=== PATIENT | male | born 1970 | race Caucasian/White ===

== ENCOUNTER → 2017-06-28 | Outpatient (CLI) | payer OTHER ==
--- NOTE | 2017-06-28 13:14 | US ---
EXAMINATION TYPE: US scrotum with doppler. Grayscale and color Doppler Duplex imaging performed of t he scrotum. DATE OF EXAM: 06/28/2017 COMPARISON: NONE CLINICAL HISTORY: N50.819 Testicular Pain; left scrotal pain x 6 months; hematuria EXAM MEASUREMENTS: TESTICLES: Right Testicle: 4.7 x 2.3 x 3.3 cm Left Testicle: 4.8 x 3.2 x 2.4 cm EPIDIDYMIS HEAD: Right Epididymis: 1.2 x 1.0 x 1.0 cm Left Epididymis: 1.0 x 2.6 x 0.9 cm Doppler performed to assess for testicular vascularity; good bilateral color flow and waveforms are s een. Presence of hydroceles: small amount of fluid noted in superior right scrotal sac with low level int ernal echoes noted = 2.0 x 1.5 x 0.6cm; larger fluid area noted inferior left scrotal sac = 2.9 x 2.2 x 1.1cm Presence of varicoceles: no There is small right scrotal fluid collection or hydrocele which is not completely anechoic. There ar e small to moderate-sized left scrotal fluid collection. Towards end of study color comparison view s hows symmetric blood flow to both testicles. IMPRESSION: No suspicious increased or decreased blood flow to left testicle identified.
== END | disposition home or self-care (01) ==
LOC: RADUSWWP 11:12
PROVIDERS: ATTEND Internal Medicine
DX: N50.819 Testicular pain, unspecified (principal)
CPT/HCPCS: 76870; 93975

== ENCOUNTER → 2017-10-12 | Outpatient (CLI) | payer OTHER ==
--- NOTE | 2017-10-14 14:48 | MR ---
EXAMINATION TYPE: MR brain wo/w con DATE OF EXAM: 10/12/2017 COMPARISON: Brain MRI for mastoiditis effusion 08/20/2017 HISTORY: Acute disseminated encephalomyelitis TECHNIQUE: Multiplanar, multisequence images of the brain and brainstem is performed without and with IV contras t, utilizing 11 mL intravenous Gadavist . FINDINGS: There has been progression in the size, distribution of T2 hyperintensities within the whit e matter, the hyperintensities seen in the centrum semiovale on previous exam has become more conflue nt and extensive on the right as well as some progression in the left parietal and right frontal whit e matter. Postcontrast images show some interval increase in enhancement in the right parietal white matter whi ch is somewhat more focal than on prior exam, some small scattered areas of enhancement persist bilat erally, thought to be improved. No significant mass effect, ventricles appear stable. No evident recent infarction or acute hemorrhag e. IMPRESSION: There has been some progression in the extent of involvement of the white matter as vinod red to prior exam. Some more confluence enhancement is noted in the right parietal lobe deep white ma tter as compared to prior.
== END | disposition home or self-care (01) ==
LOC: RADMRIMAIN 12:47
PROVIDERS: ATTEND Student in an Organized Health Care Education/Training Program
DX: R90.82 White matter disease, unspecified (principal); G04.00 Acute disseminated encephalitis and encephalomyelitis, unspecified
CPT/HCPCS: 70553; A9581

== ENCOUNTER → 2018-11-16 | Outpatient (CLI) | payer OTHER ==
--- NOTE | 2018-11-16 11:55 | US ---
EXAMINATION TYPE: US venous doppler duplex LE LT DATE OF EXAM: 11/16/2018 11:43 AM COMPARISON: NONE CLINICAL HISTORY: M79.662,R22.42 PAIN AND SWELLING LT LOWER LIMB. SIDE PERFORMED: LEFT TECHNIQUE: The lower extremity deep venous system is examined utilizing real time linear array sonog noam with graded compression, doppler sonography and color-flow sonography. VESSELS IMAGED: External Iliac Vein (EIV) Common Femoral Vein Deep Femoral Vein Greater Saphenous Vein * Femoral Vein Popliteal Vein Small Saphenous Vein * Proximal Calf Veins (* superficial vessels) Grayscale, color doppler, spectral doppler imaging performed of the deep veins of the left lower extr emity. There is normal flow, compressibility, vascular waveforms. Left Leg: wnl, upper post calf area appears to be superficial venous thrombosis, incompletely occlud ed. IMPRESSION: 1. Superficial venous thrombosis/femoral phlebitis at the area of concern within the left lower extre mity. 2. No sonographic evidence of deep venous thrombosis within the left lower extremity.
== END | disposition home or self-care (01) ==
LOC: RADUSWWP 10:55
PROVIDERS: ATTEND Internal Medicine
DX: M79.662 Pain in left lower leg (principal); R22.42 Localized swelling, mass and lump, left lower limb

== ENCOUNTER → 2019-10-09 | Outpatient (CLI) | payer OTHER ==
[2019-10-09 17:34] LABS: African American GFR (CKD) 90.9 (60.0-200.0); Albumin 4.5 g/dL (3.80-4.90); Albumin/Globulin Ratio 1.88 (1.60-3.17); Anion Gap 11.8 mmol/L (4.00-12.00); BUN/Creat Ratio 22.73 Ratio (12.00-20.00); Calcium 10.1 mg/dL (8.7-10.3); Carbon Dioxide 24.2 mmol/L (21.6-31.8); Chol/HDL Ratio 5.5; Globulin 2.4 g/dL (1.6-3.3); Non-African American GFR(CKD) 78.4 (60.0-200.0); Potassium 4.4 mmol/L (3.5-5.5); Total Bilirubin 0.4 mg/dL (0.2-1.2); Total Protein 6.9 g/dL (6.2-8.2)
== END | disposition home or self-care (01) ==
LOC: LABWHC1 10:16
PROVIDERS: ATTEND Physician Assistant
DX: I10 Essential (primary) hypertension (principal); N40.1 Benign prostatic hyperplasia with lower urinary tract symptoms; E78.5 Hyperlipidemia, unspecified; R22.43 Localized swelling, mass and lump, lower limb, bilateral
CPT/HCPCS: 36415; 80053; 80061; 83721; 83880; 84153

== ENCOUNTER 2020-10-04 17:39 | Inpatient (IN) | payer MEDICARE, OTHER ==
[2020-10-04] MEDS ORDERED: SODIUM CHLORIDE 0.9% 1,000 ML IV STA ×2 (18:12→19:59)
[2020-10-04] MEDS ORDERED: ONDANSETRON 4 MG/2 ML VIAL IVP STA (18:12)
[2020-10-04] MEDS ORDERED: HYDROmorphone 1 MG/ML 1 ML SYRINGE IVP STA (18:13)
[2020-10-04] MEDS ORDERED: FAMOTIDINE 20 MG/2 ML VIAL IV STA (18:13)
--- NOTE | 2020-10-04 18:16 | ED ---
General Adult HPI - General Chief complaint: Abdominal Pain Stated complaint: ab pain Time Seen by Provider: 10/04/20 18:00 Source: patient, RN notes reviewed Mode of arrival: ambulatory Limitations: no limitations - History of Present Illness Initial comments: Patient is a pleasant 49-year-old male presenting to the emergency Department with complaints of abdominal discomfort. Symptoms have progressed over the past couple of days. Patient has had nausea with several episodes of vomiting and dry heaves. No fever however patient is felt sweaty. No constipation or diarrhea. No history of similar symptoms previously. - Related Data Home Medications Medication Instructions Recorded Confirmed Aspirin EC [Ecotrin Low Dose] 81 mg PO DAILY 10/04/20 10/04/20 Atorvastatin Calcium [Lipitor] 10 mg PO HS 10/04/20 10/04/20 Fenofibrate Nanocrystallized 145 mg PO DAILY 10/04/20 10/04/20 [Fenofibrate] Losartan Potassium [Cozaar] 100 mg PO DAILY 10/04/20 10/04/20 amLODIPine [Norvasc] 5 mg PO DAILY 10/04/20 10/04/20 busPIRone HCl [Buspar] 10 mg PO TID 10/04/20 10/04/20 valACYclovir HCL [Valtrex] 500 mg PO DAILY 10/04/20 10/04/20 Allergies Allergy/AdvReac Type Severity Reaction Status Date / Time No Known Allergies Allergy Verified 10/04/20 19:58 Review of Systems ROS Statement: Those systems with pertinent positive or pertinent negative responses have been documented in the HPI. ROS Other: All systems not noted in ROS Statement are negative. Constitutional: Denies: fever Eyes: Denies: eye pain ENT: Denies: ear pain Respiratory: Denies: cough Cardiovascular: Denies: chest pain Endocrine: Denies: fatigue Gastrointestinal: Reports: as per HPI, abdominal pain, nausea, vomiting Genitourinary: Denies: dysuria Musculoskeletal: Denies: back pain Skin: Denies: rash Neurological: Denies: weakness Past Medical History Past Medical History: Hyperlipidemia, Hypertension Additional Past Medical History / Comment(s): encephomylitis, cognitive impairment History of Any Multi-Drug Resistant Organisms: None Reported Additional Past Surgical History / Comment(s): knn Past Psychological History: Anxiety, Depression Smoking Status: Never smoker Past Alcohol Use History: None Reported Past Drug Use History: None Reported General Exam Limitations: no limitations General appearance: alert Head exam: Present: normocephalic Eye exam: Present: normal appearance, PERRL ENT exam: Present: mucous membranes dry Neck exam: Present: normal inspection Respiratory exam: Present: normal lung sounds bilaterally Cardiovascular Exam: Present: tachycardia Expanded Peripheral pulses: 2+: Radial (R), Radial (L), Dorsalis Pedis (R), Dorsalis Pedis (L) GI/Abdominal exam: Present: distended, tenderness (Moderate diffuse tenderness), hypoactive bowel sounds. Absent: rigid, pulsatile mass Extremities exam: Present: normal inspection Neurological exam: Present: alert Psychiatric exam: Present: normal affect, normal mood Skin exam: Present: normal color Course Vital Signs 10/04/20 10/04/20 10/04/20 17:51 19:06 20:09 Temperature 98.1 F Pulse Rate 106 H 105 H 102 H Respiratory 18 16 20 Rate Blood Pressure 79/68 107/69 101/71 O2 Sat by Pulse 99 98 95 Oximetry - Reevaluation(s) Reevaluation #1: 10/04/20 20:02 Calculated serum osmolarity 296 10/04/20 20:31 Case was discussed with Dr. Fitzgerald who will consult and agrees with ICU. Case also discussed with Dr. Pearce who will consult for critical care. He does request adding ABG. Patient reevaluated. Patient and family updated. 10/04/20 20:35 Case also discussed with Dr. Cantrell, who will admit covering for Dr. Schrader. He does request high-dose heparin. Also insulin drip. EKG Findings - EKG Comments: EKG Findings:: Sinus tachycardia with a rate of 111. WV 170. QRS 100. QT 344. QTC 467. After axis. Septal Q waves. Inferior Q waves. No acute ST change. Medical Decision Making - Lab Data Result diagrams: 10/04/20 18:14 10/04/20 18:14 Lab Results 10/04/20 10/04/20 10/04/20 Range/Units 18:14 18:14 18:14 WBC 23.6 H (3.8-10.6) k/uL RBC 4.59 (4.30-5.90) m/uL Hgb 14.5 (13.0-17.5) gm/dL Hct 45.9 (39.0-53.0) % MCV 99.8 (80.0-100.0) fL MCH 31.5 (25.0-35.0) pg MCHC 31.6 (31.0-37.0) g/dL RDW 13.0 (11.5-15.5) % Plt Count 502 H (150-450) k/uL MPV 8.7 Neutrophils % 90 % Lymphocytes % 5 % Monocytes % 3 % Eosinophils % 0 % Basophils % 0 % Neutrophils # 21.3 H (1.3-7.7) k/uL Lymphocytes # 1.3 (1.0-4.8) k/uL Monocytes # 0.8 (0-1.0) k/uL Eosinophils # 0.1 (0-0.7) k/uL Basophils # 0.1 (0-0.2) k/uL Hypochromasia Moderate PT 11.0 (9.0-12.0) sec INR 1.0 (<1.2) APTT 22.6 (22.0-30.0) sec Sodium 116 L* (137-145) mmol/L Potassium 6.0 H (3.5-5.1) mmol/L Chloride 80 L (98-107) mmol/L Carbon Dioxide 8 L* (22-30) mmol/L Anion Gap 28 mmol/L BUN 28 H (9-20) mg/dL Creatinine 2.41 H (0.66-1.25) mg/dL Est GFR (CKD-EPI)AfAm 35 (>60 ml/min/1.73 sqM) Est GFR (CKD-EPI)NonAf 30 (>60 ml/min/1.73 sqM) Glucose 969 H* (74-99) mg/dL Calcium 7.4 L (8.4-10.2) mg/dL Total Bilirubin 1.7 H (0.2-1.3) mg/dL AST 52 (17-59) U/L ALT 25 (4-49) U/L Alkaline Phosphatase 113 (38-126) U/L Troponin I (0.000-0.034) ng/mL Total Protein 6.4 (6.3-8.2) g/dL Albumin 3.8 (3.5-5.0) g/dL Amylase 1399 H* (30-110) U/L Lipase >05329 H (23-300) U/L Coronavirus (PCR) (Not Detectd) 10/04/20 10/04/20 Range/Units 18:14 18:49 WBC (3.8-10.6) k/uL RBC (4.30-5.90) m/uL Hgb (13.0-17.5) gm/dL Hct (39.0-53.0) % MCV (80.0-100.0) fL MCH (25.0-35.0) pg MCHC (31.0-37.0) g/dL RDW (11.5-15.5) % Plt Count (150-450) k/uL MPV Neutrophils % % Lymphocytes % % Monocytes % % Eosinophils % % Basophils % % Neutrophils # (1.3-7.7) k/uL Lymphocytes # (1.0-4.8) k/uL Monocytes # (0-1.0) k/uL Eosinophils # (0-0.7) k/uL Basophils # (0-0.2) k/uL Hypochromasia PT (9.0-12.0) sec INR (<1.2) APTT (22.0-30.0) sec Sodium (137-145) mmol/L Potassium (3.5-5.1) mmol/L Chloride (98-107) mmol/L Carbon Dioxide (22-30) mmol/L Anion Gap mmol/L BUN (9-20) mg/dL Creatinine (0.66-1.25) mg/dL Est GFR (CKD-EPI)AfAm (>60 ml/min/1.73 sqM) Est GFR (CKD-EPI)NonAf (>60 ml/min/1.73 sqM) Glucose (74-99) mg/dL Calcium (8.4-10.2) mg/dL Total Bilirubin (0.2-1.3) mg/dL AST (17-59) U/L ALT (4-49) U/L Alkaline Phosphatase (38-126) U/L Troponin I <0.012 (0.000-0.034) ng/mL Total Protein (6.3-8.2) g/dL Albumin (3.5-5.0) g/dL Amylase (30-110) U/L Lipase (23-300) U/L Coronavirus (PCR) Not Detected (Not Detectd) - Radiology Data Radiology results: report reviewed (Computed tomography scan shows moderate to severe interstitial pancreatitis with edema and stranding. Secondary complication nonocclusive splenic vein thrombosis. Metallic density second portion of duodenum. Duodenitis and proximal jejunitis adjacent to pancreatic inflammation. Moderate ascites.) Critical Care Time Critical Care Time: Yes Total Critical Care Time: 44 Disposition Clinical Impression: Pancreatitis, Hyperglycemia, Acute kidney injury, Hyponatremia, Splenic vein thrombosis Disposition: ADMITTED IP TO THIS HOSP Condition: Critical Is patient prescribed a controlled substance at d/c from ED?: No Referrals: Gonzales Thompson MD [Primary Care Provider] - 1-2 days Decision Time: 20:26
[2020-10-04 18:41] LABS: Basophils # (A) 0.1 k/uL (0-0.2); Basophils % (A) 0 %; Eosinophils # (A) 0.1 k/uL (0-0.7); Eosinophils % (A) 0 %; HCT 45.9 % (39.0-53.0); HGB 14.5 gm/dL (13.0-17.5); Hypochromasia Moderate; Lymphocytes # (A) 1.3 k/uL (1.0-4.8); Lymphocytes % (A) 5 %; MCH 31.5 pg (25.0-35.0); MCHC 31.6 g/dL (31.0-37.0); MCV 99.8 fL (80.0-100.0); Mean Platelet Volume 8.7; Monocytes # (A) 0.8 k/uL (0-1.0); Monocytes % (A) 3 %; Neutrophils # (A) 21.3 k/uL (1.3-7.7); Neutrophils % (A) 90 %; Platelet Count 502 k/uL (150-450); RBC 4.59 m/uL (4.30-5.90); WBC 23.6 k/uL (3.8-10.6)
[2020-10-04 18:55] LABS: Partial Thromboplastin Time 22.6 sec (22.0-30.0)
[2020-10-04 19:02] LABS: ALT 25 U/L (4-49); AST 52 U/L (17-59); African American GFR (CKD) 35 (>60 ml/min/1.73 sqM); Albumin 3.8 g/dL (3.5-5.0); Alkaline Phosphatase 113 U/L (38-126); Anion Gap 28 mmol/L; Blood Urea Nitrogen 28 mg/dL (9-20); Calcium 7.4 mg/dL (8.4-10.2); Chloride 80 mmol/L (98-107); Non-African American GFR(CKD) 30 (>60 ml/min/1.73 sqM); Total Bilirubin 1.7 mg/dL (0.2-1.3); Total Protein 6.4 g/dL (6.3-8.2)
[2020-10-04 19:45] LABS: Lipase >20000 U/L (23-300)
[2020-10-04 19:48] LABS: Carbon Dioxide 8 mmol/L (22-30); Glucose 969 mg/dL (74-99); Sodium 116 mmol/L (137-145)
[2020-10-04 19:49] LABS: Amylase 1399 U/L (30-110)
[2020-10-04] MEDS ORDERED: INSULIN REGULAR 100 UNIT/ML VIAL (IV) IV ONE (20:11)
--- NOTE | 2020-10-04 20:19 | CT ---
EXAMINATION TYPE: CT abdomen pelvis w con DATE OF EXAM: 10/04/2020 COMPARISON: NONE HISTORY: 49-year-old male abdominal pain, RLQ pain, vomiting TECHNIQUE: Contiguous axial scanning of the abdomen and pelvis following administration of 100 ml Iso ayaan 300 IV contrast. Delayed images through the kidneys and coronal/sagittal reconstructions perform ed. CT DLP: 1973.9 mGycm Automated exposure control for dose reduction was used. FINDINGS: Heart normal size without pericardial effusion. Prominent dependent atelectasis. No pleural effusion. Liver enlarged at 22.5 cm with low attenuation. There is trace perihepatic ascites. Some type of 1.6 cm metallic density, possible crown in the second portion of the duodenum, unclear i f this is an incidental finding. There is prominent fluid distention of the stomach. Diffuse thickening and extensive surrounding inflammatory fat stranding along the entirety of the barrow creas. There is moderate circumferential wall thickening of the duodenum and first portion of the jej unum and corresponding dilatation of the 3.6 cm. There is long segment internal filling defect along the length of the spine clinic vein, refer to axi al image 34 and coronal image 63. No intrapancreatic or peripancreatic well-defined fluid collection is identified. Adrenal glands and spleen within normal limits. Tiny 5 mm cortical hypodensity mid left kidney too small for accurate CT characterization, likely tin y cysts. 2 mm nonobstructive left lower pole renal calculus. A couple cysts are present in the right kidney measuring 1.1 and 2.3 cm. There is delayed excretion of contrast from both kidneys on the delayed kidney images. Correlation ma de for GIANCARLO. Inflammatory fat stranding and edema tracks down the retroperitoneum and mesentery down to the umbili amish level. No other dilated small bowel. No free air. Normal appendix. No significant stool burden. Sigmoid diverticulosis. Bladder partially distended. Pelvic phleboliths. Mild to moderate cul-de-sac free fluid. Bones: Mild degenerative change of the hips. Bilateral L5 pars defects with nearly grade 2 anterolist hesis at L5-S1 and grade 1 retrolisthesis at L4-L5. [facility] within the lower thoracic spine. IMPRESSION: 1. MODERATE TO SEVERE ACUTE INTERSTITIAL PANCREATITIS. INFLAMMATORY EDEMA AND FAT STRANDING TRACKS DO WN THE MESENTERY AND RETROPERITONEUM TO THE UMBILICAL LEVEL. NO FOCAL FLUID COLLECTION AT THIS TIME. 2. SECONDARY COMPLICATION WITH A LONG SEGMENT NONOCCLUSIVE SPLENIC VEIN THROMBOSIS. 3. A 1.6 CM METAL DENSITY WITHIN THE SECOND PORTION OF THE DUODENUM. CORRELATE TO ETIOLOGY, QUESTI ON A DENTAL CROWN OR OTHER INGESTED FOREIGN BODY. THE CLINICAL SIGNIFICANCE OF THIS IS UNCLEAR. WE DO NOTE PROMINENT FLUID DISTENTION OF THE STOMACH. UNSURE IF THIS IS CONTRIBUTING TO SOME TYPE OF GASTR IC OUTLET OBSTRUCTION. 4. A CONTIGUOUS DUODENITIS AND PROXIMAL JEJUNITIS ADJACENT TO THE PANCREATIC INFLAMMATION. 5. TRACE PERIHEPATIC ASCITES AND MILD TO MODERATE PELVIC ASCITES, SECONDARY TO THE PANCREATIC INFLAMM ATION. 6. NO EXCRETION OF CONTRAST FROM THE KIDNEYS ON THE DELAYED KIDNEY IMAGES. CORRELATE WITH BUN/CREATIN INE FOR GIANCARLO. 7. HEPATOMEGALY WITH SEVERE HEPATIC STEATOSIS. SIGMOID DIVERTICULOSIS. PUNCTATE 2 MM NONOBSTRUCTIVE L EFT RENAL CALCULUS. BILATERAL L5 PARS DEFECTS WITH NEARLY GRADE 2 ANTEROLISTHESIS AT L5-S1.
[2020-10-04] MEDS ORDERED: NALOXONE 0.4 MG/ML 1 ML VIAL IV PRN (20:26)
[2020-10-04] MEDS ORDERED: HEPARIN SODIUM 1,000 UN/ML (10ML VL) IV ONE (20:36)
[2020-10-04 20:48] LABS: LDH 1155 U/L (313-618); Magnesium 1.6 mg/dL (1.6-2.3); Phosphorus 5.2 mg/dL (2.5-4.5)
[2020-10-04 20:51] LABS: Appearance,Urine Clear (Clear); Bilirubin,Urine Negative (Negative); Blood,Urine Negative (Negative); Color,Urine Light Yellow; Glucose,Urine (UA) 4+ (Negative); Ketones,Urine 1+ (Negative); Leukocyte Esterase,Urine Negative (Negative); Nitrite,Urine Negative (Negative); Protein,Urine Trace (Negative); Urobilinogen,Urine <2.0 mg/dL (<2.0)
[2020-10-04] MEDS: SODIUM CHLORIDE 0.9% 1,000 ML IV SCH ×2 (20:52→20:54)
[2020-10-04] MEDS: HEPARIN SOD,PORK IN 0.45% NACL 25,000 UNIT in 0.45% NACL 1 250ML.BAG IV SCH (20:54)
[2020-10-04] MEDS: INSULIN REGULAR 100 UNIT in SODIUM CHLORIDE 0.9% 100 ML IV SCH (21:05)
[2020-10-04 21:09] LABS: Glucose,Whole Blood >600 mg/dL (75-99)
[2020-10-04 21:57] LABS: Glucose,Whole Blood >600 mg/dL (75-99)
[2020-10-04 22:17] LABS: Glucose,Whole Blood >600 mg/dL (75-99)
[2020-10-04 23:29] LABS: Glucose,Whole Blood >600 mg/dL (75-99)
[2020-10-05 00:51] LABS: Glucose,Whole Blood 592 mg/dL (75-99)
[2020-10-05 00:54] LABS: Potassium 4.4 mmol/L (3.5-5.1)
[2020-10-05] MEDS ORDERED: ONDANSETRON 4 MG/2 ML VIAL IM STA (01:16)
[2020-10-05] MEDS ORDERED: ONDANSETRON 4 MG/2 ML VIAL IVP STA (01:58)
[2020-10-05] MEDS: HYDROmorphone 0.5 MG/0.5 ML SYRINGE IVP PRN (01:59)
[2020-10-05] MEDS: SODIUM CHLORIDE 0.9% 1,000 ML IV SCH ×2 (02:05→08:12)
[2020-10-05 02:11] LABS: Glucose,Whole Blood 507 mg/dL (75-99)
[2020-10-05 03:14] LABS: Glucose,Whole Blood 491 mg/dL (75-99)
[2020-10-05] MEDS: INSULIN REGULAR 100 UNIT in SODIUM CHLORIDE 0.9% 100 ML IV SCH ×2 (03:28→14:37)
[2020-10-05] MEDS: HYDROmorphone 1 MG/ML 1 ML SYRINGE IVP PRN ×4 (03:37→20:08)
[2020-10-05 03:50] LABS: Basophils # (A) 0.1 k/uL (0-0.2); Basophils % (A) 0 %; Eosinophils % (A) 0 %; HCT 42.7 % (39.0-53.0); Lymphocytes # (A) 1.5 k/uL (1.0-4.8); Lymphocytes % (A) 7 %; MCH 30.7 pg (25.0-35.0); MCHC 32.9 g/dL (31.0-37.0); MCV 93.4 fL (80.0-100.0); Mean Platelet Volume 8.3; Monocytes # (A) 0.4 k/uL (0-1.0); Monocytes % (A) 2 %; Neutrophils % (A) 91 %; Platelet Count 451 k/uL (150-450); RBC 4.57 m/uL (4.30-5.90); RDW 13.6 % (11.5-15.5)
[2020-10-05 04:27] LABS: Glucose,Whole Blood 398 mg/dL (75-99)
[2020-10-05] MEDS: SODIUM CHLORIDE 0.9% 1,000 ML IV ONE ×2 (04:30→05:30)
[2020-10-05 05:12] LABS: INR 1.1 (<1.2); Prothrombin Time 11.8 sec (9.0-12.0)
[2020-10-05 05:19] LABS: Albumin 3.1 g/dL (3.5-5.0); Magnesium 1.7 mg/dL (1.6-2.3); Potassium 4.1 mmol/L (3.5-5.1); Total Bilirubin 0.9 mg/dL (0.2-1.3); Total Protein 5.7 g/dL (6.3-8.2)
[2020-10-05 05:48] LABS: Glucose,Whole Blood 354 mg/dL (75-99)
[2020-10-05] MEDS ORDERED: SODIUM CHLORIDE 0.9% 1,000 ML IV ONE (05:49)
[2020-10-05 05:53] LABS: Calcium 6.4 mg/dL (8.4-10.2)
[2020-10-05 06:40] LABS: Glucose,Whole Blood 247 mg/dL (75-99)
[2020-10-05] MEDS ORDERED: SODIUM CHLORIDE 0.9% 500 ML 500 ML IV ONE (06:59)
[2020-10-05 07:39] LABS: Glucose,Whole Blood 215 mg/dL (75-99)
[2020-10-05] MEDS: PANTOPRAZOLE 40 MG/10 ML VIAL IV SCH (08:15)
[2020-10-05] MEDS: D5-0.45% NACL WITH KCL 20MEQ/L 1,000 ML IV SCH ×3 (08:16→22:31)
[2020-10-05 09:01] LABS: Glucose,Whole Blood 179 mg/dL (75-99)
--- NOTE | 2020-10-05 09:52 | P.CNPUL ---
History of Present Illness Consult date: 10/05/20 Requesting physician: Lizzy Cantrell Reason for consult: other (Critical care management) Chief complaint: Abdominal pain History of present illness: This is a pleasant 49-year-old gentleman who follows with Dr. Thompson as his primary care provider. He has a history of hyperlipidemia, hypertension, shingles with encephalomyelitis and cognitive impairment, anxiety/depression. Lifelong nonsmoker. He presented to the emergency room yesterday with a 2 day history of increasing abdominal discomfort, nausea vomiting dry heaves. Diaphoretic. Computed tomography scan of the abdomen revealed moderate to severe acute interstitial pancreatitis. Inflammatory edema and fat stranding tracks on the mesentery and retroperitoneum to the umbilical level. No focal fluid collection noted. There is secondary complication with a long segment nonocclusive splenic vein thrombosis. There is a 1.6 cm metal density within the second portion of the duodenum. Questionable etiology possible dental crown or other ingested foreign body. Unsure if this is contributing to some type of gastric outlet obstruction. There is contiguous duodenitis and proximal jejunitis adjacent to the pancreatic inflammation. Trace perihepatic ascites and mild to moderate pelvic ascites secondary to pancreatic inflammation. No excretion of contrast and the kidneys on the delayed kidney images. Possible acute kidney injury. Hepatomegaly with severe hepatic steatosis. Sigmoid diverticulosis. 2 mm nonobstructive left renal calculus. White count 22.0. Hemoglobin 14.0. Platelet count 451. Sodium initially 116 currently 125. Potassium initially 6.0 currently 4.1. I carb initially 8, currently 15. Anion gap initially 28, currently 17. Creatinine 2.70. Initial blood glucose 969. Currently 179. Calcium 6.4. LDH 1570. AST 54. ALT 29. Amylase 901. Lipase 10,000 385. Acetone positive. Hurtado virus not detected. He is currently awake and alert. Maintaining O2 saturations in the 90s on 5 L/m per nasal cannula. He is on a heparin drip per weight-based protocol. Insulin drip at 12 units per hour. 0.9 normal saline at 10 mL per hour. He's had an extreme total of 4.5 L of fluid resuscitation. IV is to be changed to D5.45 with 20 KCl at 150 MLS per hour per DKA protocol. Review of Systems REVIEW OF SYSTEMS: CONSTITUTIONAL: Denies any recent significant weight loss or weight gain. EYES: Denies change in vision. EARS, NOSE, MOUTH, THROAT: Denies headaches, denies sore throat. CARDIOVASCULAR: Denies chest pain, palpitations or syncopal episodes. RESPIRATORY: Denies shortness of breath, cough, congestion or hemoptysis. GASTROINTESTINAL: Positive for abdominal pain, nausea, vomiting GENITOURINARY: Denies hematuria, denies infections. MUSKULOSKELETAL: Denies pain, denies swelling. INTEGUMENTARY: Denies rash, denies eczema. NEUROLOGICAL: Denies recent memory loss, no recent seizure activity. PSYCHIATRIC: Denies anxiety, denies depression. HEMATOLOGIC/LYMPHATIC: Denies anemia, denies enlarged lymph nodes. Past Medical History Past Medical History: Hyperlipidemia, Hypertension Additional Past Medical History / Comment(s): encephomylitis, cognitive impairment History of Any Multi-Drug Resistant Organisms: None Reported Additional Past Surgical History / Comment(s): knn Past Anesthesia/Blood Transfusion Reactions: No Reported Reaction Past Psychological History: Anxiety, Depression Smoking Status: Former smoker Past Alcohol Use History: None Reported Past Drug Use History: None Reported Medications and Allergies Home Medications Medication Instructions Recorded Confirmed Type Aspirin EC [Ecotrin Low Dose] 81 mg PO DAILY 10/04/20 10/04/20 History Atorvastatin Calcium [Lipitor] 10 mg PO HS 10/04/20 10/04/20 History Fenofibrate Nanocrystallized 145 mg PO DAILY 10/04/20 10/04/20 History [Fenofibrate] Losartan Potassium [Cozaar] 100 mg PO DAILY 10/04/20 10/04/20 History amLODIPine [Norvasc] 5 mg PO DAILY 10/04/20 10/04/20 History busPIRone HCl [Buspar] 10 mg PO TID 10/04/20 10/04/20 History valACYclovir HCL [Valtrex] 500 mg PO DAILY 10/04/20 10/04/20 History Allergies Allergy/AdvReac Type Severity Reaction Status Date / Time No Known Allergies Allergy Verified 10/04/20 19:58 Physical Exam Vitals: Vital Signs Temp Pulse Pulse Resp BP BP Pulse Ox 10/05/20 08:30 98 13 89/58 91 L 10/05/20 06:00 100 15 78/56 96 10/05/20 05:00 104 H 16 76/57 95 10/05/20 04:00 98.8 F 114 H 15 80/45 90 L 10/05/20 03:00 107 H 18 97/58 95 10/05/20 02:00 113 H 16 99/74 92 L 10/05/20 01:00 101 H 17 110/71 93 L 10/05/20 00:00 103 H 18 99/74 93 L 10/04/20 23:16 103 H 17 98/73 94 L 10/04/20 23:02 102 H 20 98/73 92 L 10/04/20 22:30 102 H 15 102/69 93 L 10/04/20 22:20 98.6 F 103 H 16 109/72 94 L 10/04/20 21:42 102 H 96/66 95 10/04/20 21:20 93/77 99 10/04/20 21:10 99/70 95 10/04/20 21:00 105/69 97 10/04/20 20:50 105/69 96 10/04/20 20:40 89/61 100 10/04/20 20:30 102 H 104/72 96 10/04/20 20:20 107 H 104/72 10/04/20 20:10 102 H 101/71 95 10/04/20 20:09 102 H 20 101/71 95 10/04/20 20:00 101/51 95 10/04/20 19:50 102 H 101/51 94 L 10/04/20 19:40 94 L 10/04/20 19:30 127/91 10/04/20 19:20 127/91 10/04/20 19:10 104 H 107/69 95 10/04/20 19:06 105 H 16 107/69 98 10/04/20 19:00 104 H 104/74 95 10/04/20 18:50 105 H 104/74 95 10/04/20 18:40 108 H 120/81 95 10/04/20 18:30 110 H 109/79 96 10/04/20 18:20 111 H 97 10/04/20 18:11 112 H 10/04/20 17:51 98.1 F 106 H 18 79/68 99 Intake and Output 10/04/20 10/05/20 10/05/20 22:59 06:59 14:59 Intake Total 10.519 1075.505 500 Output Total 1100 Balance 10.519 -24.495 500 Intake: Intake, IV Titration 10. 1075.505 500 Amount Insulin Regular 100 unit 10. 70.505 In Sodium Chloride 0.9% 100 ml @ 0.1 UNITS/KG/HR 11.27 mls/hr IV .Q8H58M [facility] Rx#:[id number] Sodium Chloride 0.9% 1, 405 000 ml @ 135 mls/hr IV . Q7H25M [facility] Rx#:[id number] Sodium Chloride 0.9% 1, 600 000 ml @ 200 mls/hr IV . Q5H [facility] Rx#:[id number] Sodium Chloride 0.9% 500 500 ml 500 ml @ 999 mls/hr IV .Q31M [facility] Rx#:[id number] Output: Urine 1100 Other: Voiding Method Urinal # Voids 2 Weight 116 kg 116 kg GENERAL EXAM: Alert, pleasant 49-year-old, on 5 L nasal cannula, fairly comfortable in no apparent distress. HEAD: Normocephalic. EYES: Normal reaction of pupils, equal size. NOSE: Clear with pink turbinates. THROAT: No erythema or exudates. NECK: No masses, no JVD. CHEST: No chest wall deformity. LUNGS: Equal air entry with no crackles, wheeze, rhonchi or dullness. CVS: S1 and S2 normal with no audible murmur, regular rhythm. ABDOMEN: Tender to palpation, normal bowel sounds, no guarding or rigidity. SPINE: No scoliosis or deformity SKIN: No rashes CENTRAL NERVOUS SYSTEM: No focal deficits, tone is normal in all 4 extremities. EXTREMITIES: There is no peripheral edema. No clubbing, no cyanosis. Peripheral pulses are intact. Results - Laboratory Findings CBC and BMP: 10/05/20 02:45 10/05/20 04:22 PT/INR, D-dimer PT 11.8 sec (9.0-12.0) 10/05/20 04:22 INR 1.1 (<1.2) 10/05/20 04:22 Abnormal lab findings: Abnormal Labs 10/04/20 10/04/20 10/04/20 18:14 18:14 20:21 WBC 23.6 H Plt Count 502 H Neutrophils # 21.3 H APTT Sodium 116 L* Potassium 6.0 H Chloride 80 L Carbon Dioxide 8 L* BUN 28 H Creatinine 2.41 H Glucose 969 H* POC Glucose (mg/dL) Osmolality 315 H Calcium 7.4 L Phosphorus 5.2 H Total Bilirubin 1.7 H Lactate Dehydrogenase 1155 H Total Protein Albumin Amylase 1399 H* Lipase >30931 H Urine Protein Urine Glucose (UA) Urine Ketones 10/04/20 10/04/20 10/04/20 20:40 21:06 21:56 WBC Plt Count Neutrophils # APTT Sodium Potassium Chloride Carbon Dioxide BUN Creatinine Glucose POC Glucose (mg/dL) >600 H >600 H Osmolality Calcium Phosphorus Total Bilirubin Lactate Dehydrogenase Total Protein Albumin Amylase Lipase Urine Protein Trace H Urine Glucose (UA) 4+ H Urine Ketones 1+ H 10/04/20 10/04/20 10/05/20 22:16 23:27 00:32 WBC Plt Count Neutrophils # APTT Sodium 121 L Potassium Chloride 89 L Carbon Dioxide 18 L BUN 32 H Creatinine 2.11 H Glucose 641 H* POC Glucose (mg/dL) >600 H >600 H Osmolality Calcium Phosphorus Total Bilirubin Lactate Dehydrogenase Total Protein Albumin Amylase Lipase Urine Protein Urine Glucose (UA) Urine Ketones 10/05/20 10/05/20 10/05/20 00:50 02:10 02:45 WBC Plt Count Neutrophils # APTT 58.6 H Sodium Potassium Chloride Carbon Dioxide BUN Creatinine Glucose POC Glucose (mg/dL) 592 H 507 H Osmolality Calcium Phosphorus Total Bilirubin Lactate Dehydrogenase Total Protein Albumin Amylase Lipase Urine Protein Urine Glucose (UA) Urine Ketones 10/05/20 10/05/20 10/05/20 02:45 03:12 04:22 WBC 22.0 H Plt Count 451 H Neutrophils # 20.0 H APTT Sodium 125 L Potassium Chloride 93 L Carbon Dioxide 15 L BUN 34 H Creatinine 2.70 H Glucose 399 H POC Glucose (mg/dL) 491 H Osmolality Calcium 6.4 L* Phosphorus Total Bilirubin Lactate Dehydrogenase 1570 H Total Protein 5.7 L Albumin 3.1 L Amylase 901 H* Lipase 43932 H Urine Protein Urine Glucose (UA) Urine Ketones 10/05/20 10/05/20 10/05/20 04:25 05:46 06:38 WBC Plt Count Neutrophils # APTT Sodium Potassium Chloride Carbon Dioxide BUN Creatinine Glucose POC Glucose (mg/dL) 398 H 354 H 247 H Osmolality Calcium Phosphorus Total Bilirubin Lactate Dehydrogenase Total Protein Albumin Amylase Lipase Urine Protein Urine Glucose (UA) Urine Ketones 10/05/20 10/05/20 07:37 08:59 WBC Plt Count Neutrophils # APTT Sodium Potassium Chloride Carbon Dioxide BUN Creatinine Glucose POC Glucose (mg/dL) 215 H 179 H Osmolality Calcium Phosphorus Total Bilirubin Lactate Dehydrogenase Total Protein Albumin Amylase Lipase Urine Protein Urine Glucose (UA) Urine Ketones - Diagnostic Findings Chest x-ray: image reviewed Assessment and Plan Assessment: 1 Acute abdominal pain secondary to moderate to severe acute pancreatitis. 2 Secondary complication with a long segment of nonocclusive splenic vein thrombosis. Currently on a heparin drip. 3 1.6 cm metal density within the second portion of the duodenum. Correlate to etiology, question dental crown or other ingested foreign body. Unclear if this is contributing to some type of gastric outlet obstruction. 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 Wu Give additional 1.5 L of fluid resuscitation May require norepinephrine Random serum cortisol level and a TSH Check ionized calcium Obtain a chest x-ray Continue DKA protocol Keep nothing by mouth We'll give empiric Unasyn We will continue to follow and make further recommendations based on his clinical status I, the cosigning physician, performed a history & physical examination of the patient. Lungs sounds are clear. Maintaining good O2 saturations in the 90s on 5 L/m per nasal cannula. I discussed the assessment and plan of care with my nurse practitioner, Dolly Augustine. I attest to the above consultation as dictated by her. Time with Patient: Greater than 30
[2020-10-05 10:14] LABS: Glucose,Whole Blood 183 mg/dL (75-99)
[2020-10-05 10:42] LABS: ABG Base Excess -13.1 mmol/L; ABG HCO3 13 mmol/L (21-25); ABG Oxygen Saturation 93.5 % (94-97); ABG PCO2 28 mmHg (35-45); ABG PH 7.29 (7.35-7.45); ABG PO2 68 mmHg (83-108); ABG TCO2 14 mmol/L (19-24); Allen Test Performed? Yes
[2020-10-05] MEDS ORDERED: SODIUM BICARB 8.4% 50 ML SYR (1 MEQ/ML) IV STA (10:48)
--- NOTE | 2020-10-05 10:55 | XR ---
EXAMINATION TYPE: XR chest 1V portable DATE OF EXAM: 10/05/2020 COMPARISON: NONE HISTORY: Shortness of breath TECHNIQUE: Single frontal view of the chest is obtained. FINDINGS: Lung volumes and bibasilar atelectasis. No pneumothorax or pleural effusion. No cardiomediastinal silhouette enlargement. No acute osseous abnormality. IMPRESSION: Low lung volumes, bibasilar atelectasis no evidence of pneumonia or CHF.
[2020-10-05] MEDS: HEPARIN SOD,PORK IN 0.45% NACL 25,000 UNIT in 0.45% NACL 1 250ML.BAG IV SCH (11:24)
[2020-10-05 11:35] LABS: Glucose,Whole Blood 214 mg/dL (75-99)
[2020-10-05] MEDS: AMPICILLIN-SULBACTAM 1.5 GM in SODIUM CHLORIDE 0.9% 50 ML IVPB SCH ×2 (11:48→20:20)
[2020-10-05] MEDS ORDERED: CALCIUM GLUCONATE 2 GM in SODIUM CHLORIDE 0.9% 100 ML IVPB ONE (12:00)
--- NOTE | 2020-10-05 12:42 | P.GSCN ---
History of Present Illness Consult date: 10/05/20 Reason for Consult: Abdominal pain History of present illness: This a 49-year-old male who presents through the emergency room with complaints of abdominal pain. Patient's workup and found to have severe pancreatitis. He has multiple comorbidities. He is currently complaining of pain in epigastric area was raised to his back. Past Medical History Past Medical History: Hyperlipidemia, Hypertension Additional Past Medical History / Comment(s): encephomylitis, cognitive imp airment History of Any Multi-Drug Resistant Organisms: None Reported Additional Past Surgical History / Comment(s): knn Past Anesthesia/Blood Transfusion Reactions: No Reported Reaction Past Psychological History: Anxiety, Depression Smoking Status: Former smoker Past Alcohol Use History: None Reported Past Drug Use History: None Reported Medications and Allergies Home Medications Medication Instructions Recorded Confirmed Type Aspirin EC [Ecotrin Low Dose] 81 mg PO DAILY 10/04/20 10/04/20 History Atorvastatin Calcium [Lipitor] 10 mg PO HS 10/04/20 10/04/20 History Fenofibrate Nanocrystallized 145 mg PO DAILY 10/04/20 10/04/20 History [Fenofibrate] Losartan Potassium [Cozaar] 100 mg PO DAILY 10/04/20 10/04/20 History amLODIPine [Norvasc] 5 mg PO DAILY 10/04/20 10/04/20 History busPIRone HCl [Buspar] 10 mg PO TID 10/04/20 10/04/20 History valACYclovir HCL [Valtrex] 500 mg PO DAILY 10/04/20 10/04/20 History Allergies Allergy/AdvReac Type Severity Reaction Status Date / Time No Known Allergies Allergy Verified 10/04/20 19:58 Surgical - Exam Vital Signs Temp Pulse Resp BP Pulse Ox 98.1 F 106 H 18 79/68 99 10/04/20 17:51 10/04/20 17:51 10/04/20 17:51 10/04/20 17:51 10/04/20 17:51 - General well developed, moderate distress - Eyes PERRL - ENT normal pinna, normal nares - Neck no masses - Respiratory normal expansion - Cardiovascular Rhythm: regular - Abdomen Epigastric tenderness Abdomen: soft Results - Labs 10/05/20 02:45 10/05/20 04:22 Abnormal Lab Results - Last 24 Hours (Table) 10/04/20 10/04/2010/04/21 Range/Units 18:14 18:14 20:21 WBC 23.6 H (3.8-10.6) k/uL Plt Count 502 H (150-450) k/uL Neutrophils # 21.3 H (1.3-7.7) k/uL APTT (22.0-30.0) sec ABG pH (7.35-7.45) ABG pCO2 (35-45) mmHg ABG pO2 (83-108) mmHg ABG HCO3 (21-25) mmol/L ABG Total CO2 (19-24) mmol/L ABG O2 Saturation (94-97) % Sodium 116 L* (137-145) mmol/L Potassium 6.0 H (3.5-5.1) mmol/L Chloride 80 L (98-107) mmol/L Carbon Dioxide 8 L* (22-30) mmol/L BUN 28 H (9-20) mg/dL Creatinine 2.41 H (0.66-1.25) mg/dL Glucose 969 H* (74-99) mg/dL POC Glucose (mg/dL) (75-99) mg/dL Osmolality 315 H (280-301) mosm/kg Calcium 7.4 L (8.4-10.2) mg/dL Ionized Calcium Nicole (4.5-5.3) mg/dL Phosphorus 5.2 H (2.5-4.5) mg/dL Total Bilirubin 1.7 H (0.2-1.3) mg/dL Lactate Dehydrogenase 1155 H (313-618) U/L Total Protein (6.3-8.2) g/dL Albumin (3.5-5.0) g/dL Amylase 1399 H* (30-110) U/L Lipase >82822 H (23-300) U/L Urine Protein (Negative) Urine Glucose (UA) (Negative) Urine Ketones (Negative) 10/04/20 10/04/20 10/04/20 Range/Units 20:40 21:06 21:56 WBC (3.8-10.6) k/uL Plt Count (150-450) k/uL Neutrophils # (1.3-7.7) k/uL APTT (22.0-30.0) sec ABG pH (7.35-7.45) ABG pCO2 (35-45) mmHg ABG pO2 (83-108) mmHg ABG HCO3 (21-25) mmol/L ABG Total CO2 (19-24) mmol/L ABG O2 Saturation (94-97) % Sodium (137-145) mmol/L Potassium (3.5-5.1) mmol/L Chloride (98-107) mmol/L Carbon Dioxide (22-30) mmol/L BUN (9-20) mg/dL Creatinine (0.66-1.25) mg/dL Glucose (74-99) mg/dL POC Glucose (mg/dL) >600 H >600 H (75-99) mg/dL Osmolality (280-301) mosm/kg Calcium (8.4-10.2) mg/dL Ionized Calcium Nicole (4.5-5.3) mg/dL Phosphorus (2.5-4.5) mg/dL Total Bilirubin (0.2-1.3) mg/dL Lactate Dehydrogenase (313-618) U/L Total Protein (6.3-8.2) g/dL Albumin (3.5-5.0) g/dL Amylase (30-110) U/L Lipase (23-300) U/L Urine Protein Trace H (Negative) Urine Glucose (UA) 4+ H (Negative) Urine Ketones 1+ H (Negative) 10/04/20 10/04/20 10/05/20 Range/Units 22:16 23:27 00:32 WBC (3.8-10.6) k/uL Plt Count (150-450) k/uL Neutrophils # (1.3-7.7) k/uL APTT (22.0-30.0) sec ABG pH (7.35-7.45) ABG pCO2 (35-45) mmHg ABG pO2 (83-108) mmHg ABG HCO3 (21-25) mmol/L ABG Total CO2 (19-24) mmol/L ABG O2 Saturation (94-97) % Sodium 121 L (137-145) mmol/L Potassium (3.5-5.1) mmol/L Chloride 89 L (98-107) mmol/L Carbon Dioxide 18 L (22-30) mmol/L BUN 32 H (9-20) mg/dL Creatinine 2.11 H (0.66-1.25) mg/dL Glucose 641 H* (74-99) mg/dL POC Glucose (mg/dL) >600 H >600 H (75-99) mg/dL Osmolality (280-301) mosm/kg Calcium (8.4-10.2) mg/dL Ionized Calcium Nicole (4.5-5.3) mg/dL Phosphorus (2.5-4.5) mg/dL Total Bilirubin (0.2-1.3) mg/dL Lactate Dehydrogenase (313-618) U/L Total Protein (6.3-8.2) g/dL Albumin (3.5-5.0) g/dL Amylase (30-110) U/L Lipase (23-300) U/L Urine Protein (Negative) Urine Glucose (UA) (Negative) Urine Ketones (Negative) 10/05/20 10/05/20 10/05/20 Range/Units 00:50 02:10 02:45 WBC (3.8-10.6) k/uL Plt Count (150-450) k/uL Neutrophils # (1.3-7.7) k/uL APTT 58.6 H (22.0-30.0) sec ABG pH (7.35-7.45) ABG pCO2 (35-45) mmHg ABG pO2 (83-108) mmHg ABG HCO3 (21-25) mmol/L ABG Total CO2 (19-24) mmol/L ABG O2 Saturation (94-97) % Sodium (137-145) mmol/L Potassium (3.5-5.1) mmol/L Chloride (98-107) mmol/L Carbon Dioxide (22-30) mmol/L BUN (9-20) mg/dL Creatinine (0.66-1.25) mg/dL Glucose (74-99) mg/dL POC Glucose (mg/dL) 592 H 507 H (75-99) mg/dL Osmolality (280-301) mosm/kg Calcium (8.4-10.2) mg/dL Ionized Calcium Nicole (4.5-5.3) mg/dL Phosphorus (2.5-4.5) mg/dL Total Bilirubin (0.2-1.3) mg/dL Lactate Dehydrogenase (313-618) U/L Total Protein (6.3-8.2) g/dL Albumin (3.5-5.0) g/dL Amylase (30-110) U/L Lipase (23-300) U/L Urine Protein (Negative) Urine Glucose (UA) (Negative) Urine Ketones (Negative) 10/05/20 10/05/20 10/05/20 Range/Units 02:45 03:12 04:22 WBC 22.0 H (3.8-10.6) k/uL Plt Count 451 H (150-450) k/uL Neutrophils # 20.0 H (1.3-7.7) k/uL APTT (22.0-30.0) sec ABG pH (7.35-7.45) ABG pCO2 (35-45) mmHg ABG pO2 (83-108) mmHg ABG HCO3 (21-25) mmol/L ABG Total CO2 (19-24) mmol/L ABG O2 Saturation (94-97) % Sodium 125 L (137-145) mmol/L Potassium (3.5-5.1) mmol/L Chloride 93 L (98-107) mmol/L Carbon Dioxide 15 L (22-30) mmol/L BUN 34 H (9-20) mg/dL Creatinine 2.70 H (0.66-1.25) mg/dL Glucose 399 H (74-99) mg/dL POC Glucose (mg/dL) 491 H (75-99) mg/dL Osmolality (280-301) mosm/kg Calcium 6.4 L* (8.4-10.2) mg/dL Ionized Calcium Nicole (4.5-5.3) mg/dL Phosphorus (2.5-4.5) mg/dL Total Bilirubin (0.2-1.3) mg/dL Lactate Dehydrogenase 1570 H (313-618) U/L Total Protein 5.7 L (6.3-8.2) g/dL Albumin 3.1 L (3.5-5.0) g/dL Amylase 901 H* (30-110) U/L Lipase 22720 H (23-300) U/L Urine Protein (Negative) Urine Glucose (UA) (Negative) Urine Ketones (Negative) 10/05/20 10/05/20 10/05/20 Range/Units 04:25 05:46 06:38 WBC (3.8-10.6) k/uL Plt Count (150-450) k/uL Neutrophils # (1.3-7.7) k/uL APTT (22.0-30.0) sec ABG pH (7.35-7.45) ABG pCO2 (35-45) mmHg ABG pO2 (83-108) mmHg ABG HCO3 (21-25) mmol/L ABG Total CO2 (19-24) mmol/L ABG O2 Saturation (94-97) % Sodium (137-145) mmol/L Potassium (3.5-5.1) mmol/L Chloride (98-107) mmol/L Carbon Dioxide (22-30) mmol/L BUN (9-20) mg/dL Creatinine (0.66-1.25) mg/dL Glucose (74-99) mg/dL POC Glucose (mg/dL) 398 H 354 H 247 H (75-99) mg/dL Osmolality (280-301) mosm/kg Calcium (8.4-10.2) mg/dL Ionized Calcium Nicole (4.5-5.3) mg/dL Phosphorus (2.5-4.5) mg/dL Total Bilirubin (0.2-1.3) mg/dL Lactate Dehydrogenase (313-618) U/L Total Protein (6.3-8.2) g/dL Albumin (3.5-5.0) g/dL Amylase (30-110) U/L Lipase (23-300) U/L Urine Protein (Negative) Urine Glucose (UA) (Negative) Urine Ketones (Negative) 10/05/20 10/05/20 10/05/20 Range/Units 07:37 08:21 08:59 WBC (3.8-10.6) k/uL Plt Count (150-450) k/uL Neutrophils # (1.3-7.7) k/uL APTT (22.0-30.0) sec ABG pH (7.35-7.45) ABG pCO2 (35-45) mmHg ABG pO2 (83-108) mmHg ABG HCO3 (21-25) mmol/L ABG Total CO2 (19-24) mmol/L ABG O2 Saturation (94-97) % Sodium (137-145) mmol/L Potassium (3.5-5.1) mmol/L Chloride (98-107) mmol/L Carbon Dioxide (22-30) mmol/L BUN (9-20) mg/dL Creatinine (0.66-1.25) mg/dL Glucose (74-99) mg/dL POC Glucose (mg/dL) 215 H 179 H (75-99) mg/dL Osmolality (280-301) mosm/kg Calcium (8.4-10.2) mg/dL Ionized Calcium Nicole 3.5 L* (4.5-5.3) mg/dL Phosphorus (2.5-4.5) mg/dL Total Bilirubin (0.2-1.3) mg/dL Lactate Dehydrogenase (313-618) U/L Total Protein (6.3-8.2) g/dL Albumin (3.5-5.0) g/dL Amylase (30-110) U/L Lipase (23-300) U/L Urine Protein (Negative) Urine Glucose (UA) (Negative) Urine Ketones (Negative) 10/05/20 10/05/20 10/05/20 Range/Units 10:03 10:40 11:34 WBC (3.8-10.6) k/uL Plt Count (150-450) k/uL Neutrophils # (1.3-7.7) k/uL APTT (22.0-30.0) sec ABG pH 7.29 L (7.35-7.45) ABG pCO2 28 L (35-45) mmHg ABG pO2 68 L (83-108) mmHg ABG HCO3 13 L (21-25) mmol/L ABG Total CO2 14 L (19-24) mmol/L ABG O2 Saturation 93.5 L (94-97) % Sodium (137-145) mmol/L Potassium (3.5-5.1) mmol/L Chloride (98-107) mmol/L Carbon Dioxide (22-30) mmol/L BUN (9-20) mg/dL Creatinine (0.66-1.25) mg/dL Glucose (74-99) mg/dL POC Glucose (mg/dL) 183 H 214 H (75-99) mg/dL Osmolality (280-301) mosm/kg Calcium (8.4-10.2) mg/dL Ionized Calcium Nicole (4.5-5.3) mg/dL Phosphorus (2.5-4.5) mg/dL Total Bilirubin (0.2-1.3) mg/dL Lactate Dehydrogenase (313-618) U/L Total Protein (6.3-8.2) g/dL Albumin (3.5-5.0) g/dL Amylase (30-110) U/L Lipase (23-300) U/L Urine Protein (Negative) Urine Glucose (UA) (Negative) Urine Ketones (Negative) Diabetes panel 10/04/20 10/05/20 10/05/20 Range/Units 18:14 00:32 04:22 Sodium 116 L* 121 L 125 L (137-145) mmol/L Potassium 6.0 H 4.4 4.1 (3.5-5.1) mmol/L Chloride 80 L 89 L 93 L (98-107) mmol/L Carbon Dioxide 8 L* 18 L 15 L (22-30) mmol/L BUN 28 H 32 H 34 H (9-20) mg/dL Creatinine 2.41 H 2.11 H 2.70 H (0.66-1.25) mg/dL Glucose 969 H* 641 H* 399 H (74-99) mg/dL Calcium 7.4 L 6.4 L* (8.4-10.2) mg/dL AST 52 54 (17-59) U/L ALT 25 29 (4-49) U/L Alkaline Phosphatase 113 92 (38-126) U/L Total Protein 6.4 5.7 L (6.3-8.2) g/dL Albumin 3.8 3.1 L (3.5-5.0) g/dL Thyroid panel 10/05/20 Range/Units 08:21 TSH 1.710 (0.465-4.680) mIU/L Calcium panel 10/04/20 10/04/20 10/05/20 Range/Units 18:14 20:21 04:22 Calcium 7.4 L 6.4 L* (8.4-10.2) mg/dL Ionized Calcium Nicole (4.5-5.3) mg/dL Phosphorus 5.2 H 3.0 (2.5-4.5) mg/dL Albumin 3.8 3.1 L (3.5-5.0) g/dL 10/05/20 Range/Units 08:21 Calcium (8.4-10.2) mg/dL Ionized Calcium Nicole 3.5 L* (4.5-5.3) mg/dL Phosphorus (2.5-4.5) mg/dL Albumin (3.5-5.0) g/dL Pituitary panel 10/04/20 10/05/20 10/05/20 Range/Units 18:14 00:32 04:22 Sodium 116 L* 121 L 125 L (137-145) mmol/L Potassium 6.0 H 4.4 4.1 (3.5-5.1) mmol/L Chloride 80 L 89 L 93 L (98-107) mmol/L Carbon Dioxide 8 L* 18 L 15 L (22-30) mmol/L BUN 28 H 32 H 34 H (9-20) mg/dL Creatinine 2.41 H 2.11 H 2.70 H (0.66-1.25) mg/dL Glucose 969 H* 641 H* 399 H (74-99) mg/dL Calcium 7.4 L 6.4 L* (8.4-10.2) mg/dL TSH (0.465-4.680) mIU/L 10/05/20 Range/Units 08:21 Sodium (137-145) mmol/L Potassium (3.5-5.1) mmol/L Chloride (98-107) mmol/L Carbon Dioxide (22-30) mmol/L BUN (9-20) mg/dL Creatinine (0.66-1.25) mg/dL Glucose (74-99) mg/dL Calcium (8.4-10.2) mg/dL TSH 1.710 (0.465-4.680) mIU/L Adrenal panel 10/04/20 10/05/20 10/05/20 Range/Units 18:14 00:32 04:22 Sodium 116 L* 121 L 125 L (137-145) mmol/L Potassium 6.0 H 4.4 4.1 (3.5-5.1) mmol/L Chloride 80 L 89 L 93 L (98-107) mmol/L Carbon Dioxide 8 L* 18 L 15 L (22-30) mmol/L BUN 28 H 32 H 34 H (9-20) mg/dL Creatinine 2.41 H 2.11 H 2.70 H (0.66-1.25) mg/dL Glucose 969 H* 641 H* 399 H (74-99) mg/dL Calcium 7.4 L 6.4 L* (8.4-10.2) mg/dL Total Bilirubin 1.7 H 0.9 (0.2-1.3) mg/dL AST 52 54 (17-59) U/L ALT 25 29 (4-49) U/L Alkaline Phosphatase 113 92 (38-126) U/L Total Protein 6.4 5.7 L (6.3-8.2) g/dL Albumin 3.8 3.1 L (3.5-5.0) g/dL - Imaging CT scan - abdomen: report reviewed (Severe pancreatitis, thrombosis of splenic vein., Duodenitis) Assessment and Plan Assessment: Severe peritonitis. The patient will be medically managed at this point. We will follow with you.
[2020-10-05 13:04] LABS: Chol/HDL Ratio 14.76; Cholesterol 251 mg/dL (0-200); Triglycerides >1100.0 mg/dL (0.0-149.0)
--- NOTE | 2020-10-05 13:15 | P.HPIM ---
History of Present Illness 49-year-old male came in with comments of nausea vomiting for couple days in the significant polyuria and polydipsia that has been going on for about a week. Patient was coming of severe abdominal pain sharp in nature nonradiating d iffuse. Patient is found to be in DKA and patient is also found to have severe pancreatitis. Patient had a CT of the abdomen which showed edematous pancreatic that is without any necrosis. There was a secondary combination of splint vein thrombosis as well and patient abdomen is quite a bit distended with distention of the stomach there is significant duodenitis jejunitis along with a foreign b jillian in the second part of the duodenum probably contributing or causing gastric outlet obstruction. General surgery was consulted. Patient was admitted to ICU patient has severe acidosis patient is a has a highly elevated blood sugars of 4000 bicarbonate of 10 and multiple other electrolyte abnormalities. Patient the ionized calcium is low as well and calcium was replaced. Patient is found to be in acute renal failure with creatinine of around 2.4 patient was hypotensive presently not on any pressors patient is presently receiving IV fluids. Triglyceride levels are pending. Patient is not an alcoholic. There is no evidence of gallstones and the CT of the abdomen. Patient the had a hemoglobin A1c tested recently about couple months ago at that time his hemoglobin A1c was within normal limits as per the . Patient baseline creatinine is around 0.9, patient denied any fever chills dysuria. Patient doesn't have any fever does have significant leukocytosis. White blood cell count of around 25,000. Serum sodium was extremely low and serum potassium is very high is all because of the acidosis and hyperglycemia. Patient was pretty status has progressively worsened since last night and patient is present and BiPAP. Patient has significant abdominal distention with significant air-fluid level in the abdomen and stomach patient does have some ascites on the CT and this is secondary to severe peritonitis. Patient is presently on empiric Zosyn although there is no clear evidence of infection at this time. REVIEW OF SYSTEMS: CONSTITUTIONAL: No fever,HEENT: No recent visual problems or hearing problems. Denied any sore throat. CARDIOVASCULAR: No chest pain, orthopnea, PND, no palpitations, no syncope. PULMONARY: No shortness of breath, no cough, no hemoptysis. GASTROINTESTINAL: As mentioned in HPI NEUROLOGICAL: No headaches, no weakness, no numbness. HEMATOLOGICAL: Denies any bleeding or petechiae. GENITOURINARY: Denies any burning micturition, frequency, or urgency. MUSCULOSKELETAL/RHEUMATOLOGICAL: Denies any joint pain, swelling, or any muscle pain. ENDOCRINE: Denies any polyuria or polydipsia. The rest of the 14-point review of systems is negative. PHYSICAL EXAMINATION: GENERAL: The patient is alert and oriented x3, not in any acute distress and BiPAP. Obese HEENT: Pupils are round and equally reacting to light. EOMI. No scleral icterus. No conjunctival pallor. Normocephalic, atraumatic. No pharyngeal erythema. No thyromegaly. CARDIOVASCULAR: S1 and S2 present. No murmurs, rubs, or gallops. PULMONARY: Chest is clear to auscultation, no wheezing or crackles. ABDOMEN: Distended and tympanic mostly severe diffuse abdominal tenderness with rebound. MUSCULOSKELETAL: No joint swelling or deformity. EXTREMITIES: No cyanosis, clubbing, or pedal edema. NEUROLOGICAL: Gross neurological examination did not reveal any focal deficits. SKIN: No rashes. Assessment and plan -Acute pancreatitis severe edematous pancreatitis, etiology is not clear at this time triglyceride level is still pending. Patient will remain nothing by mouth patient is receiving IV fluids at this time. Patient is also on empiric Zosyn may not be needed once patient is more stabilized antibiotics will be discontinued at the time. -Severe abdominal distention with possibility of gastric outlet obstruction significant fluid in the stomach may be contributing to some of the hypoxemia NG tube will be ordered. -Acute hypoxic respiratory failure: Secondary to severe systemic inflammatory response from pancreatitis and probably from abdominal distention. No primary lung pathology at this time. -Severe anion gap metabolic acidosis secondary to diabetic into acidosis and lactic acidosis -Hyponatremia: Combination of hypovolemic hyponatremia and pseudohyponatremia from hyperglycemia -Diabetic ketoacidosis and severe hyperglycemia secondary to acute pancreatic insufficiency patient probably will need insulin and will be insulin deficient from now on. 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 -Obesity -Hypocalcemia secondary to metabolic acidosis will replace the calcium -Tachycardia secondary to shock DVT prophylaxis: She is on IV heparin presently. Past Medical History Past Medical History: Hyperlipidemia, Hypertension Additional Past Medical History / Comment(s): encephomylitis, cognitive impairment History of Any Multi-Drug Resistant Organisms: None Reported Additional Past Surgical History / Comment(s): knn Past Anesthesia/Blood Transfusion Reactions: No Reported Reaction Past Psychological History: Anxiety, Depression Smoking Status: Former smoker Past Alcohol Use History: None Reported Past Drug Use History: None Reported Medications and Allergies Home Medications Medication Instructions Recorded Confirmed Type Aspirin EC [Ecotrin Low Dose] 81 mg PO DAILY 10/04/20 10/04/20 History Atorvastatin Calcium [Lipitor] 10 mg PO HS 10/04/20 10/04/20 History Fenofibrate Nanocrystallized 145 mg PO DAILY 10/04/20 10/04/20 History [Fenofibrate] Losartan Potassium [Cozaar] 100 mg PO DAILY 10/04/20 10/04/20 History amLODIPine [Norvasc] 5 mg PO DAILY 10/04/20 10/04/20 History busPIRone HCl [Buspar] 10 mg PO TID 10/04/20 10/04/20 History valACYclovir HCL [Valtrex] 500 mg PO DAILY 10/04/20 10/04/20 History Allergies Allergy/AdvReac Type Severity Reaction Status Date / Time No Known Allergies Allergy Verified 10/04/20 19:58 Physical Exam Vitals: Vital Signs Temp Pulse Pulse Resp BP BP Pulse Ox 10/05/20 10:47 100 10/05/20 09:30 102 H 23 88/53 87 L 10/05/20 09:00 107 H 28 H 89/58 84 L 10/05/20 08:30 98 13 89/58 91 L 10/05/20 06:00 100 15 78/56 96 10/05/20 05:00 104 H 16 76/57 95 10/05/20 04:00 98.8 F 114 H 15 80/45 90 L 10/05/20 03:00 107 H 18 97/58 95 10/05/20 02:00 113 H 16 99/74 92 L 10/05/20 01:00 101 H 17 110/71 93 L 10/05/20 00:00 103 H 18 99/74 93 L 10/04/20 23:16 103 H 17 98/73 94 L 10/04/20 23:02 102 H 20 98/73 92 L 10/04/20 22:30 102 H 15 102/69 93 L 10/04/20 22:20 98.6 F 103 H 16 109/72 94 L 10/04/20 21:42 102 H 96/66 95 10/04/20 21:20 93/77 99 10/04/20 21:10 99/70 95 10/04/20 21:00 105/69 97 10/04/20 20:50 105/69 96 10/04/20 20:40 89/61 100 10/04/20 20:30 102 H 104/72 96 10/04/20 20:20 107 H 104/72 10/04/20 20:10 102 H 101/71 95 10/04/20 20:09 102 H 20 101/71 95 10/04/20 20:00 101/51 95 10/04/20 19:50 102 H 101/51 94 L 10/04/20 19:40 94 L 10/04/20 19:30 127/91 10/04/20 19:20 127/91 10/04/20 19:10 104 H 107/69 95 10/04/20 19:06 105 H 16 107/69 98 10/04/20 19:00 104 H 104/74 95 10/04/20 18:50 105 H 104/74 95 10/04/20 18:40 108 H 120/81 95 10/04/20 18:30 110 H 109/79 96 10/04/20 18:20 111 H 97 10/04/20 18:11 112 H 10/04/20 17:51 98.1 F 106 H 18 79/68 99 Intake and Output 10/04/20 10/05/20 10/05/20 22:59 06:59 14:59 Intake Total 10.519 9825.101 7102 Output Total 1100 95 Balance 10.519 -24.495 1105 Intake: IV 450 D5-0.45% NaCl with KCl 450 20Meq/l 1,000 ml @ 150 mls/hr IV .Q6H40M [facility] Rx# :[id number] Intake, IV Titration 10.519 1075.505 750 Amount Heparin Sod,Pork in 0.45% 250 NaCl 25,000 unit In 0.45 % NaCl 1 250ml.bag @ 18 UNITS/KG/HR 20.085 mls/hr IV .Q33Y20G [facility] Rx#: [id number] Insulin Regular 100 unit 10.519 70.505 In Sodium Chloride 0.9% 100 ml @ 0.1 UNITS/KG/HR 11.27 mls/hr IV .Q8H58M [facility] Rx#:[id number] Sodium Chloride 0.9% 1, 405 000 ml @ 135 mls/hr IV . Q7H25M [facility] Rx#:[id number] Sodium Chloride 0.9% 1, 600 000 ml @ 200 mls/hr IV . Q5H [facility] Rx#:[id number] Sodium Chloride 0.9% 500 500 ml 500 ml @ 999 mls/hr IV .Q31M [facility] Rx#:[id number] Output: Urine 1100 95 Other: Voiding Method Urinal # Voids 2 Weight 116 kg 116 kg 116 kg Results CBC & Chem 7: 10/05/20 02:45 10/05/20 04:22 Labs: Abnormal Lab Results - Last 24 Hours (Table) 10/04/20 10/04/20 10/04/20 Range/Units 18:14 18:14 20:21 WBC 23.6 H (3.8-10.6) k/uL Plt Count 502 H (150-450) k/uL Neutrophils # 21.3 H (1.3-7.7) k/uL APTT (22.0-30.0) sec ABG pH (7.35-7.45) ABG pCO2 (35-45) mmHg ABG pO2 (83-108) mmHg ABG HCO3 (21-25) mmol/L ABG Total CO2 (19-24) mmol/L ABG O2 Saturation (94-97) % Sodium 116 L* (137-145) mmol/L Potassium 6.0 H (3.5-5.1) mmol/L Chloride 80 L (98-107) mmol/L Carbon Dioxide 8 L* (22-30) mmol/L BUN 28 H (9-20) mg/dL Creatinine 2.41 H (0.66-1.25) mg/dL Glucose 969 H* (74-99) mg/dL POC Glucose (mg/dL) (75-99) mg/dL Osmolality 315 H (280-301) mosm/kg Calcium 7.4 L (8.4-10.2) mg/dL Ionized Calcium Nicole (4.5-5.3) mg/dL Phosphorus 5.2 H (2.5-4.5) mg/dL Total Bilirubin 1.7 H (0.2-1.3) mg/dL Lactate Dehydrogenase 1155 H (313-618) U/L Total Protein (6.3-8.2) g/dL Albumin (3.5-5.0) g/dL Amylase 1399 H* (30-110) U/L Lipase >84108 H (23-300) U/L Urine Protein (Negative) Urine Glucose (UA) (Negative) Urine Ketones (Negative) 10/04/20 10/04/20 10/04/20 Range/Units 20:40 21:06 21:56 WBC (3.8-10.6) k/uL Plt Count (150-450) k/uL Neutrophils # (1.3-7.7) k/uL APTT (22.0-30.0) sec ABG pH (7.35-7.45) ABG pCO2 (35-45) mmHg ABG pO2 (83-108) mmHg ABG HCO3 (21-25) mmol/L ABG Total CO2 (19-24) mmol/L ABG O2 Saturation (94-97) % Sodium (137-145) mmol/L Potassium (3.5-5.1) mmol/L Chloride (98-107) mmol/L Carbon Dioxide (22-30) mmol/L BUN (9-20) mg/dL Creatinine (0.66-1.25) mg/dL Glucose (74-99) mg/dL POC Glucose (mg/dL) >600 H >600 H (75-99) mg/dL Osmolality (280-301) mosm/kg Calcium (8.4-10.2) mg/dL Ionized Calcium Nicole (4.5-5.3) mg/dL Phosphorus (2.5-4.5) mg/dL Total Bilirubin (0.2-1.3) mg/dL Lactate Dehydrogenase (313-618) U/L Total Protein (6.3-8.2) g/dL Albumin (3.5-5.0) g/dL Amylase (30-110) U/L Lipase (23-300) U/L Urine Protein Trace H (Negative) Urine Glucose (UA) 4+ H (Negative) Urine Ketones 1+ H (Negative) 10/04/20 10/04/20 10/05/20 Range/Units 22:16 23:27 00:32 WBC (3.8-10.6) k/uL Plt Count (150-450) k/uL Neutrophils # (1.3-7.7) k/uL APTT (22.0-30.0) sec ABG pH (7.35-7.45) ABG pCO2 (35-45) mmHg ABG pO2 (83-108) mmHg ABG HCO3 (21-25) mmol/L ABG Total CO2 (19-24) mmol/L ABG O2 Saturation (94-97) % Sodium 121 L (137-145) mmol/L Potassium (3.5-5.1) mmol/L Chloride 89 L (98-107) mmol/L Carbon Dioxide 18 L (22-30) mmol/L BUN 32 H (9-20) mg/dL Creatinine 2.11 H (0.66-1.25) mg/dL Glucose 641 H* (74-99) mg/dL POC Glucose (mg/dL) >600 H >600 H (75-99) mg/dL Osmolality (280-301) mosm/kg Calcium (8.4-10.2) mg/dL Ionized Calcium Nicole (4.5-5.3) mg/dL Phosphorus (2.5-4.5) mg/dL Total Bilirubin (0.2-1.3) mg/dL Lactate Dehydrogenase (313-618) U/L Total Protein (6.3-8.2) g/dL Albumin (3.5-5.0) g/dL Amylase (30-110) U/L Lipase (23-300) U/L Urine Protein (Negative) Urine Glucose (UA) (Negative) Urine Ketones (Negative) 10/05/20 10/05/20 10/05/20 Range/Units 00:50 02:10 02:45 WBC (3.8-10.6) k/uL Plt Count (150-450) k/uL Neutrophils # (1.3-7.7) k/uL APTT 58.6 H (22.0-30.0) sec ABG pH (7.35-7.45) ABG pCO2 (35-45) mmHg ABG pO2 (83-108) mmHg ABG HCO3 (21-25) mmol/L ABG Total CO2 (19-24) mmol/L ABG O2 Saturation (94-97) % Sodium (137-145) mmol/L Potassium (3.5-5.1) mmol/L Chloride (98-107) mmol/L Carbon Dioxide (22-30) mmol/L BUN (9-20) mg/dL Creatinine (0.66-1.25) mg/dL Glucose (74-99) mg/dL POC Glucose (mg/dL) 592 H 507 H (75-99) mg/dL Osmolality (280-301) mosm/kg Calcium (8.4-10.2) mg/dL Ionized Calcium Nicole (4.5-5.3) mg/dL Phosphorus (2.5-4.5) mg/dL Total Bilirubin (0.2-1.3) mg/dL Lactate Dehydrogenase (313-618) U/L Total Protein (6.3-8.2) g/dL Albumin (3.5-5.0) g/dL Amylase (30-110) U/L Lipase (23-300) U/L Urine Protein (Negative) Urine Glucose (UA) (Negative) Urine Ketones (Negative) 10/05/20 10/05/20 10/05/20 Range/Units 02:45 03:12 04:22 WBC 22.0 H (3.8-10.6) k/uL Plt Count 451 H (150-450) k/uL Neutrophils # 20.0 H (1.3-7.7) k/uL APTT (22.0-30.0) sec ABG pH (7.35-7.45) ABG pCO2 (35-45) mmHg ABG pO2 (83-108) mmHg ABG HCO3 (21-25) mmol/L ABG Total CO2 (19-24) mmol/L ABG O2 Saturation (94-97) % Sodium 125 L (137-145) mmol/L Potassium (3.5-5.1) mmol/L Chloride 93 L (98-107) mmol/L Carbon Dioxide 15 L (22-30) mmol/L BUN 34 H (9-20) mg/dL Creatinine 2.70 H (0.66-1.25) mg/dL Glucose 399 H (74-99) mg/dL POC Glucose (mg/dL) 491 H (75-99) mg/dL Osmolality (280-301) mosm/kg Calcium 6.4 L* (8.4-10.2) mg/dL Ionized Calcium Nicole (4.5-5.3) mg/dL Phosphorus (2.5-4.5) mg/dL Total Bilirubin (0.2-1.3) mg/dL Lactate Dehydrogenase 1570 H (313-618) U/L Total Protein 5.7 L (6.3-8.2) g/dL Albumin 3.1 L (3.5-5.0) g/dL Amylase 901 H* (30-110) U/L Lipase 76866 H (23-300) U/L Urine Protein (Negative) Urine Glucose (UA) (Negative) Urine Ketones (Negative) 10/05/20 10/05/20 10/05/20 Range/Units 04:25 05:46 06:38 WBC (3.8-10.6) k/uL Plt Count (150-450) k/uL Neutrophils # (1.3-7.7) k/uL APTT (22.0-30.0) sec ABG pH (7.35-7.45) ABG pCO2 (35-45) mmHg ABG pO2 (83-108) mmHg ABG HCO3 (21-25) mmol/L ABG Total CO2 (19-24) mmol/L ABG O2 Saturation (94-97) % Sodium (137-145) mmol/L Potassium (3.5-5.1) mmol/L Chloride (98-107) mmol/L Carbon Dioxide (22-30) mmol/L BUN (9-20) mg/dL Creatinine (0.66-1.25) mg/dL Glucose (74-99) mg/dL POC Glucose (mg/dL) 398 H 354 H 247 H (75-99) mg/dL Osmolality (280-301) mosm/kg Calcium (8.4-10.2) mg/dL Ionized Calcium Nicole (4.5-5.3) mg/dL Phosphorus (2.5-4.5) mg/dL Total Bilirubin (0.2-1.3) mg/dL Lactate Dehydrogenase (313-618) U/L Total Protein (6.3-8.2) g/dL Albumin (3.5-5.0) g/dL Amylase (30-110) U/L Lipase (23-300) U/L Urine Protein (Negative) Urine Glucose (UA) (Negative) Urine Ketones (Negative) 10/05/20 10/05/20 10/05/20 Range/Units 07:37 08:21 08:59 WBC (3.8-10.6) k/uL Plt Count (150-450) k/uL Neutrophils # (1.3-7.7) k/uL APTT (22.0-30.0) sec ABG pH (7.35-7.45) ABG pCO2 (35-45) mmHg ABG pO2 (83-108) mmHg ABG HCO3 (21-25) mmol/L ABG Total CO2 (19-24) mmol/L ABG O2 Saturation (94-97) % Sodium (137-145) mmol/L Potassium (3.5-5.1) mmol/L Chloride (98-107) mmol/L Carbon Dioxide (22-30) mmol/L BUN (9-20) mg/dL Creatinine (0.66-1.25) mg/dL Glucose (74-99) mg/dL POC Glucose (mg/dL) 215 H 179 H (75-99) mg/dL Osmolality (280-301) mosm/kg Calcium (8.4-10.2) mg/dL Ionized Calcium Nicole 3.5 L* (4.5-5.3) mg/dL Phosphorus (2.5-4.5) mg/dL Total Bilirubin (0.2-1.3) mg/dL Lactate Dehydrogenase (313-618) U/L Total Protein (6.3-8.2) g/dL Albumin (3.5-5.0) g/dL Amylase (30-110) U/L Lipase (23-300) U/L Urine Protein (Negative) Urine Glucose (UA) (Negative) Urine Ketones (Negative) 10/05/20 10/05/20 10/05/20 Range/Units 10:03 10:40 11:34 WBC (3.8-10.6) k/uL Plt Count (150-450) k/uL Neutrophils # (1.3-7.7) k/uL APTT (22.0-30.0) sec ABG pH 7.29 L (7.35-7.45) ABG pCO2 28 L (35-45) mmHg ABG pO2 68 L (83-108) mmHg ABG HCO3 13 L (21-25) mmol/L ABG Total CO2 14 L (19-24) mmol/L ABG O2 Saturation 93.5 L (94-97) % Sodium (137-145) mmol/L Potassium (3.5-5.1) mmol/L Chloride (98-107) mmol/L Carbon Dioxide (22-30) mmol/L BUN (9-20) mg/dL Creatinine (0.66-1.25) mg/dL Glucose (74-99) mg/dL POC Glucose (mg/dL) 183 H 214 H (75-99) mg/dL Osmolality (280-301) mosm/kg Calcium (8.4-10.2) mg/dL Ionized Calcium Nicole (4.5-5.3) mg/dL Phosphorus (2.5-4.5) mg/dL Total Bilirubin (0.2-1.3) mg/dL Lactate Dehydrogenase (313-618) U/L Total Protein (6.3-8.2) g/dL Albumin (3.5-5.0) g/dL Amylase (30-110) U/L Lipase (23-300) U/L Urine Protein (Negative) Urine Glucose (UA) (Negative) Urine Ketones (Negative) Thrombosis Risk Factor Assmnt - Choose All That Apply Any of the Below Risk Factors Present?: Yes Each Factor Represents 1 point: Age 41-60 years, Obesity (BMI >25) Other Risk Factors: No Other congenital or acquired thrombophilia - If yes, enter type in comment: No Thrombosis Risk Factor Assessment Total Risk Factor Score: 2 Thrombosis Risk Factor Assessment Level: Low Risk
[2020-10-05 13:16] LABS: Glucose,Whole Blood 167 mg/dL (75-99)
[2020-10-05] MEDS: NOREPINEPHRINE 4 MG in SODIUM CHLORIDE 0.9% 250 ML IV SCH ×2 (13:53→20:41)
--- NOTE | 2020-10-05 14:26 | XR ---
EXAMINATION TYPE: XR chest 1V DATE OF EXAM: 10/05/2020 COMPARISON: Today HISTORY: Check tube placement There is nasogastric tube that is looped in the stomach. The lungs are clear of consolidation. There is minimal subsegmental atelectasis left lower lobe. There are no hilar masses. Heart size is normal . IMPRESSION: Nasogastric tube is in the stomach. Heart and lungs not significantly different than exam 6 hours ago.
[2020-10-05 15:10] LABS: Glucose,Whole Blood 239 mg/dL (75-99)
--- NOTE | 2020-10-05 15:28 | US ---
EXAMINATION TYPE: US gallbladder DATE OF EXAM: 10/05/2020 COMPARISON: CT 10/04/2020 CLINICAL HISTORY: 49-year-old male Pancreatitis. TECHNIQUE: Multiple sonographic images of the right upper quadrant are obtained. FINDINGS: EXAM MEASUREMENTS: Liver Length: 20.7 cm Gallbladder Wall: 0.2 cm CBD: 5.5 mm Right Kidney: 12.8 x 5.5 x 6.5 cm without hydronephrosis Informatics Nurse Specialist notes: Exam limited by extensive midline bowel gas and patient's intolerance of probe pre ssure. Pancreas: Obscured by bowel gas Liver: Very echogenic and attenuating. Gallbladder: No stones seen Evidence for sonographic Salcedo's sign: No CBD: wnl Right Kidney: No hydronephrosis or masses seen Mild perihepatic ascites. IMPRESSION: Severe hepatic steatosis. Mild perihepatic ascites. No gallstones or biliary ductal dilatation seen. Exam limitations due to prominent bowel gas.
[2020-10-05 15:45] LABS: HCT 33.9 % (39.0-53.0); HGB 11.6 gm/dL (13.0-17.5); MCH 31.4 pg (25.0-35.0); MCHC 34.2 g/dL (31.0-37.0); MCV 91.8 fL (80.0-100.0); Platelet Count 337 k/uL (150-450); RDW 13.4 % (11.5-15.5); WBC 25.5 k/uL (3.8-10.6)
[2020-10-05 16:08] LABS: Band Neutrophils % 35 %; Lymphocytes # (M) 1.53 k/uL (1.0-4.8); Metamyelocytes # (M) 1.02 k/uL (0); Metamyelocytes % 4 %; Monocytes # (M) 1.53 k/uL (0-1.0); Neutrophils % (M) 50 %; Nucleated Red Blood Cells 0 /100 WBC (0-0); Total Cells Counted 200
[2020-10-05 16:14] LABS: Albumin 2.5 g/dL (3.5-5.0); Potassium 4.2 mmol/L (3.5-5.1); Total Bilirubin 0.5 mg/dL (0.2-1.3); Total Protein 4.9 g/dL (6.3-8.2)
[2020-10-05 16:44] LABS: Calcium 6.1 mg/dL (8.4-10.2)
[2020-10-05 16:46] LABS: Glucose,Whole Blood 117 mg/dL (75-99)
[2020-10-05 18:00] LABS: Glucose,Whole Blood 190 mg/dL (75-99)
[2020-10-05 21:40] LABS: Glucose,Whole Blood 201 mg/dL (75-99)
[2020-10-05 23:30] LABS: Glucose,Whole Blood 225 mg/dL (75-99)
[2020-10-06 00:03] LABS: Glucose,Whole Blood 203 mg/dL (75-99)
[2020-10-06] MEDS: HYDROmorphone 0.5 MG/0.5 ML SYRINGE IVP PRN ×6 (01:55→22:20)
[2020-10-06 02:00] LABS: Glucose,Whole Blood 229 mg/dL (75-99)
[2020-10-06] MEDS: HEPARIN SOD,PORK IN 0.45% NACL 25,000 UNIT in 0.45% NACL 1 250ML.BAG IV SCH ×3 (02:02→20:56)
[2020-10-06] MEDS: INSULIN REGULAR 100 UNIT in SODIUM CHLORIDE 0.9% 100 ML IV SCH ×2 (02:10→12:38)
[2020-10-06] MEDS: NOREPINEPHRINE 4 MG in SODIUM CHLORIDE 0.9% 250 ML IV SCH ×2 (03:36→22:17)
[2020-10-06] MEDS: D5-0.45% NACL WITH KCL 20MEQ/L 1,000 ML IV SCH (04:34)
[2020-10-06] MEDS: AMPICILLIN-SULBACTAM 1.5 GM in SODIUM CHLORIDE 0.9% 50 ML IVPB SCH ×3 (04:34→20:34)
[2020-10-06 04:48] LABS: Glucose,Whole Blood 231 mg/dL (75-99)
[2020-10-06 05:20] LABS: Basophils % (A) 0 %; Eosinophils % (A) 0 %; HCT 32.5 % (39.0-53.0); HGB 10.6 gm/dL (13.0-17.5); Lymphocytes # (A) 0.9 k/uL (1.0-4.8); Lymphocytes % (A) 6 %; MCH 30.8 pg (25.0-35.0); MCHC 32.7 g/dL (31.0-37.0); MCV 94.4 fL (80.0-100.0); Mean Platelet Volume 8.6; Monocytes # (A) 0.5 k/uL (0-1.0); Monocytes % (A) 3 %; Neutrophils # (A) 12.9 k/uL (1.3-7.7); Neutrophils % (A) 90 %; Platelet Count 303 k/uL (150-450); RBC 3.45 m/uL (4.30-5.90); RDW 13.7 % (11.5-15.5); WBC 14.3 k/uL (3.8-10.6)
[2020-10-06 05:26] LABS: Albumin 2.5 g/dL (3.5-5.0); Potassium 3.9 mmol/L (3.5-5.1); Total Protein 4.9 g/dL (6.3-8.2)
[2020-10-06 05:27] LABS: Total Bilirubin 0.4 mg/dL (0.2-1.3)
[2020-10-06 05:34] LABS: Calcium 5.5 mg/dL (8.4-10.2)
[2020-10-06 06:19] LABS: Glucose,Whole Blood 214 mg/dL (75-99)
[2020-10-06] MEDS: PANTOPRAZOLE 40 MG/10 ML VIAL IV SCH (07:48)
[2020-10-06 07:53] LABS: Glucose,Whole Blood 233 mg/dL (75-99)
[2020-10-06] MEDS ORDERED: CALCIUM GLUCONATE 2 GM in SODIUM CHLORIDE 0.9% 100 ML IVPB ONE (09:00)
[2020-10-06 10:13] LABS: Glucose,Whole Blood 239 mg/dL (75-99)
--- NOTE | 2020-10-06 10:42 | P.PN ---
Subjective Progress Note Date: 10/06/20 Principal diagnosis: Acute pancreatitis, DKA This is a pleasant 49-year-old gentleman who follows with Dr. Thompson as his primary care provider. He has a history of hyperlipidemia, hypertension, shingles with encephalomyelitis and cognitive impairment, anxiety/depression. Lifelong nonsmoker. He presented to the emergency room yesterday with a 2 day history of increasing abdominal discomfort, nausea vomiting dry heaves. Diaphoretic. Computed tomography scan of the abdomen revealed moderate to severe acute interstitial pancreatitis. Inflammatory edema and fat stranding tr acks on the mesentery and retroperitoneum to the umbilical level. No focal fluid collection noted. There is secondary complication with a long segment nonocclusive splenic vein thrombosis. There is a 1.6 cm metal density within the second portion of the duodenum. Questionable etiology possible dental crown or other ingested foreign body. Unsure if this is contributing to some type of gastric outlet obstruction. There is contiguous duodenitis and proximal jejunitis adjacent to the pancreatic inflammation. Trace perihepatic ascites and mild to moderate pelvic ascites secondary to pancreatic inflammation. No excretion of contrast and the kidneys on the delayed kidney images. Possible a cute kidney injury. Hepatomegaly with severe hepatic steatosis. Sigmoid diverticulosis. 2 mm nonobstructive left renal calculus. White count 22.0. Hemoglobin 14.0. Platelet count 451. Sodium initially 116 currently 125. Potassium initially 6.0 currently 4.1. I carb initially 8, currently 15. Anion gap initially 28, currently 17. Creatinine 2.70. Initial blood glucose 969. Currently 179. Calcium 6.4. LDH 1570. AST 54. ALT 29. Amylase 901. Lipase 10,000 385. Acetone positive. Hurtado virus not detected. He is currently awake and alert. Maintaining O2 saturations in the 90s on 5 L/m per nasal cannula. He is on a heparin drip per weight-based protocol. Insulin drip at 12 units per hour. 0.9 normal saline at 10 mL per hour. He's had an extreme total of 4.5 L of fluid resuscitation. IV is to be changed to D5.45 with 20 KCl at 150 MLS per hour per DKA protocol. The patient is seen today 10/06/2020 in follow-up in the intensive care unit. He is currently laying flat in bed. Awake and alert in no acute distress. He is maintaining O2 saturations in the 90s on 5 L/m per nasal cannula. He is still having issues with ongoing abdominal discomfort. He's been hypotensive. He remains on norepinephrine at 0.03 mcg/kg/m. He is on a insulin drip at 6 units per hour. He remains on a heparin drip weight-based protocol. He remains on D5 0.45 with 20 KCl at 150 ML's per hour. Ultrasound of the Bladder revealed severe hepatic steatosis. Mild perihepatic ascites. No gallstones or biliary duct dilatation seen. White count 4.3. Hemoglobin 10.6. Sodium 131. P otassium 3.9. Creatinine 2.43. Calcium 5.5. AST 106. ALT 29. He remains on Unasyn. Objective - Vital Signs Vital signs: Vital Signs Temp 98 F 10/06/20 08:00 Pulse 98 10/06/20 08:15 Resp 10 L 10/06/20 08:15 BP 105/90 10/06/20 08:15 Pulse Ox 95 10/06/20 08:15 Intake & Output 10/05/20 10/06/20 10/06/20 18:59 06:59 18:59 Intake Total 2667.575 2549.359 300 Output Total 180 1120 220 Balance 2487.575 1429.359 80 Weight 116 kg 118 kg Intake: IV 1650 1800 300 D5-0.45% NaCl with KCl 1650 1800 300 20Meq/l 1,000 ml @ 150 mls/hr IV .Q6H40M [facility] Rx# :[id number] Intake, IV Titration 1017.575 749.359 Amount Ampicillin-Sulbactam 1.5 50 gm In Sodium Chloride 0.9 % 50 ml @ 100 mls/hr IVPB Q8H [facility] Rx#:[id number] Heparin Sod,Pork in 0.45% 356.116 192.682 NaCl 25,000 unit In 0.45 % NaCl 1 250ml.bag @ 18 UNITS/KG/HR 20.085 mls/hr IV .[id number] [facility] Rx#: [id number] Insulin Regular 100 unit 139.656 43.5 In Sodium Chloride 0.9% 100 ml @ 0.1 UNITS/KG/HR 11.27 mls/hr IV .Q8H58M [facility] Rx#:[id number] Norepinephrine 4 mg In 21.803 463.177 Sodium Chloride 0.9% 250 ml @ 0.05 MCG/KG/MIN 22. 098 mls/hr IV .[id number] [facility] Rx#:[id number] Sodium Chloride 0.9% 500 500 ml 500 ml @ 999 mls/hr IV .Q31M [facility] Rx#:[id number] Output: Urine 180 1120 220 Other: Voiding Method Indwelling Catheter Indwelling Catheter Indwelling Catheter - Exam GENERAL EXAM: Alert, pleasant 49-year-old, on 5 L nasal cannula, fairly comfortable in no apparent distress. HEAD: Normocephalic. EYES: Normal reaction of pupils, equal size. NOSE: Clear with pink turbinates. THROAT: No erythema or exudates. NECK: No masses, no JVD. CHEST: No chest wall deformity. LUNGS: Equal air entry with no crackles, wheeze, rhonchi or dullness. CVS: S1 and S2 normal with no audible murmur, regular rhythm. ABDOMEN: Tender to palpation, normal bowel sounds, no guarding or rigidity. SPINE: No scoliosis or deformity SKIN: No rashes CENTRAL NERVOUS SYSTEM: No focal deficits, tone is normal in all 4 extremities. EXTREMITIES: There is no peripheral edema. No clubbing, no cyanosis. Peripheral pulses are intact. - Labs CBC & Chem 7: 10/06/20 04:22 10/06/20 04:22 Labs: Abnormal Lab Results - Last 24 Hours (Table) 10/04/20 10/05/20 10/05/20 Range/Units 20:21 10:40 11:34 WBC (3.8-10.6) k/uL RBC (4.30-5.90) m/uL Hgb (13.0-17.5) gm/dL Hct (39.0-53.0) % Neutrophils # (1.3-7.7) k/uL Neutrophils # (Manual) (1.3-7.7) k/uL Lymphocytes # (1.0-4.8) k/uL Monocytes # (Manual) (0-1.0) k/uL Metamyelocytes # (Man) (0) k/uL APTT (22.0-30.0) sec ABG pH 7.29 L (7.35-7.45) ABG pCO2 28 L (35-45) mmHg ABG pO2 68 L (83-108) mmHg ABG HCO3 13 L (21-25) mmol/L ABG Total CO2 14 L (19-24) mmol/L ABG O2 Saturation 93.5 L (94-97) % Sodium (137-145) mmol/L Carbon Dioxide (22-30) mmol/L BUN (9-20) mg/dL Creatinine (0.66-1.25) mg/dL Glucose (74-99) mg/dL POC Glucose (mg/dL) 214 H (75-99) mg/dL Calcium (8.4-10.2) mg/dL AST (17-59) U/L Total Protein (6.3-8.2) g/dL Albumin (3.5-5.0) g/dL Triglycerides >1100.0 H (0.0-149.0) mg/dL Cholesterol 251 H (0-200) mg/dL HDL Cholesterol 17.0 L (40.0-60.0) mg/dL 10/05/20 10/05/20 10/05/20 Range/Units 13:14 15:08 15:13 WBC 25.5 H (3.8-10.6) k/uL RBC 3.70 L (4.30-5.90) m/uL Hgb 11.6 L (13.0-17.5) gm/dL Hct 33.9 L (39.0-53.0) % Neutrophils # (1.3-7.7) k/uL Neutrophils # (Manual) 21.60 H (1.3-7.7) k/uL Lymphocytes # (1.0-4.8) k/uL Monocytes # (Manual) 1.53 H (0-1.0) k/uL Metamyelocytes # (Man) 1.02 H (0) k/uL APTT (22.0-30.0) sec ABG pH (7.35-7.45) ABG pCO2 (35-45) mmHg ABG pO2 (83-108) mmHg ABG HCO3 (21-25) mmol/L ABG Total CO2 (19-24) mmol/L ABG O2 Saturation (94-97) % Sodium (137-145) mmol/L Carbon Dioxide (22-30) mmol/L BUN (9-20) mg/dL Creatinine (0.66-1.25) mg/dL Glucose (74-99) mg/dL POC Glucose (mg/dL) 167 H 239 H (75-99) mg/dL Calcium (8.4-10.2) mg/dL AST (17-59) U/L Total Protein (6.3-8.2) g/dL Albumin (3.5-5.0) g/dL Triglycerides (0.0-149.0) mg/dL Cholesterol (0-200) mg/dL HDL Cholesterol (40.0-60.0) mg/dL 10/05/20 10/05/20 10/05/20 Range/Units 15:13 15:13 16:45 WBC (3.8-10.6) k/uL RBC (4.30-5.90) m/uL Hgb (13.0-17.5) gm/dL Hct (39.0-53.0) % Neutrophils # (1.3-7.7) k/uL Neutrophils # (Manual) (1.3-7.7) k/uL Lymphocytes # (1.0-4.8) k/uL Monocytes # (Manual) (0-1.0) k/uL Metamyelocytes # (Man) (0) k/uL APTT 68.3 H (22.0-30.0) sec ABG pH (7.35-7.45) ABG pCO2 (35-45) mmHg ABG pO2 (83-108) mmHg ABG HCO3 (21-25) mmol/L ABG Total CO2 (19-24) mmol/L ABG O2 Saturation (94-97) % Sodium 130 L (137-145) mmol/L Carbon Dioxide 20 L (22-30) mmol/L BUN 39 H (9-20) mg/dL Creatinine 3.64 H (0.66-1.25) mg/dL Glucose 107 H (74-99) mg/dL POC Glucose (mg/dL) 117 H (75-99) mg/dL Calcium 6.1 L* (8.4-10.2) mg/dL AST 88 H (17-59) U/L Total Protein 4.9 L (6.3-8.2) g/dL Albumin 2.5 L (3.5-5.0) g/dL Triglycerides (0.0-149.0) mg/dL Cholesterol (0-200) mg/dL HDL Cholesterol (40.0-60.0) mg/dL 10/05/20 10/05/20 10/05/20 Range/Units 18:00 21:39 23:28 WBC (3.8-10.6) k/uL RBC (4.30-5.90) m/uL Hgb (13.0-17.5) gm/dL Hct (39.0-53.0) % Neutrophils # (1.3-7.7) k/uL Neutrophils # (Manual) (1.3-7.7) k/uL Lymphocytes # (1.0-4.8) k/uL Monocytes # (Manual) (0-1.0) k/uL Metamyelocytes # (Man) (0) k/uL APTT (22.0-30.0) sec ABG pH (7.35-7.45) ABG pCO2 (35-45) mmHg ABG pO2 (83-108) mmHg ABG HCO3 (21-25) mmol/L ABG Total CO2 (19-24) mmol/L ABG O2 Saturation (94-97) % Sodium (137-145) mmol/L Carbon Dioxide (22-30) mmol/L BUN (9-20) mg/dL Creatinine (0.66-1.25) mg/dL Glucose (74-99) mg/dL POC Glucose (mg/dL) 190 H 201 H 225 H (75-99) mg/dL Calcium (8.4-10.2) mg/dL AST (17-59) U/L Total Protein (6.3-8.2) g/dL Albumin (3.5-5.0) g/dL Triglycerides (0.0-149.0) mg/dL Cholesterol (0-200) mg/dL HDL Cholesterol (40.0-60.0) mg/dL 10/06/20 10/06/20 10/06/20 Range/Units 00:01 01:59 04:22 WBC 14.3 H (3.8-10.6) k/uL RBC 3.45 L (4.30-5.90) m/uL Hgb 10.6 L (13.0-17.5) gm/dL Hct 32.5 L (39.0-53.0) % Neutrophils # 12.9 H (1.3-7.7) k/uL Neutrophils # (Manual) (1.3-7.7) k/uL Lymphocytes # 0.9 L (1.0-4.8) k/uL Monocytes # (Manual) (0-1.0) k/uL Metamyelocytes # (Man) (0) k/uL APTT (22.0-30.0) sec ABG pH (7.35-7.45) ABG pCO2 (35-45) mmHg ABG pO2 (83-108) mmHg ABG HCO3 (21-25) mmol/L ABG Total CO2 (19-24) mmol/L ABG O2 Saturation (94-97) % Sodium (137-145) mmol/L Carbon Dioxide (22-30) mmol/L BUN (9-20) mg/dL Creatinine (0.66-1.25) mg/dL Glucose (74-99) mg/dL POC Glucose (mg/dL) 203 H 229 H (75-99) mg/dL Calcium (8.4-10.2) mg/dL AST (17-59) U/L Total Protein (6.3-8.2) g/dL Albumin (3.5-5.0) g/dL Triglycerides (0.0-149.0) mg/dL Cholesterol (0-200) mg/dL HDL Cholesterol (40.0-60.0) mg/dL 10/06/20 10/06/20 10/06/20 Range/Units 04:22 04:46 06:18 WBC (3.8-10.6) k/uL RBC (4.30-5.90) m/uL Hgb (13.0-17.5) gm/dL Hct (39.0-53.0) % Neutrophils # (1.3-7.7) k/uL Neutrophils # (Manual) (1.3-7.7) k/uL Lymphocytes # (1.0-4.8) k/uL Monocytes # (Manual) (0-1.0) k/uL Metamyelocytes # (Man) (0) k/uL APTT (22.0-30.0) sec ABG pH (7.35-7.45) ABG pCO2 (35-45) mmHg ABG pO2 (83-108) mmHg ABG HCO3 (21-25) mmol/L ABG Total CO2 (19-24) mmol/L ABG O2 Saturation (94-97) % Sodium 131 L (137-145) mmol/L Carbon Dioxide (22-30) mmol/L BUN 37 H (9-20) mg/dL Creatinine 2.43 H (0.66-1.25) mg/dL Glucose 211 H (74-99) mg/dL POC Glucose (mg/dL) 231 H 214 H (75-99) mg/dL Calcium 5.5 L* (8.4-10.2) mg/dL AST 106 H (17-59) U/L Total Protein 4.9 L (6.3-8.2) g/dL Albumin 2.5 L (3.5-5.0) g/dL Triglycerides (0.0-149.0) mg/dL Cholesterol (0-200) mg/dL HDL Cholesterol (40.0-60.0) mg/dL 10/06/20 10/06/20 Range/Units 07:51 10:12 WBC (3.8-10.6) k/uL RBC (4.30-5.90) m/uL Hgb (13.0-17.5) gm/dL Hct (39.0-53.0) % Neutrophils # (1.3-7.7) k/uL Neutrophils # (Manual) (1.3-7.7) k/uL Lymphocytes # (1.0-4.8) k/uL Monocytes # (Manual) (0-1.0) k/uL Metamyelocytes # (Man) (0) k/uL APTT (22.0-30.0) sec ABG pH (7.35-7.45) ABG pCO2 (35-45) mmHg ABG pO2 (83-108) mmHg ABG HCO3 (21-25) mmol/L ABG Total CO2 (19-24) mmol/L ABG O2 Saturation (94-97) % Sodium (137-145) mmol/L Carbon Dioxide (22-30) mmol/L BUN (9-20) mg/dL Creatinine (0.66-1.25) mg/dL Glucose (74-99) mg/dL POC Glucose (mg/dL) 233 H 239 H (75-99) mg/dL Calcium (8.4-10.2) mg/dL AST (17-59) U/L Total Protein (6.3-8.2) g/dL Albumin (3.5-5.0) g/dL Triglycerides (0.0-149.0) mg/dL Cholesterol (0-200) mg/dL HDL Cholesterol (40.0-60.0) mg/dL Assessment and Plan Assessment: 1 Acute abdominal pain secondary to moderate to severe acute pancreatitis. 2 Secondary complication with a long segment of nonocclusive splenic vein thrombosis. Currently on a heparin drip. 3 1.6 cm metal density within the second portion of the duodenum. Correlate to etiology, question dental crown or other ingested foreign body. Unclear if this is contributing to some type of gastric outlet obstruction. 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 Wu Give 2 A of calcium gluconate Titrate norepinephrine as needed Remains on a heparin drip Continue DKA protocol Keep nothing by mouth, NG tube in place Continue Unasyn We will continue to follow and make further recommendations based on his clinical status Critical care time 36 minutes I, the cosigning physician, performed a history & physical examination of the patient. Lungs sounds are clear. Maintaining good O2 saturations in the 90s on 5 L/m per nasal cannula. I discussed the assessment and plan of care with my nurse practitioner, Dolly Augustine. I attest to the above note as dictated by her.
[2020-10-06 10:58] LABS: Glucose,Whole Blood 247 mg/dL (75-99)
[2020-10-06] MEDS ORDERED: INSULIN ASPART (NovoLOG) 100 UNIT/ML VIAL SQ SCH (11:00)
[2020-10-06] MEDS ORDERED: INSULIN DETEMIR (LEVEMIR) 100 UNIT/ML SYR SQ ONE (12:00)
[2020-10-06] MEDS: SODIUM CHLORIDE 0.9% 1,000 ML IV SCH ×2 (12:05→20:35)
[2020-10-06] MEDS ORDERED: ONDANSETRON 4 MG/2 ML VIAL ONE (12:34)
[2020-10-06] MEDS: ONDANSETRON 4 MG/2 ML VIAL IVP PRN (12:39)
[2020-10-06 12:43] LABS: Glucose,Whole Blood 244 mg/dL (75-99)
[2020-10-06] MEDS: INSULIN ASPART (NovoLOG) 100 UNIT/ML VIAL SQ SCH ×3 (12:45→21:22)
--- NOTE | 2020-10-06 13:15 | P.PN ---
Subjective 49-year-old male came in with comments of nausea vomiting for couple days in the significant polyuria and polydipsia that has been going on for about a week. Patient was coming of severe abdominal pain sharp in nature nonradiating diffuse. Patient is found to be in DKA and patient is also found to have severe pancreatitis. Patient had a CT of the abdomen which showed edematous pancreatic that is without any necrosis. There was a secondary combination of splint vein thrombosis as well and patient abdomen is quite a bit distended with distention of the stomach there is significant duodenitis jejunitis along with a foreign body in the second part of the duodenum probably contributing or causing gastric outlet obstruction. General surgery was consulted. Patient was admitted to ICU patient has severe acidosis patient is a has a highly elevated blood sugars of 4000 bicarbonate of 10 and multiple other electrolyte abnormalities. Patient the ionized calcium is low as well and calcium was replaced. Patient is found to be in acute renal failure with creatinine of around 2.4 patient was hypotensive presently not on any pressors patient is presently receiving IV fluids. Triglyceride levels are pending. Patient is not an alcoholic. There is no evidence of gallstones and the CT of the abdomen. Patient the had a hemoglobin A1c tested recently about couple months ago at that time his hemoglobin A1c was within normal limits as per the . Patient baseline creatinine is around 0.9, patient denied any fever chills dysuria. Tomas blackman doesn't have any fever does have significant leukocytosis. White blood cell count of around 25,000. Serum sodium was extremely low and serum potassium is very high is all because of the acidosis and hyperglycemia. Patient was pretty status has progressively worsened since last night and pat ient is present and BiPAP. Patient has significant abdominal distention with significant air-fluid level in the abdomen and stomach patient does have some ascites on the CT and this is secondary to severe peritonitis. Patient is presently on empiric Zosyn although there is no clear evidence of infection at this time. 10/06/2020 Patient's anion gap resolved. Patient's insulin will be discontinued and patient was started on 20 units of long-acting insulin along with pre-meal insulin. Patient the nausea improved patient still has some abdominal pain which also significantly improved. Patient will be started on clear liquid diet. We'll also obtain a hemoglobin A1c. Patient will be changed to normal saline at 100 mL per hour. Patient hyponatremia is improving. Patient's anion gap resolved. Patient remains on norepinephrine which is being tapered. Patient is presently on 8 L of oxygen as a postal BiPAP yesterday lung clear to auscultation with good air entry into bilateral lung bernal patient's abdomen is still distended nothing much from the NG tube NG tube will be removed. Patient's lipase has come down to 2000. 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 Patient does have elevated triglyceride levels will repeat triglyceride levels again tomorrow. Triglycerides around 1100. PHYSICAL EXAMINATION: GENERAL: The patient is alert and oriented x3, not in any acute distress and BiPAP. Obese HEENT: Pupils are round and equally reacting to light. EOMI. No scleral icterus. No conjunctival pallor. Normocephalic, atraumatic. No pharyngeal erythema. No thyromegaly. CARDIOVASCULAR: S1 and S2 present. No murmurs, rubs, or gallops. PULMONARY: Chest is clear to auscultation, no wheezing or crackles. ABDOMEN: Distended and tympanic mostly mild diffuse abdominal tenderness, no rebound or rigidity MUSCULOSKELETAL: No joint swelling or deformity. EXTREMITIES: No cyanosis, clubbing, or pedal edema. NEUROLOGICAL: Gross neurological examination did not reveal any focal deficits. SKIN: No rashes. Assessment and plan -Acute pancreatitis severe edematous pancreatitis, etiology is not clear , can be secondary to hypertriglyceridemia although triglycerides are only 1100 lipid triglycerides again tomorrow patient will be started on clear liquid diet Patient is also on empiric Zosyn may not be needed once patient is more stabilized antibiotics will be discontinued at the time. -Severe abdominal distention with possibility of gastric outlet obstruction as per the radiologist's reading although no much output from the NG tube -Acute hypoxic respiratory failure: Secondary to severe systemic inflammatory response from pancreatitis and probably from abdominal distention. No primary lung pathology at this time. -Severe anion gap metabolic acidosis secondary to diabetic into acidosis and lactic acidosis, improving and resolving -Hyponatremia: Combination of hypovolemic hyponatremia and pseudohyponatremia from hyperglycemia, improving present sodium is 131 -Diabetic ketoacidosis and severe hyperglycemia secondary to acute pancreatic insufficiency patient probably will need insulin and will be insulin deficient from now on. Patient was transitioned to subcutaneous insulin along with pre- meal insulin, titration of these insulin as per the blood sugars -Hyperkalemia secondary to metabolic acidosis, improved now -acute renal failure, most probably secondary to acute tubular necrosis from hypotension patient has fairly good urine output at this time continue with IV fluids and aggressive fluid resuscitation. 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 Objective - Vital Signs Vital signs: Vital Signs Temp 98 F 10/06/20 08:00 Pulse 100 10/06/20 11:59 Resp 14 10/06/20 11:45 BP 142/93 10/06/20 11:45 Pulse Ox 97 10/06/20 11:45 Intake & Output 10/05/20 10/06/20 10/06/20 18:59 06:59 18:59 Intake Total 2667.575 2549.359 900 Output Total 180 1120 570 Balance 2487.575 1429.359 330 Weight 116 kg 118 kg Intake: IV 1650 1800 800 D5-0.45% NaCl with KCl 1650 1800 600 20Meq/l 1,000 ml @ 150 mls/hr IV .Q6H40M [facility] Rx# :[id number] Sodium Chloride 0.9% 1, 200 000 ml @ 100 mls/hr IV . Q10H [facility] Rx#:[id number] Intake, IV Titration 1017.575 749.359 Amount Ampicillin-Sulbactam 1.5 50 gm In Sodium Chloride 0.9 % 50 ml @ 100 mls/hr IVPB Q8H [facility] Rx#:[id number] Heparin Sod,Pork in 0.45% 356.116 192.682 NaCl 25,000 unit In 0.45 % NaCl 1 250ml.bag @ 18 UNITS/KG/HR 20.085 mls/hr IV .[id number] [facility] Rx#: [id number] Insulin Regular 100 unit 139.656 43.5 In Sodium Chloride 0.9% 100 ml @ 0.1 UNITS/KG/HR 11.27 mls/hr IV .Q8H58M [facility] Rx#:[id number] Norepinephrine 4 mg In 21.803 463.177 Sodium Chloride 0.9% 250 ml @ 0.05 MCG/KG/MIN 22. 098 mls/hr IV .[id number] [facility] Rx#:[id number] Sodium Chloride 0.9% 500 500 ml 500 ml @ 999 mls/hr IV .Q31M [facility] Rx#:[id number] Oral 100 Output: Urine 180 1120 570 Other: Voiding Method Indwelling Catheter Indwelling Catheter Indwelling Catheter - Labs CBC & Chem 7: 10/06/20 04:22 10/06/20 04:22 Labs: Abnormal Lab Results - Last 24 Hours (Table) 10/04/20 10/05/20 10/05/20 Range/Units 20:21 13:14 15:08 WBC (3.8-10.6) k/uL RBC (4.30-5.90) m/uL Hgb (13.0-17.5) gm/dL Hct (39.0-53.0) % Neutrophils # (1.3-7.7) k/uL Neutrophils # (Manual) (1.3-7.7) k/uL Lymphocytes # (1.0-4.8) k/uL Monocytes # (Manual) (0-1.0) k/uL Metamyelocytes # (Man) (0) k/uL APTT (22.0-30.0) sec Sodium (137-145) mmol/L Carbon Dioxide (22-30) mmol/L BUN (9-20) mg/dL Creatinine (0.66-1.25) mg/dL Glucose (74-99) mg/dL POC Glucose (mg/dL) 167 H 239 H (75-99) mg/dL Calcium (8.4-10.2) mg/dL AST (17-59) U/L Total Protein (6.3-8.2) g/dL Albumin (3.5-5.0) g/dL Triglycerides >1100.0 H (0.0-149.0) mg/dL Cholesterol 251 H (0-200) mg/dL HDL Cholesterol 17.0 L (40.0-60.0) mg/dL Lipase (23-300) U/L 10/05/20 10/05/20 10/05/20 Range/Units 15:13 15:13 15:13 WBC 25.5 H (3.8-10.6) k/uL RBC 3.70 L (4.30-5.90) m/uL Hgb 11.6 L (13.0-17.5) gm/dL Hct 33.9 L (39.0-53.0) % Neutrophils # (1.3-7.7) k/uL Neutrophils # (Manual) 21.60 H (1.3-7.7) k/uL Lymphocytes # (1.0-4.8) k/uL Monocytes # (Manual) 1.53 H (0-1.0) k/uL Metamyelocytes # (Man) 1.02 H (0) k/uL APTT 68.3 H (22.0-30.0) sec Sodium 130 L (137-145) mmol/L Carbon Dioxide 20 L (22-30) mmol/L BUN 39 H (9-20) mg/dL Creatinine 3.64 H (0.66-1.25) mg/dL Glucose 107 H (74-99) mg/dL POC Glucose (mg/dL) (75-99) mg/dL Calcium 6.1 L* (8.4-10.2) mg/dL AST 88 H (17-59) U/L Total Protein 4.9 L (6.3-8.2) g/dL Albumin 2.5 L (3.5-5.0) g/dL Triglycerides (0.0-149.0) mg/dL Cholesterol (0-200) mg/dL HDL Cholesterol (40.0-60.0) mg/dL Lipase (23-300) U/L 10/05/20 10/05/20 10/05/20 Range/Units 16:45 18:00 21:39 WBC (3.8-10.6) k/uL RBC (4.30-5.90) m/uL Hgb (13.0-17.5) gm/dL Hct (39.0-53.0) % Neutrophils # (1.3-7.7) k/uL Neutrophils # (Manual) (1.3-7.7) k/uL Lymphocytes # (1.0-4.8) k/uL Monocytes # (Manual) (0-1.0) k/uL Metamyelocytes # (Man) (0) k/uL APTT (22.0-30.0) sec Sodium (137-145) mmol/L Carbon Dioxide (22-30) mmol/L BUN (9-20) mg/dL Creatinine (0.66-1.25) mg/dL Glucose (74-99) mg/dL POC Glucose (mg/dL) 117 H 190 H 201 H (75-99) mg/dL Calcium (8.4-10.2) mg/dL AST (17-59) U/L Total Protein (6.3-8.2) g/dL Albumin (3.5-5.0) g/dL Triglycerides (0.0-149.0) mg/dL Cholesterol (0-200) mg/dL HDL Cholesterol (40.0-60.0) mg/dL Lipase (23-300) U/L 10/05/20 10/06/20 10/06/20 Range/Units 23:28 00:01 01:59 WBC (3.8-10.6) k/uL RBC (4.30-5.90) m/uL Hgb (13.0-17.5) gm/dL Hct (39.0-53.0) % Neutrophils # (1.3-7.7) k/uL Neutrophils # (Manual) (1.3-7.7) k/uL Lymphocytes # (1.0-4.8) k/uL Monocytes # (Manual) (0-1.0) k/uL Metamyelocytes # (Man) (0) k/uL APTT (22.0-30.0) sec Sodium (137-145) mmol/L Carbon Dioxide (22-30) mmol/L BUN (9-20) mg/dL Creatinine (0.66-1.25) mg/dL Glucose (74-99) mg/dL POC Glucose (mg/dL) 225 H 203 H 229 H (75-99) mg/dL Calcium (8.4-10.2) mg/dL AST (17-59) U/L Total Protein (6.3-8.2) g/dL Albumin (3.5-5.0) g/dL Triglycerides (0.0-149.0) mg/dL Cholesterol (0-200) mg/dL HDL Cholesterol (40.0-60.0) mg/dL Lipase (23-300) U/L 10/06/20 10/06/2021 Range/Units 04:22 04:22 04:46 WBC 14.3 H (3.8-10.6) k/uL RBC 3.45 L (4.30-5.90) m/uL Hgb 10.6 L (13.0-17.5) gm/dL Hct 32.5 L (39.0-53.0) % Neutrophils # 12.9 H (1.3-7.7) k/uL Neutrophils # (Manual) (1.3-7.7) k/uL Lymphocytes # 0.9 L (1.0-4.8) k/uL Monocytes # (Manual) (0-1.0) k/uL Metamyelocytes # (Man) (0) k/uL APTT (22.0-30.0) sec Sodium 131 L (137-145) mmol/L Carbon Dioxide (22-30) mmol/L BUN 37 H (9-20) mg/dL Creatinine 2.43 H (0.66-1.25) mg/dL Glucose 211 H (74-99) mg/dL POC Glucose (mg/dL) 231 H (75-99) mg/dL Calcium 5.5 L* (8.4-10.2) mg/dL AST 106 H (17-59) U/L Total Protein 4.9 L (6.3-8.2) g/dL Albumin 2.5 L (3.5-5.0) g/dL Triglycerides (0.0-149.0) mg/dL Cholesterol (0-200) mg/dL HDL Cholesterol (40.0-60.0) mg/dL Lipase (23-300) U/L 10/06/20 10/06/20 10/06/20 Range/Units 06:18 07:51 10:12 WBC (3.8-10.6) k/uL RBC (4.30-5.90) m/uL Hgb (13.0-17.5) gm/dL Hct (39.0-53.0) % Neutrophils # (1.3-7.7) k/uL Neutrophils # (Manual) (1.3-7.7) k/uL Lymphocytes # (1.0-4.8) k/uL Monocytes # (Manual) (0-1.0) k/uL Metamyelocytes # (Man) (0) k/uL APTT (22.0-30.0) sec Sodium (137-145) mmol/L Carbon Dioxide (22-30) mmol/L BUN (9-20) mg/dL Creatinine (0.66-1.25) mg/dL Glucose (74-99) mg/dL POC Glucose (mg/dL) 214 H 233 H 239 H (75-99) mg/dL Calcium (8.4-10.2) mg/dL AST (17-59) U/L Total Protein (6.3-8.2) g/dL Albumin (3.5-5.0) g/dL Triglycerides (0.0-149.0) mg/dL Cholesterol (0-200) mg/dL HDL Cholesterol (40.0-60.0) mg/dL Lipase (23-300) U/L 10/06/20 10/06/20 10/06/20 Range/Units 10:36 10:36 10:57 WBC (3.8-10.6) k/uL RBC (4.30-5.90) m/uL Hgb (13.0-17.5) gm/dL Hct (39.0-53.0) % Neutrophils # (1.3-7.7) k/uL Neutrophils # (Manual) (1.3-7.7) k/uL Lymphocytes # (1.0-4.8) k/uL Monocytes # (Manual) (0-1.0) k/uL Metamyelocytes # (Man) (0) k/uL APTT 42.5 H (22.0-30.0) sec Sodium (137-145) mmol/L Carbon Dioxide (22-30) mmol/L BUN (9-20) mg/dL Creatinine (0.66-1.25) mg/dL Glucose (74-99) mg/dL POC Glucose (mg/dL) 247 H (75-99) mg/dL Calcium (8.4-10.2) mg/dL AST (17-59) U/L Total Protein (6.3-8.2) g/dL Albumin (3.5-5.0) g/dL Triglycerides (0.0-149.0) mg/dL Cholesterol (0-200) mg/dL HDL Cholesterol (40.0-60.0) mg/dL Lipase 2335 H (23-300) U/L 10/06/20 Range/Units 12:41 WBC (3.8-10.6) k/uL RBC (4.30-5.90) m/uL Hgb (13.0-17.5) gm/dL Hct (39.0-53.0) % Neutrophils # (1.3-7.7) k/uL Neutrophils # (Manual) (1.3-7.7) k/uL Lymphocytes # (1.0-4.8) k/uL Monocytes # (Manual) (0-1.0) k/uL Metamyelocytes # (Man) (0) k/uL APTT (22.0-30.0) sec Sodium (137-145) mmol/L Carbon Dioxide (22-30) mmol/L BUN (9-20) mg/dL Creatinine (0.66-1.25) mg/dL Glucose (74-99) mg/dL POC Glucose (mg/dL) 244 H (75-99) mg/dL Calcium (8.4-10.2) mg/dL AST (17-59) U/L Total Protein (6.3-8.2) g/dL Albumin (3.5-5.0) g/dL Triglycerides (0.0-149.0) mg/dL Cholesterol (0-200) mg/dL HDL Cholesterol (40.0-60.0) mg/dL Lipase (23-300) U/L
--- NOTE | 2020-10-06 13:37 | P.PN ---
Progress Note - Text Progress Note Date: 10/06/20 The patient states he feels better. His vital signs of improvement. He has less pain. On exam vessels are still. Abdomen soft there is distention. There is tenderness in epigastric area. Resolving pancreatic Esvin. Patient will continue receive supportive care.
[2020-10-06 18:42] LABS: Glucose,Whole Blood 187 mg/dL (75-99)
[2020-10-06] MEDS ORDERED: HEPARIN SODIUM 1,000 UN/ML (10ML VL) IV ONE (19:23)
[2020-10-06] MEDS ORDERED: HEPARIN SODIUM 1,000 UN/ML (10ML VL) IVP ONE (20:46)
[2020-10-06 21:15] LABS: Glucose,Whole Blood 154 mg/dL (75-99)
[2020-10-06 23:17] LABS: Hemoglobin A1C 12.6 % (4.0-6.0)
[2020-10-07] MEDS: HYDROmorphone 1 MG/ML 1 ML SYRINGE IVP PRN ×6 (00:42→23:46)
[2020-10-07 03:16] LABS: Basophils % (A) 0 %; Eosinophils # (A) 0.1 k/uL (0-0.7); Eosinophils % (A) 1 %; HCT 29.1 % (39.0-53.0); HGB 9.9 gm/dL (13.0-17.5); Lymphocytes # (A) 0.7 k/uL (1.0-4.8); Lymphocytes % (A) 6 %; MCV 94.2 fL (80.0-100.0); Mean Platelet Volume 8.4; Monocytes # (A) 0.5 k/uL (0-1.0); Monocytes % (A) 4 %; Neutrophils % (A) 87 %; Platelet Count 188 k/uL (150-450); RBC 3.08 m/uL (4.30-5.90); RDW 13.3 % (11.5-15.5); WBC 11.5 k/uL (3.8-10.6)
[2020-10-07 03:38] LABS: Albumin 2.7 g/dL (3.5-5.0); Potassium 3.6 mmol/L (3.5-5.1); Total Bilirubin 0.4 mg/dL (0.2-1.3); Total Protein 5.2 g/dL (6.3-8.2)
[2020-10-07 03:43] LABS: Calcium 5.8 mg/dL (8.4-10.2)
[2020-10-07] MEDS ORDERED: CALCIUM GLUCONATE 2 GM in SODIUM CHLORIDE 0.9% 100 ML IVPB ONE (04:09)
[2020-10-07] MEDS: AMPICILLIN-SULBACTAM 1.5 GM in SODIUM CHLORIDE 0.9% 50 ML IVPB SCH ×3 (04:54→19:49)
[2020-10-07] MEDS: HEPARIN SODIUM 1,000 UN/ML (10ML VL) IV PRN (05:04)
[2020-10-07] MEDS ORDERED: Potassium Replacement Protocol 1 EACH MISC MISCELLANE PRN (06:43)
[2020-10-07 06:50] LABS: Glucose,Whole Blood 254 mg/dL (75-99)
[2020-10-07] MEDS: INSULIN ASPART (NovoLOG) 100 UNIT/ML VIAL SQ SCH ×4 (07:08→19:49)
[2020-10-07] MEDS: INSULIN DETEMIR (LEVEMIR) 100 UNIT/ML SYR SQ SCH (07:08)
[2020-10-07] MEDS ORDERED: FUROSEMIDE 10 MG/ML 4 ML VIAL IV STA (08:25)
--- NOTE | 2020-10-07 08:45 | XR ---
EXAMINATION TYPE: XR chest 1V portable DATE OF EXAM: 10/07/2020 Comparison: 10/05/2020 Clinical History: 50 year-old male Hypoxemia Findings: Heart upper limits of normal in size. NG tube courses below the diaphragm. Mild interstitial prominen ce. Patchy retrocardiac opacity. No pleural effusion. Impression: Mild interstitial prominence. Correlate to exclude mild pulmonary vascular congestion. Patchy retroca rdiac atelectasis versus developing pneumonia.
[2020-10-07] MEDS: PANTOPRAZOLE 40 MG/10 ML VIAL IV SCH (08:52)
[2020-10-07] MEDS: POTASSIUM CHLORIDE 10 MEQ in WATER FOR INJECTION 1 100ML.BAG IVPB SCH ×2 (08:52→10:14)
[2020-10-07] MEDS: HEPARIN SOD,PORK IN 0.45% NACL 25,000 UNIT in 0.45% NACL 1 250ML.BAG IV SCH ×2 (08:53→18:30)
[2020-10-07] MEDS: SODIUM CHLORIDE 0.9% 1,000 ML IV SCH ×2 (09:09→10:15)
[2020-10-07] MEDS: NOREPINEPHRINE 4 MG in SODIUM CHLORIDE 0.9% 250 ML IV SCH ×2 (10:18→21:32)
--- NOTE | 2020-10-07 10:51 | P.PN ---
Subjective Progress Note Date: 10/07/20 Principal diagnosis: Acute pancreatitis, DKA This is a pleasant 49-year-old gentleman who follows with Dr. Thompson as his primary care provider. He has a history of hyperlipidemia, hypertension, shingles with encephalomyelitis and cognitive impairment, anxiety/depression. Lifelong nonsmoker. He presented to the emergency room yesterday with a 2 day history of increasing abdominal discomfort, nausea vomiting dry heaves. Diaphoretic. Computed tomography scan of the abdomen revealed moderate to severe acute interstitial pancreatitis. Inflammatory edema and fat stranding tr acks on the mesentery and retroperitoneum to the umbilical level. No focal fluid collection noted. There is secondary complication with a long segment nonocclusive splenic vein thrombosis. There is a 1.6 cm metal density within the second portion of the duodenum. Questionable etiology possible dental crown or other ingested foreign body. Unsure if this is contributing to some type of gastric outlet obstruction. There is contiguous duodenitis and proximal jejunitis adjacent to the pancreatic inflammation. Trace perihepatic ascites and mild to moderate pelvic ascites secondary to pancreatic inflammation. No excretion of contrast and the kidneys on the delayed kidney images. Possible a cute kidney injury. Hepatomegaly with severe hepatic steatosis. Sigmoid diverticulosis. 2 mm nonobstructive left renal calculus. White count 22.0. Hemoglobin 14.0. Platelet count 451. Sodium initially 116 currently 125. Potassium initially 6.0 currently 4.1. I carb initially 8, currently 15. Anion gap initially 28, currently 17. Creatinine 2.70. Initial blood glucose 969. Currently 179. Calcium 6.4. LDH 1570. AST 54. ALT 29. Amylase 901. Lipase 10,000 385. Acetone positive. Hurtado virus not detected. He is currently awake and alert. Maintaining O2 saturations in the 90s on 5 L/m per nasal cannula. He is on a heparin drip per weight-based protocol. Insulin drip at 12 units per hour. 0.9 normal saline at 10 mL per hour. He's had an extreme total of 4.5 L of fluid resuscitation. IV is to be changed to D5.45 with 20 KCl at 150 MLS per hour per DKA protocol. The patient is seen today 10/06/2020 in follow-up in the intensive care unit. He is currently laying flat in bed. Awake and alert in no acute distress. He is maintaining O2 saturations in the 90s on 5 L/m per nasal cannula. He is still having issues with ongoing abdominal discomfort. He's been hypotensive. He remains on norepinephrine at 0.03 mcg/kg/m. He is on a insulin drip at 6 units per hour. He remains on a heparin drip weight-based protocol. He remains on D5 0.45 with 20 KCl at 150 ML's per hour. Ultrasound of the Bladder revealed severe hepatic steatosis. Mild perihepatic ascites. No gallstones or biliary duct dilatation seen. White count 4.3. Hemoglobin 10.6. Sodium 131. P otassium 3.9. Creatinine 2.43. Calcium 5.5. AST 106. ALT 29. He remains on Unasyn. The patient is seen today 10/07/2020 in follow-up in the intensive care unit. Awake and alert in no acute distress. He is still confused at times. He is breathing quite flat in bed. He denies any worsening shortness of breath. He is maintaining O2 saturations in the 90s on 5 L high flow nasal cannula. Af ebrile. Heparin drip per weight-based protocol. 0.9 normal saline at 100 mL per hour. Norepinephrine remains off. Chest x-ray shows some evidence of fluid volume overload. Some patchy retrocardiac atelectasis versus developing pneumonia. White count 11.5. Hemoglobin 9.9. Sodium 134. Potassium 3.6. Creatinine 1.49. Lipase 1004. Triglycerides 341. Glucose 152. Objective - Vital Signs Vital signs: Vital Signs Temp 98.1 F 10/07/20 08:00 Pulse 89 10/07/20 10:00 Resp 20 10/07/20 10:00 BP 122/82 10/07/20 10:00 Pulse Ox 95 10/07/20 10:00 Intake & Output 10/06/20 10/07/20 10/07/20 18:59 06:59 18:59 Intake Total 1600 1919.92 520.08 Output Total 1390 1240 950 Balance 210 679.92 -429.92 Weight 118.3 kg Intake: IV 1500 1200 200 Calcium Gluconate 2 gm In 100 Sodium Chloride 0.9% 100 ml @ 100 mls/hr IVPB ONCE [facility] Rx#:[id number] D5-0.45% NaCl with KCl 600 20Meq/l 1,000 ml @ 150 mls/hr IV .Q6H40M [facility] Rx# :[id number] Sodium Chloride 0.9% 1, 900 1100 200 000 ml @ 100 mls/hr IV . Q10H [facility] Rx#:[id number] Intake, IV Titration 169.92 320.08 Amount Heparin Sod,Pork in 0.45% 169.92 80.08 NaCl 25,000 unit In 0.45 % NaCl 1 250ml.bag @ 18 UNITS/KG/HR 21.24 mls/hr IV .[id number] [facility] Rx#: [id number] Potassium Chloride 10 meq 200 In Water For Injection 1 100ml.bag @ 100 mls/hr IVPB Q1H [facility] Rx#: [id number] Sodium Chloride 0.9% 1, 40 000 ml @ 20 mls/hr IV . Q24H [facility] Rx#:[id number] Oral 100 550 Output: Gastric Drainage 400 Urine 990 1240 950 Other: Voiding Method Indwelling Catheter Indwelling Catheter Indwelling Catheter - Exam GENERAL EXAM: Alert, pleasant 49-year-old, on 5 L nasal cannula, fairly comfortable in no apparent distress. HEAD: Normocephalic. EYES: Normal reaction of pupils, equal size. NOSE: Clear with pink turbinates. THROAT: No erythema or exudates. NECK: No masses, no JVD. CHEST: No chest wall deformity. LUNGS: Equal air entry with faint crackles in posterior bases. CVS: S1 and S2 normal with no audible murmur, regular rhythm. ABDOMEN: Tender to palpation, normal bowel sounds, no guarding or rigidity. SPINE: No scoliosis or deformity SKIN: No rashes CENTRAL NERVOUS SYSTEM: No focal deficits, tone is normal in all 4 extremities. EXTREMITIES: There is no peripheral edema. No clubbing, no cyanosis. Peripheral pulses are intact. - Labs CBC & Chem 7: 10/07/20 03:04 10/07/20 03:04 Labs: Abnormal Lab Results - Last 24 Hours (Table) 10/06/20 10/06/20 10/06/20 Range/Units 04:22 10:36 10:36 WBC (3.8-10.6) k/uL RBC (4.30-5.90) m/uL Hgb (13.0-17.5) gm/dL Hct (39.0-53.0) % Neutrophils # (1.3-7.7) k/uL Lymphocytes # (1.0-4.8) k/uL APTT 42.5 H (22.0-30.0) sec Sodium (137-145) mmol/L Carbon Dioxide (22-30) mmol/L BUN (9-20) mg/dL Creatinine (0.66-1.25) mg/dL Glucose (74-99) mg/dL POC Glucose (mg/dL) (75-99) mg/dL Hemoglobin A1c 12.6 H (4.0-6.0) % Calcium (8.4-10.2) mg/dL AST (17-59) U/L Total Protein (6.3-8.2) g/dL Albumin (3.5-5.0) g/dL Triglycerides (0.0-149.0) mg/dL Lipase 2335 H (23-300) U/L 10/06/20 10/06/20 10/06/20 Range/Units 10:57 12:41 18:40 WBC (3.8-10.6) k/uL RBC (4.30-5.90) m/uL Hgb (13.0-17.5) gm/dL Hct (39.0-53.0) % Neutrophils # (1.3-7.7) k/uL Lymphocytes # (1.0-4.8) k/uL APTT (22.0-30.0) sec Sodium (137-145) mmol/L Carbon Dioxide (22-30) mmol/L BUN (9-20) mg/dL Creatinine (0.66-1.25) mg/dL Glucose (74-99) mg/dL POC Glucose (mg/dL) 247 H 244 H 187 H (75-99) mg/dL Hemoglobin A1c (4.0-6.0) % Calcium (8.4-10.2) mg/dL AST (17-59) U/L Total Protein (6.3-8.2) g/dL Albumin (3.5-5.0) g/dL Triglycerides (0.0-149.0) mg/dL Lipase (23-300) U/L 10/06/20 10/06/20 10/07/20 Range/Units 21:13 22:41 03:04 WBC (3.8-10.6) k/uL RBC (4.30-5.90) m/uL Hgb (13.0-17.5) gm/dL Hct (39.0-53.0) % Neutrophils # (1.3-7.7) k/uL Lymphocytes # (1.0-4.8) k/uL APTT 43.2 H (22.0-30.0) sec Sodium 134 L (137-145) mmol/L Carbon Dioxide 21 L (22-30) mmol/L BUN 30 H (9-20) mg/dL Creatinine 1.49 H (0.66-1.25) mg/dL Glucose 152 H (74-99) mg/dL POC Glucose (mg/dL) 154 H (75-99) mg/dL Hemoglobin A1c (4.0-6.0) % Calcium 5.8 L* (8.4-10.2) mg/dL AST 78 H (17-59) U/L Total Protein 5.2 L (6.3-8.2) g/dL Albumin 2.7 L (3.5-5.0) g/dL Triglycerides 341.0 H (0.0-149.0) mg/dL Lipase 1004 H (23-300) U/L 10/07/20 10/07/20 10/07/20 Range/Units 03:04 03:06 06:49 WBC 11.5 H (3.8-10.6) k/uL RBC 3.08 L (4.30-5.90) m/uL Hgb 9.9 L (13.0-17.5) gm/dL Hct 29.1 L (39.0-53.0) % Neutrophils # 10.0 H (1.3-7.7) k/uL Lymphocytes # 0.7 L (1.0-4.8) k/uL APTT 32.8 H (22.0-30.0) sec Sodium (137-145) mmol/L Carbon Dioxide (22-30) mmol/L BUN (9-20) mg/dL Creatinine (0.66-1.25) mg/dL Glucose (74-99) mg/dL POC Glucose (mg/dL) 254 H (75-99) mg/dL Hemoglobin A1c (4.0-6.0) % Calcium (8.4-10.2) mg/dL AST (17-59) U/L Total Protein (6.3-8.2) g/dL Albumin (3.5-5.0) g/dL Triglycerides (0.0-149.0) mg/dL Lipase (23-300) U/L Assessment and Plan Assessment: 1 Acute abdominal pain secondary to moderate to severe acute pancreatitis. 2 Secondary complication with a long segment of nonocclusive splenic vein thro mbosis. Currently on a heparin drip. 3 1.6 cm metal density within the second portion of the duodenum. Correlate to etiology, question dental crown or other ingested foreign body. Unclear if this is contributing to some type of gastric outlet obstruction. 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 Wu Chest x-ray and labs reviewed Lasix 40 mg IVP 1 Check a BNP level Check a pro-calcitonin Remains on a heparin drip Continue Unasyn We will continue to follow and make further recommendations based on his clinical status I, the cosigning physician, performed a history & physical examination of the p atient. Lungs sounds faint crackles in the posterior bases. Maintaining good O2 saturations in the 90s on 5 L/m per nasal cannula. I discussed the assessment and plan of care with my nurse practitioner, Dolly Augustine. I attest to the above note as dictated by her.
[2020-10-07] MEDS: HYDROmorphone 0.5 MG/0.5 ML SYRINGE IVP PRN (11:02)
[2020-10-07 11:09] LABS: Glucose,Whole Blood 195 mg/dL (75-99)
--- NOTE | 2020-10-07 12:19 | P.PN ---
Progress Note - Text Progress Note Date: 10/07/20 The patient states he feels better. His abdominal pain has improved. His vital signs are stable. He is making good urine. On exam vital signs are stable. Abdomen is soft with some mild epigastric tenderness. Improving tacker ties. Patient received supportive care
--- NOTE | 2020-10-07 13:53 | P.PN ---
Subjective Progress Note Date: 10/07/20 49-year-old male came in with comments of nausea vomiting for couple days in the significant polyuria and polydipsia that has been going on for about a week. Patient was coming of severe abdominal pain sharp in nature nonradiating diffuse. Patient is found to be in DKA and patient is also found to have severe pancreatitis. Patient had a CT of the abdomen which showed edematous pancreatic that is without any necrosis. There was a secondary combination of splint vein thrombosis as well and patient abdomen is quite a bit distended with distention of the stomach there is significant duodenitis jejunitis along with a foreign body in the second part of the duodenum probably contributing or causing gastric outlet obstruction. General surgery was consulted. Patient was admitted to ICU patient has severe acidosis patient is a has a highly elevated blood sugars of 4000 bicarbonate of 10 and multiple other electrolyte abnormalities. Patient the ionized calcium is low as well and calcium was replaced. Patient is found to be in acute renal failure with creatinine of around 2.4 patient was hyp otensive presently not on any pressors patient is presently receiving IV fluids. Triglyceride levels are pending. Patient is not an alcoholic. There is no evidence of gallstones and the CT of the abdomen. Patient the had a hemoglobin A1c tested recently about couple months ago at that time his hemoglobin A1c was within normal limits as per the . Patient baseline creatinine is around 0.9, patient denied any fever chills dysuria. Patient doesn't have any fever does have significant leukocytosis. White blood cell count of around 25,000. Serum sodium was extremely low and serum potassium is very high is all because of the acidosis and hyperglycemia. Patient was pretty status has progressively worsened since last night and patient is present and BiPAP. Patient has significant abdominal distention with significant air-fluid level in the abdomen and stomach patient does have some ascites on the CT and this is secondary to severe peritonitis. Patient is presently on empiric Zosyn although there is no clear evidence of infection at this time. 10/06/2020 Patient's anion gap resolved. Patient's insulin will be discontinued and patient was started on 20 units of long-acting insulin along with pre-meal insulin. Patient the nausea improved patient still has some abdominal pain which also significantly improved. Patient will be started on clear liquid diet. We'll also obtain a hemoglobin A1c. Patient will be changed to normal saline at 100 mL per hour. Patient hyponatremia is improving. Patient's anion gap resolved. Patient remains on norepinephrine which is being tapered. Patient is presently on 8 L of oxygen as a postal BiPAP yesterday lung clear to auscultation with good air entry into bilateral lung bernal patient's abdomen is still distended nothing much from the NG tube NG tube will be removed. Patient's lipase has come down to 2000. 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 Patient does have elevated triglyceride levels will repeat triglyceride levels again tomorrow. Triglycerides around 1100. 10/07/2020 Patient is seen and examined in follow-up continues to be closely monitored in the ICU. Patient continues with NG tube with bilious drainage noted and surgery is following closely. Patient is off of levophed and chest x-ray today shows some mild interstitial prominence with possible mild pulmonary vascular con gestion with patchy retrocardiac atelectasis versus developing pneumonia and will be given a dose of IV Lasix. Will decrease IV fluids. Patient continues to be nothing by mouth and states his abdominal discomfort has improved and is passing gas with no reports of bowel movement as of yet. Family at the bedside concerned that he has not been taking his Valtrex that he takes 500 mg daily for history of internal shingles and is on 500 mg daily we'll add acyclovir IV piggyback as patient is currently nothing by mouth. Patient is currently on 5 L via nasal cannula and discussed with nursing staff about weaning FiO2 as tolerated as he was maintaining 95% oxygen saturation. Urology continues on IV heparin and will continue at this time. Template Clerk also following closely. Patient is continued on sliding scale along with long-acting and recommend to continue with Accu-Cheks before meals and at bedtime. Lipase today improving at 1004. Creatinine slightly improved at 1.49, potassium is 3.6, sodium is 134, white blood count trending down at 11.5 and hemoglobin is stable at 9.9. Calciu m is low at 5.8 being replaced and will monitor closely Review of systems: Constitutional: No reports of fatigue, fever, or chills Cardiovascular: No reports of chest pain or palpitations Respiratory: Reports intermittent shortness of breath GI: No reports of nausea, vomiting, or diarrhea, reports abdominal pain has improved : No reports of dysuria or retention, has an indwelling Ward catheter for close intake and output Neurovascular: Generalized weakness All medications have been reviewed Active Medications Heparin Sodium (Porcine) (Heparin Sodium 1,000 Un/Ml (10ml Vl)) 0 unit IV PER PROTOCOL PRN; Protocol PRN Reason: Low PTT Last Admin: 10/07/20 05:04 Dose: 4,000 unit Documented by: Hydromorphone HCl (Hydromorphone 1 Mg/Ml 1 Ml Syringe) 1 mg IVP Q2HR PRN PRN Reason: Pain Scale 6 to 7 Last Admin: 10/07/20 07:10 Dose: 1 mg Documented by: Hydromorphone HCl (Hydromorphone 0.5 Mg/0.5 Ml Syringe) 0.5 mg IVP Q2HR PRN PRN Reason: Pain Scale 4 to 5 Last Admin: 10/07/20 11:02 Dose: 0.5 mg Documented by: Norepinephrine Bitartrate 4 mg (/ Sodium Chloride) 254 mls @ 22.098 mls/hr IV .[id number] [facility]; Protocol Last Admin: 10/07/20 10:18 Dose: Not Given Documented by: Ampicillin Sodium/Sulbactam (Sodium 1.5 gm/ Sodium Chloride) 50 mls @ 100 mls/hr IVPB Q8H [facility] Last Admin: 10/07/20 11:57 Dose: 100 mls/hr Documented by: Heparin Sodium/Sodium Chloride (25,000 unit/ Sodium Chloride) 250 mls @ 21.24 mls/hr IV .[id number] [facility]; Protocol Last Admin: 10/07/20 08:53 Dose: 22 units/kg/hr, 25.96 mls/hr Documented by: Sodium Chloride (Saline 0.9%) 1,000 mls @ 20 mls/hr IV .Q24H [facility] Last Admin: 10/07/20 10:15 Dose: 20 mls/hr Documented by: Acyclovir Sodium 500 mg/ (Sodium Chloride) 110 mls @ 100 mls/hr IVPB DAILY [facility] Insulin Aspart (Insulin Aspart (Novolog) 100 Unit/Ml Vial) 0 unit SQ ACHS [facility]; Protocol Last Admin: 10/07/20 11:31 Dose: 3 unit Documented by: Insulin Detemir (Insulin Detemir (Levemir) 100 Unit/Ml Syr) 20 unit SQ DAILY@0700 [facility] Last Admin: 10/07/20 07:08 Dose: 20 unit Documented by: Lorazepam (Lorazepam 2 Mg/Ml Inj) 0.5 mg IV Q6HR PRN PRN Reason: Anxiety Miscellaneous Information (Potassium Replacement Protocol 1 Each Misc) 1 each MISCELLANE DAILY PRN; Protocol PRN Reason: Per Protocol Naloxone HCl (Naloxone 0.4 Mg/Ml 1 Ml Vial) 0.2 mg IV Q2M PRN PRN Reason: Opioid Reversal Ondansetron HCl (Ondansetron 4 Mg/2 Ml Vial) 4 mg IVP Q6HR PRN PRN Reason: Nausea And Vomiting Last Admin: 10/06/20 12:39 Dose: 4 mg Documented by: Pantoprazole Sodium (Pantoprazole 40 Mg/10 Ml Vial) 40 mg IV DAILY [facility] Last Admin: 10/07/20 08:52 Dose: 40 mg Documented by: Objective - Vital Signs Vital signs: Vital Signs Temp 98.1 F 10/07/20 08:00 Pulse 87 10/07/20 09:00 Resp 19 10/07/20 09:00 BP 121/79 10/07/20 09:00 Pulse Ox 96 10/07/20 09:00 Intake & Output 10/06/20 10/07/20 10/07/20 18:59 06:59 18:59 Intake Total 1600 1919.92 480.08 Output Total 1390 1240 400 Balance 210 679.92 80.08 Weight 118.3 kg Intake: IV 1500 1200 300 Calcium Gluconate 2 gm In 100 Sodium Chloride 0.9% 100 ml @ 100 mls/hr IVPB ONCE ONE Rx#:[id number] D5-0.45% NaCl with KCl 600 20Meq/l 1,000 ml @ 150 mls/hr IV .[id number] [facility] Rx# :[id number] Sodium Chloride 0.9% 1, 900 1100 300 000 ml @ 100 mls/hr IV . Q10H [facility] Rx#:[id number] Intake, IV Titration 169.92 180.08 Amount Heparin Sod,Pork in 0.45% 169.92 80.08 NaCl 25,000 unit In 0.45 % NaCl 1 250ml.bag @ 18 UNITS/KG/HR 21.24 mls/hr IV .[id number] [facility] Rx#: [id number] Potassium Chloride 10 meq 100 In Water For Injection 1 100ml.bag @ 100 mls/hr IVPB Q1H [facility] Rx#: [id number] Oral 100 550 Output: Gastric Drainage 400 Urine 990 1240 400 Other: Voiding Method Indwelling Catheter Indwelling Catheter Indwelling Catheter - Exam GENERAL: The patient is alert and oriented x3, not in any acute distress, currently on 5 L via nasal cannula. Obese HEENT: Pupils are round and equally reacting to light. EOMI. No scleral icterus. No conjunctival pallor. Normocephalic, atraumatic. No pharyngeal erythema. No thyromegaly. CARDIOVASCULAR: S1 and S2 present. No murmurs, rubs, or gallops. PULMONARY: Diminished breath sounds bilaterally with some scattered rhonchi and crackles noted ABDOMEN: Distended, nontender, sluggish bowel sounds noted, no rebound or rigidity MUSCULOSKELETAL: No joint swelling or deformity. EXTREMITIES: No cyanosis, clubbing, or pedal edema. NEUROLOGICAL: Gross neurological examination did not reveal any focal deficits. diffuse weakness SKIN: No rashes. - Labs CBC & Chem 7: 10/07/20 03:04 10/07/20 03:04 Labs: Abnormal Lab Results - Last 24 Hours (Table) 10/06/20 10/06/20 10/06/20 Range/Units 04:22 10:12 10:36 WBC (3.8-10.6) k/uL RBC (4.30-5.90) m/uL Hgb (13.0-17.5) gm/dL Hct (39.0-53.0) % Neutrophils # (1.3-7.7) k/uL Lymphocytes # (1.0-4.8) k/uL APTT 42.5 H (22.0-30.0) sec Sodium (137-145) mmol/L Carbon Dioxide (22-30) mmol/L BUN (9-20) mg/dL Creatinine (0.66-1.25) mg/dL Glucose (74-99) mg/dL POC Glucose (mg/dL) 239 H (75-99) mg/dL Hemoglobin A1c 12.6 H (4.0-6.0) % Calcium (8.4-10.2) mg/dL AST (17-59) U/L Total Protein (6.3-8.2) g/dL Albumin (3.5-5.0) g/dL Lipase (23-300) U/L 10/06/20 10/06/20 10/06/20 Range/Units 10:36 10:57 12:41 WBC (3.8-10.6) k/uL RBC (4.30-5.90) m/uL Hgb (13.0-17.5) gm/dL Hct (39.0-53.0) % Neutrophils # (1.3-7.7) k/uL Lymphocytes # (1.0-4.8) k/uL APTT (22.0-30.0) sec Sodium (137-145) mmol/L Carbon Dioxide (22-30) mmol/L BUN (9-20) mg/dL Creatinine (0.66-1.25) mg/dL Glucose (74-99) mg/dL POC Glucose (mg/dL) 247 H 244 H (75-99) mg/dL Hemoglobin A1c (4.0-6.0) % Calcium (8.4-10.2) mg/dL AST (17-59) U/L Total Protein (6.3-8.2) g/dL Albumin (3.5-5.0) g/dL Lipase 2335 H (23-300) U/L 10/06/20 10/06/20 10/06/20 Range/Units 18:40 21:13 22:41 WBC (3.8-10.6) k/uL RBC (4.30-5.90) m/uL Hgb (13.0-17.5) gm/dL Hct (39.0-53.0) % Neutrophils # (1.3-7.7) k/uL Lymphocytes # (1.0-4.8) k/uL APTT 43.2 H (22.0-30.0) sec Sodium (137-145) mmol/L Carbon Dioxide (22-30) mmol/L BUN (9-20) mg/dL Creatinine (0.66-1.25) mg/dL Glucose (74-99) mg/dL POC Glucose (mg/dL) 187 H 154 H (75-99) mg/dL Hemoglobin A1c (4.0-6.0) % Calcium (8.4-10.2) mg/dL AST (17-59) U/L Total Protein (6.3-8.2) g/dL Albumin (3.5-5.0) g/dL Lipase (23-300) U/L 10/07/20 10/07/20 10/07/20 Range/Units 03:04 03:04 03:06 WBC 11.5 H (3.8-10.6) k/uL RBC 3.08 L (4.30-5.90) m/uL Hgb 9.9 L (13.0-17.5) gm/dL Hct 29.1 L (39.0-53.0) % Neutrophils # 10.0 H (1.3-7.7) k/uL Lymphocytes # 0.7 L (1.0-4.8) k/uL APTT 32.8 H (22.0-30.0) sec Sodium 134 L (137-145) mmol/L Carbon Dioxide 21 L (22-30) mmol/L BUN 30 H (9-20) mg/dL Creatinine 1.49 H (0.66-1.25) mg/dL Glucose 152 H (74-99) mg/dL POC Glucose (mg/dL) (75-99) mg/dL Hemoglobin A1c (4.0-6.0) % Calcium 5.8 L* (8.4-10.2) mg/dL AST 78 H (17-59) U/L Total Protein 5.2 L (6.3-8.2) g/dL Albumin 2.7 L (3.5-5.0) g/dL Lipase 1004 H (23-300) U/L 10/07/20 Range/Units 06:49 WBC (3.8-10.6) k/uL RBC (4.30-5.90) m/uL Hgb (13.0-17.5) gm/dL Hct (39.0-53.0) % Neutrophils # (1.3-7.7) k/uL Lymphocytes # (1.0-4.8) k/uL APTT (22.0-30.0) sec Sodium (137-145) mmol/L Carbon Dioxide (22-30) mmol/L BUN (9-20) mg/dL Creatinine (0.66-1.25) mg/dL Glucose (74-99) mg/dL POC Glucose (mg/dL) 254 H (75-99) mg/dL Hemoglobin A1c (4.0-6.0) % Calcium (8.4-10.2) mg/dL AST (17-59) U/L Total Protein (6.3-8.2) g/dL Albumin (3.5-5.0) g/dL Lipase (23-300) U/L Assessment and Plan Assessment: -Acute pancreatitis severe edematous pancreatitis, etiology is not clear , can be secondary to hypertriglyceridemia although triglycerides are only 1100, lipid triglycerides repeated today is 341, Lipase improved at 1004 -Severe abdominal distention with possibility of gastric outlet obstruction as p er the radiologist's reading although not much output from the NG tube, surgery following an continued on NG tube for now -Acute hypoxic respiratory failure: Secondary to severe systemic inflammatory response from pancreatitis and probably from abdominal distention. No primary lung pathology at this time. -Severe anion gap metabolic acidosis secondary to diabetic into acidosis and lactic acidosis, improving and resolving -Hyponatremia: Combination of hypovolemic hyponatremia and pseudohyponatremia from hyperglycemia, improving present sodium is 134 -History of shingles, internal and maintenance Valtrex of 500 mg daily. Patient is nothing by mouth at this time and will add acyclovir IV piggyback -Elevated pro calcitonin, patient is maintained on IV antibiotics and will continue at this time. -Diabetic ketoacidosis and severe hyperglycemia secondary to acute pancreatic insufficiency patient probably will need insulin and will be insulin dependent from now on. Patient was transitioned to sliding scale insulin along with long acting insulin, titration of these insulin as per the blood sugars, will also consult nurses educator in regards to possible insulin management outpatient -Hyperkalemia secondary to metabolic acidosis, improved now -acute renal failure, most probably secondary to acute tubular necrosis from hypotension patient has fairly good urine output at this time continue with IV fluids and aggressive fluid resuscitation. Improving. 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 Patient is off of levophed -Obesity with a body mass index of 36.4 -Hypocalcemia secondary to metabolic acidosis, calcium continues to be low at 5.8 and being replaced and will repeat -Tachycardia secondary to shock, improved -full code Plan: Continue with current medications and current regimen. Continue to monitor A ccu-Cheks before meals and at bedtime and continue sliding scale along with long-acting. Consult nurses educator as patient will possibly require insulin on discharge. Calcium continues to be low and being replaced and will repeat labs. Sodium improved at 134 current potassium is 3.6. Creatinine 1.49 and will decrease fluids drastically as chest x-ray shows some possible vascular congestion. A dose of IV Lasix given today. Continued NG tube bilious drainage although less and will discuss with surgery about resuming a clear liquid diet as tolerated. Continue to wean FiO2 as tolerated. Encourage the use of incentive spirometer and increasing activity as tolerated. Will have PT/OT ev aluate the patient. Further recommendations to follow based on the clinical course of the patient. Prognosis is guarded.
[2020-10-07] MEDS: ACYCLOVIR SODIUM 500 MG in SODIUM CHLORIDE 0.9% 100 ML IVPB SCH ×2 (14:32→21:38)
[2020-10-07 16:56] LABS: Glucose,Whole Blood 175 mg/dL (75-99)
[2020-10-07 19:44] LABS: Glucose,Whole Blood 152 mg/dL (75-99)
[2020-10-08] MEDS: HYDROmorphone 1 MG/ML 1 ML SYRINGE IVP PRN ×7 (01:59→22:47)
[2020-10-08 03:29] LABS: Basophils % (A) 0 %; Eosinophils # (A) 0.1 k/uL (0-0.7); Eosinophils % (A) 1 %; HCT 29.2 % (39.0-53.0); HGB 9.3 gm/dL (13.0-17.5); Hypochromasia Slight; Lymphocytes % (A) 9 %; MCH 30.4 pg (25.0-35.0); MCHC 31.9 g/dL (31.0-37.0); MCV 95.4 fL (80.0-100.0); Mean Platelet Volume 8.4; Monocytes # (A) 0.7 k/uL (0-1.0); Monocytes % (A) 7 %; Neutrophils # (A) 8.9 k/uL (1.3-7.7); Neutrophils % (A) 81 %; Platelet Count 192 k/uL (150-450); RBC 3.06 m/uL (4.30-5.90); RDW 13.6 % (11.5-15.5)
[2020-10-08 03:57] LABS: ALT 31 U/L (4-49); AST 62 U/L (17-59); African American GFR (CKD) >90 (>60 ml/min/1.73 sqM); Albumin 2.8 g/dL (3.5-5.0); Alkaline Phosphatase 108 U/L (38-126); Anion Gap 9 mmol/L; Blood Urea Nitrogen 26 mg/dL (9-20); Carbon Dioxide 26 mmol/L (22-30); Chloride 101 mmol/L (98-107); Glucose 116 mg/dL (74-99); Non-African American GFR(CKD) 78 (>60 ml/min/1.73 sqM); Potassium 3.3 mmol/L (3.5-5.1); Sodium 136 mmol/L (137-145); Total Bilirubin 0.5 mg/dL (0.2-1.3); Total Protein 5.4 g/dL (6.3-8.2)
[2020-10-08 04:14] LABS: Calcium 6.4 mg/dL (8.4-10.2)
[2020-10-08] MEDS: HEPARIN SOD,PORK IN 0.45% NACL 25,000 UNIT in 0.45% NACL 1 250ML.BAG IV SCH ×2 (04:19→14:31)
[2020-10-08] MEDS: AMPICILLIN-SULBACTAM 1.5 GM in SODIUM CHLORIDE 0.9% 50 ML IVPB SCH ×3 (04:29→20:36)
[2020-10-08] MEDS: POTASSIUM CHLORIDE 10 MEQ in WATER FOR INJECTION 1 100ML.BAG IVPB SCH ×5 (04:54→23:33)
[2020-10-08] MEDS: ACYCLOVIR SODIUM 500 MG in SODIUM CHLORIDE 0.9% 100 ML IVPB SCH ×3 (06:03→21:53)
[2020-10-08 06:33] LABS: Glucose,Whole Blood 161 mg/dL (75-99)
[2020-10-08] MEDS: INSULIN DETEMIR (LEVEMIR) 100 UNIT/ML SYR SQ SCH (06:37)
[2020-10-08] MEDS: INSULIN ASPART (NovoLOG) 100 UNIT/ML VIAL SQ SCH ×4 (06:37→20:44)
[2020-10-08] MEDS: PANTOPRAZOLE 40 MG/10 ML VIAL IV SCH (08:11)
[2020-10-08] MEDS: LORazepam 2 MG/ML INJ IV PRN (08:12)
[2020-10-08] MEDS: SODIUM CHLORIDE 0.9% 1,000 ML IV SCH (08:14)
[2020-10-08] MEDS: NOREPINEPHRINE 4 MG in SODIUM CHLORIDE 0.9% 250 ML IV SCH ×2 (08:54→20:44)
--- NOTE | 2020-10-08 10:41 | P.PN ---
Subjective Progress Note Date: 10/08/20 Principal diagnosis: Acute pancreatitis This is a pleasant 49-year-old gentleman who follows with Dr. Thompson as his primary care provider. He has a history of hyperlipidemia, hypertension, shingles with encephalomyelitis and cognitive impairment, anxiety/depression. Lifelong nonsmoker. He presented to the emergency room yesterday with a 2 day history of increasing abdominal discomfort, nausea vomiting dry heaves. Diaphoretic. Computed tomography scan of the abdomen revealed moderate to severe acute interstitial pancreatitis. Inflammatory edema and fat stranding tracks on the mesentery and retroperitoneum to the umbilical level. No focal fluid collection noted. There is secondary complication with a long segment nonocclusive splenic vein thrombosis. There is a 1.6 cm metal density within the second portion of the duodenum. Questionable etiology possible dental crown or other ingested foreign body. Unsure if this is contributing to some type of gastric outlet obstruction. There is contiguous duodenitis and proximal jejunitis adjacent to the pancreatic inflammation. Trace perihepatic ascites and mild to moderate pelvic ascites secondary to pancreatic inflammation. No excretion of contrast and the kidneys on the delayed kidney images. Possible acute kidney injury. Hepatomegaly with severe hepatic steatosis. Sigmoid diverticulosis. 2 mm nonobstructive left renal calculus. White count 22.0. Hemoglobin 14.0. Platelet count 451. Sodium initially 116 currently 125. Potassium initially 6.0 currently 4.1. I carb initially 8, currently 15. Anion gap initially 28, currently 17. Creatinine 2.70. Initial blood glucose 969. Currently 179. Calcium 6.4. LDH 1570. AST 54. ALT 29. Amylase 901. Lipase 10,000 385. Acetone positive. Hurtado virus not detected. He is currently awake and alert. Maintaining O2 saturations in the 90s on 5 L/m per nasal cannula. He is on a heparin drip per weight-based protocol. Insulin drip at 12 units per hour. 0.9 normal saline at 10 mL per hour. He's had an extreme total of 4.5 L of fluid resuscitation. IV is to be changed to D5.45 with 20 KCl at 150 MLS per hour per DKA protocol. The patient is seen today 10/06/2020 in follow-up in the intensive care unit. He is currently laying flat in bed. Awake and alert in no acute distress. He is maintaining O2 saturations in the 90s on 5 L/m per nasal cannula. He is still having issues with ongoing abdominal discomfort. He's been hypotensive. He remains on norepinephrine at 0.03 mcg/kg/m. He is on a insulin drip at 6 units per hour. He remains on a heparin drip weight-based protocol. He remains on D5 0.45 with 20 KCl at 150 ML's per hour. Ultrasound of the Bladder revealed severe hepatic steatosis. Mild perihepatic ascites. No gallstones or biliary duct dilatation seen. White count 4.3. Hemoglobin 10.6. Sodium 131. Potass ium 3.9. Creatinine 2.43. Calcium 5.5. AST 106. ALT 29. He remains on Unasyn. The patient is seen today 10/07/2020 in follow-up in the intensive care unit. Awake and alert in no acute distress. He is still confused at times. He is breathing quite flat in bed. He denies any worsening shortness of breath. He is maintaining O2 saturations in the 90s on 5 L high flow nasal cannula. Afebrile. Heparin drip per weight-based protocol. 0.9 normal saline at 100 mL per hour. Norepinephrine remains off. Chest x-ray shows some evidence of fluid volume overload. Some patchy retrocardiac atelectasis versus developing pneumonia. White count 11.5. Hemoglobin 9.9. Sodium 134. Potassium 3.6. Creatinine 1.49. Lipase 1004. Triglycerides 341. Glucose 152. On 10/08/2020 patient seen in follow-up in the intensive care unit, he is currently awake and alert, oriented 3, he is on 2 L of supplemental oxygen, his pulse ox is 93%, she is afebrile, hemodynamically stable, he is not on any v asopressor support, he is currently on 0.9 normal saline at a rate of 20 ML per hour, and heparin drip is at weight-based protocol for splenic vein thrombosis. Patient is slightly diaphoretic, and at times he is mildly tachypneic, but denies any acute respiratory distress. He has NG tube in his nose, and there has been 500 mL of gastric output in the last 24 hours, he feels that his abdomen is a bit more distended compared to yesterday, he does have positive bowel sounds, and he did have a bowel movement last night, his lipase has significantly improved from admission and is currently down to 1004. He remains on antibiotics of Unasyn and Zovirax. His CT of abdomen and pelvis from admissi on showed possible mental density drain 1.6 cm within the second portion of the duodenum, with the possibility of a foreign body or possible dental crown. Patient denies having any missing dental crowns. His abdominal CT of abdomen and pelvis will be repeated today and was discussed with the general surgery who is following the patient. Yesterday's chest x-ray showed mild interstitial prominence, and patient had received 1 dose of Lasix, and he has produced 4.4 L in urine output over last 24 hours. Rest of his blood work has been reviewed, his white count is steadily improving, and is down to 11 on today's labs, hemoglobin is 9.3, sodium is 136, potassium is 3.3, his renal profile is imp roving his BUN is 26 and creatinine is 1.1. Today's lactic acid is down to 0.6, calcium is 6.4, pro calcitonin level is 5.93, patient is on antibiotics as mentioned above. Patient remains nothing by mouth. No blood cultures have been sent. Patient has been afebrile. Objective - Vital Signs Vital signs: Vital Signs Temp 98.7 F 10/08/20 08:00 Pulse 84 10/08/20 10:00 Resp 11 L 10/08/20 10:00 BP 119/81 10/08/20 10:00 Pulse Ox 93 L 10/08/20 10:00 Intake & Output 10/07/20 10/08/20 10/08/20 18:59 06:59 18:59 Intake Total 1449.729 570 810 Output Total 3200 1215 725 Balance -1750.271 -645 85 Weight 120 kg 120 kg Intake: IV 200 320 160 Potassium Chloride 10 meq 100 100 In Water For Injection 1 100ml.bag @ 100 mls/hr IVPB Q1H [facility] Rx#: [id number] Sodium Chloride 0.9% 1, 200 220 60 000 ml @ 100 mls/hr IV . Q10H [facility] Rx#:[id number] Intake, IV Titration 949.729 250 250 Amount Acyclovir Sodium 500 mg 100 In Sodium Chloride 0.9% 100 ml @ 100 mls/hr IVPB Q8H [facility] Rx#:[id number] Ampicillin-Sulbactam 1.5 100 gm In Sodium Chloride 0.9 % 50 ml @ 100 mls/hr IVPB Q8H [facility] Rx#:[id number] Heparin Sod,Pork in 0.45% 329.729 250 NaCl 25,000 unit In 0.45 % NaCl 1 250ml.bag @ 18 UNITS/KG/HR 21.24 mls/hr IV .[id number] [facility] Rx#: [id number] Potassium Chloride 10 meq 200 In Water For Injection 1 100ml.bag @ 100 mls/hr IVPB Q1H [facility] Rx#: [id number] Potassium Chloride 10 meq 210 In Water For Injection 1 100ml.bag @ 100 mls/hr IVPB Q1HR [facility] Rx#: [id number] Sodium Chloride 0.9% 1, 220 40 000 ml @ 20 mls/hr IV . Q24H [facility] Rx#:[id number] Oral 300 400 Output: Gastric Drainage 500 Urine 2700 1215 725 Other: Voiding Method Indwelling Catheter Indwelling Catheter Indwelling Catheter - Exam GENERAL EXAM: Alert, very pleasant, 50-year-old obese white male, on 2 L of oxygen with pulse ox of 93%, resting in bed, mildly tachypneic at times, is in place connected to low intermittent suction, abdomen is distended comfortable in no apparent distress. HEAD: Normocephalic/atraumatic. EYES: Normal reaction of pupils, equal size. Conjunctiva pink, sclera white. NOSE: Clear with pink turbinates. G-tube is in place, to low intermittent suction, with a total of 500 mL of gastric output in the last 24 hours THROAT: No erythema or exudates. NECK: No masses, no JVD, no thyroid enlargement, no adenopathy. CHEST: No chest wall deformity. Symmetrical expansion. LUNGS: Equal air entry with no crackles, wheeze, rhonchi or dullness. CVS: Regular rate and rhythm, normal S1 and S2, no gallops, no murmurs, no rubs ABDOMEN: Soft, distended. No hepatosplenomegaly, normal bowel sounds, no guarding or rigidity. EXTREMITIES: No clubbing, no edema, no cyanosis, 2+ pulses and upper and lower extremities. MUSCULOSKELETAL: Muscle strength and tone normal. SPINE: No scoliosis or deformity SKIN: No rashes CENTRAL NERVOUS SYSTEM: Alert and oriented -3. No focal deficits, tone is normal in all 4 extremities. PSYCHIATRIC: Alert and oriented -3. Appropriate affect. Intact judgment and insight. - Labs CBC & Chem 7: 10/08/20 02:55 10/08/20 02:55 Labs: Abnormal Lab Results - Last 24 Hours (Table) 10/07/20 10/07/20 10/07/20 Range/Units 03:04 10:20 11:07 WBC (3.8-10.6) k/uL RBC (4.30-5.90) m/uL Hgb (13.0-17.5) gm/dL Hct (39.0-53.0) % Neutrophils # (1.3-7.7) k/uL APTT 53.5 H (22.0-30.0) sec Sodium (137-145) mmol/L Potassium (3.5-5.1) mmol/L BUN (9-20) mg/dL Glucose (74-99) mg/dL POC Glucose (mg/dL) 195 H (75-99) mg/dL Plasma Lactic Acid Matias (0.7-2.0) mmol/L Calcium (8.4-10.2) mg/dL AST (17-59) U/L Total Protein (6.3-8.2) g/dL Albumin (3.5-5.0) g/dL Procalcitonin 5.93 H (0.02-0.09) ng/mL 10/07/20 10/07/20 10/08/20 Range/Units 16:54 19:42 02:55 WBC (3.8-10.6) k/uL RBC (4.30-5.90) m/uL Hgb (13.0-17.5) gm/dL Hct (39.0-53.0) % Neutrophils # (1.3-7.7) k/uL APTT 50.0 H (22.0-30.0) sec Sodium (137-145) mmol/L Potassium (3.5-5.1) mmol/L BUN (9-20) mg/dL Glucose (74-99) mg/dL POC Glucose (mg/dL) 175 H 152 H (75-99) mg/dL Plasma Lactic Acid Matias (0.7-2.0) mmol/L Calcium (8.4-10.2) mg/dL AST (17-59) U/L Total Protein (6.3-8.2) g/dL Albumin (3.5-5.0) g/dL Procalcitonin (0.02-0.09) ng/mL 10/08/20 10/08/20 10/08/20 Range/Units 02:55 02:55 06:31 WBC 11.0 H (3.8-10.6) k/uL RBC 3.06 L (4.30-5.90) m/uL Hgb 9.3 L (13.0-17.5) gm/dL Hct 29.2 L (39.0-53.0) % Neutrophils # 8.9 H (1.3-7.7) k/uL APTT (22.0-30.0) sec Sodium 136 L (137-145) mmol/L Potassium 3.3 L (3.5-5.1) mmol/L BUN 26 H (9-20) mg/dL Glucose 116 H (74-99) mg/dL POC Glucose (mg/dL) 161 H (75-99) mg/dL Plasma Lactic Acid Matias (0.7-2.0) mmol/L Calcium 6.4 L* (8.4-10.2) mg/dL AST 62 H (17-59) U/L Total Protein 5.4 L (6.3-8.2) g/dL Albumin 2.8 L (3.5-5.0) g/dL Procalcitonin (0.02-0.09) ng/mL 10/08/20 Range/Units 08:49 WBC (3.8-10.6) k/uL RBC (4.30-5.90) m/uL Hgb (13.0-17.5) gm/dL Hct (39.0-53.0) % Neutrophils # (1.3-7.7) k/uL APTT (22.0-30.0) sec Sodium (137-145) mmol/L Potassium (3.5-5.1) mmol/L BUN (9-20) mg/dL Glucose (74-99) mg/dL POC Glucose (mg/dL) (75-99) mg/dL Plasma Lactic Acid Matias 0.6 L (0.7-2.0) mmol/L Calcium (8.4-10.2) mg/dL AST (17-59) U/L Total Protein (6.3-8.2) g/dL Albumin (3.5-5.0) g/dL Procalcitonin (0.02-0.09) ng/mL Assessment and Plan Plan: #1. Acute abdominal pain, secondary to severe acute pancreatitis #2. Long segment of nonocclusive splenic vein thrombosis, currently on heparin infusion #3. Metal density in the second portion of duodenum, measuring 1.6 cm, with the possibility of gastric outlet obstruction, rule out possibility of ingested foreign body or dental crown #4. Duodenitis, proximal jejunitis, and pancreatic inflammation #5. Moderate pelvic ascites secondary to pancreatic inflammation #6. Acute kidney injury, improving #7. Severe hepatic steatosis with hepatomegaly #8. Acute diabetic ketoacidosis secondary to acute pancreatitis #9. Hyponatremia, improved #10. Elevated amylase and lipase second 2 pancreatitis, improving #11. Hypertension #12. Hyperlipidemia #13. History of anxiety/depression #14. 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 I reviewed the nurse practitioner's note and agree with the documented findings and plan of care. Lung sounds are positive for diminished breath sounds throughout the lung fi elds. The findings and the impression was discussed with the patient. I attest to the documentation by the nurse practitioner. Time with Patient: Greater than 30
--- NOTE | 2020-10-08 11:14 | P.PN ---
Subjective Progress Note Date: 10/08/20 49-year-old male came in with comments of nausea vomiting for couple days in the significant polyuria and polydipsia that has been going on for about a week. Patient was coming of severe abdominal pain sharp in nature nonradiating diffuse. Patient is found to be in DKA and patient is also found to have severe pancreatitis. Patient had a CT of the abdomen which showed edematous pancreatic that is without any necrosis. There was a secondary combination of splint vein thrombosis as well and patient abdomen is quite a bit distended with distention of the stomach there is significant duodenitis jejunitis along with a foreign body in the second part of the duodenum probably contributing or causing gastric outlet obstruction. General surgery was consulted. Patient was admitted to ICU patient has severe acidosis patient is a has a highly elevated blood sugars of 4000 bicarbonate of 10 and multiple other electrolyte abnormalities. Patient the ionized calcium is low as well and calcium was replaced. Patient is found to be in acute renal failure with creatinine of around 2.4 patient was hyp otensive presently not on any pressors patient is presently receiving IV fluids. Triglyceride levels are pending. Patient is not an alcoholic. There is no evidence of gallstones and the CT of the abdomen. Patient the had a hemoglobin A1c tested recently about couple months ago at that time his hemoglobin A1c was within normal limits as per the . Patient baseline creatinine is around 0.9, patient denied any fever chills dysuria. Patient doesn't have any fever does have significant leukocytosis. White blood cell count of around 25,000. Serum sodium was extremely low and serum potassium is very high is all because of the acidosis and hyperglycemia. Patient was pretty status has progressively worsened since last night and patient is present and BiPAP. Patient has significant abdominal distention with significant air-fluid level in the abdomen and stomach patient does have some ascites on the CT and this is secondary to severe peritonitis. Patient is presently on empiric Zosyn although there is no clear evidence of infection at this time. 10/06/2020 Patient's anion gap resolved. Patient's insulin will be discontinued and patient was started on 20 units of long-acting insulin along with pre-meal insulin. Patient the nausea improved patient still has some abdominal pain which also significantly improved. Patient will be started on clear liquid diet. We'll also obtain a hemoglobin A1c. Patient will be changed to normal saline at 100 mL per hour. Patient hyponatremia is improving. Patient's anion gap resolved. Patient remains on norepinephrine which is being tapered. Patient is presently on 8 L of oxygen as a postal BiPAP yesterday lung clear to auscultation with good air entry into bilateral lung bernal patient's abdomen is still distended nothing much from the NG tube NG tube will be removed. Patient's lipase has come down to 2000. 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 Patient does have elevated triglyceride levels will repeat triglyceride levels again tomorrow. Triglycerides around 1100. 10/07/2020 Patient is seen and examined in follow-up continues to be closely monitored in the ICU. Patient continues with NG tube with bilious drainage noted and surgery is following closely. Patient is off of levophed and chest x-ray today shows some mild interstitial prominence with possible mild pulmonary vascular con gestion with patchy retrocardiac atelectasis versus developing pneumonia and will be given a dose of IV Lasix. Will decrease IV fluids. Patient continues to be nothing by mouth and states his abdominal discomfort has improved and is passing gas with no reports of bowel movement as of yet. Family at the bedside concerned that he has not been taking his Valtrex that he takes 500 mg daily for history of internal shingles and is on 500 mg daily we'll add acyclovir IV piggyback as patient is currently nothing by mouth. Patient is currently on 5 L via nasal cannula and discussed with nursing staff about weaning FiO2 as tolerated as he was maintaining 95% oxygen saturation. Urology continues on IV heparin and will continue at this time. Addiction Medicine Physician also following closely. Patient is continued on sliding scale along with long-acting and recommend to continue with Accu-Cheks before meals and at bedtime. Lipase today improving at 1004. Creatinine slightly improved at 1.49, potassium is 3.6, sodium is 134, white blood count trending down at 11.5 and hemoglobin is stable at 9.9. Calciu m is low at 5.8 being replaced and will monitor closely 10/08/2020 Patient is seen in follow-up this morning no acute overnight issues. Since states he continues to have mild abdominal discomfort and feels slightly more distended. Positive bowel sounds noted on exam and states he had a bowel mov ement last night. Patient denies any nausea or vomiting and continues with NG tube with approximately 500 mL since last night. Patient was given a dose of IV Lasix with good urinary output. Nursing staff working on weaning FiO2 as tolerated and currently on 2 L via nasal cannula. Patient states he continues to have periods of shortness of breath although feels is not worsened since admission. Blood sugars continue to be monitored closely and continued with sliding scale and long-acting and have remained in the low to mid 100s and will continue current management. Repeat plasma lactic acid is within normal limits at 0.6. Calcium 6.4 and albumin at 2.8. Kidney function improved with a BUN of 26 and a creatinine of 1.10. Sodium is 136 and potassium is 3.3 and will replace per protocol. White blood count slowly trending down at 11.0 and hemoglobin is stable at 9.3. Repeat CT abdomen is ordered and pending at this time and GI has been consulted which is also pending. Patient remains afebrile. Review of systems: Constitutional: No reports of fatigue, fever, or chills Cardiovascular: No reports of chest pain or palpitations Respiratory: Reports intermittent shortness of breath GI: No reports of nausea, vomiting, or diarrhea, reports abdomina distention and mild discomfort : No reports of dysuria or retention, has an indwelling Ward catheter for close intake and output Neurovascular: Generalized weakness All medications have been reviewed Active Medications Heparin Sodium (Porcine) (Heparin Sodium 1,000 Un/Ml (10ml Vl)) 0 unit IV PER PROTOCOL PRN; Protocol PRN Reason: Low PTT Last Admin: 10/07/20 05:04 Dose: 4,000 unit Documented by: Hydromorphone HCl (Hydromorphone 1 Mg/Ml 1 Ml Syringe) 1 mg IVP Q2HR PRN PRN Reason: Pain Scale 6 to 7 Last Admin: 10/08/20 08:12 Dose: 1 mg Documented by: Hydromorphone HCl (Hydromorphone 0.5 Mg/0.5 Ml Syringe) 0.5 mg IVP Q2HR PRN PRN Reason: Pain Scale 4 to 5 Last Admin: 10/07/20 11:02 Dose: 0.5 mg Documented by: Norepinephrine Bitartrate 4 mg (/ Sodium Chloride) 254 mls @ 22.098 mls/hr IV .[id number] [facility]; Protocol Last Admin: 10/08/20 08:54 Dose: Not Given Documented by: Ampicillin Sodium/Sulbactam (Sodium 1.5 gm/ Sodium Chloride) 50 mls @ 100 mls/hr IVPB Q8H [facility] Last Admin: 10/08/20 04:29 Dose: 100 mls/hr Documented by: Heparin Sodium/Sodium Chloride (25,000 unit/ Sodium Chloride) 250 mls @ 21.24 mls/hr IV .[id number] [facility]; Protocol Last Admin: 10/08/20 04:19 Dose: 22 units/kg/hr, 25.96 mls/hr Documented by: Sodium Chloride (Saline 0.9%) 1,000 mls @ 20 mls/hr IV .Q24H [facility] Last Admin: 10/08/20 08:14 Dose: 20 mls/hr Documented by: Acyclovir Sodium 500 mg/ (Sodium Chloride) 110 mls @ 100 mls/hr IVPB Q8H [facility] Last Admin: 10/08/20 06:03 Dose: 100 mls/hr Documented by: Insulin Aspart (Insulin Aspart (Novolog) 100 Unit/Ml Vial) 0 unit SQ ACHS [facility]; Protocol Last Admin: 10/08/20 06:37 Dose: 2 unit Documented by: Insulin Detemir (Insulin Detemir (Levemir) 100 Unit/Ml Syr) 20 unit SQ DAILY@0700 [facility] Last Admin: 10/08/20 06:37 Dose: 20 unit Documented by: Lorazepam (Lorazepam 2 Mg/Ml Inj) 0.5 mg IV Q6HR PRN PRN Reason: Anxiety Last Admin: 10/08/20 08:12 Dose: 0.5 mg Documented by: Miscellaneous Information (Potassium Replacement Protocol 1 Each Misc) 1 each MISCELLANE DAILY PRN; Protocol PRN Reason: Per Protocol Naloxone HCl (Naloxone 0.4 Mg/Ml 1 Ml Vial) 0.2 mg IV Q2M PRN PRN Reason: Opioid Reversal Ondansetron HCl (Ondansetron 4 Mg/2 Ml Vial) 4 mg IVP Q6HR PRN PRN Reason: Nausea And Vomiting Last Admin: 10/06/20 12:39 Dose: 4 mg Documented by: Pantoprazole Sodium (Pantoprazole 40 Mg/10 Ml Vial) 40 mg IV DAILY [facility] Last Admin: 10/08/20 08:11 Dose: 40 mg Documented by: Objective - Vital Signs Vital signs: Vital Signs Temp 98.7 F 10/08/20 08:00 Pulse 83 10/08/20 09:00 Resp 12 10/08/20 09:00 BP 122/91 10/08/20 09:00 Pulse Ox 92 L 10/08/20 07:00 Intake & Output 10/07/20 10/08/20 10/08/20 18:59 06:59 18:59 Intake Total 1449.729 570 260 Output Total 3200 1215 475 Balance -1750.271 -645 -215 Weight 120 kg Intake: IV 200 320 160 Potassium Chloride 10 meq 100 100 In Water For Injection 1 100ml.bag @ 100 mls/hr IVPB Q1H [facility] Rx#: [id number] Sodium Chloride 0.9% 1, 200 220 60 000 ml @ 100 mls/hr IV . Q10H [facility] Rx#:[id number] Intake, IV Titration 949.729 250 Amount Acyclovir Sodium 500 mg 100 In Sodium Chloride 0.9% 100 ml @ 100 mls/hr IVPB Q8H [facility] Rx#:[id number] Ampicillin-Sulbactam 1.5 100 gm In Sodium Chloride 0.9 % 50 ml @ 100 mls/hr IVPB Q8H [facility] Rx#:[id number] Heparin Sod,Pork in 0.45% 329.729 250 NaCl 25,000 unit In 0.45 % NaCl 1 250ml.bag @ 18 UNITS/KG/HR 21.24 mls/hr IV .[id number] [facility] Rx#: [id number] Potassium Chloride 10 meq 200 In Water For Injection 1 100ml.bag @ 100 mls/hr IVPB Q1H [facility] Rx#: [id number] Sodium Chloride 0.9% 1, 220 000 ml @ 20 mls/hr IV . Q24H [facility] Rx#:[id number] Oral 300 100 Output: Gastric Drainage 500 Urine 2700 1215 475 Other: Voiding Method Indwelling Catheter Indwelling Catheter - Exam GENERAL: The patient is alert and oriented x3, not in any acute distress, currently on 2-3 L via nasal cannula. Obese HEENT: Pupils are round and equally reacting to light. EOMI. No scleral icterus. No conjunctival pallor. Normocephalic, atraumatic. No pharyngeal erythema. No thyromegaly. CARDIOVASCULAR: S1 and S2 present. No murmurs, rubs, or gallops. PULMONARY: Diminished breath sounds bilaterally with some scattered rhonchi and crackles noted ABDOMEN: Distended, mildly tender on palpation, bowel sounds noted, no rebound or rigidity MUSCULOSKELETAL: No joint swelling or deformity. EXTREMITIES: No cyanosis, clubbing, or pedal edema. NEUROLOGICAL: Gross neurological examination did not reveal any focal deficits. diffuse weakness SKIN: No rashes. - Labs CBC & Chem 7: 10/08/20 02:55 10/08/20 02:55 Labs: Abnormal Lab Results - Last 24 Hours (Table) 10/07/20 10/07/20 10/07/20 Range/Units 03:04 03:04 10:20 WBC (3.8-10.6) k/uL RBC (4.30-5.90) m/uL Hgb (13.0-17.5) gm/dL Hct (39.0-53.0) % Neutrophils # (1.3-7.7) k/uL APTT 53.5 H (22.0-30.0) sec Sodium (137-145) mmol/L Potassium (3.5-5.1) mmol/L BUN (9-20) mg/dL Glucose (74-99) mg/dL POC Glucose (mg/dL) (75-99) mg/dL Calcium (8.4-10.2) mg/dL AST (17-59) U/L Total Protein (6.3-8.2) g/dL Albumin (3.5-5.0) g/dL Triglycerides 341.0 H (0.0-149.0) mg/dL Procalcitonin 5.93 H (0.02-0.09) ng/mL 10/07/20 10/07/20 10/07/20 Range/Units 11:07 16:54 19:42 WBC (3.8-10.6) k/uL RBC (4.30-5.90) m/uL Hgb (13.0-17.5) gm/dL Hct (39.0-53.0) % Neutrophils # (1.3-7.7) k/uL APTT (22.0-30.0) sec Sodium (137-145) mmol/L Potassium (3.5-5.1) mmol/L BUN (9-20) mg/dL Glucose (74-99) mg/dL POC Glucose (mg/dL) 195 H 175 H 152 H (75-99) mg/dL Calcium (8.4-10.2) mg/dL AST (17-59) U/L Total Protein (6.3-8.2) g/dL Albumin (3.5-5.0) g/dL Triglycerides (0.0-149.0) mg/dL Procalcitonin (0.02-0.09) ng/mL 10/08/20 10/08/20 10/08/20 Range/Units 02:55 02:55 02:55 WBC 11.0 H (3.8-10.6) k/uL RBC 3.06 L (4.30-5.90) m/uL Hgb 9.3 L (13.0-17.5) gm/dL Hct 29.2 L (39.0-53.0) % Neutrophils # 8.9 H (1.3-7.7) k/uL APTT 50.0 H (22.0-30.0) sec Sodium 136 L (137-145) mmol/L Potassium 3.3 L (3.5-5.1) mmol/L BUN 26 H (9-20) mg/dL Glucose 116 H (74-99) mg/dL POC Glucose (mg/dL) (75-99) mg/dL Calcium 6.4 L* (8.4-10.2) mg/dL AST 62 H (17-59) U/L Total Protein 5.4 L (6.3-8.2) g/dL Albumin 2.8 L (3.5-5.0) g/dL Triglycerides (0.0-149.0) mg/dL Procalcitonin (0.02-0.09) ng/mL 10/08/20 Range/Units 06:31 WBC (3.8-10.6) k/uL RBC (4.30-5.90) m/uL Hgb (13.0-17.5) gm/dL Hct (39.0-53.0) % Neutrophils # (1.3-7.7) k/uL APTT (22.0-30.0) sec Sodium (137-145) mmol/L Potassium (3.5-5.1) mmol/L BUN (9-20) mg/dL Glucose (74-99) mg/dL POC Glucose (mg/dL) 161 H (75-99) mg/dL Calcium (8.4-10.2) mg/dL AST (17-59) U/L Total Protein (6.3-8.2) g/dL Albumin (3.5-5.0) g/dL Triglycerides (0.0-149.0) mg/dL Procalcitonin (0.02-0.09) ng/mL Assessment and Plan Assessment: -Acute pancreatitis severe edematous pancreatitis, etiology is not clear , can b e secondary to hypertriglyceridemia although triglycerides are only 1100, lipid triglycerides repeated today is 341, Lipase improved at 1004. GI now consulted and pending -Severe abdominal distention with possibility of gastric outlet obstruction as per the radiologist's reading NG tube with approximately 500 mL's of output throughout last night, surgery following , nothing by mouth, repeat CT abdomen ordered for increased distention and discomfort -Acute hypoxic respiratory failure: Secondary to severe systemic inflammatory response from pancreatitis and probably from abdominal distention. No primary lung pathology at this time. -Severe anion gap metabolic acidosis secondary to diabetic ketoacidosis and lactic acidosis, improved -Hyponatremia: Combination of hypovolemic hyponatremia and pseudohyponatremia from hyperglycemia, improving present sodium is 136 -History of shingles, internal and on maintenance dose Valtrex of 500 mg daily. Patient is nothing by mouth at this time and will add acyclovir IV piggyback -Elevated pro calcitonin, patient is maintained on IV antibiotics and will continue at this time. -Diabetic ketoacidosis and severe hyperglycemia secondary to acute pancreatic insufficiency patient probably will need insulin and will be insulin dependent from now on. Patient was transitioned to sliding scale insulin along with long acting insulin, titration of these insulin as per the blood sugars, will also consult staff educator in regards to possible insulin management outpatient -Hyperkalemia secondary to metabolic acidosis, improved now, presently hypokal emia with a potassium of 3.3 and will replace per protocol, repeat labs ordered -acute renal failure, most probably secondary to acute tubular necrosis from hypotension patient continues with fairly good urine output at this time. Improved. 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 Patient is off of levophed -Obesity with a body mass index of 36.9 -Hypocalcemia secondary to metabolic acidosis, calcium slowly trending up and is currently 6.4 -Tachycardia secondary to shock, improved -full code Plan: Continue with current medications and current regimen. Continue to monitor Accu-Cheks before meals and at bedtime and continue sliding scale along with long-acting. Consult staff educator as patient will possibly require insulin on discharge. Calcium slowly trending up at 6.4, potassium slightly low at 3.3 and will replace per protocol, sodium is 136 and creatinine improved at 1.10. White Blood count trending down slowly at 11.0. Continued NG tube as there was approximately 500 mL output throughout the night. Patient's abdomen is slightly more distended with discomfort noted in repeat CT abdomen is ordered and pending. Continue to wean FiO2 as tolerated. Encourage the use of incentive spirometer and increasing activity as tolerated. Will have PT/OT evaluate the patient. Further recommendations to follow based on the clinical course of the patient. Prognosis is guarded.
--- NOTE | 2020-10-08 12:20 | CT ---
EXAMINATION TYPE: CT abdomen pelvis w con DATE OF EXAM: 10/08/2020 COMPARISON: CT abdomen and pelvis 4 days ago HISTORY: abdominal pain, distention, gastric outlet obstruction CT DLP: 2138.2 mGycm, Automated Exposure Control for Dose Reduction was Utilized. CONTRAST: CT scan of the abdomen and pelvis is performed without oral but but with IV Contrast, patient injecte d with 100 mL of Isovue 300. FINDINGS: LUNG BASES: New tiny bilateral pleural effusions with associated compressive atelectasis and/or limit ed consolidations. LIVER/GB: Stable hepatomegaly. Liver remains heterogeneously hypodense consistent with fatty infiltra tion. Vicarious excretion and gallbladder noted. PANCREAS: Persistent prominent pancreas with severe surrounding ill-defined fluid and fat stranding. No free air. No well-formed fluid collection. No areas of nonenhancement. Continued poor visualizatio n of completely opacified splenic vein, some thrombosis is suspected as there is some low density mat erial image 32 series 301 noted. Splenic vein small in caliber. SPLEEN: New surrounding ascites. ADRENALS: No significant abnormality is seen. KIDNEYS: Stable 2 mm nonobstructing calculus in left kidney mid to lower pole level axial image 46. S table 2.2 cm thin-walled cyst medially lower pole left kidney. Stable elongated 4 mm calculus left ki dney coronal image 82. Occasional subcentimeter low dense lesion in both kidneys again seen. Symmetri c cortical uptake. No hydronephrosis. Ward catheter decompresses bladder. Nondependent air. Persiste nt nonvisualized excretion without hydronephrosis similar to prior. BOWEL: Diverticula in the left and sigmoid colon. No CT evidence for acute diverticulitis. No suspici ous small or large bowel dilatation. Normal-appearing appendix from cecum. New nasogastric tube. Air- fluid level in mild to moderately distended stomach shows some improvement in distention from prior s tudy. Mild wall thickening along the duodenal sweep remains present particularly near the pancreatic head. Interval passage of metallic density from second portion of duodenum nodule not clearly seen. PROSTATE/SEMINAL VESICLES: No gross abnormality seen. LYMPH NODES: No greater than 1cm abdominal or pelvic lymph nodes are appreciated. OSSEOUS STRUCTURES: Bilateral pars defect L5 level. Severe grade 1 anterolisthesis L5 on S1. Moderate to severe disc space narrowing at this level grade 1 retrolisthesis L4 on L5. Multilevel spurring in the spine. OTHER: Small amount of pelvic ascites. IMPRESSION: Persistent severe acute pancreatitis. No areas of necrosis or focal fluid collection iden tified. Persistent suspected splenic vein thrombosis. No free air. Persistent but improved gastric di stention after nasogastric tube placement. Reactive changes on duodenal sweep causing small bowel obs truction remain present.
--- NOTE | 2020-10-08 12:38 | P.PN ---
Subjective Progress Note Date: 10/08/20 CHIEF COMPLAINT: Epigastric abdominal pain HISTORY OF PRESENT ILLNESS: Surgical service is following regards to patient's abdominal pain and pancreatitis. Patient is complaining still of mid abdominal pain. He did have a small bowel movement last night. He has NG tube in place with bilious output. Patient had a repeat computed tomography scan of the abdomen and pelvis with IV contrast which shows persistent severe acute pancreatitis. No areas of necrosis or focal fluid collection identified. Pe rsistent suspected splenic venous thrombosis. No free air. Persistent but improved gastric distention after NG tube placement. Reactive changes on duodenal sweep causing small bowel obstruction remain present. Afebrile. WBC is 11 hemoglobin 9.3 sodium 136 potassium 3.3 creatinine 1.10 calcium 6.4. Albumin 2.8 Patient is on IV heparin for a splenic vein thrombosis PHYSICAL EXAM: VITAL SIGNS: Reviewed. GENERAL: Well-developed in no acute distress. HEENT: No sclera icterus. Extraocular movements grossly intact. Moist buccal mucosa. Head is atraumatic, normocephalic. ABDOMEN: Distended with mid and epigastric tenderness NEUROLOGIC: Alert and oriented. Cranial nerves II through XII grossly intact. ASSESSMENT: 1. Acute Severe Pancreatitis 2. Duodenitis secondary to pancreatitis 3. Small bowel obstruction secondary to duodenitis PLAN: -continue NG tube for decompression -Continue supportive care -Continue ICU management Physician Str[employer] Truck [employer] note has been reviewed by physician. Signing provider agrees with the documented findings, assessment, and plan of care. Objective - Vital Signs Vital signs: Vital Signs Temp 98.7 F 10/08/20 08:00 Pulse 84 10/08/20 10:00 Resp 11 L 10/08/20 10:00 BP 119/81 10/08/20 10:00 Pulse Ox 93 L 10/08/20 10:00 Intake & Output 10/07/20 10/08/20 10/08/20 18:59 06:59 18:59 Intake Total 1449.729 570 810 Output Total 3200 1215 725 Balance -1750.271 -645 85 Weight 120 kg 120 kg Intake: IV 200 320 160 Potassium Chloride 10 meq 100 100 In Water For Injection 1 100ml.bag @ 100 mls/hr IVPB Q1H [facility] Rx#: [id number] Sodium Chloride 0.9% 1, 200 220 60 000 ml @ 100 mls/hr IV . Q10H [facility] Rx#:[id number] Intake, IV Titration 949.729 250 250 Amount Acyclovir Sodium 500 mg 100 In Sodium Chloride 0.9% 100 ml @ 100 mls/hr IVPB Q8H [facility] Rx#:[id number] Ampicillin-Sulbactam 1.5 100 gm In Sodium Chloride 0.9 % 50 ml @ 100 mls/hr IVPB Q8H [facility] Rx#:[id number] Heparin Sod,Pork in 0.45% 329.729 250 NaCl 25,000 unit In 0.45 % NaCl 1 250ml.bag @ 18 UNITS/KG/HR 21.24 mls/hr IV .[id number] [facility] Rx#: [id number] Potassium Chloride 10 meq 200 In Water For Injection 1 100ml.bag @ 100 mls/hr IVPB Q1H [facility] Rx#: [id number] Potassium Chloride 10 meq 210 In Water For Injection 1 100ml.bag @ 100 mls/hr IVPB Q1HR [facility] Rx#: [id number] Sodium Chloride 0.9% 1, 220 40 000 ml @ 20 mls/hr IV . Q24H [facility] Rx#:[id number] Oral 300 400 Output: Gastric Drainage 500 Urine 2700 1215 725 Other: Voiding Method Indwelling Catheter Indwelling Catheter Indwelling Catheter - Labs CBC & Chem 7: 10/08/20 02:55 10/08/20 02:55 Labs: Abnormal Lab Results - Last 24 Hours (Table) 10/07/20 10/07/20 10/07/20 Range/Units 03:04 16:54 19:42 WBC (3.8-10.6) k/uL RBC (4.30-5.90) m/uL Hgb (13.0-17.5) gm/dL Hct (39.0-53.0) % Neutrophils # (1.3-7.7) k/uL APTT (22.0-30.0) sec Sodium (137-145) mmol/L Potassium (3.5-5.1) mmol/L BUN (9-20) mg/dL Glucose (74-99) mg/dL POC Glucose (mg/dL) 175 H 152 H (75-99) mg/dL Plasma Lactic Acid Matias (0.7-2.0) mmol/L Calcium (8.4-10.2) mg/dL AST (17-59) U/L Total Protein (6.3-8.2) g/dL Albumin (3.5-5.0) g/dL Procalcitonin 5.93 H (0.02-0.09) ng/mL 10/08/20 10/08/20 10/08/20 Range/Units 02:55 02:55 02:55 WBC 11.0 H (3.8-10.6) k/uL RBC 3.06 L (4.30-5.90) m/uL Hgb 9.3 L (13.0-17.5) gm/dL Hct 29.2 L (39.0-53.0) % Neutrophils # 8.9 H (1.3-7.7) k/uL APTT 50.0 H (22.0-30.0) sec Sodium 136 L (137-145) mmol/L Potassium 3.3 L (3.5-5.1) mmol/L BUN 26 H (9-20) mg/dL Glucose 116 H (74-99) mg/dL POC Glucose (mg/dL) (75-99) mg/dL Plasma Lactic Acid Matias (0.7-2.0) mmol/L Calcium 6.4 L* (8.4-10.2) mg/dL AST 62 H (17-59) U/L Total Protein 5.4 L (6.3-8.2) g/dL Albumin 2.8 L (3.5-5.0) g/dL Procalcitonin (0.02-0.09) ng/mL 10/08/20 10/08/20 Range/Units 06:31 08:49 WBC (3.8-10.6) k/uL RBC (4.30-5.90) m/uL Hgb (13.0-17.5) gm/dL Hct (39.0-53.0) % Neutrophils # (1.3-7.7) k/uL APTT (22.0-30.0) sec Sodium (137-145) mmol/L Potassium (3.5-5.1) mmol/L BUN (9-20) mg/dL Glucose (74-99) mg/dL POC Glucose (mg/dL) 161 H (75-99) mg/dL Plasma Lactic Acid Matias 0.6 L (0.7-2.0) mmol/L Calcium (8.4-10.2) mg/dL AST (17-59) U/L Total Protein (6.3-8.2) g/dL Albumin (3.5-5.0) g/dL Procalcitonin (0.02-0.09) ng/mL
[2020-10-08 13:11] LABS: Glucose,Whole Blood 124 mg/dL (75-99)
--- NOTE | 2020-10-08 16:06 | P.CONS ---
History of Present Illness - Reason for Consult Consult date: 10/08/20 Acute pancreatitis Requesting physician: Leonie Cobb - Chief Complaint Abdominal pain - History of Present Illness This is a 50-year-old white male who presented to the emergency department 4 days ago with severe abdominal pain associated with nausea and vomiting. He has a past medical history including hyperlipidemia, hypertension, shingles with encephalomyelitis and cognitive impairment, and anxiety and depression. He was noted to have elevation in his pancreatic enzymes and in DKA. He underwent a CT of the abdomen showed moderate to severe acute interstitial pancreatitis. Inflammatory edema and fat stranding tracks down the mesentery and retroperitoneum to the umbilical level. No focal fluid collection at this time. Secondary complication with a long segment nonocclusive splenic vein thrombosis. A 1.6 cm metal density within the second portion of the duodenum correlate as to etiology. Clinical significance of this is unclear, there was prominent fluid distention of the abdomen. Unsure if this is contributing to some type of gastric outlet obstruction. Contiguous duodenitis and proximal jejunitis Kee to the pancreatic inflammation with trace perihepatic ascites and mild to moderate pelvic ascites, secondary to pancreatic inflammation. Hepatomegaly with severe hepatic steatosis. Sigmoid diverticulosis and nonobstructing left renal calculus. Abdominal ultrasound showed echogenic and attenuating liver suggestive of severe hepatic steatosis, mild perihepatic cystitis, no gallstones or biliary ductal dilation seen. He denies any previous history of pancreatitis, he denies any previous heavy alcohol consumption or current alcohol consumption, is a lifetime nonsmoker, denies any new medications, or family history of pancreatitis. He states he follows with his PCP, he has never been told he was diabetic. He states abdominal pain is slightly better, he still requesting IV pain medications every 2-3 hours, nausea and vomiting have improved. He has an NG tube in place with approximately 250 mL's of bilious fluid through the evening. DC had a bowel movement 2 days ago, again had one today. He states he does have acid reflux, no previous EGD or colonoscopy. On admission lipase was greater than 20,000, amylase 1399, t riglycerides greater than 11,000, glucose 969. Labs have continued to trend down. He had a repeat CAT scan of the abdomen and pelvis today showing persistent severe acute pancreatitis. No areas of necrosis or focal fluid collection identified. Persistent suspected splenic vein thrombosis. No free air. Persistent but improved gastric distention after nasogastric tube placement. Reactive changes and duodenal sweep causing small bowel obstruction remain present. Interval passage of metallic density from second portion of duodenal nodule not clearly seen. He yesterday lipase 1004, triglycerides 341, today total bilirubin 0.9, alkaline phosphatase 143, AST 45, ALT 50. Review of Systems REVIEW OF SYSTEMS: CARDIOPULMONARY: No chest pain or shortness of breath. Gastrointestinal: Right upper quadrant and epigastric pain. Nausea and vomiti ng that has subsided. No hematemesis, coffee-ground emesis. No rectal bleeding, or melena. No constipation. GENITOURINARY: No dysuria or hematuria. MUSCULOSKELETAL: Reports normal range of motion., Joint pain. SKIN: No rashes. No jaundice. ENDOCRINE: No chills, fevers. No excessive weight gain or loss. No polydipsia or polyuria. PSYCHIATRIC: Unremarkable. NEUROLOGY: No change in mental status. Denies dizziness, headache. ENT: Vision unremarkable. CONSTITUTIONAL: No recent weight loss. No fever, chills, night sweats. Past Medical History Past Medical History: Hyperlipidemia, Hypertension Additional Past Medical History / Comment(s): encephomylitis, cognitive impairment History of Any Multi-Drug Resistant Organisms: None Reported Additional Past Surgical History / Comment(s): knn Past Anesthesia/Blood Transfusion Reactions: No Reported Reaction Past Psychological History: Anxiety, Depression Smoking Status: Former smoker Past Alcohol Use History: None Reported Past Drug Use History: None Reported Medications and Allergies Home Medications Medication Instructions Recorded Confirmed Type Aspirin EC [Ecotrin Low Dose] 81 mg PO DAILY 10/04/20 10/04/20 History Atorvastatin Calcium [Lipitor] 10 mg PO HS 10/04/20 10/04/20 History Fenofibrate Nanocrystallized 145 mg PO DAILY 10/04/20 10/04/20 History [Fenofibrate] Losartan Potassium [Cozaar] 100 mg PO DAILY 10/04/20 10/04/20 History amLODIPine [Norvasc] 5 mg PO DAILY 10/04/20 10/04/20 History busPIRone HCl [Buspar] 10 mg PO TID 10/04/20 10/04/20 History valACYclovir HCL [Valtrex] 500 mg PO DAILY 10/04/20 10/04/20 History Allergies Allergy/AdvReac Type Severity Reaction Status Date / Time No Known Allergies Allergy Verified 10/04/20 19:58 Physical Exam Vitals: Vital Signs Temp Pulse Resp BP Pulse Ox 10/08/20 10:00 84 11 L 119/81 93 L 10/08/20 09:00 83 12 122/91 10/08/20 08:00 98.7 F 81 12 114/80 10/08/20 07:00 79 16 129/93 92 L 10/08/20 06:00 82 20 124/85 93 L 10/08/20 05:00 80 16 124/88 90 L 10/08/20 04:00 98 F 88 18 125/85 93 L 10/08/20 03:00 85 18 121/78 93 L 10/08/20 02:00 83 16 112/81 94 L 10/08/20 01:00 85 16 129/83 92 L 10/08/20 00:00 98.7 F 88 16 117/79 92 L 10/07/20 23:40 92 18 117/79 92 L 10/07/20 23:00 89 15 131/86 92 L 10/07/20 22:00 93 16 138/87 91 L 10/07/20 21:00 89 16 144/85 93 L 10/07/20 20:00 98.2 F 86 18 111/75 94 L 10/07/20 19:34 97 10/07/20 19:00 87 18 125/80 97 10/07/20 18:00 84 9 L 124/77 97 10/07/20 17:00 89 12 115/80 94 L 10/07/20 16:00 98.2 F 88 13 123/83 96 10/07/20 15:00 90 12 115/73 95 10/07/20 14:00 86 10 L 132/80 95 10/07/20 13:00 85 13 136/84 95 10/07/20 12:00 97.9 F 88 13 112/80 96 10/07/20 11:00 92 21 124/82 96 Intake and Output 10/07/20 10/08/20 10/08/20 22:59 06:59 14:59 Intake Total 609.649 510 810 Output Total 1350 815 725 Balance -740.351 -305 85 Intake: IV 60 260 160 Potassium Chloride 10 meq 100 100 In Water For Injection 1 100ml.bag @ 100 mls/hr IVPB Q1H [facility] Rx#: [id number] Sodium Chloride 0.9% 1, 60 160 60 000 ml @ 100 mls/hr IV . Q10H [facility] Rx#:[id number] Intake, IV Titration 449.649 250 250 Amount Acyclovir Sodium 500 mg 100 In Sodium Chloride 0.9% 100 ml @ 100 mls/hr IVPB Q8H [facility] Rx#:[id number] Heparin Sod,Pork in 0.45% 249.649 250 NaCl 25,000 unit In 0.45 % NaCl 1 250ml.bag @ 18 UNITS/KG/HR 21.24 mls/hr IV .[id number] [facility] Rx#: [id number] Potassium Chloride 10 meq 210 In Water For Injection 1 100ml.bag @ 100 mls/hr IVPB Q1HR [facility] Rx#: [id number] Sodium Chloride 0.9% 1, 100 40 000 ml @ 20 mls/hr IV . Q24H [facility] Rx#:[id number] Oral 100 400 Output: Gastric Drainage 300 Urine 1050 815 725 Other: Voiding Method Indwelling Catheter Indwelling Catheter Indwelling Catheter Weight 120 kg General appearance: The patient is alert, oriented, appears in no acute distress. N G-tube in place with suction. Obese. HET: Head is normocephalic and atraumatic. Conjunctiva pink. Sclera anicteric. Neck: Supple without lymphadenopathy. Trachea midline. Heart: S1 S2. Regular rate and rhythm. Lungs: Clear to auscultation. Abdomen: Soft, obese, diffuse tenderness, greatest in the epigastric and right upper quadrant, distended with bowel sounds. No guarding or rigidity. Skin: No rashes. No jaundice. Extremities: Normal skin color and turgor. No pedal edema. Neurological: No focal deficits. Alert and oriented 3.. Results CBC & Chem 7: 10/08/20 02:55 10/08/20 02:55 Labs: Abnormal Lab Results - Last 24 Hours (Table) 10/07/20 10/07/20 10/07/20 Range/Units 03:04 10:20 11:07 WBC (3.8-10.6) k/uL RBC (4.30-5.90) m/uL Hgb (13.0-17.5) gm/dL Hct (39.0-53.0) % Neutrophils # (1.3-7.7) k/uL APTT 53.5 H (22.0-30.0) sec Sodium (137-145) mmol/L Potassium (3.5-5.1) mmol/L BUN (9-20) mg/dL Glucose (74-99) mg/dL POC Glucose (mg/dL) 195 H (75-99) mg/dL Plasma Lactic Acid Matias (0.7-2.0) mmol/L Calcium (8.4-10.2) mg/dL AST (17-59) U/L Total Protein (6.3-8.2) g/dL Albumin (3.5-5.0) g/dL Procalcitonin 5.93 H (0.02-0.09) ng/mL 10/07/20 10/07/20 10/08/20 Range/Units 16:54 19:42 02:55 WBC (3.8-10.6) k/uL RBC (4.30-5.90) m/uL Hgb (13.0-17.5) gm/dL Hct (39.0-53.0) % Neutrophils # (1.3-7.7) k/uL APTT 50.0 H (22.0-30.0) sec Sodium (137-145) mmol/L Potassium (3.5-5.1) mmol/L BUN (9-20) mg/dL Glucose (74-99) mg/dL POC Glucose (mg/dL) 175 H 152 H (75-99) mg/dL Plasma Lactic Acid Matias (0.7-2.0) mmol/L Calcium (8.4-10.2) mg/dL AST (17-59) U/L Total Protein (6.3-8.2) g/dL Albumin (3.5-5.0) g/dL Procalcitonin (0.02-0.09) ng/mL 10/08/20 10/08/20 10/08/20 Range/Units 02:55 02:55 06:31 WBC 11.0 H (3.8-10.6) k/uL RBC 3.06 L (4.30-5.90) m/uL Hgb 9.3 L (13.0-17.5) gm/dL Hct 29.2 L (39.0-53.0) % Neutrophils # 8.9 H (1.3-7.7) k/uL APTT (22.0-30.0) sec Sodium 136 L (137-145) mmol/L Potassium 3.3 L (3.5-5.1) mmol/L BUN 26 H (9-20) mg/dL Glucose 116 H (74-99) mg/dL POC Glucose (mg/dL) 161 H (75-99) mg/dL Plasma Lactic Acid Matias (0.7-2.0) mmol/L Calcium 6.4 L* (8.4-10.2) mg/dL AST 62 H (17-59) U/L Total Protein 5.4 L (6.3-8.2) g/dL Albumin 2.8 L (3.5-5.0) g/dL Procalcitonin (0.02-0.09) ng/mL 10/08/20 Range/Units 08:49 WBC (3.8-10.6) k/uL RBC (4.30-5.90) m/uL Hgb (13.0-17.5) gm/dL Hct (39.0-53.0) % Neutrophils # (1.3-7.7) k/uL APTT (22.0-30.0) sec Sodium (137-145) mmol/L Potassium (3.5-5.1) mmol/L BUN (9-20) mg/dL Glucose (74-99) mg/dL POC Glucose (mg/dL) (75-99) mg/dL Plasma Lactic Acid Matias 0.6 L (0.7-2.0) mmol/L Calcium (8.4-10.2) mg/dL AST (17-59) U/L Total Protein (6.3-8.2) g/dL Albumin (3.5-5.0) g/dL Procalcitonin (0.02-0.09) ng/mL Comments: 10/08/20 CAT scan of the abdomen and pelvis today showing persistent severe acute pancreatitis. No areas of necrosis or focal fluid collection identified. Persistent suspected splenic vein thrombosis. No free air. Persistent but improved gastric distention after nasogastric tube placement. Reactive changes and duodenal sweep causing small bowel obstruction remain present. Interval passage of metallic density from second portion of duodenal nodule not clearly seen. 10/04/2020 CAT scan of abdomen and pelvis showedmoderate to severe acute interstitial pancreatitis. Inflammatory edema and fat stranding tracks down the mesentery and retroperitoneum to the umbilical level. No focal fluid collection at this time. Secondary complication with a long segment nonocclusive splenic vein thrombosis. A 1.6 cm metal density within the second portion of the duodenum correlate as to etiology. Clinical significance of this is unclear, there was prominent fluid distention of the abdomen. Unsure if this is contributing to some type of gastric outlet obstruction. Contiguous duodenitis and proximal jejunitis Kee to the pancreatic inflammation with trace perihepatic ascites and mild to moderate pelvic ascites, secondary to pancreatic inflammation. Hepatomegaly with severe hepatic steatosis. Sigmoid diverticulosis and nonobstructing left renal calculus. Gallbladder ultrasound showed echogenic and attenuating liver suggestive of severe hepatic steatosis, mild perihepatic cystitis, no gallstones or biliary ductal dilation seen. Assessment and Plan (1) Pancreatitis Narrative/Plan: 50-year-old male who presented to the emergency department with severe abdominal pain associated with nausea and vomiting 4 days ago was found to have elevation in his pancreatic enzymes as well as hyperglycemia, and was noted to be in diab etic ketoacidosis. On admission his triglycerides were greater than 11,000, his glucose was 969, lipase greater than 20,000, and amylase 1399. CT of the abdomen and pelvis showed moderate to severe acute interstitial pancreatitis inflammatory edema and fat stranding tracks down the mesentery and r etroperitoneum to the umbilical level. No focal fluid collection at this time. He was also noted to have a nonocclusive splenic vein thrombosis, a 1.6 cm metal density within the second portion of the duodenum, prominent fluid distention of the stomach, trace perihepatic ascites and mild to moderate pelvic ascites, secondary to pancreatic formation and hepatomegaly with severe hepatic steatosis. The patient denies any previous history of pancreatitis, previous alcohol abuse or current alcohol abuse, no new medications, no family history of pancreatitis, and no previous diagnosis of diabetes. Repeat CT of the abdomen and pelvis was completed today showing persistent severe acute pancreatitis. No areas of necrosis or focal fluid collection identified. Patient has acute non- complicated pancreatitis likely related to diabetic ketoacidosis and hypertriglyceridemia. Pancreatic enzymes as well as triglycerides have trended down. Yesterday triglycerides 141, lipase 1004. Current Visit: Yes Status: Acute Code(s): K85.90 - ACUTE PANCREATITIS WITHOUT NECROSIS OR INFECTION, UNSP SNOMED Code(s): 72173266 (2) Hepatic steatosis Current Visit: Yes Status: Acute Code(s): K76.0 - FATTY (CHANGE OF) LIVER, NOT ELSEWHERE CLASSIFIED SNOMED Code(s): 012738415 (3) Acute kidney injury Narrative/Plan: Improving Current Visit: Yes Status: Acute Code(s): N17.9 - ACUTE KIDNEY FAILURE, UNSPECIFIED SNOMED Code(s): 10597742 (4) Hyperglycemia Narrative/Plan: Improving Current Visit: Yes Status: Acute Code(s): R73.9 - HYPERGLYCEMIA, UNSPECIFIED SNOMED Code(s): 38306311 (5) Hyponatremia Current Visit: Yes Status: Acute Code(s): E87.1 - HYPO-OSMOLALITY AND HYPONATREMIA SNOMED Code(s): 96028172 (6) Small bowel obstruction Narrative/Plan: NG tube in place, being followed by surgery Current Visit: Yes Status: Acute Code(s): K56.609 - UNSP INTESTNL OBST, UNSP TO PARTIAL VERSUS COMPLETE OBST SNOMED Code(s): 018206357 (7) Splenic vein thrombosis Current Visit: Yes Status: Acute Code(s): I82.890 - ACUTE EMBOLISM AND THROMBOSIS OF OTHER SPECIFIED VEINS SNOMED Code(s): 99257337 (8) Obesity Current Visit: Yes Status: Acute Code(s): E66.9 - OBESITY, UNSPECIFIED SNOMED Code(s): 152770515 Plan: 1. Continue ICU management 2. Protonix 40 mg twice a day 3. Anti-emetics as needed 4. Continue pain medication as needed per primary team 5. ISIDRO, IgG4 ordered 6. Strict glycemic control 7. Continue treatment for hypertriglyceridemia 8. Continue IV fluid hydration 9. Maintain nothing by mouth and NG tube per recommendations from general surgery Thank you for this consultation, we will continue to follow. Dr. Mccullough I agree with the dictator's note, documented as a scribe by Lisa High.
[2020-10-08 17:12] LABS: Glucose,Whole Blood 92 mg/dL (75-99)
[2020-10-08] MEDS: ONDANSETRON 4 MG/2 ML VIAL IVP PRN (17:48)
[2020-10-08 20:41] LABS: Glucose,Whole Blood 85 mg/dL (75-99)
[2020-10-09] MEDS: LORazepam 2 MG/ML INJ IV PRN (00:19)
[2020-10-09] MEDS: HEPARIN SOD,PORK IN 0.45% NACL 25,000 UNIT in 0.45% NACL 1 250ML.BAG IV SCH ×3 (00:20→19:53)
[2020-10-09] MEDS: POTASSIUM CHLORIDE 10 MEQ in WATER FOR INJECTION 1 100ML.BAG IVPB SCH ×3 (00:37→05:23)
[2020-10-09] MEDS: HYDROmorphone 1 MG/ML 1 ML SYRINGE IVP PRN ×7 (00:40→23:27)
[2020-10-09] MEDS: AMPICILLIN-SULBACTAM 1.5 GM in SODIUM CHLORIDE 0.9% 50 ML IVPB SCH ×3 (03:38→19:52)
[2020-10-09 03:47] LABS: HCT 29.1 % (39.0-53.0); HGB 9.7 gm/dL (13.0-17.5); MCH 31.3 pg (25.0-35.0); MCHC 33.3 g/dL (31.0-37.0); MCV 94.1 fL (80.0-100.0); Platelet Count 145 k/uL (150-450); RDW 13.7 % (11.5-15.5); WBC 10.6 k/uL (3.8-10.6)
[2020-10-09 03:58] LABS: African American GFR (CKD) >90 (>60 ml/min/1.73 sqM); Anion Gap 12 mmol/L; Blood Urea Nitrogen 18 mg/dL (9-20); Carbon Dioxide 24 mmol/L (22-30); Chloride 102 mmol/L (98-107); Glucose 115 mg/dL (74-99); Non-African American GFR(CKD) >90 (>60 ml/min/1.73 sqM); Potassium 3.6 mmol/L (3.5-5.1); Sodium 138 mmol/L (137-145)
[2020-10-09] MEDS: HEPARIN SODIUM 1,000 UN/ML (10ML VL) IV PRN (04:18)
[2020-10-09] MEDS: ACYCLOVIR SODIUM 500 MG in SODIUM CHLORIDE 0.9% 100 ML IVPB SCH ×3 (05:23→21:28)
[2020-10-09] MEDS: NOREPINEPHRINE 4 MG in SODIUM CHLORIDE 0.9% 250 ML IV SCH ×2 (05:59→19:10)
[2020-10-09 06:38] LABS: Glucose,Whole Blood 131 mg/dL (75-99)
[2020-10-09] MEDS: INSULIN ASPART (NovoLOG) 100 UNIT/ML VIAL SQ SCH ×4 (06:40→21:27)
[2020-10-09] MEDS: INSULIN DETEMIR (LEVEMIR) 100 UNIT/ML SYR SQ SCH (06:40)
[2020-10-09] MEDS: PANTOPRAZOLE 40 MG/10 ML VIAL IV SCH (07:48)
[2020-10-09] MEDS: SODIUM CHLORIDE 0.9% 1,000 ML IV SCH (07:49)
[2020-10-09 10:36] LABS: Amylase <30 U/L (30-110); Lipase 201 U/L (23-300)
--- NOTE | 2020-10-09 11:19 | P.PN ---
Subjective Progress Note Date: 10/09/20 Principal diagnosis: Acute pancreatitis, DKA This is a pleasant 49-year-old gentleman who follows with Dr. Thompson as his primary care provider. He has a history of hyperlipidemia, hypertension, shingles with encephalomyelitis and cognitive impairment, anxiety/depression. Lifelong nonsmoker. He presented to the emergency room yesterday with a 2 day history of increasing abdominal discomfort, nausea vomiting dry heaves. Diaphoretic. Computed tomography scan of the abdomen revealed moderate to severe acute interstitial pancreatitis. Inflammatory edema and fat stranding tr acks on the mesentery and retroperitoneum to the umbilical level. No focal fluid collection noted. There is secondary complication with a long segment nonocclusive splenic vein thrombosis. There is a 1.6 cm metal density within the second portion of the duodenum. Questionable etiology possible dental crown or other ingested foreign body. Unsure if this is contributing to some type of gastric outlet obstruction. There is contiguous duodenitis and proximal jejunitis adjacent to the pancreatic inflammation. Trace perihepatic ascites and mild to moderate pelvic ascites secondary to pancreatic inflammation. No excretion of contrast and the kidneys on the delayed kidney images. Possible a cute kidney injury. Hepatomegaly with severe hepatic steatosis. Sigmoid diverticulosis. 2 mm nonobstructive left renal calculus. White count 22.0. Hemoglobin 14.0. Platelet count 451. Sodium initially 116 currently 125. Potassium initially 6.0 currently 4.1. I carb initially 8, currently 15. Anion gap initially 28, currently 17. Creatinine 2.70. Initial blood glucose 969. Currently 179. Calcium 6.4. LDH 1570. AST 54. ALT 29. Amylase 901. Lipase 10,000 385. Acetone positive. Hurtado virus not detected. He is currently awake and alert. Maintaining O2 saturations in the 90s on 5 L/m per nasal cannula. He is on a heparin drip per weight-based protocol. Insulin drip at 12 units per hour. 0.9 normal saline at 10 mL per hour. He's had an extreme total of 4.5 L of fluid resuscitation. IV is to be changed to D5.45 with 20 KCl at 150 MLS per hour per DKA protocol. The patient is seen today 10/06/2020 in follow-up in the intensive care unit. He is currently laying flat in bed. Awake and alert in no acute distress. He is maintaining O2 saturations in the 90s on 5 L/m per nasal cannula. He is still having issues with ongoing abdominal discomfort. He's been hypotensive. He remains on norepinephrine at 0.03 mcg/kg/m. He is on a insulin drip at 6 units per hour. He remains on a heparin drip weight-based protocol. He remains on D5 0.45 with 20 KCl at 150 ML's per hour. Ultrasound of the Bladder revealed severe hepatic steatosis. Mild perihepatic ascites. No gallstones or biliary duct dilatation seen. White count 4.3. Hemoglobin 10.6. Sodium 131. P otassium 3.9. Creatinine 2.43. Calcium 5.5. AST 106. ALT 29. He remains on Unasyn. The patient is seen today 10/07/2020 in follow-up in the intensive care unit. Awake and alert in no acute distress. He is still confused at times. He is breathing quite flat in bed. He denies any worsening shortness of breath. He is maintaining O2 saturations in the 90s on 5 L high flow nasal cannula. Af ebrile. Heparin drip per weight-based protocol. 0.9 normal saline at 100 mL per hour. Norepinephrine remains off. Chest x-ray shows some evidence of fluid volume overload. Some patchy retrocardiac atelectasis versus developing pneumonia. White count 11.5. Hemoglobin 9.9. Sodium 134. Potassium 3.6. Creatinine 1.49. Lipase 1004. Triglycerides 341. Glucose 152. On 10/08/2020 patient seen in follow-up in the intensive care unit, he is currently awake and alert, oriented 3, he is on 2 L of supplemental oxygen, his pulse ox is 93%, she is afebrile, hemodynamically stable, he is not on any vasopressor support, he is currently on 0.9 normal saline at a rate of 20 ML per hour, and heparin drip is at weight-based protocol for splenic vein thrombosis. Patient is slightly diaphoretic, and at times he is mildly tachypneic, but denies any acute respiratory distress. He has NG tube in his nose, and there has been 500 mL of gastric output in the last 24 hours, he feels that his abdomen is a bit more distended compared to yesterday, he does have positive bowel sounds, and he did have a bowel movement last night, his lipase has significantly improved from admission and is currently down to 1004. He remains on antibiotics of Unasyn and Zovirax. His CT of abdomen and pelvis from [facility] showed possible mental density drain 1.6 cm within the second portion of the duodenum, with the possibility of a foreign body or possible dental crown. Patient denies having any missing dental crowns. His abdominal CT of abdomen and pelvis will be repeated today and was discussed with the general surgery who is following the patient. Yesterday's chest x-ray showed mild interstitial prom inence, and patient had received 1 dose of Lasix, and he has produced 4.4 L in urine output over last 24 hours. Rest of his blood work has been reviewed, his white count is steadily improving, and is down to 11 on today's labs, hemoglobin is 9.3, sodium is 136, potassium is 3.3, his renal profile is improving his BUN is 26 and creatinine is 1.1. Today's lactic acid is down to 0.6, calcium is 6.4 , pro calcitonin level is 5.93, patient is on antibiotics as mentioned above. Patient remains nothing by mouth. No blood cultures have been sent. Patient has been afebrile. The patient is seen today 10/09/2020 in follow-up in the intensive care unit. He is currently resting fairly comfortably in bed. Awake and alert in no acute distress. He still having some ongoing abdominal discomfort. Nasogastric tube remains in place. He is drinking water. On clear liquids. Follow-up CAT scan of the abdomen yesterday revealed persistent severe acute pancreatitis. No areas of necrosis or focal fluid collection identified. Persistent suspected splenic vein thrombosis. No free air. Persistent but improved gastric distention as her nasogastric tube placement. Reactive changes on duodenal sw eep causing small bowel obstruction remain present. Interval passing of metallic density from second portion of duodenum was not clearly seen. White count 10.6. Hemoglobin 9.7. Platelet count 145. Sodium 138. Potassium 3.6. Creatinine 0.86. Amylase less than 30. Lipase 201. Calcium 7.0 He remains on heparin drip. Antibiotics in the form of Unasyn. Continued on acyclovir. Objective - Vital Signs Vital signs: Vital Signs Temp 98.2 F 10/09/20 08:00 Pulse 88 10/09/20 10:00 Resp 12 10/09/20 10:00 BP 143/91 10/09/20 10:00 Pulse Ox 95 10/09/20 10:00 Intake & Output 10/08/20 10/09/20 10/09/20 18:59 06:59 18:59 Intake Total 2080 692.975 282.025 Output Total 1550 970 345 Balance 530 -277.025 -62.975 Weight 120 kg 118.6 kg Intake: IV 160 320 135 .9 220 135 Potassium Chloride 10 meq 100 100 In Water For Injection 1 100ml.bag @ 100 mls/hr IVPB Q1H [facility] Rx#: [id number] Sodium Chloride 0.9% 1, 60 000 ml @ 100 mls/hr IV . Q10H [facility] Rx#:[id number] Intake, IV Titration 970 372.975 147.025 Amount Acyclovir Sodium 500 mg 100 In Sodium Chloride 0.9% 100 ml @ 100 mls/hr IVPB Q8H [facility] Rx#:[id number] Ampicillin-Sulbactam 1.5 100 gm In Sodium Chloride 0.9 % 50 ml @ 100 mls/hr IVPB Q8H [facility] Rx#:[id number] Heparin Sod,Pork in 0.45% 250 352.975 147.025 NaCl 25,000 unit In 0.45 % NaCl 1 250ml.bag @ 18 UNITS/KG/HR 21.24 mls/hr IV .[id number] [facility] Rx#: [id number] Potassium Chloride 10 meq 300 In Water For Injection 1 100ml.bag @ 100 mls/hr IVPB Q1HR [facility] Rx#: [id number] Sodium Chloride 0.9% 1, 220 20 000 ml @ 75 mls/hr IV . [id number] [facility] Rx#:[id number] Oral 950 Output: Urine 1550 970 345 Other: Voiding Method Indwelling Catheter Indwelling Catheter Indwelling Catheter - Exam GENERAL EXAM: Alert, pleasant 49-year-old, on 3 L nasal cannula, fairly comfortable in no apparent distress. HEAD: Normocephalic. EYES: Normal reaction of pupils, equal size. NOSE: Left nearly NG tube in place. Clear with pink turbinates. THROAT: No erythema or exudates. NECK: No masses, no JVD. CHEST: No chest wall deformity. LUNGS: Equal air entry with faint crackles in posterior bases. CVS: S1 and S2 normal with no audible murmur, regular rhythm. ABDOMEN: Tender to palpation, normal bowel sounds, no guarding or rigidity. SPINE: No scoliosis or deformity SKIN: No rashes CENTRAL NERVOUS SYSTEM: No focal deficits, tone is normal in all 4 extremities. EXTREMITIES: There is no peripheral edema. No clubbing, no cyanosis. Peripheral pulses are intact. - Labs CBC & Chem 7: 10/09/20 03:11 10/09/20 03:11 Labs: Abnormal Lab Results - Last 24 Hours (Table) 10/08/20 10/09/20 10/09/20 Range/Units 13:10 03:11 03:11 RBC 3.10 L (4.30-5.90) m/uL Hgb 9.7 L (13.0-17.5) gm/dL Hct 29.1 L (39.0-53.0) % Plt Count 145 L (150-450) k/uL APTT 43.2 H (22.0-30.0) sec Glucose (74-99) mg/dL POC Glucose (mg/dL) 124 H (75-99) mg/dL Calcium (8.4-10.2) mg/dL Amylase (30-110) U/L 10/09/20 10/09/20 10/09/20 Range/Units 03:11 06:36 08:53 RBC (4.30-5.90) m/uL Hgb (13.0-17.5) gm/dL Hct (39.0-53.0) % Plt Count (150-450) k/uL APTT (22.0-30.0) sec Glucose 115 H (74-99) mg/dL POC Glucose (mg/dL) 131 H (75-99) mg/dL Calcium 7.0 L (8.4-10.2) mg/dL Amylase <30 L (30-110) U/L Assessment and Plan Assessment: 1 Acute abdominal pain secondary to moderate to severe acute pancreatitis. 2 Secondary complication with a long segment of nonocclusive splenic vein thr ombosis. Currently on a heparin drip. 3 1.6 cm metal density within the second portion of the duodenum. Correlate to etiology, question dental crown or other ingested foreign body. Unclear if this is contributing to some type of gastric outlet obstruction. This was not seen on repeat computed tomography scan of the abdomen on 10/08/2020. 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 Stauffer Plan to remove NG tube Continue clear liquid diet Increase IV fluids 200 ML's per hour. Continue heparin drip. Continue Unasyn Continue incentive spirometer Titrate the FiO2 as tolerated We will continue to follow and make further recommendations based on his clinical status I, the cosigning physician, performed a history & physical examination of the patient. Lungs sounds faint crackles in the posterior bases. Maintaining good O2 saturations in the 90s on 3 L/m per nasal cannula. I discussed the assessment and plan of care with my nurse practitioner, Dolly Augustine. I attest to the above note as dictated by her.
--- NOTE | 2020-10-09 11:28 | P.PN ---
Subjective Progress Note Date: 10/09/20 Principal diagnosis: Pancreatitis Patient is seen and examined lying in bed. NG tube has been discontinued. Patient had a bowel movement yesterday. He denies any nausea or vomiting. Pain has improved some. He is on clear liquid diet. No acute changes through the night. Objective - Vital Signs Vital signs: Vital Signs Temp 98.2 F 10/09/20 08:00 Pulse 88 10/09/20 10:00 Resp 12 10/09/20 10:00 BP 143/91 10/09/20 10:00 Pulse Ox 95 10/09/20 10:00 Intake & Output 10/08/20 10/09/20 10/09/20 18:59 06:59 18:59 Intake Total 2080 692.975 282.025 Output Total 1550 970 345 Balance 530 -277.025 -62.975 Weight 120 kg 118.6 kg Intake: IV 160 320 135 .9 220 135 Potassium Chloride 10 meq 100 100 In Water For Injection 1 100ml.bag @ 100 mls/hr IVPB Q1H [facility] Rx#: [id number] Sodium Chloride 0.9% 1, 60 000 ml @ 100 mls/hr IV . Q10H [facility] Rx#:[id number] Intake, IV Titration 970 372.975 147.025 Amount Acyclovir Sodium 500 mg 100 In Sodium Chloride 0.9% 100 ml @ 100 mls/hr IVPB Q8H [facility] Rx#:[id number] Ampicillin-Sulbactam 1.5 100 gm In Sodium Chloride 0.9 % 50 ml @ 100 mls/hr IVPB Q8H [facility] Rx#:[id number] Heparin Sod,Pork in 0.45% 250 352.975 147.025 NaCl 25,000 unit In 0.45 % NaCl 1 250ml.bag @ 18 UNITS/KG/HR 21.24 mls/hr IV .[id number] [facility] Rx#: [id number] Potassium Chloride 10 meq 300 In Water For Injection 1 100ml.bag @ 100 mls/hr IVPB Q1HR [facility] Rx#: [id number] Sodium Chloride 0.9% 1, 220 20 000 ml @ 75 mls/hr IV . [id number] [facility] Rx#:[id number] Oral 950 Output: Urine 1550 970 345 Other: Voiding Method Indwelling Catheter Indwelling Catheter Indwelling Catheter - Exam General appearance: The patient is alert, oriented, appears in no acute dist ress. HET: Head is normocephalic and atraumatic. Conjunctiva pink. Sclera anicteric. Neck: Supple without lymphadenopathy. Abdomen: Soft, epigastric and right upper quadrant tenderness, mildly distended with bowel sounds. No guarding or rigidity. Extremities: Normal skin color and turgor. No pedal edema Skin: No rashes, no jaundice Neurological: No focal deficits. Alert and oriented 3. - Labs CBC & Chem 7: 10/09/20 03:11 10/09/20 03:11 Labs: Abnormal Lab Results - Last 24 Hours (Table) 10/08/20 10/09/20 10/09/20 Range/Units 13:10 03:11 03:11 RBC 3.10 L (4.30-5.90) m/uL Hgb 9.7 L (13.0-17.5) gm/dL Hct 29.1 L (39.0-53.0) % Plt Count 145 L (150-450) k/uL APTT 43.2 H (22.0-30.0) sec Glucose (74-99) mg/dL POC Glucose (mg/dL) 124 H (75-99) mg/dL Calcium (8.4-10.2) mg/dL Amylase (30-110) U/L 10/09/20 10/09/20 10/09/20 Range/Units 03:11 06:36 08:53 RBC (4.30-5.90) m/uL Hgb (13.0-17.5) gm/dL Hct (39.0-53.0) % Plt Count (150-450) k/uL APTT (22.0-30.0) sec Glucose 115 H (74-99) mg/dL POC Glucose (mg/dL) 131 H (75-99) mg/dL Calcium 7.0 L (8.4-10.2) mg/dL Amylase <30 L (30-110) U/L 10/09/20 Range/Units 10:17 RBC (4.30-5.90) m/uL Hgb (13.0-17.5) gm/dL Hct (39.0-53.0) % Plt Count (150-450) k/uL APTT 46.1 H (22.0-30.0) sec Glucose (74-99) mg/dL POC Glucose (mg/dL) (75-99) mg/dL Calcium (8.4-10.2) mg/dL Amylase (30-110) U/L Assessment and Plan (1) Pancreatitis Narrative/Plan: 50-year-old male who presented to the emergency department with severe abdominal pain associated with nausea and vomiting 4 days ago was found to have elevation in his pancreatic enzymes as well as hyperglycemia, and was noted to be in diabetic ketoacidosis. On admission his triglycerides were greater than 11,000, his glucose was 969, lipase greater than 20,000, and amylase 1399. CT of the abdomen and pelvis showed moderate to severe acute interstitial pancreatitis inflammatory edema and fat stranding tracks down the mesentery and retroperitoneum to the umbilical level. No focal fluid collection at this time. He was also noted to have a nonocclusive splenic vein thrombosis, a 1.6 cm metal density within the second portion of the duodenum, prominent fluid d istention of the stomach, trace perihepatic ascites and mild to moderate pelvic ascites, secondary to pancreatic formation and hepatomegaly with severe hepatic steatosis. The patient denies any previous history of pancreatitis, previous alcohol abuse or current alcohol abuse, no new medications, no family history of pancreatitis, and no previous diagnosis of diabetes. Repeat CT of the abdomen and pelvis was completed today showing persistent severe acute pancreatitis. No areas of necrosis or focal fluid collection identified. Patient has acute non- complicated pancreatitis likely related to diabetic ketoacidosis and hypertriglyceridemia. Pancreatic enzymes as well as triglycerides have trended down. Yesterday triglycerides 141, lipase 1004. Current Visit: Yes Status: Acute Code(s): K85.90 - ACUTE PANCREATITIS WITHOUT NECROSIS OR INFECTION, UNSP SNOMED Code(s): 35943871 (2) Hepatic steatosis Current Visit: Yes Status: Acute Code(s): K76.0 - FATTY (CHANGE OF) LIVER, NOT ELSEWHERE CLASSIFIED SNOMED Code(s): 430234699 (3) Acute kidney injury Narrative/Plan: Improving Current Visit: Yes Status: Acute Code(s): N17.9 - ACUTE KIDNEY FAILURE, UNSPECIFIED SNOMED Code(s): 49958090 (4) Hyperglycemia Narrative/Plan: Improving Current Visit: Yes Status: Acute Code(s): R73.9 - HYPERGLYCEMIA, UNSPECIFIED SNOMED Code(s): 57905160 (5) Hyponatremia Current Visit: Yes Status: Acute Code(s): E87.1 - HYPO-OSMOLALITY AND HYPONATREMIA SNOMED Code(s): 75969509 (6) Small bowel obstruction Narrative/Plan: NG tube is continued, surgery following Current Visit: Yes Status: Acute Code(s): K56.609 - UNSP INTESTNL OBST, UNSP TO PARTIAL VERSUS COMPLETE OBST SNOMED Code(s): 711944075 (7) Splenic vein thrombosis Current Visit: Yes Status: Acute Code(s): I82.890 - ACUTE EMBOLISM AND THROMBOSIS OF OTHER SPECIFIED VEINS SNOMED Code(s): 46060666 (8) Obesity Current Visit: Yes Status: Acute Code(s): E66.9 - OBESITY, UNSPECIFIED SNOMED Code(s): 834280651 Plan: 1. Continue ICU management 2. Protonix 40 mg twice a day 3. Anti-emetics as needed 4. Continue pain medication as needed per primary team 5. ISIDRO, IgG4 ordered 6. Strict glycemic control 7. Continue treatment for hypertriglyceridemia 8. Continue IV fluid hydration 9. Diet per surgical recommendations, okay for clear liquids by gastroenterology Thank you for this consultation, we will continue to follow. Dr. Mccullough I agree with the dictator's note, documented as a scribe by Lisa High.
[2020-10-09 12:14] LABS: Glucose,Whole Blood 67 mg/dL (75-99)
[2020-10-09] MEDS ORDERED: DEXTROSE 50% SYRINGE 50 ML IVP ONE (12:17)
[2020-10-09 12:29] LABS: Glucose,Whole Blood 130 mg/dL (75-99)
--- NOTE | 2020-10-09 13:02 | P.PN ---
Subjective Progress Note Date: 10/09/20 CHIEF COMPLAINT: Epigastric abdominal pain HISTORY OF PRESENT ILLNESS: Surgical service is following regards to patient's abdominal pain, pancreatitis and small bowel obstruction. Patient did have a bowel movement yesterday. NG tube was discontinued. He is currently tolerating a clear liquid diet. He is having flatus. Denies any nausea or vomiting. His abdominal pain is improving. He has some epigastric pain still present. Afebrile WBC 10.6 lipase 201 amylase less than 30 PHYSICAL EXAM: VITAL SIGNS: Reviewed. GENERAL: Well-developed in no acute distress. HEENT: No sclera icterus. Extraocular movements grossly intact. Moist buccal mucosa. Head is atraumatic, normocephalic. ABDOMEN: Distended mild epigastric tenderness NEUROLOGIC: Alert and oriented. Cranial nerves II through XII grossly intact. ASSESSMENT: 1. Acute Severe Pancreatitis 2. Duodenitis secondary to pancreatitis 3. Small bowel obstruction secondary to duodenitis 4. Splenic vein thrombosis on IV heparin PLAN: -Continue clear liquid diet -Continue supportive care -Continue ICU management Physician Loom Operator Apprentice note has been reviewed by physician. Signing provider agrees with the documented findings, assessment, and plan of care. Objective - Vital Signs Vital signs: Vital Signs Temp 98.2 F 10/09/20 08:00 Pulse 88 10/09/20 10:00 Resp 12 10/09/20 10:00 BP 143/91 10/09/20 10:00 Pulse Ox 95 10/09/20 10:00 Intake & Output 10/08/20 10/09/20 10/09/20 18:59 06:59 18:59 Intake Total 2080 692.975 282.025 Output Total 1550 970 345 Balance 530 -277.025 -62.975 Weight 120 kg 118.6 kg Intake: IV 160 320 135 .9 220 135 Potassium Chloride 10 meq 100 100 In Water For Injection 1 100ml.bag @ 100 mls/hr IVPB Q1H [facility] Rx#: [id number] Sodium Chloride 0.9% 1, 60 000 ml @ 100 mls/hr IV . Q10H [facility] Rx#:[id number] Intake, IV Titration 970 372.975 147.025 Amount Acyclovir Sodium 500 mg 100 In Sodium Chloride 0.9% 100 ml @ 100 mls/hr IVPB Q8H [facility] Rx#:[id number] Ampicillin-Sulbactam 1.5 100 gm In Sodium Chloride 0.9 % 50 ml @ 100 mls/hr IVPB Q8H [facility] Rx#:[id number] Heparin Sod,Pork in 0.45% 250 352.975 147.025 NaCl 25,000 unit In 0.45 % NaCl 1 250ml.bag @ 18 UNITS/KG/HR 21.24 mls/hr IV .[id number] [facility] Rx#: [id number] Potassium Chloride 10 meq 300 In Water For Injection 1 100ml.bag @ 100 mls/hr IVPB Q1HR [facility] Rx#: [id number] Sodium Chloride 0.9% 1, 220 20 000 ml @ 75 mls/hr IV . [id number] [facility] Rx#:[id number] Oral 950 Output: Urine 1550 970 345 Other: Voiding Method Indwelling Catheter Indwelling Catheter Indwelling Catheter - Labs CBC & Chem 7: 10/09/20 03:11 10/09/20 03:11 Labs: Abnormal Lab Results - Last 24 Hours (Table) 10/08/20 10/09/20 10/09/20 Range/Units 13:10 03:11 03:11 RBC 3.10 L (4.30-5.90) m/uL Hgb 9.7 L (13.0-17.5) gm/dL Hct 29.1 L (39.0-53.0) % Plt Count 145 L (150-450) k/uL APTT 43.2 H (22.0-30.0) sec Glucose (74-99) mg/dL POC Glucose (mg/dL) 124 H (75-99) mg/dL Calcium (8.4-10.2) mg/dL Amylase (30-110) U/L 10/09/20 10/09/20 10/09/20 Range/Units 03:11 06:36 08:53 RBC (4.30-5.90) m/uL Hgb (13.0-17.5) gm/dL Hct (39.0-53.0) % Plt Count (150-450) k/uL APTT (22.0-30.0) sec Glucose 115 H (74-99) mg/dL POC Glucose (mg/dL) 131 H (75-99) mg/dL Calcium 7.0 L (8.4-10.2) mg/dL Amylase <30 L (30-110) U/L 10/09/20 10/09/20 10/09/20 Range/Units 10:17 12:13 12:28 RBC (4.30-5.90) m/uL Hgb (13.0-17.5) gm/dL Hct (39.0-53.0) % Plt Count (150-450) k/uL APTT 46.1 H (22.0-30.0) sec Glucose (74-99) mg/dL POC Glucose (mg/dL) 67 L 130 H (75-99) mg/dL Calcium (8.4-10.2) mg/dL Amylase (30-110) U/L
[2020-10-09 14:29] LABS: IgG Subclass 3 1.9 mg/dL (11.0-85.0)
[2020-10-09 14:44] LABS: IgG Subclass 4 2.8 mg/dL (3.0-175.0)
[2020-10-09 14:55] LABS: IgG Subclass 1 <85.0 mg/dL (405.0-1011.0)
[2020-10-09 15:12] LABS: IgG Subclass 2 <35.0 mg/dL (169.0-640.0)
[2020-10-09 16:34] LABS: Glucose,Whole Blood 126 mg/dL (75-99)
[2020-10-09 21:25] LABS: Glucose,Whole Blood 164 mg/dL (75-99)
--- NOTE | 2020-10-09 21:34 | P.PN ---
Subjective Progress Note Date: 10/09/20 49-year-old male came in with comments of nausea vomiting for couple days in the significant polyuria and polydipsia that has been going on for about a week. Patient was coming of severe abdominal pain sharp in nature nonradiating diffuse. Patient is found to be in DKA and patient is also found to have severe pancreatitis. Patient had a CT of the abdomen which showed edematous pancreatic that is without any necrosis. There was a secondary combination of splint vein thrombosis as well and patient abdomen is quite a bit distended with distention of the stomach there is significant duodenitis jejunitis along with a foreign body in the second part of the duodenum probably contributing or causing gastric outlet obstruction. General surgery was consulted. Patient was admitted to ICU patient has severe acidosis patient is a has a highly elevated blood sugars of 4000 bicarbonate of 10 and multiple other electrolyte abnormalities. Patient the ionized calcium is low as well and calcium was replaced. Patient is found to be in acute renal failure with creatinine of around 2.4 patient was hyp otensive presently not on any pressors patient is presently receiving IV fluids. Triglyceride levels are pending. Patient is not an alcoholic. There is no evidence of gallstones and the CT of the abdomen. Patient the had a hemoglobin A1c tested recently about couple months ago at that time his hemoglobin A1c was within normal limits as per the . Patient baseline creatinine is around 0.9, patient denied any fever chills dysuria. Patient doesn't have any fever does have significant leukocytosis. White blood cell count of around 25,000. Serum sodium was extremely low and serum potassium is very high is all because of the acidosis and hyperglycemia. Patient was pretty status has progressively worsened since last night and patient is present and BiPAP. Patient has significant abdominal distention with significant air-fluid level in the abdomen and stomach patient does have some ascites on the CT and this is secondary to severe peritonitis. Patient is presently on empiric Zosyn although there is no clear evidence of infection at this time. 10/06/2020 Patient's anion gap resolved. Patient's insulin will be discontinued and patient was started on 20 units of long-acting insulin along with pre-meal insulin. Patient the nausea improved patient still has some abdominal pain which also significantly improved. Patient will be started on clear liquid diet. We'll also obtain a hemoglobin A1c. Patient will be changed to normal saline at 100 mL per hour. Patient hyponatremia is improving. Patient's anion gap resolved. Patient remains on norepinephrine which is being tapered. Patient is presently on 8 L of oxygen as a postal BiPAP yesterday lung clear to auscultation with good air entry into bilateral lung bernal patient's abdomen is still distended nothing much from the NG tube NG tube will be removed. Patient's lipase has come down to 2000. 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 Patient does have elevated triglyceride levels will repeat triglyceride levels again tomorrow. Triglycerides around 1100. 10/07/2020 Patient is seen and examined in follow-up continues to be closely monitored in the ICU. Patient continues with NG tube with bilious drainage noted and surgery is following closely. Patient is off of levophed and chest x-ray today shows some mild interstitial prominence with possible mild pulmonary vascular con gestion with patchy retrocardiac atelectasis versus developing pneumonia and will be given a dose of IV Lasix. Will decrease IV fluids. Patient continues to be nothing by mouth and states his abdominal discomfort has improved and is passing gas with no reports of bowel movement as of yet. Family at the bedside concerned that he has not been taking his Valtrex that he takes 500 mg daily for history of internal shingles and is on 500 mg daily we'll add acyclovir IV piggyback as patient is currently nothing by mouth. Patient is currently on 5 L via nasal cannula and discussed with nursing staff about weaning FiO2 as tolerated as he was maintaining 95% oxygen saturation. Urology continues on IV heparin and will continue at this time. Early Childhood Assistant also following closely. Patient is continued on sliding scale along with long-acting and recommend to continue with Accu-Cheks before meals and at bedtime. Lipase today improving at 1004. Creatinine slightly improved at 1.49, potassium is 3.6, sodium is 134, white blood count trending down at 11.5 and hemoglobin is stable at 9.9. Calciu m is low at 5.8 being replaced and will monitor closely 10/08/2020 Patient is seen in follow-up this morning no acute overnight issues. Since states he continues to have mild abdominal discomfort and feels slightly more distended. Positive bowel sounds noted on exam and states he had a bowel mov ement last night. Patient denies any nausea or vomiting and continues with NG tube with approximately 500 mL since last night. Patient was given a dose of IV Lasix with good urinary output. Nursing staff working on weaning FiO2 as tolerated and currently on 2 L via nasal cannula. Patient states he continues to have periods of shortness of breath although feels is not worsened since admission. Blood sugars continue to be monitored closely and continued with sliding scale and long-acting and have remained in the low to mid 100s and will continue current management. Repeat plasma lactic acid is within normal limits at 0.6. Calcium 6.4 and albumin at 2.8. Kidney function improved with a BUN of 26 and a creatinine of 1.10. Sodium is 136 and potassium is 3.3 and will replace per protocol. White blood count slowly trending down at 11.0 and hemoglobin is stable at 9.3. Repeat CT abdomen is ordered and pending at this time and GI has been consulted which is also pending. Patient remains afebrile. 10/09/2020 Patient is evaluated this morning and has been slowly started on clear liquids and was intermittently having the NG tube clamped and tolerating. Currently at the bedside with nursing removing the NG tube. Patient is passing gas and has a reported bowel movement yesterday. Patient continues to have abdominal discomfort with distention noted on exam. Patient continues on heparin and will need anticoagulation. Continue to monitor electrolytes and being replaced per protocol. GI following and have ordered additional labs and pending. Will have PT/OT evaluated the patient. Amylase is now 201. WBC within normal limits. Review of systems: Constitutional: No reports of fatigue, fever, or chills Cardiovascular: No reports of chest pain or palpitations Respiratory: Reports intermittent shortness of breath GI: No reports of nausea, vomiting, or diarrhea, reports abdominal distention and mild discomfort : No reports of dysuria or retention, has an indwelling Ward catheter for close intake and output Neurovascular: Generalized weakness All medications have been reviewed Objective - Vital Signs Vital signs: Vital Signs Temp 98.2 F 10/09/20 08:00 Pulse 87 10/09/20 08:00 Resp 15 10/09/20 08:00 BP 147/100 10/09/20 08:00 Pulse Ox 91 L 10/09/20 08:00 Intake & Output 10/08/20 10/09/20 10/09/20 18:59 06:59 18:59 Intake Total 2080 692.975 20 Output Total 1550 970 60 Balance 530 -277.025 -40 Weight 120 kg 118.6 kg Intake: IV 160 320 20 .9 220 20 Potassium Chloride 10 meq 100 100 In Water For Injection 1 100ml.bag @ 100 mls/hr IVPB Q1H [facility] Rx#: [id number] Sodium Chloride 0.9% 1, 60 000 ml @ 100 mls/hr IV . Q10H [facility] Rx#:[id number] Intake, IV Titration 970 372.975 Amount Acyclovir Sodium 500 mg 100 In Sodium Chloride 0.9% 100 ml @ 100 mls/hr IVPB Q8H [facility] Rx#:[id number] Ampicillin-Sulbactam 1.5 100 gm In Sodium Chloride 0.9 % 50 ml @ 100 mls/hr IVPB Q8H [facility] Rx#:[id number] Heparin Sod,Pork in 0.45% 250 352.975 NaCl 25,000 unit In 0.45 % NaCl 1 250ml.bag @ 18 UNITS/KG/HR 21.24 mls/hr IV .[id number] [facility] Rx#: [id number] Potassium Chloride 10 meq 300 In Water For Injection 1 100ml.bag @ 100 mls/hr IVPB Q1HR [facility] Rx#: [id number] Sodium Chloride 0.9% 1, 220 20 000 ml @ 20 mls/hr IV . Q24H [facility] Rx#:[id number] Oral 950 Output: Urine 1550 970 60 Other: Voiding Method Indwelling Catheter Indwelling Catheter Indwelling Catheter - Exam GENERAL: The patient is alert and oriented x3, not in any acute distress, currently on 2-3 L via nasal cannula. Obese HEENT: Pupils are round and equally reacting to light. EOMI. No scleral icterus. No conjunctival pallor. Normocephalic, atraumatic. No pharyngeal erythema. No thyromegaly. CARDIOVASCULAR: S1 and S2 present. No murmurs, rubs, or gallops. PULMONARY: Diminished breath sounds bilaterally with some scattered rhonchi noted ABDOMEN: Distended, mildly tender on palpation, bowel sounds noted, no rebound or rigidity MUSCULOSKELETAL: No joint swelling or deformity. EXTREMITIES: No cyanosis, clubbing, or pedal edema. NEUROLOGICAL: Gross neurological examination did not reveal any focal deficits. diffuse weakness SKIN: No rashes. - Labs CBC & Chem 7: 10/09/20 03:11 10/09/20 03:11 Labs: Abnormal Lab Results - Last 24 Hours (Table) 10/08/20 10/08/20 10/09/20 Range/Units 08:49 13:10 03:11 RBC (4.30-5.90) m/uL Hgb (13.0-17.5) gm/dL Hct (39.0-53.0) % Plt Count (150-450) k/uL APTT 43.2 H (22.0-30.0) sec Glucose (74-99) mg/dL POC Glucose (mg/dL) 124 H (75-99) mg/dL Plasma Lactic Acid Matias 0.6 L (0.7-2.0) mmol/L Calcium (8.4-10.2) mg/dL 10/09/20 10/09/20 10/09/20 Range/Units 03:11 03:11 06:36 RBC 3.10 L (4.30-5.90) m/uL Hgb 9.7 L (13.0-17.5) gm/dL Hct 29.1 L (39.0-53.0) % Plt Count 145 L (150-450) k/uL APTT (22.0-30.0) sec Glucose 115 H (74-99) mg/dL POC Glucose (mg/dL) 131 H (75-99) mg/dL Plasma Lactic Acid Matias (0.7-2.0) mmol/L Calcium 7.0 L (8.4-10.2) mg/dL Assessment and Plan Assessment: -Acute pancreatitis severe edematous pancreatitis, etiology is not clear , can be secondary to hypertriglyceridemia although triglycerides are only 1100, lipid triglycerides repeated today is 341, Lipase improved at 1004. GI now following and additional labs ordered -Severe abdominal distention with possibility of gastric outlet obstruction , patient being started on clears and NG being removed -Acute hypoxic respiratory failure: Secondary to severe systemic inflammatory response from pancreatitis and probably from abdominal distention. No primary lung pathology at this time. continues on 2-3 L via NC -Severe anion gap metabolic acidosis secondary to diabetic ketoacidosis and lactic acidosis, improved -Hyponatremia: Combination of hypovolemic hyponatremia and pseudohyponatremia from hyperglycemia, improving -History of shingles, internal and on maintenance dose Valtrex of 500 mg daily. Patient is nothing by mouth at this time and will add acyclovir IV piggyback -Elevated pro calcitonin, patient is maintained on IV antibiotics and will continue at this time. -Diabetic ketoacidosis and severe hyperglycemia secondary to acute pancreatic insufficiency patient probably will need insulin and will be insulin dependent from now on. Patient was transitioned to sliding scale insulin along with long acting insulin, titration of these insulin as per the blood sugars, will also consult perioperative educator in regards to possible insulin management outpatient -Hyperkalemia secondary to metabolic acidosis, improved now -acute renal failure, most probably secondary to acute tubular necrosis from hypotension patient continues with fairly good urine output at this time. Improved. 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 Patient is off of levophed -Obesity with a body mass index of 36.9 -Hypocalcemia secondary to metabolic acidosis, calcium slowly trending up -Tachycardia secondary to shock, improved -full code Plan: Continue with current medications and current regimen. Continue to monitor Accu-Cheks before meals and at bedtime and continue sliding scale along with long-acting. Consult perioperative educator as patient will possibly require insulin on discharge. Calcium slowly trending up. NG tube being discontinued and being started on clear liquids with GI and surgery following. Patient's abdomen continues to be distended with discomfort noted. Continue to wean FiO2 as armida ated. Encourage the use of incentive spirometer and increasing activity as tolerated. Will have PT/OT evaluate the patient. Further recommendations to follow based on the clinical course of the patient. Prognosis is guarded.
[2020-10-10] MEDS: ONDANSETRON 4 MG/2 ML VIAL IVP PRN (01:07)
[2020-10-10] MEDS: HYDROmorphone 1 MG/ML 1 ML SYRINGE IVP PRN ×7 (02:12→22:56)
[2020-10-10] MEDS: AMPICILLIN-SULBACTAM 1.5 GM in SODIUM CHLORIDE 0.9% 50 ML IVPB SCH ×3 (03:48→20:11)
[2020-10-10] MEDS: HEPARIN SOD,PORK IN 0.45% NACL 25,000 UNIT in 0.45% NACL 1 250ML.BAG IV SCH (04:44)
[2020-10-10] MEDS: ACYCLOVIR SODIUM 500 MG in SODIUM CHLORIDE 0.9% 100 ML IVPB SCH (06:01)
[2020-10-10] MEDS: INSULIN DETEMIR (LEVEMIR) 100 UNIT/ML SYR SQ SCH (06:01)
[2020-10-10] MEDS: NOREPINEPHRINE 4 MG in SODIUM CHLORIDE 0.9% 250 ML IV SCH (06:05)
[2020-10-10 06:24] LABS: HGB 10.3 gm/dL (13.0-17.5); MCH 32.3 pg (25.0-35.0); MCHC 34.3 g/dL (31.0-37.0); MCV 94.3 fL (80.0-100.0); Mean Platelet Volume 8.9; Platelet Count 188 k/uL (150-450); RBC 3.18 m/uL (4.30-5.90); RDW 13.7 % (11.5-15.5); WBC 15.2 k/uL (3.8-10.6)
[2020-10-10 06:35] LABS: Glucose,Whole Blood 176 mg/dL (75-99)
[2020-10-10 06:49] LABS: African American GFR (CKD) >90 (>60 ml/min/1.73 sqM); Anion Gap 11 mmol/L; Blood Urea Nitrogen 15 mg/dL (9-20); Calcium 8.1 mg/dL (8.4-10.2); Carbon Dioxide 26 mmol/L (22-30); Chloride 102 mmol/L (98-107); Glucose 168 mg/dL (74-99); Non-African American GFR(CKD) >90 (>60 ml/min/1.73 sqM); Potassium 3.8 mmol/L (3.5-5.1); Sodium 139 mmol/L (137-145)
[2020-10-10] MEDS: INSULIN ASPART (NovoLOG) 100 UNIT/ML VIAL SQ SCH ×4 (06:53→20:10)
[2020-10-10] MEDS ORDERED: Potassium Replacement Protocol 1 EACH MISC MISCELLANE PRN (07:08)
[2020-10-10] MEDS: PANTOPRAZOLE 40 MG/10 ML VIAL IV SCH (08:54)
[2020-10-10] MEDS: POTASSIUM CHLORIDE 10 MEQ in WATER FOR INJECTION 1 100ML.BAG IVPB SCH ×2 (08:54→09:47)
[2020-10-10] MEDS: SODIUM CHLORIDE 0.9% 1,000 ML IV SCH (08:55)
--- NOTE | 2020-10-10 09:03 | P.PN ---
Subjective Progress Note Date: 10/10/20 Principal diagnosis: Pancreatitis Patient was seen and examined lying in bed. States his pain in his abdomen is the same, and no improvement. He had a bowel movement yesterday evening, he is tolerating his clear liquids without any nausea or vomiting. Physical therapy worked with patient yesterday and he ambulated 1 in the suarez and sat up at the bedside for 4 hours. Discussed with patient importance and encouragement for sitting up in the chair and ambulating as tolerated. IgG4 and ISIDRO negative, lipase normal. Objective - Vital Signs Vital signs: Vital Signs Temp 98.5 F 10/10/20 04:00 Pulse 86 10/10/20 07:00 Resp 19 10/10/20 07:00 BP 149/97 10/10/20 07:00 Pulse Ox 94 L 10/10/20 07:00 Intake & Output 10/09/20 10/10/20 10/10/20 18:59 06:59 18:59 Intake Total 185.385 4406.392 75 Output Total 645 800 Balance 507.228 3763.392 75 Weight 119 kg Intake: IV 735 1200 75 .9 735 900 75 Acyclovir Sodium 500 mg 200 In Sodium Chloride 0.9% 100 ml @ 100 mls/hr IVPB Q8H [facility] Rx#:[id number] Ampicillin-Sulbactam 1.5 100 gm In Sodium Chloride 0.9 % 50 ml @ 100 mls/hr IVPB Q8H [facility] Rx#:[id number] Intake, IV Titration 147.025 552.392 Amount Heparin Sod,Pork in 0.45% 147.025 552.392 NaCl 25,000 unit In 0.45 % NaCl 1 250ml.bag @ 18 UNITS/KG/HR 21.24 mls/hr IV .[id number] [facility] Rx#: [id number] Oral 100 Output: Urine 645 800 Other: Voiding Method Urinal Urinal # Voids 0 0 - Exam General appearance: The patient is alert, oriented, appears in no acute distre ss. HET: Head is normocephalic and atraumatic. Conjunctiva pink. Sclera anicteric. Neck: Supple without lymphadenopathy. Abdomen: Soft, epigastric and right upper quadrant tenderness, mildly distended with bowel sounds. No guarding or rigidity. Extremities: Normal skin color and turgor. No pedal edema Skin: No rashes, no jaundice Neurological: No focal deficits. Alert and oriented 3. - Labs CBC & Chem 7: 10/10/20 05:53 10/10/20 05:53 Labs: Abnormal Lab Results - Last 24 Hours (Table) 10/09/20 10/09/20 10/09/20 Range/Units 03:11 08:53 10:17 WBC (3.8-10.6) k/uL RBC (4.30-5.90) m/uL Hgb (13.0-17.5) gm/dL Hct (39.0-53.0) % APTT 46.1 H (22.0-30.0) sec Glucose (74-99) mg/dL POC Glucose (mg/dL) (75-99) mg/dL Calcium (8.4-10.2) mg/dL Amylase <30 L (30-110) U/L IgG1 <85.0 L (405.0-1011.0) mg/dL IgG2 <35.0 L (169.0-640.0) mg/dL IgG3 1.9 L (11.0-85.0) mg/dL IgG4 2.8 L (3.0-175.0) mg/dL 10/09/20 10/09/20 10/09/20 Range/Units 12:13 12:28 16:33 WBC (3.8-10.6) k/uL RBC (4.30-5.90) m/uL Hgb (13.0-17.5) gm/dL Hct (39.0-53.0) % APTT (22.0-30.0) sec Glucose (74-99) mg/dL POC Glucose (mg/dL) 67 L 130 H 126 H (75-99) mg/dL Calcium (8.4-10.2) mg/dL Amylase (30-110) U/L IgG1 (405.0-1011.0) mg/dL IgG2 (169.0-640.0) mg/dL IgG3 (11.0-85.0) mg/dL IgG4 (3.0-175.0) mg/dL 10/09/20 10/10/20 10/10/20 Range/Units 21:23 05:53 05:53 WBC 15.2 H (3.8-10.6) k/uL RBC 3.18 L (4.30-5.90) m/uL Hgb 10.3 L (13.0-17.5) gm/dL Hct 30.0 L (39.0-53.0) % APTT 44.9 H (22.0-30.0) sec Glucose (74-99) mg/dL POC Glucose (mg/dL) 164 H (75-99) mg/dL Calcium (8.4-10.2) mg/dL Amylase (30-110) U/L IgG1 (405.0-1011.0) mg/dL IgG2 (169.0-640.0) mg/dL IgG3 (11.0-85.0) mg/dL IgG4 (3.0-175.0) mg/dL 10/10/20 10/10/20 Range/Units 05:53 06:34 WBC (3.8-10.6) k/uL RBC (4.30-5.90) m/uL Hgb (13.0-17.5) gm/dL Hct (39.0-53.0) % APTT (22.0-30.0) sec Glucose 168 H (74-99) mg/dL POC Glucose (mg/dL) 176 H (75-99) mg/dL Calcium 8.1 L (8.4-10.2) mg/dL Amylase (30-110) U/L IgG1 (405.0-1011.0) mg/dL IgG2 (169.0-640.0) mg/dL IgG3 (11.0-85.0) mg/dL IgG4 (3.0-175.0) mg/dL Assessment and Plan (1) Pancreatitis Narrative/Plan: 50-year-old male who presented to the emergency department with severe abdominal pain associated with nausea and vomiting 4 days ago was found to have elevation in his pancreatic enzymes as well as hyperglycemia, and was noted to be in diabetic ketoacidosis. On admission his triglycerides were greater than 11,000, his glucose was 969, lipase greater than 20,000, and amylase 1399. CT of the abdomen and pelvis showed moderate to severe acute interstitial pancreatitis inflammatory edema and fat stranding tracks down the mesentery and retroperitoneum to the umbilical level. No focal fluid collection at this time. He was also noted to have a nonocclusive splenic vein thrombosis, a 1.6 cm metal density within the second portion of the duodenum, prominent fluid distention of the stomach, trace perihepatic ascites and mild to moderate pelvic ascites, secondary to pancreatic formation and hepatomegaly with severe hepatic steatosis. The patient denies any previous history of pancreatitis, previous alcohol abuse or current alcohol abuse, no new medications, no family history of pancreatitis, and no previous diagnosis of diabetes. Repeat CT of the abdomen and pelvis was completed today showing persistent severe acute pancreatitis. No areas of necrosis or focal fluid collection identified. Patient has acute non- complicated pancreatitis likely related to diabetic ketoacidosis and hypertriglyceridemia. Pancreatic enzymes as well as triglycerides have trended down. Yesterday triglycerides 141, lipase 1004. Current Visit: Yes Status: Acute Code(s): K85.90 - ACUTE PANCREATITIS WITHOUT NECROSIS OR INFECTION, UNSP SNOMED Code(s): 71216484 (2) Hepatic steatosis Current Visit: Yes Status: Acute Code(s): K76.0 - FATTY (CHANGE OF) LIVER, NOT ELSEWHERE CLASSIFIED SNOMED Code(s): 137569904 (3) Acute kidney injury Narrative/Plan: Improving Current Visit: Yes Status: Acute Code(s): N17.9 - ACUTE KIDNEY FAILURE, UNSPECIFIED SNOMED Code(s): 37325335 (4) Hyperglycemia Narrative/Plan: Improving Current Visit: Yes Status: Acute Code(s): R73.9 - HYPERGLYCEMIA, UNSPECIFIED SNOMED Code(s): 50316566 (5) Hyponatremia Current Visit: Yes Status: Acute Code(s): E87.1 - HYPO-OSMOLALITY AND HYPONATREMIA SNOMED Code(s): 08250002 (6) Small bowel obstruction Narrative/Plan: NG tube is continued, surgery following Current Visit: Yes Status: Acute Code(s): K56.609 - UNSP INTESTNL OBST, UNSP TO PARTIAL VERSUS COMPLETE OBST SNOMED Code(s): 356498250 (7) Splenic vein thrombosis Current Visit: Yes Status: Acute Code(s): I82.890 - ACUTE EMBOLISM AND THROMBOSIS OF OTHER SPECIFIED VEINS SNOMED Code(s): 65938450 (8) Obesity Current Visit: Yes Status: Acute Code(s): E66.9 - OBESITY, UNSPECIFIED SNOMED Code(s): 836860978 Plan: 1. Continue supportive care 2. Protonix 40 mg twice a day 3. Anti-emetics as needed 4. Continue pain medication as needed per primary team 5. ISIDRO, IgG4 ordered and reviewed 6. Strict glycemic control 7. Continue treatment for hypertriglyceridemia 8. Continue IV fluid hydration 9. Continue clear liquid diet 10. Encourage ambulation, continue physical therapy Thank you for this consultation, we will continue to follow. Dr. Mccullough I agree with the dictator's note, documented as a scribe by Lisa High.
--- NOTE | 2020-10-10 09:42 | P.PN ---
Subjective Progress Note Date: 10/10/20 Principal diagnosis: Acute pancreatitis This is a pleasant 49-year-old gentleman who follows with Dr. Thompson as his primary care provider. He has a history of hyperlipidemia, hypertension, shingles with encephalomyelitis and cognitive impairment, anxiety/depression. Lifelong nonsmoker. He presented to the emergency room yesterday with a 2 day history of increasing abdominal discomfort, nausea vomiting dry heaves. Diaphoretic. Computed tomography scan of the abdomen revealed moderate to severe acute interstitial pancreatitis. Inflammatory edema and fat stranding tracks on the mesentery and retroperitoneum to the umbilical level. No focal fluid collection noted. There is secondary complication with a long segment nonocclusive splenic vein thrombosis. There is a 1.6 cm metal density within the second portion of the duodenum. Questionable etiology possible dental crown or other ingested foreign body. Unsure if this is contributing to some type of gastric outlet obstruction. There is contiguous duodenitis and proximal jejunitis adjacent to the pancreatic inflammation. Trace perihepatic ascites and mild to moderate pelvic ascites secondary to pancreatic inflammation. No excretion of contrast and the kidneys on the delayed kidney images. Possible acute kidney injury. Hepatomegaly with severe hepatic steatosis. Sigmoid diverticulosis. 2 mm nonobstructive left renal calculus. White count 22.0. Hemoglobin 14.0. Platelet count 451. Sodium initially 116 currently 125. Potassium initially 6.0 currently 4.1. I carb initially 8, currently 15. Anion gap initially 28, currently 17. Creatinine 2.70. Initial blood glucose 969. Currently 179. Calcium 6.4. LDH 1570. AST 54. ALT 29. Amylase 901. Lipase 10,000 385. Acetone positive. Hurtado virus not detected. He is currently awake and alert. Maintaining O2 saturations in the 90s on 5 L/m per nasal cannula. He is on a heparin drip per weight-based protocol. Insulin drip at 12 units per hour. 0.9 normal saline at 10 mL per hour. He's had an extreme total of 4.5 L of fluid resuscitation. IV is to be changed to D5.45 with 20 KCl at 150 MLS per hour per DKA protocol. The patient is seen today 10/06/2020 in follow-up in the intensive care unit. He is currently laying flat in bed. Awake and alert in no acute distress. He is maintaining O2 saturations in the 90s on 5 L/m per nasal cannula. He is still having issues with ongoing abdominal discomfort. He's been hypotensive. He remains on norepinephrine at 0.03 mcg/kg/m. He is on a insulin drip at 6 units per hour. He remains on a heparin drip weight-based protocol. He remains on D5 0.45 with 20 KCl at 150 ML's per hour. Ultrasound of the Bladder revealed severe hepatic steatosis. Mild perihepatic ascites. No gallstones or biliary duct dilatation seen. White count 4.3. Hemoglobin 10.6. Sodium 131. Potass ium 3.9. Creatinine 2.43. Calcium 5.5. AST 106. ALT 29. He remains on Unasyn. The patient is seen today 10/07/2020 in follow-up in the intensive care unit. Awake and alert in no acute distress. He is still confused at times. He is breathing quite flat in bed. He denies any worsening shortness of breath. He is maintaining O2 saturations in the 90s on 5 L high flow nasal cannula. Afebrile. Heparin drip per weight-based protocol. 0.9 normal saline at 100 mL per hour. Norepinephrine remains off. Chest x-ray shows some evidence of fluid volume overload. Some patchy retrocardiac atelectasis versus developing pneumonia. White count 11.5. Hemoglobin 9.9. Sodium 134. Potassium 3.6. Creatinine 1.49. Lipase 1004. Triglycerides 341. Glucose 152. On 10/08/2020 patient seen in follow-up in the intensive care unit, he is currently awake and alert, oriented 3, he is on 2 L of supplemental oxygen, his pulse ox is 93%, she is afebrile, hemodynamically stable, he is not on any v asopressor support, he is currently on 0.9 normal saline at a rate of 20 ML per hour, and heparin drip is at weight-based protocol for splenic vein thrombosis. Patient is slightly diaphoretic, and at times he is mildly tachypneic, but denies any acute respiratory distress. He has NG tube in his nose, and there has been 500 mL of gastric output in the last 24 hours, he feels that his abdomen is a bit more distended compared to yesterday, he does have positive bowel sounds, and he did have a bowel movement last night, his lipase has significantly improved from admission and is currently down to 1004. He remains on antibiotics of Unasyn and Zovirax. His CT of abdomen and pelvis from admissi on showed possible mental density drain 1.6 cm within the second portion of the duodenum, with the possibility of a foreign body or possible dental crown. Patient denies having any missing dental crowns. His abdominal CT of abdomen and pelvis will be repeated today and was discussed with the general surgery who is following the patient. Yesterday's chest x-ray showed mild interstitial prominence, and patient had received 1 dose of Lasix, and he has produced 4.4 L in urine output over last 24 hours. Rest of his blood work has been reviewed, his white count is steadily improving, and is down to 11 on today's labs, hemoglobin is 9.3, sodium is 136, potassium is 3.3, his renal profile is imp roving his BUN is 26 and creatinine is 1.1. Today's lactic acid is down to 0.6, calcium is 6.4, pro calcitonin level is 5.93, patient is on antibiotics as mentioned above. Patient remains nothing by mouth. No blood cultures have been sent. Patient has been afebrile. On 10/10/2020 patient seen in follow-up in the intensive care unit, he is awake and alert, oriented 3, he is resting comfortably in bed, denies any acute distress, he is currently on 3 L of oxygen, and his pulse ox is 91-94%. Afebrile, hemodynamically patient is stable, he is in sinus mechanism with a controlled rate, he is currently on 0.9 normal saline at 75 ML per hour, and heparin infusion per weight-based protocol, no other drips. Breathing comfortably, working on incentive spirometer but does need encouragement to use it. NG tube was removed yesterday, his abdomen is soft, there has been no nausea or vomiting overnight, he is tolerating clear liquid diet. No new chest x-ray today, today's labs have been reviewed, his white blood cell count has trended up since yesterday and is up to 15.2, hemoglobin is 10.3, his electrolyte and renal profile are unremarkable, serum is 8.1, his follow-up amylase is down to less than 30, and lipase is now within normal limits at 201. he remains on Unasyn for empiric antibiotic coverage, and Valtrex. Abdomen is soft, bowel sounds are present 4 although a bit hypoactive, patient is passing gas and he had a normal bowel movement last night, he is getting up to the co mmode with assistance to void. He did sit up in the chair yesterday for 4 hours. Objective - Vital Signs Vital signs: Vital Signs Temp 98.5 F 10/10/20 08:00 Pulse 85 10/10/20 08:00 Resp 18 10/10/20 08:00 BP 149/97 10/10/20 08:00 Pulse Ox 91 L 10/10/20 08:00 Intake & Output 10/09/20 10/10/20 10/10/20 18:59 06:59 18:59 Intake Total 012.040 9742.392 75 Output Total 645 800 Balance 932.908 3695.392 75 Weight 119 kg Intake: IV 735 1200 75 .9 735 900 75 Acyclovir Sodium 500 mg 200 In Sodium Chloride 0.9% 100 ml @ 100 mls/hr IVPB Q8H [facility] Rx#:[id number] Ampicillin-Sulbactam 1.5 100 gm In Sodium Chloride 0.9 % 50 ml @ 100 mls/hr IVPB Q8H [facility] Rx#:[id number] Intake, IV Titration 147.025 552.392 Amount Heparin Sod,Pork in 0.45% 147.025 552.392 NaCl 25,000 unit In 0.45 % NaCl 1 250ml.bag @ 18 UNITS/KG/HR 21.24 mls/hr IV .[id number] [facility] Rx#: [id number] Oral 100 Output: Urine 645 800 Other: Voiding Method Urinal Urinal # Voids 0 0 - Exam GENERAL EXAM: Alert, very pleasant, 50-year-old obese white male, on 2 L of oxygen with pulse ox of 93%, resting in bed, abdomen is less distended today's exam, and patient is comfortable in no apparent distress. HEAD: Normocephalic/atraumatic. EYES: Normal reaction of pupils, equal size. Conjunctiva pink, sclera white. NOSE: Clear with pink turbinates. Interval removal of the NG tube THROAT: No erythema or exudates. NECK: No masses, no JVD, no thyroid enlargement, no adenopathy. CHEST: No chest wall deformity. Symmetrical expansion. LUNGS: Equal air entry with no crackles, wheeze, rhonchi or dullness. CVS: Regular rate and rhythm, normal S1 and S2, no gallops, no murmurs, no rubs ABDOMEN: Soft, distended. No hepatosplenomegaly, normal bowel sounds, no guarding or rigidity. EXTREMITIES: No clubbing, no edema, no cyanosis, 2+ pulses and upper and lower extremities. MUSCULOSKELETAL: Muscle strength and tone normal. SPINE: No scoliosis or deformity SKIN: No rashes CENTRAL NERVOUS SYSTEM: Alert and oriented -3. No focal deficits, tone is normal in all 4 extremities. PSYCHIATRIC: Alert and oriented -3. Appropriate affect. Intact judgment and insight. - Labs CBC & Chem 7: 10/10/20 05:53 10/10/20 05:53 Labs: Abnormal Lab Results - Last 24 Hours (Table) 10/09/20 10/09/20 10/09/20 Range/Units 03:11 08:53 10:17 WBC (3.8-10.6) k/uL RBC (4.30-5.90) m/uL Hgb (13.0-17.5) gm/dL Hct (39.0-53.0) % APTT 46.1 H (22.0-30.0) sec Glucose (74-99) mg/dL POC Glucose (mg/dL) (75-99) mg/dL Calcium (8.4-10.2) mg/dL Amylase <30 L (30-110) U/L IgG1 <85.0 L (405.0-1011.0) mg/dL IgG2 <35.0 L (169.0-640.0) mg/dL IgG3 1.9 L (11.0-85.0) mg/dL IgG4 2.8 L (3.0-175.0) mg/dL 10/09/20 10/09/20 10/09/20 Range/Units 12:13 12:28 16:33 WBC (3.8-10.6) k/uL RBC (4.30-5.90) m/uL Hgb (13.0-17.5) gm/dL Hct (39.0-53.0) % APTT (22.0-30.0) sec Glucose (74-99) mg/dL POC Glucose (mg/dL) 67 L 130 H 126 H (75-99) mg/dL Calcium (8.4-10.2) mg/dL Amylase (30-110) U/L IgG1 (405.0-1011.0) mg/dL IgG2 (169.0-640.0) mg/dL IgG3 (11.0-85.0) mg/dL IgG4 (3.0-175.0) mg/dL 10/09/20 10/10/20 10/10/20 Range/Units 21:23 05:53 05:53 WBC 15.2 H (3.8-10.6) k/uL RBC 3.18 L (4.30-5.90) m/uL Hgb 10.3 L (13.0-17.5) gm/dL Hct 30.0 L (39.0-53.0) % APTT 44.9 H (22.0-30.0) sec Glucose (74-99) mg/dL POC Glucose (mg/dL) 164 H (75-99) mg/dL Calcium (8.4-10.2) mg/dL Amylase (30-110) U/L IgG1 (405.0-1011.0) mg/dL IgG2 (169.0-640.0) mg/dL IgG3 (11.0-85.0) mg/dL IgG4 (3.0-175.0) mg/dL 10/10/20 10/10/20 Range/Units 05:53 06:34 WBC (3.8-10.6) k/uL RBC (4.30-5.90) m/uL Hgb (13.0-17.5) gm/dL Hct (39.0-53.0) % APTT (22.0-30.0) sec Glucose 168 H (74-99) mg/dL POC Glucose (mg/dL) 176 H (75-99) mg/dL Calcium 8.1 L (8.4-10.2) mg/dL Amylase (30-110) U/L IgG1 (405.0-1011.0) mg/dL IgG2 (169.0-640.0) mg/dL IgG3 (11.0-85.0) mg/dL IgG4 (3.0-175.0) mg/dL Assessment and Plan Plan: #1. Acute abdominal pain, secondary to severe acute pancreatitis, improved #2. Long segment of nonocclusive splenic vein thrombosis, currently on heparin infusion #3. Metal density in the second portion of duodenum, measuring 1.6 cm, with the possibility of gastric outlet obstruction, rule out possibility of ingested foreign body or dental crown #4. Duodenitis, proximal jejunitis, and pancreatic inflammation #5. Moderate pelvic ascites secondary to pancreatic inflammation #6. Acute kidney injury, improving #7. Severe hepatic steatosis with hepatomegaly #8. Acute diabetic ketoacidosis secondary to acute pancreatitis #9. Hyponatremia, improved #10. Elevated amylase and lipase second 2 pancreatitis, improving #11. Hypertension #12. Hyperlipidemia #13. History of anxiety/depression #14. 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 Plan: Patient has remained stable in the last 24 hours No acute events overnight Tolerating clear liquid diet No nausea or vomiting, NG tube has been discontinued Passing bowel movements Amylase and lipase here to improve and lipase is now within normal limits Provide incentive spirometer Deep breathing and coughing Encouraged the patient to sit up in a chair, ambulate in the room with assistance Advance diet per surgery and GI service Should be able to advance to full liquids tomorrow Stop the heparin infusion Switch anticoagulation to Lovenox 100 mg twice daily Stable to transfer out of intensive care unit to medical surgical floor without telemetry today Continue to follow any ICU I performed a history & physical examination of the patient and discussed their management with my nurse practitioner, Leonie Cobb. I reviewed the nurse practitioner's note and agree with the documented findings and plan of care. Lung sounds are positive for diminished breath sounds throughout the lung bernal. The findings and the impression was discussed with the patient. I attest to the documentation by the nurse practitioner. Time with Patient: Less than 30
[2020-10-10] MEDS: busPIRone HCl 10 MG TAB PO SCH ×3 (09:46→20:11)
[2020-10-10] MEDS: valACYclovir 500 MG TAB PO SCH (09:46)
[2020-10-10] MEDS: amLODIPine 5 MG TAB PO SCH (09:46)
[2020-10-10] MEDS: ENOXAPARIN 100 MG/ML SYRINGE SQ SCH ×2 (09:57→20:11)
[2020-10-10 11:08] LABS: Glucose,Whole Blood 197 mg/dL (75-99)
--- NOTE | 2020-10-10 14:01 | P.PN ---
Subjective Progress Note Date: 10/10/20 CHIEF COMPLAINT: Epigastric abdominal pain HISTORY OF PRESENT ILLNESS: Surgical service is following regards to patient's abdominal pain, pancreatitis and small bowel obstruction. Patient did have a bowel movement. He had one episode of vomiting yesterday. He is currently tolerating a clear liquid diet. He is complaining of abdominal pain mostly in the epigastric area. However, pain has shown improvement since admission. He is currently a MedSurg overflow in the ICU. Afebrile. WBC is 15.2 hemoglobin 10.3 patient is now on Lovenox for his splenic vein thrombosis Patient seen and examined with Dr. forman PHYSICAL EXAM: VITAL SIGNS: Reviewed. GENERAL: Well-developed in no acute distress. HEENT: No sclera icterus. Extraocular movements grossly intact. Moist buccal mucosa. Head is atraumatic, normocephalic. ABDOMEN: Distended mild epigastric tenderness NEUROLOGIC: Alert and oriented. Cranial nerves II through XII grossly intact. ASSESSMENT: 1. Acute Severe Pancreatitis 2. Duodenitis secondary to pancreatitis 3. Small bowel obstruction secondary to duodenitis 4. Splenic vein thrombosis PLAN: -No surgical intervention planned -Continue conservative management -Continue clear liquid diet -Continue supportive care -Continue ICU management Physician [employer] Manager note has been reviewed by physician. Signing provider agrees with the documented findings, assessment, and plan of care. Objective - Vital Signs Vital signs: Vital Signs Temp 98.5 F 10/10/20 08:00 Pulse 92 10/10/20 09:00 Resp 15 10/10/20 09:00 BP 145/93 10/10/20 09:00 Pulse Ox 92 L 10/10/20 09:00 Intake & Output 10/09/20 10/10/20 10/10/20 18:59 06:59 18:59 Intake Total 847.974 5148.392 161.376 Output Total 645 800 Balance 441.033 4883.392 161.376 Weight 119 kg Intake: IV 735 1200 75 .9 735 900 75 Acyclovir Sodium 500 mg 200 In Sodium Chloride 0.9% 100 ml @ 100 mls/hr IVPB Q8H [facility] Rx#:[id number] Ampicillin-Sulbactam 1.5 100 gm In Sodium Chloride 0.9 % 50 ml @ 100 mls/hr IVPB Q8H [facility] Rx#:[id number] Intake, IV Titration 147.025 552.392 86.376 Amount Heparin Sod,Pork in 0.45% 147.025 552.392 86.376 NaCl 25,000 unit In 0.45 % NaCl 1 250ml.bag @ 18 UNITS/KG/HR 21.24 mls/hr IV .[id number] [facility] Rx#: [id number] Oral 100 Output: Urine 645 800 Other: Voiding Method Urinal Urinal # Voids 0 0 - Labs CBC & Chem 7: 10/10/20 05:53 10/10/20 05:53 Labs: Abnormal Lab Results - Last 24 Hours (Table) 10/09/20 10/09/20 10/09/20 Range/Units 03:11 16:33 21:23 WBC (3.8-10.6) k/uL RBC (4.30-5.90) m/uL Hgb (13.0-17.5) gm/dL Hct (39.0-53.0) % APTT (22.0-30.0) sec Glucose (74-99) mg/dL POC Glucose (mg/dL) 126 H 164 H (75-99) mg/dL Calcium (8.4-10.2) mg/dL IgG1 <85.0 L (405.0-1011.0) mg/dL IgG2 <35.0 L (169.0-640.0) mg/dL IgG3 1.9 L (11.0-85.0) mg/dL IgG4 2.8 L (3.0-175.0) mg/dL 10/10/20 10/10/20 10/10/20 Range/Units 05:53 05:53 05:53 WBC 15.2 H (3.8-10.6) k/uL RBC 3.18 L (4.30-5.90) m/uL Hgb 10.3 L (13.0-17.5) gm/dL Hct 30.0 L (39.0-53.0) % APTT 44.9 H (22.0-30.0) sec Glucose 168 H (74-99) mg/dL POC Glucose (mg/dL) (75-99) mg/dL Calcium 8.1 L (8.4-10.2) mg/dL IgG1 (405.0-1011.0) mg/dL IgG2 (169.0-640.0) mg/dL IgG3 (11.0-85.0) mg/dL IgG4 (3.0-175.0) mg/dL 10/10/20 10/10/20 Range/Units 06:34 11:07 WBC (3.8-10.6) k/uL RBC (4.30-5.90) m/uL Hgb (13.0-17.5) gm/dL Hct (39.0-53.0) % APTT (22.0-30.0) sec Glucose (74-99) mg/dL POC Glucose (mg/dL) 176 H 197 H (75-99) mg/dL Calcium (8.4-10.2) mg/dL IgG1 (405.0-1011.0) mg/dL IgG2 (169.0-640.0) mg/dL IgG3 (11.0-85.0) mg/dL IgG4 (3.0-175.0) mg/dL
--- NOTE | 2020-10-10 14:22 | P.PN ---
Subjective Progress Note Date: 10/10/20 49-year-old male came in with comments of nausea vomiting for couple days in the significant polyuria and polydipsia that has been going on for about a week. Patient was coming of severe abdominal pain sharp in nature nonradiating diffuse. Patient is found to be in DKA and patient is also found to have severe pancreatitis. Patient had a CT of the abdomen which showed edematous pancreatic that is without any necrosis. There was a secondary combination of splint vein thrombosis as well and patient abdomen is quite a bit distended with distention of the stomach there is significant duodenitis jejunitis along with a foreign body in the second part of the duodenum probably contributing or causing gastric outlet obstruction. General surgery was consulted. Patient was admitted to ICU patient has severe acidosis patient is a has a highly elevated blood sugars of 4000 bicarbonate of 10 and multiple other electrolyte abnormalities. Patient the ionized calcium is low as well and calcium was replaced. Patient is found to be in acute renal failure with creatinine of around 2.4 patient was hyp otensive presently not on any pressors patient is presently receiving IV fluids. Triglyceride levels are pending. Patient is not an alcoholic. There is no evidence of gallstones and the CT of the abdomen. Patient the had a hemoglobin A1c tested recently about couple months ago at that time his hemoglobin A1c was within normal limits as per the . Patient baseline creatinine is around 0.9, patient denied any fever chills dysuria. Patient doesn't have any fever does have significant leukocytosis. White blood cell count of around 25,000. Serum sodium was extremely low and serum potassium is very high is all because of the acidosis and hyperglycemia. Patient was pretty status has progressively worsened since last night and patient is present and BiPAP. Patient has significant abdominal distention with significant air-fluid level in the abdomen and stomach patient does have some ascites on the CT and this is secondary to severe peritonitis. Patient is presently on empiric Zosyn although there is no clear evidence of infection at this time. 10/06/2020 Patient's anion gap resolved. Patient's insulin will be discontinued and patient was started on 20 units of long-acting insulin along with pre-meal insulin. Patient the nausea improved patient still has some abdominal pain which also significantly improved. Patient will be started on clear liquid diet. We'll also obtain a hemoglobin A1c. Patient will be changed to normal saline at 100 mL per hour. Patient hyponatremia is improving. Patient's anion gap resolved. Patient remains on norepinephrine which is being tapered. Patient is presently on 8 L of oxygen as a postal BiPAP yesterday lung clear to auscultation with good air entry into bilateral lung bernal patient's abdomen is still distended nothing much from the NG tube NG tube will be removed. Patient's lipase has come down to 2000. 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 Patient does have elevated triglyceride levels will repeat triglyceride levels again tomorrow. Triglycerides around 1100. 10/07/2020 Patient is seen and examined in follow-up continues to be closely monitored in the ICU. Patient continues with NG tube with bilious drainage noted and surgery is following closely. Patient is off of levophed and chest x-ray today shows some mild interstitial prominence with possible mild pulmonary vascular con gestion with patchy retrocardiac atelectasis versus developing pneumonia and will be given a dose of IV Lasix. Will decrease IV fluids. Patient continues to be nothing by mouth and states his abdominal discomfort has improved and is passing gas with no reports of bowel movement as of yet. Family at the bedside concerned that he has not been taking his Valtrex that he takes 500 mg daily for history of internal shingles and is on 500 mg daily we'll add acyclovir IV piggyback as patient is currently nothing by mouth. Patient is currently on 5 L via nasal cannula and discussed with nursing staff about weaning FiO2 as tolerated as he was maintaining 95% oxygen saturation. Urology continues on IV heparin and will continue at this time. Supervisor Glycerin also following closely. Patient is continued on sliding scale along with long-acting and recommend to continue with Accu-Cheks before meals and at bedtime. Lipase today improving at 1004. Creatinine slightly improved at 1.49, potassium is 3.6, sodium is 134, white blood count trending down at 11.5 and hemoglobin is stable at 9.9. Calciu m is low at 5.8 being replaced and will monitor closely 10/08/2020 Patient is seen in follow-up this morning no acute overnight issues. Since states he continues to have mild abdominal discomfort and feels slightly more distended. Positive bowel sounds noted on exam and states he had a bowel mov ement last night. Patient denies any nausea or vomiting and continues with NG tube with approximately 500 mL since last night. Patient was given a dose of IV Lasix with good urinary output. Nursing staff working on weaning FiO2 as tolerated and currently on 2 L via nasal cannula. Patient states he continues to have periods of shortness of breath although feels is not worsened since admission. Blood sugars continue to be monitored closely and continued with sliding scale and long-acting and have remained in the low to mid 100s and will continue current management. Repeat plasma lactic acid is within normal limits at 0.6. Calcium 6.4 and albumin at 2.8. Kidney function improved with a BUN of 26 and a creatinine of 1.10. Sodium is 136 and potassium is 3.3 and will replace per protocol. White blood count slowly trending down at 11.0 and hemoglobin is stable at 9.3. Repeat CT abdomen is ordered and pending at this time and GI has been consulted which is also pending. Patient remains afebrile. 10/09/2020 Patient is evaluated this morning and has been slowly started on clear liquids and was intermittently having the NG tube clamped and tolerating. Currently at the bedside with nursing removing the NG tube. Patient is passing gas and has a reported bowel movement yesterday. Patient continues to have abdominal discomfort with distention noted on exam. Patient continues on heparin and will need anticoagulation. Continue to monitor electrolytes and being replaced per protocol. GI following and have ordered additional labs and pending. Will have PT/OT evaluated the patient. Amylase is now 201. WBC within normal limits. 10/10/2020 Patient is seen in follow-up this morning currently sitting up in the chair and slowly increasing activity as tolerated with encouragement. Patient was seen and evaluated by physical therapy and will need to continue with encouragement of increasing activity and getting out of the bed more often. Patient continues to have some abdominal discomfort and distention although somewhat improved and patient is tolerating clear liquids and slowly advancing as tolerated. No reports of nausea or vomiting noted. Patient again had another bowel movement yesterday and reports to passing gas. NG tube has been discontinued. Patient continues on 3 L of oxygen and will need to continue to wean FiO2 as tolerated. Blood pressure remains slightly elevated at 149/97 and will resume home dose of amlodipine and continue to monitor closely. Patient was also on acyclovir IV and normally takes maintenance dose of 500 mg Valtrex by mouth for history of shingles and will resume this as well. Patient needs encouragement with continued use of incentive spirometer at least 10 times every hour while awake. Surgery and GI following as well. White blood count slightly elevated at 15.2, hemoglobin is stable at 10.3, sodium is 139 with a potassium at 3.8 current creatinine is 0.7. Calcium improved at 8.1. Patient is maintained on Accu- Cheks before meals and at bedtime and will continue along with insulin regimen currently prescribed. Patient is being transferred out of the ICU once a bed becomes available. Patient continues on IV Unasyn and will continue at this time. IV heparin was discontinued and patient is on subcutaneous Lovenox. Review of systems: Constitutional: No reports of fatigue, fever, or chills Cardiovascular: No reports of chest pain or palpitations Respiratory: Reports intermittent shortness of breath GI: No reports of nausea, vomiting, or diarrhea, reports continued abdominal distention and mild discomfort : No reports of dysuria or retention Neurovascular: Generalized weakness All medications have been reviewed Active Medications Amlodipine Besylate (Amlodipine 5 Mg Tab) 5 mg PO DAILY [facility] [place] Last Admin: 10/10/20 09:46 Dose: 5 mg Documented by: Buspirone HCl (Buspirone Hcl 10 Mg Tab) 10 mg PO TID [facility] [place] Last Admin: 10/10/20 09:46 Dose: 10 mg Documented by: Enoxaparin Sodium (Enoxaparin 100 Mg/Ml Syringe) 100 mg SQ Q12HR [facility] [place] Last Admin: 10/10/20 09:57 Dose: 100 mg Documented by: Hydromorphone HCl (Hydromorphone 1 Mg/Ml 1 Ml Syringe) 1 mg IVP Q2HR PRN PRN Reason: Pain Scale 6 to 7 Last Admin: 10/10/20 13:00 Dose: 1 mg Documented by: Hydromorphone HCl (Hydromorphone 0.5 Mg/0.5 Ml Syringe) 0.5 mg IVP Q2HR PRN PRN Reason: Pain Scale 4 to 5 Last Admin: 10/07/20 11:02 Dose: 0.5 mg Documented by: Ampicillin Sodium/Sulbactam (Sodium 1.5 gm/ Sodium Chloride) 50 mls @ 100 mls/hr IVPB Q8H [facility] [place] Last Admin: 10/10/20 11:37 Dose: 100 mls/hr Documented by: Sodium Chloride (Saline 0.9%) 1,000 mls @ 75 mls/hr IV .[id number] [facility] [place] Last Admin: 10/10/20 08:55 Dose: 75 mls/hr Documented by: Insulin Aspart (Insulin Aspart (Novolog) 100 Unit/Ml Vial) 0 unit SQ ACHS [facility] [place]; Protocol Last Admin: 10/10/20 11:37 Dose: 3 unit Documented by: Insulin Detemir (Insulin Detemir (Levemir) 100 Unit/Ml Syr) 20 unit SQ DAILY@0700 [facility] [place] Last Admin: 10/10/20 06:01 Dose: 20 unit Documented by: Miscellaneous Information (Potassium Replacement Protocol 1 Each Misc) 1 each MISCELLANE DAILY PRN; Protocol PRN Reason: Per Protocol Miscellaneous Information (Potassium Replacement Protocol 1 Each Misc) 1 each MISCELLANE DAILY PRN; Protocol PRN Reason: Per Protocol Naloxone HCl (Naloxone 0.4 Mg/Ml 1 Ml Vial) 0.2 mg IV Q2M PRN PRN Reason: Opioid Reversal Ondansetron HCl (Ondansetron 4 Mg/2 Ml Vial) 4 mg IVP Q6HR PRN PRN Reason: Nausea And Vomiting Last Admin: 10/10/20 01:07 Dose: 4 mg Documented by: Pantoprazole Sodium (Pantoprazole 40 Mg/10 Ml Vial) 40 mg IV DAILY [facility] [place] Last Admin: 10/10/20 08:54 Dose: 40 mg Documented by: Valacyclovir HCl (Valacyclovir 500 Mg Tab) 500 mg PO DAILY [facility] [place] Last Admin: 10/10/20 09:46 Dose: 500 mg Documented by: Objective - Vital Signs Vital signs: Vital Signs Temp 98.5 F 10/10/20 04:00 Pulse 86 10/10/20 07:00 Resp 19 10/10/20 07:00 BP 149/97 10/10/20 07:00 Pulse Ox 94 L 10/10/20 07:00 Intake & Output 10/09/20 10/10/20 10/10/20 18:59 06:59 18:59 Intake Total 885.345 2303.392 75 Output Total 645 800 Balance 251.771 3297.392 75 Weight 119 kg Intake: IV 735 1200 75 .9 735 900 75 Acyclovir Sodium 500 mg 200 In Sodium Chloride 0.9% 100 ml @ 100 mls/hr IVPB Q8H [facility] Rx#:[id number] Ampicillin-Sulbactam 1.5 100 gm In Sodium Chloride 0.9 % 50 ml @ 100 mls/hr IVPB Q8H [facility] Rx#:[id number] Intake, IV Titration 147.025 552.392 Amount Heparin Sod,Pork in 0.45% 147.025 552.392 NaCl 25,000 unit In 0.45 % NaCl 1 250ml.bag @ 18 UNITS/KG/HR 21.24 mls/hr IV .[id number] [facility] Rx#: [id number] Oral 100 Output: Urine 645 800 Other: Voiding Method Urinal Urinal # Voids 0 0 - Exam GENERAL: The patient is alert and oriented x3, sitting up in the chair, not in any acute distress, currently on 2-3 L via nasal cannula. Obese HEENT: Pupils are round and equally reacting to light. EOMI. No scleral icterus. No conjunctival pallor. Normocephalic, atraumatic. No pharyngeal erythema. No thyromegaly. CARDIOVASCULAR: S1 and S2 present. No murmurs, rubs, or gallops. PULMONARY: Diminished breath sounds bilaterally with some scattered rhonchi noted ABDOMEN: Distended, mildly tender on palpation, bowel sounds noted, no rebound or rigidity MUSCULOSKELETAL: No joint swelling or deformity. EXTREMITIES: No cyanosis, clubbing, or pedal edema. NEUROLOGICAL: Gross neurological examination did not reveal any focal deficits. diffuse weakness SKIN: No rashes. - Labs CBC & Chem 7: 10/10/20 05:53 10/10/20 05:53 Labs: Abnormal Lab Results - Last 24 Hours (Table) 10/09/20 10/09/20 10/09/20 Range/Units 03:11 08:53 10:17 WBC (3.8-10.6) k/uL RBC (4.30-5.90) m/uL Hgb (13.0-17.5) gm/dL Hct (39.0-53.0) % APTT 46.1 H (22.0-30.0) sec Glucose (74-99) mg/dL POC Glucose (mg/dL) (75-99) mg/dL Calcium (8.4-10.2) mg/dL Amylase <30 L (30-110) U/L IgG1 <85.0 L (405.0-1011.0) mg/dL IgG2 <35.0 L (169.0-640.0) mg/dL IgG3 1.9 L (11.0-85.0) mg/dL IgG4 2.8 L (3.0-175.0) mg/dL 10/09/20 10/09/20 10/09/20 Range/Units 12:13 12:28 16:33 WBC (3.8-10.6) k/uL RBC (4.30-5.90) m/uL Hgb (13.0-17.5) gm/dL Hct (39.0-53.0) % APTT (22.0-30.0) sec Glucose (74-99) mg/dL POC Glucose (mg/dL) 67 L 130 H 126 H (75-99) mg/dL Calcium (8.4-10.2) mg/dL Amylase (30-110) U/L IgG1 (405.0-1011.0) mg/dL IgG2 (169.0-640.0) mg/dL IgG3 (11.0-85.0) mg/dL IgG4 (3.0-175.0) mg/dL 10/09/20 10/10/20 10/10/20 Range/Units 21:23 05:53 05:53 WBC 15.2 H (3.8-10.6) k/uL RBC 3.18 L (4.30-5.90) m/uL Hgb 10.3 L (13.0-17.5) gm/dL Hct 30.0 L (39.0-53.0) % APTT 44.9 H (22.0-30.0) sec Glucose (74-99) mg/dL POC Glucose (mg/dL) 164 H (75-99) mg/dL Calcium (8.4-10.2) mg/dL Amylase (30-110) U/L IgG1 (405.0-1011.0) mg/dL IgG2 (169.0-640.0) mg/dL IgG3 (11.0-85.0) mg/dL IgG4 (3.0-175.0) mg/dL 10/10/20 10/10/20 Range/Units 05:53 06:34 WBC (3.8-10.6) k/uL RBC (4.30-5.90) m/uL Hgb (13.0-17.5) gm/dL Hct (39.0-53.0) % APTT (22.0-30.0) sec Glucose 168 H (74-99) mg/dL POC Glucose (mg/dL) 176 H (75-99) mg/dL Calcium 8.1 L (8.4-10.2) mg/dL Amylase (30-110) U/L IgG1 (405.0-1011.0) mg/dL IgG2 (169.0-640.0) mg/dL IgG3 (11.0-85.0) mg/dL IgG4 (3.0-175.0) mg/dL Assessment and Plan Assessment: -Acute pancreatitis severe edematous pancreatitis, etiology is not clear , can be secondary to hypertriglyceridemia -Severe abdominal distention with possibility of gastric outlet obstruction , patient tolerating clears and NG tube has been removed -Acute hypoxic respiratory failure: Secondary to severe systemic inflammatory response from pancreatitis and probably from abdominal distention. No primary lung pathology at this time. continues on 2-3 L via NC -Severe anion gap metabolic acidosis secondary to diabetic ketoacidosis and lactic acidosis, improved -Hyponatremia: Combination of hypovolemic hyponatremia and pseudohyponatremia from hyperglycemia, improving -History of shingles, internal and on maintenance dose Valtrex of 500 mg daily. Resume home dose medication -Elevated pro calcitonin, patient is maintained on IV antibiotics and will continue at this time. -Diabetic ketoacidosis and severe hyperglycemia secondary to acute pancreatic insufficiency patient probably will need insulin and will be insulin dependent from now on. Patient was transitioned to sliding scale insulin along with long acting insulin, titration of these insulin as per the blood sugars, will also consult military source operations specialist in regards to possible insulin management outpatient -Hyperkalemia secondary to metabolic acidosis, improved now -acute renal failure, most probably secondary to acute tubular necrosis from hypotension patient continues with fairly good urine output at this time. Improved. 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 Patient is off of levophed -Obesity with a body mass index of 36.9 -Hypocalcemia secondary to metabolic acidosis, improving -Tachycardia secondary to shock, improved -full code Plan: Continue with current medications and current regimen. Continue to monitor Accu-Cheks before meals and at bedtime and continue sliding scale along with long-acting. Consult military source operations specialist as patient will possibly require insulin on discharge. IV heparin has been discontinued and patient placed on subcutaneous Lovenox and will need to discuss possible anticoagulation on discharge. Patient continues on 2-3 L via nasal cannula with intermittent periods of shortness of breath. Continue to wean FiO2 as tolerated. Patient also continues to need encouragement on the use of incentive spirometer and increasing activity as tolerated. PT/OT evaluated the patient and may need some form of Homecare upon discharge. She continues to be in the ICU although waiting for a [facility] bed to become available. NG tube has been discontinued and patient is tolerating clear liquids and slowly advancing as tolerated. Patient continues with some mild abdominal discomfort and distention noted although no reports of nausea or vomiting currently. Further recommendations to follow based on the clinical course of the patient. Prognosis is guarded.
[2020-10-10 16:54] LABS: Glucose,Whole Blood 175 mg/dL (75-99)
[2020-10-10 20:07] LABS: Glucose,Whole Blood 154 mg/dL (75-99)
[2020-10-11] MEDS: HYDROmorphone 1 MG/ML 1 ML SYRINGE IVP PRN ×9 (01:08→23:12)
[2020-10-11] MEDS: AMPICILLIN-SULBACTAM 1.5 GM in SODIUM CHLORIDE 0.9% 50 ML IVPB SCH ×4 (03:44→19:13)
[2020-10-11 06:18] LABS: Glucose,Whole Blood 204 mg/dL (75-99)
[2020-10-11] MEDS: INSULIN DETEMIR (LEVEMIR) 100 UNIT/ML SYR SQ SCH (06:24)
[2020-10-11] MEDS: INSULIN ASPART (NovoLOG) 100 UNIT/ML VIAL SQ SCH ×4 (06:24→20:57)
[2020-10-11] MEDS: amLODIPine 5 MG TAB PO SCH (09:04)
[2020-10-11] MEDS: ENOXAPARIN 100 MG/ML SYRINGE SQ SCH ×3 (09:04→23:28)
[2020-10-11] MEDS: PANTOPRAZOLE 40 MG/10 ML VIAL IV SCH (09:04)
[2020-10-11] MEDS: busPIRone HCl 10 MG TAB PO SCH ×3 (09:04→20:57)
[2020-10-11] MEDS: valACYclovir 500 MG TAB PO SCH (09:05)
--- NOTE | 2020-10-11 09:22 | P.PN ---
Subjective Progress Note Date: 10/11/20 Principal diagnosis: Pancreatitis Patient is seen and examined lying in bed. He denies any nausea or vomiting. He has been tolerating a clear liquid diet. States he had a bowel movement through the night. States abdominal pain continues to improve. Plan is to transfer patient to medical floor. Objective - Vital Signs Vital signs: Vital Signs Temp 98 F 10/11/20 01:12 Pulse 80 10/11/20 01:12 Resp 15 10/11/20 01:12 BP 144/97 10/11/20 01:12 Pulse Ox 95 10/11/20 01:12 Intake & Output 10/10/20 10/11/20 10/11/20 18:59 06:59 18:59 Intake Total 711.376 480 Output Total 250 900 Balance 461.376 -420 Intake: IV 125 .9 75 Ampicillin-Sulbactam 1.5 50 gm In Sodium Chloride 0.9 % 50 ml @ 100 mls/hr IVPB Q8H [facility] Rx#:[id number] Intake, IV Titration 86.376 Amount Heparin Sod,Pork in 0.45% 86.376 NaCl 25,000 unit In 0.45 % NaCl 1 250ml.bag @ 18 UNITS/KG/HR 21.24 mls/hr IV .[id number] [facility] Rx#: [id number] Oral 500 480 Output: Urine 250 900 Other: Voiding Method Urinal # Voids 2 4 # Bowel Movements 1 2 - Exam General appearance: The patient is alert, oriented, appears in no acute distress. HET: Head is normocephalic and atraumatic. Conjunctiva pink. Sclera anicteric. Neck: Supple without lymphadenopathy. Abdomen: Soft, epigastric and right upper quadrant tenderness, mildly distended with bowel sounds. No guarding or rigidity. Extremities: Normal skin color and turgor. No pedal edema Skin: No rashes, no jaundice Neurological: No focal deficits. Alert and oriented 3. - Labs CBC & Chem 7: 10/11/20 09:38 10/11/20 09:38 Labs: Abnormal Lab Results - Last 24 Hours (Table) 10/10/20 10/10/20 10/10/20 Range/Units 11:07 16:53 20:06 POC Glucose (mg/dL) 197 H 175 H 154 H (75-99) mg/dL 10/11/20 Range/Units 06:17 POC Glucose (mg/dL) 204 H (75-99) mg/dL Assessment and Plan (1) Pancreatitis Narrative/Plan: 50-year-old male who presented to the emergency department with severe abdominal pain associated with nausea and vomiting 4 days ago was found to have elevation in his pancreatic enzymes as well as hyperglycemia, and was noted to be in diabetic ketoacidosis. On admission his triglycerides were greater than 11,000, his glucose was 969, lipase greater than 20,000, and amylase 1399. CT of the abdomen and pelvis showed moderate to severe acute interstitial pancreatitis inflammatory edema and fat stranding tracks down the mesentery and retroperitoneum to the umbilical level. No focal fluid collection at this time. He was also noted to have a nonocclusive splenic vein thrombosis, a 1.6 cm metal density within the second portion of the duodenum, prominent fluid distention of the stomach, trace perihepatic ascites and mild to moderate pelvic ascites, secondary to pancreatic formation and hepatomegaly with severe hepatic steatosis. The patient denies any previous history of pancreatitis, previous alcohol abuse or current alcohol abuse, no new medications, no family history of pancreatitis, and no previous diagnosis of diabetes. Repeat CT of the abdomen and pelvis was completed today showing persistent severe acute pancreatitis. No areas of necrosis or focal fluid collection identified. Patient has acute non- complicated pancreatitis likely related to diabetic ketoacidosis and hypertriglyceridemia. Pancreatic enzymes as well as triglycerides have trended down. Yesterday triglycerides 141, lipase 1004. Current Visit: Yes Status: Acute Code(s): K85.90 - ACUTE PANCREATITIS WITHOUT NECROSIS OR INFECTION, UNSP SNOMED Code(s): 64393756 (2) Hepatic steatosis Current Visit: Yes Status: Acute Code(s): K76.0 - FATTY (CHANGE OF) LIVER, NOT ELSEWHERE CLASSIFIED SNOMED Code(s): 662667429 (3) Acute kidney injury Current Visit: Yes Status: Acute Code(s): N17.9 - ACUTE KIDNEY FAILURE, UNSPECIFIED SNOMED Code(s): 35469820 (4) Hyperglycemia Current Visit: Yes Status: Acute Code(s): R73.9 - HYPERGLYCEMIA, UNSPECIFIED SNOMED Code(s): 01626532 (5) Hyponatremia Current Visit: Yes Status: Acute Code(s): E87.1 - HYPO-OSMOLALITY AND HYPONATREMIA SNOMED Code(s): 33995279 (6) Small bowel obstruction Current Visit: Yes Status: Acute Code(s): K56.609 - UNSP INTESTNL OBST, UNSP TO PARTIAL VERSUS COMPLETE OBST SNOMED Code(s): 153255708 (7) Splenic vein thrombosis Current Visit: Yes Status: Acute Code(s): I82.890 - ACUTE EMBOLISM AND THROMBOSIS OF OTHER SPECIFIED VEINS SNOMED Code(s): 10329596 (8) Obesity Current Visit: Yes Status: Acute Code(s): E66.9 - OBESITY, UNSPECIFIED SNOMED Code(s): 022283713 Plan: 1. Continue supportive care 2. Protonix 40 mg twice a day 3. Anti-emetics as needed 4. Continue pain medication as needed per primary team 5. Strict glycemic control 6. Continue treatment for hypertriglyceridemia 7. Abdominal x-ray ordered 8. Increase to full liquid diet 9. Encourage ambulation, continue physical therapy Thank you for this consultation, we will continue to follow. Dr. Deandra Martinez I agree with the dictator's note, documented as a scribe by Lisa High.
[2020-10-11 09:57] LABS: HCT 32.7 % (39.0-53.0); HGB 10.2 gm/dL (13.0-17.5); Hypochromasia Slight; MCH 29.6 pg (25.0-35.0); MCHC 31.4 g/dL (31.0-37.0); MCV 94.3 fL (80.0-100.0); Mean Platelet Volume 8.2; Platelet Count 253 k/uL (150-450); RBC 3.46 m/uL (4.30-5.90); RDW 13.8 % (11.5-15.5); WBC 15.2 k/uL (3.8-10.6)
[2020-10-11 10:03] LABS: ALT 29 U/L (4-49); AST 37 U/L (17-59); African American GFR (CKD) >90 (>60 ml/min/1.73 sqM); Anion Gap 6 mmol/L; Blood Urea Nitrogen 11 mg/dL (9-20); Calcium 8.4 mg/dL (8.4-10.2); Carbon Dioxide 31 mmol/L (22-30); Chloride 99 mmol/L (98-107); Glucose 190 mg/dL (74-99); Non-African American GFR(CKD) >90 (>60 ml/min/1.73 sqM); Potassium 3.5 mmol/L (3.5-5.1); Sodium 136 mmol/L (137-145)
[2020-10-11 11:19] LABS: Glucose,Whole Blood 210 mg/dL (75-99)
--- NOTE | 2020-10-11 11:27 | P.PN ---
Subjective Progress Note Date: 10/11/20 Principal diagnosis: Acute pancreatitis, DKA This is a pleasant 49-year-old gentleman who follows with Dr. Thompson as his primary care provider. He has a history of hyperlipidemia, hypertension, shingles with encephalomyelitis and cognitive impairment, anxiety/depression. Lifelong nonsmoker. He presented to the emergency room yesterday with a 2 day history of increasing abdominal discomfort, nausea vomiting dry heaves. Diaphoretic. Computed tomography scan of the abdomen revealed moderate to severe acute interstitial pancreatitis. Inflammatory edema and fat stranding tr acks on the mesentery and retroperitoneum to the umbilical level. No focal fluid collection noted. There is secondary complication with a long segment nonocclusive splenic vein thrombosis. There is a 1.6 cm metal density within the second portion of the duodenum. Questionable etiology possible dental crown or other ingested foreign body. Unsure if this is contributing to some type of gastric outlet obstruction. There is contiguous duodenitis and proximal jejunitis adjacent to the pancreatic inflammation. Trace perihepatic ascites and mild to moderate pelvic ascites secondary to pancreatic inflammation. No excretion of contrast and the kidneys on the delayed kidney images. Possible a cute kidney injury. Hepatomegaly with severe hepatic steatosis. Sigmoid diverticulosis. 2 mm nonobstructive left renal calculus. White count 22.0. Hemoglobin 14.0. Platelet count 451. Sodium initially 116 currently 125. Potassium initially 6.0 currently 4.1. I carb initially 8, currently 15. Anion gap initially 28, currently 17. Creatinine 2.70. Initial blood glucose 969. Currently 179. Calcium 6.4. LDH 1570. AST 54. ALT 29. Amylase 901. Lipase 10,000 385. Acetone positive. Hurtado virus not detected. He is currently awake and alert. Maintaining O2 saturations in the 90s on 5 L/m per nasal cannula. He is on a heparin drip per weight-based protocol. Insulin drip at 12 units per hour. 0.9 normal saline at 10 mL per hour. He's had an extreme total of 4.5 L of fluid resuscitation. IV is to be changed to D5.45 with 20 KCl at 150 MLS per hour per DKA protocol. The patient is seen today 10/06/2020 in follow-up in the intensive care unit. He is currently laying flat in bed. Awake and alert in no acute distress. He is maintaining O2 saturations in the 90s on 5 L/m per nasal cannula. He is still having issues with ongoing abdominal discomfort. He's been hypotensive. He remains on norepinephrine at 0.03 mcg/kg/m. He is on a insulin drip at 6 units per hour. He remains on a heparin drip weight-based protocol. He remains on D5 0.45 with 20 KCl at 150 ML's per hour. Ultrasound of the Bladder revealed severe hepatic steatosis. Mild perihepatic ascites. No gallstones or biliary duct dilatation seen. White count 4.3. Hemoglobin 10.6. Sodium 131. P otassium 3.9. Creatinine 2.43. Calcium 5.5. AST 106. ALT 29. He remains on Unasyn. The patient is seen today 10/07/2020 in follow-up in the intensive care unit. Awake and alert in no acute distress. He is still confused at times. He is breathing quite flat in bed. He denies any worsening shortness of breath. He is maintaining O2 saturations in the 90s on 5 L high flow nasal cannula. Af ebrile. Heparin drip per weight-based protocol. 0.9 normal saline at 100 mL per hour. Norepinephrine remains off. Chest x-ray shows some evidence of fluid volume overload. Some patchy retrocardiac atelectasis versus developing pneumonia. White count 11.5. Hemoglobin 9.9. Sodium 134. Potassium 3.6. Creatinine 1.49. Lipase 1004. Triglycerides 341. Glucose 152. On 10/08/2020 patient seen in follow-up in the intensive care unit, he is currently awake and alert, oriented 3, he is on 2 L of supplemental oxygen, his pulse ox is 93%, she is afebrile, hemodynamically stable, he is not on any vasopressor support, he is currently on 0.9 normal saline at a rate of 20 ML per hour, and heparin drip is at weight-based protocol for splenic vein thrombosis. Patient is slightly diaphoretic, and at times he is mildly tachypneic, but denies any acute respiratory distress. He has NG tube in his nose, and there has been 500 mL of gastric output in the last 24 hours, he feels that his abdomen is a bit more distended compared to yesterday, he does have positive bowel sounds, and he did have a bowel movement last night, his lipase has significantly improved from admission and is currently down to 1004. He remains on antibiotics of Unasyn and Zovirax. His CT of abdomen and pelvis from [facility] showed possible mental density drain 1.6 cm within the second portion of the duodenum, with the possibility of a foreign body or possible dental crown. Patient denies having any missing dental crowns. His abdominal CT of abdomen and pelvis will be repeated today and was discussed with the general surgery who is following the patient. Yesterday's chest x-ray showed mild interstitial prom inence, and patient had received 1 dose of Lasix, and he has produced 4.4 L in urine output over last 24 hours. Rest of his blood work has been reviewed, his white count is steadily improving, and is down to 11 on today's labs, hemoglobin is 9.3, sodium is 136, potassium is 3.3, his renal profile is improving his BUN is 26 and creatinine is 1.1. Today's lactic acid is down to 0.6, calcium is 6.4 , pro calcitonin level is 5.93, patient is on antibiotics as mentioned above. Patient remains nothing by mouth. No blood cultures have been sent. Patient has been afebrile. The patient is seen today 10/09/2020 in follow-up in the intensive care unit. He is currently resting fairly comfortably in bed. Awake and alert in no acute distress. He still having some ongoing abdominal discomfort. Nasogastric tube remains in place. He is drinking water. On clear liquids. Follow-up CAT scan of the abdomen yesterday revealed persistent severe acute pancreatitis. No areas of necrosis or focal fluid collection identified. Persistent suspected splenic vein thrombosis. No free air. Persistent but improved gastric distention as her nasogastric tube placement. Reactive changes on duodenal sw eep causing small bowel obstruction remain present. Interval passing of metallic density from second portion of duodenum was not clearly seen. White count 10.6. Hemoglobin 9.7. Platelet count 145. Sodium 138. Potassium 3.6. Creatinine 0.86. Amylase less than 30. Lipase 201. Calcium 7.0 He remains on heparin drip. Antibiotics in the form of Unasyn. Continued on acyclovir. The patient is seen today 10/11/2020 in follow-up in the intensive care unit. He is currently laying flat in bed. Awake and alert in no acute distress. He is maintaining O2 saturations in the 90s on 2 L/m per nasal cannula. No shortness of breath, cough or congestion. No fever. Hemodynamically stable. Still having some diffuse abdominal discomfort. Less than yesterday. Abdomen less distended. He has been moving his bowels. White count 15.2. Hemoglobin 10.2. Sodium 136. Potassium 3.5. Creatinine 0.62. He is on therapeutic Lovenox at 100 mg subcu every 12 hours. Antibiotics in form of Unasyn. IV Protonix. Tolerating clear liquids. Objective - Vital Signs Vital signs: Vital Signs Temp 98 F 10/11/20 01:12 Pulse 72 10/11/20 08:00 Resp 16 10/11/20 08:00 BP 147/93 10/11/20 08:00 Pulse Ox 94 L 10/11/20 08:00 Intake & Output 10/10/20 10/11/20 10/11/20 18:59 06:59 18:59 Intake Total 711.376 480 Output Total 250 900 Balance 461.376 -420 Intake: IV 125 .9 75 Ampicillin-Sulbactam 1.5 50 gm In Sodium Chloride 0.9 % 50 ml @ 100 mls/hr IVPB Q8H [facility] Rx#:[id number] Intake, IV Titration 86.376 Amount Heparin Sod,Pork in 0.45% 86.376 NaCl 25,000 unit In 0.45 % NaCl 1 250ml.bag @ 18 UNITS/KG/HR 21.24 mls/hr IV .[id number] [facility] Rx#: [id number] Oral 500 480 Output: Urine 250 900 Other: Voiding Method Urinal Urinal # Voids 2 4 # Bowel Movements 1 2 - Exam GENERAL EXAM: Alert, pleasant 49-year-old, on 2 L nasal cannula, fairly comfortable in no apparent distress. HEAD: Normocephalic. EYES: Normal reaction of pupils, equal size. NOSE: Left nearly NG tube in place. Clear with pink turbinates. THROAT: No erythema or exudates. NECK: No masses, no JVD. CHEST: No chest wall deformity. LUNGS: Equal air entry with faint crackles in posterior bases. CVS: S1 and S2 normal with no audible murmur, regular rhythm. ABDOMEN: Tender to palpation, normal bowel sounds, no guarding or rigidity. SPINE: No scoliosis or deformity SKIN: No rashes CENTRAL NERVOUS SYSTEM: No focal deficits, tone is normal in all 4 extremities. EXTREMITIES: There is no peripheral edema. No clubbing, no cyanosis. Peripheral pulses are intact. - Labs CBC & Chem 7: 10/11/20 09:38 10/11/20 09:38 Labs: Abnormal Lab Results - Last 24 Hours (Table) 10/10/20 10/10/20 10/11/20 Range/Units 16:53 20:06 06:17 WBC (3.8-10.6) k/uL RBC (4.30-5.90) m/uL Hgb (13.0-17.5) gm/dL Hct (39.0-53.0) % Sodium (137-145) mmol/L Carbon Dioxide (22-30) mmol/L Creatinine (0.66-1.25) mg/dL Glucose (74-99) mg/dL POC Glucose (mg/dL) 175 H 154 H 204 H (75-99) mg/dL 10/11/20 10/11/20 10/11/20 Range/Units 09:38 09:38 11:17 WBC 15.2 H (3.8-10.6) k/uL RBC 3.46 L (4.30-5.90) m/uL Hgb 10.2 L (13.0-17.5) gm/dL Hct 32.7 L (39.0-53.0) % Sodium 136 L (137-145) mmol/L Carbon Dioxide 31 H (22-30) mmol/L Creatinine 0.62 L (0.66-1.25) mg/dL Glucose 190 H (74-99) mg/dL POC Glucose (mg/dL) 210 H (75-99) mg/dL Assessment and Plan Assessment: 1 Acute abdominal pain secondary to moderate to severe acute pancreatitis. 2 Secondary complication with a long segment of nonocclusive splenic vein thrombosis. Currently on Lovenox 100 mg subcu every 12 hours. 3 1.6 cm metal density within the second portion of the duodenum. Correlate to etiology, question dental crown or other ingested foreign body. Unclear if this is contributing to some type of gastric outlet obstruction. This was not seen on repeat computed tomography scan of the abdomen on 10/08/2020. 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 Xiomy Kaplan from the pulmonary/critical care standpoint Continue clear liquid diet Continue Lovenox. Continue Unasyn Encouraged increased use of the incentive spirometer Increase his activity as tolerated Titrate the FiO2 as tolerated Transfer to the regular medical floor We will continue to follow I, the cosigning physician, performed a history & physical examination of the pa yehuda. Lungs sounds faint crackles in the posterior bases. Maintaining good O2 saturations in the 90s on 2 L/m per nasal cannula. I discussed the assessment and plan of care with my nurse practitioner, Dolly Augustine. I attest to the above note as dictated by her.
[2020-10-11 12:03] LABS: Band Neutrophils % 5 %; Eosinophils # (M) 0.46 k/uL (0-0.7); Lymphocytes # (M) 1.52 k/uL (1.0-4.8); Metamyelocytes # (M) 0.46 k/uL (0); Metamyelocytes % 3 %; Monocytes # (M) 0.76 k/uL (0-1.0); Myelocytes % 2 %; Neutrophils % (M) 74 %; Nucleated Red Blood Cells 0 /100 WBC (0-0); Total Cells Counted 200
[2020-10-11] MEDS: SODIUM CHLORIDE 0.9% 1,000 ML IV SCH (13:10)
--- NOTE | 2020-10-11 13:18 | P.PN ---
Subjective Progress Note Date: 10/11/20 CHIEF COMPLAINT: Epigastric abdominal pain HISTORY OF PRESENT ILLNESS: Surgical service is following regards to patient's abdominal pain, pancreatitis and small bowel obstruction. Patient has had bowel movements and flatus. He denies any nausea or vomiting. He is tolerating a clear liquid diet. His epigastric abdominal pain is controlled. Patient currently in the ICU is a MedSurg overflow. Afebrile. WBC 15.2 hemoglobin 10.2 Patient seen and examined with Dr. forman PHYSICAL EXAM: VITAL SIGNS: Reviewed. GENERAL: Well-developed in no acute distress. HEENT: No sclera icterus. Extraocular movements grossly intact. Moist buccal mucosa. Head is atraumatic, normocephalic. ABDOMEN: Distended mild epigastric tenderness NEUROLOGIC: Alert and oriented. Cranial nerves II through XII grossly intact. ASSESSMENT: 1. Acute Severe Pancreatitis 2. Duodenitis secondary to pancreatitis 3. Small bowel obstruction secondary to duodenitis 4. Splenic vein thrombosis PLAN: -No surgical intervention planned -Continue conservative management -Advance diet to full liquids -Continue supportive care Physician Account Executive note has been reviewed by physician. Signing provider agrees with the documented findings, assessment, and plan of care. Objective - Vital Signs Vital signs: Vital Signs Temp 98 F 10/11/20 01:12 Pulse 72 10/11/20 08:00 Resp 16 10/11/20 08:00 BP 147/93 10/11/20 08:00 Pulse Ox 94 L 10/11/20 08:00 Intake & Output 10/10/20 10/11/20 10/11/20 18:59 06:59 18:59 Intake Total 711.376 480 Output Total 250 900 Balance 461.376 -420 Intake: IV 125 .9 75 Ampicillin-Sulbactam 1.5 50 gm In Sodium Chloride 0.9 % 50 ml @ 100 mls/hr IVPB Q8H [facility] Rx#:[id number] Intake, IV Titration 86.376 Amount Heparin Sod,Pork in 0.45% 86.376 NaCl 25,000 unit In 0.45 % NaCl 1 250ml.bag @ 18 UNITS/KG/HR 21.24 mls/hr IV .[id number] [facility] Rx#: [id number] Oral 500 480 Output: Urine 250 900 Other: Voiding Method Urinal Urinal # Voids 2 4 # Bowel Movements 1 2 - Labs CBC & Chem 7: 10/11/20 09:38 10/11/20 09:38 Labs: Abnormal Lab Results - Last 24 Hours (Table) 10/10/20 10/10/20 10/11/20 Range/Units 16:53 20:06 06:17 WBC (3.8-10.6) k/uL RBC (4.30-5.90) m/uL Hgb (13.0-17.5) gm/dL Hct (39.0-53.0) % Neutrophils # (Manual) (1.3-7.7) k/uL Metamyelocytes # (Man) (0) k/uL Myelocytes # (Manual) (0) k/uL Sodium (137-145) mmol/L Carbon Dioxide (22-30) mmol/L Creatinine (0.66-1.25) mg/dL Glucose (74-99) mg/dL POC Glucose (mg/dL) 175 H 154 H 204 H (75-99) mg/dL 10/11/20 10/11/20 10/11/20 Range/Units 09:38 09:38 11:17 WBC 15.2 H (3.8-10.6) k/uL RBC 3.46 L (4.30-5.90) m/uL Hgb 10.2 L (13.0-17.5) gm/dL Hct 32.7 L (39.0-53.0) % Neutrophils # (Manual) 12.00 H (1.3-7.7) k/uL Metamyelocytes # (Man) 0.46 H (0) k/uL Myelocytes # (Manual) 0.30 H (0) k/uL Sodium 136 L (137-145) mmol/L Carbon Dioxide 31 H (22-30) mmol/L Creatinine 0.62 L (0.66-1.25) mg/dL Glucose 190 H (74-99) mg/dL POC Glucose (mg/dL) 210 H (75-99) mg/dL
--- NOTE | 2020-10-11 14:08 | P.PN ---
Subjective Progress Note Date: 10/11/20 49-year-old male came in with comments of nausea vomiting for couple days in the significant polyuria and polydipsia that has been going on for about a week. Patient was coming of severe abdominal pain sharp in nature nonradiating diffuse. Patient is found to be in DKA and patient is also found to have severe pancreatitis. Patient had a CT of the abdomen which showed edematous pancreatic that is without any necrosis. There was a secondary combination of splint vein thrombosis as well and patient abdomen is quite a bit distended with distention of the stomach there is significant duodenitis jejunitis along with a foreign body in the second part of the duodenum probably contributing or causing gastric outlet obstruction. General surgery was consulted. Patient was admitted to ICU patient has severe acidosis patient is a has a highly elevated blood sugars of 4000 bicarbonate of 10 and multiple other electrolyte abnormalities. Patient the ionized calcium is low as well and calcium was replaced. Patient is found to be in acute renal failure with creatinine of around 2.4 patient was hyp otensive presently not on any pressors patient is presently receiving IV fluids. Triglyceride levels are pending. Patient is not an alcoholic. There is no evidence of gallstones and the CT of the abdomen. Patient the had a hemoglobin A1c tested recently about couple months ago at that time his hemoglobin A1c was within normal limits as per the . Patient baseline creatinine is around 0.9, patient denied any fever chills dysuria. Patient doesn't have any fever does have significant leukocytosis. White blood cell count of around 25,000. Serum sodium was extremely low and serum potassium is very high is all because of the acidosis and hyperglycemia. Patient was pretty status has progressively worsened since last night and patient is present and BiPAP. Patient has significant abdominal distention with significant air-fluid level in the abdomen and stomach patient does have some ascites on the CT and this is secondary to severe peritonitis. Patient is presently on empiric Zosyn although there is no clear evidence of infection at this time. 10/06/2020 Patient's anion gap resolved. Patient's insulin will be discontinued and patient was started on 20 units of long-acting insulin along with pre-meal insulin. Patient the nausea improved patient still has some abdominal pain which also significantly improved. Patient will be started on clear liquid diet. We'll also obtain a hemoglobin A1c. Patient will be changed to normal saline at 100 mL per hour. Patient hyponatremia is improving. Patient's anion gap resolved. Patient remains on norepinephrine which is being tapered. Patient is presently on 8 L of oxygen as a postal BiPAP yesterday lung clear to auscultation with good air entry into bilateral lung bernal patient's abdomen is still distended nothing much from the NG tube NG tube will be removed. Patient's lipase has come down to 2000. 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 Patient does have elevated triglyceride levels will repeat triglyceride levels again tomorrow. Triglycerides around 1100. 10/07/2020 Patient is seen and examined in follow-up continues to be closely monitored in the ICU. Patient continues with NG tube with bilious drainage noted and surgery is following closely. Patient is off of levophed and chest x-ray today shows some mild interstitial prominence with possible mild pulmonary vascular con gestion with patchy retrocardiac atelectasis versus developing pneumonia and will be given a dose of IV Lasix. Will decrease IV fluids. Patient continues to be nothing by mouth and states his abdominal discomfort has improved and is passing gas with no reports of bowel movement as of yet. Family at the bedside concerned that he has not been taking his Valtrex that he takes 500 mg daily for history of internal shingles and is on 500 mg daily we'll add acyclovir IV piggyback as patient is currently nothing by mouth. Patient is currently on 5 L via nasal cannula and discussed with nursing staff about weaning FiO2 as tolerated as he was maintaining 95% oxygen saturation. Urology continues on IV heparin and will continue at this time. Drug Safety Specialist also following closely. Patient is continued on sliding scale along with long-acting and recommend to continue with Accu-Cheks before meals and at bedtime. Lipase today improving at 1004. Creatinine slightly improved at 1.49, potassium is 3.6, sodium is 134, white blood count trending down at 11.5 and hemoglobin is stable at 9.9. Calciu m is low at 5.8 being replaced and will monitor closely 10/08/2020 Patient is seen in follow-up this morning no acute overnight issues. Since states he continues to have mild abdominal discomfort and feels slightly more distended. Positive bowel sounds noted on exam and states he had a bowel mov ement last night. Patient denies any nausea or vomiting and continues with NG tube with approximately 500 mL since last night. Patient was given a dose of IV Lasix with good urinary output. Nursing staff working on weaning FiO2 as tolerated and currently on 2 L via nasal cannula. Patient states he continues to have periods of shortness of breath although feels is not worsened since admission. Blood sugars continue to be monitored closely and continued with sliding scale and long-acting and have remained in the low to mid 100s and will continue current management. Repeat plasma lactic acid is within normal limits at 0.6. Calcium 6.4 and albumin at 2.8. Kidney function improved with a BUN of 26 and a creatinine of 1.10. Sodium is 136 and potassium is 3.3 and will replace per protocol. White blood count slowly trending down at 11.0 and hemoglobin is stable at 9.3. Repeat CT abdomen is ordered and pending at this time and GI has been consulted which is also pending. Patient remains afebrile. 10/09/2020 Patient is evaluated this morning and has been slowly started on clear liquids and was intermittently having the NG tube clamped and tolerating. Currently at the bedside with nursing removing the NG tube. Patient is passing gas and has a reported bowel movement yesterday. Patient continues to have abdominal discomfort with distention noted on exam. Patient continues on heparin and will need anticoagulation. Continue to monitor electrolytes and being replaced per protocol. GI following and have ordered additional labs and pending. Will have PT/OT evaluated the patient. Amylase is now 201. WBC within normal limits. 10/10/2020 Patient is seen in follow-up this morning currently sitting up in the chair and slowly increasing activity as tolerated with encouragement. Patient was seen and evaluated by physical therapy and will need to continue with encouragement of increasing activity and getting out of the bed more often. Patient continues to have some abdominal discomfort and distention although somewhat improved and patient is tolerating clear liquids and slowly advancing as tolerated. No reports of nausea or vomiting noted. Patient again had another bowel movement yesterday and reports to passing gas. NG tube has been discontinued. Patient continues on 3 L of oxygen and will need to continue to wean FiO2 as tolerated. Blood pressure remains slightly elevated at 149/97 and will resume home dose of amlodipine and continue to monitor closely. Patient was also on acyclovir IV and normally takes maintenance dose of 500 mg Valtrex by mouth for history of shingles and will resume this as well. Patient needs encouragement with continued use of incentive spirometer at least 10 times every hour while awake. Surgery and GI following as well. White blood count slightly elevated at 15.2, hemoglobin is stable at 10.3, sodium is 139 with a potassium at 3.8 current creatinine is 0.7. Calcium improved at 8.1. Patient is maintained on Accu- Cheks before meals and at bedtime and will continue along with insulin regimen currently prescribed. Patient is being transferred out of the ICU once a bed becomes available. Patient continues on IV Unasyn and will continue at this time. IV heparin was discontinued and patient is on subcutaneous Lovenox. 10/11/2020 Patient is seen in the ICU currently being transferred to [facility] and is being closely monitored. Patient continues to tolerate clear liquids and is passing gas and having bowel movements. Patient was placed on Lovenox and IV heparin was discontinued. Will discuss with supervisor felting about oral anticoagulation once discharged. Patient continues to have abdominal distention and some discomfort although states is slowly improving. White blood count remains elevated at 15.2, hemoglobin is 10.2, sodium is 136 with a potassium of 3.5 and current creatinine is 0.62. Blood sugars being closely monitored. LFTs have normalized. GI also following and diet being advanced to full liquids as tolerated. Patient continues on IV antibiotics and will continue for now. Weaning down FiO2 as tolerated and currently on 2 L via nasal cannula. Patient needs strong encouragement on the use of incentive spirometer and will continue to wean. Review of systems: Constitutional: No reports of fatigue, fever, or chills Cardiovascular: No reports of chest pain or palpitations Respiratory: Reports intermittent shortness of breath GI: No reports of nausea, vomiting, or diarrhea, reports continued abdominal distention and mild discomfort although feels is improving : No reports of dysuria or retention Neurovascular: Generalized weakness All medications have been reviewed Active Medications Amlodipine Besylate (Amlodipine 5 Mg Tab) 5 mg PO DAILY [facility] Last Admin: 10/11/20 09:04 Dose: 5 mg Documented by: Buspirone HCl (Buspirone Hcl 10 Mg Tab) 10 mg PO TID [facility] Last Admin: 10/11/20 09:04 Dose: 10 mg Documented by: Enoxaparin Sodium (Enoxaparin 100 Mg/Ml Syringe) 100 mg SQ Q12HR [facility] Last Admin: 10/11/20 09:04 Dose: 100 mg Documented by: Hydromorphone HCl (Hydromorphone 1 Mg/Ml 1 Ml Syringe) 1 mg IVP Q2HR PRN PRN Reason: Pain Scale 6 to 7 Last Admin: 10/11/20 11:42 Dose: 1 mg Documented by: Hydromorphone HCl (Hydromorphone 0.5 Mg/0.5 Ml Syringe) 0.5 mg IVP Q2HR PRN PRN Reason: Pain Scale 4 to 5 Last Admin: 10/07/20 11:02 Dose: 0.5 mg Documented by: Ampicillin Sodium/Sulbactam (Sodium 1.5 gm/ Sodium Chloride) 50 mls @ 100 mls/hr IVPB Q8H [facility] Last Admin: 10/11/20 03:44 Dose: 100 mls/hr Documented by: Insulin Aspart (Insulin Aspart (Novolog) 100 Unit/Ml Vial) 0 unit SQ ACHS [facility]; Protocol Last Admin: 10/11/20 11:41 Dose: 4 unit Documented by: Insulin Detemir (Insulin Detemir (Levemir) 100 Unit/Ml Syr) 20 unit SQ DAILY@0700 [facility] Last Admin: 10/11/20 06:24 Dose: 20 unit Documented by: Miscellaneous Information (Potassium Replacement Protocol 1 Each Misc) 1 each MISCELLANE DAILY PRN; Protocol PRN Reason: Per Protocol Miscellaneous Information (Potassium Replacement Protocol 1 Each Misc) 1 each MISCELLANE DAILY PRN; Protocol PRN Reason: Per Protocol Naloxone HCl (Naloxone 0.4 Mg/Ml 1 Ml Vial) 0.2 mg IV Q2M PRN PRN Reason: Opioid Reversal Ondansetron HCl (Ondansetron 4 Mg/2 Ml Vial) 4 mg IVP Q6HR PRN PRN Reason: Nausea And Vomiting Last Admin: 10/10/20 01:07 Dose: 4 mg Documented by: Pantoprazole Sodium (Pantoprazole 40 Mg/10 Ml Vial) 40 mg IV DAILY [facility] Last Admin: 10/11/20 09:04 Dose: 40 mg Documented by: Valacyclovir HCl (Valacyclovir 500 Mg Tab) 500 mg PO DAILY [facility] Last Admin: 10/11/20 09:05 Dose: 500 mg Documented by: Objective - Vital Signs Vital signs: Vital Signs Temp 98 F 10/11/20 01:12 Pulse 72 10/11/20 08:00 Resp 16 10/11/20 08:00 BP 147/93 10/11/20 08:00 Pulse Ox 94 L 10/11/20 08:00 Intake & Output 10/10/20 10/11/20 10/11/20 18:59 06:59 18:59 Intake Total 711.376 480 Output Total 250 900 Balance 461.376 -420 Intake: IV 125 .9 75 Ampicillin-Sulbactam 1.5 50 gm In Sodium Chloride 0.9 % 50 ml @ 100 mls/hr IVPB Q8H [facility] Rx#:[id number] Intake, IV Titration 86.376 Amount Heparin Sod,Pork in 0.45% 86.376 NaCl 25,000 unit In 0.45 % NaCl 1 250ml.bag @ 18 UNITS/KG/HR 21.24 mls/hr IV .[id number] [facility] Rx#: [id number] Oral 500 480 Output: Urine 250 900 Other: Voiding Method Urinal # Voids 2 4 # Bowel Movements 1 2 - Exam GENERAL: The patient is alert and oriented x3, sitting up in the chair, not in any acute distress, currently on 2-3 L via nasal cannula. Obese HEENT: Pupils are round and equally reacting to light. EOMI. No scleral icterus. No conjunctival pallor. Normocephalic, atraumatic. No pharyngeal erythema. No thyromegaly. CARDIOVASCULAR: S1 and S2 present. No murmurs, rubs, or gallops. PULMONARY: Diminished breath sounds bilaterally with some scattered rhonchi noted ABDOMEN: Distended, mildly tender on palpation, bowel sounds noted, no rebound or rigidity MUSCULOSKELETAL: No joint swelling or deformity. EXTREMITIES: No cyanosis, clubbing, or pedal edema. NEUROLOGICAL: Gross neurological examination did not reveal any focal deficits. diffuse weakness SKIN: No rashes. - Labs CBC & Chem 7: 10/11/20 09:38 10/11/20 09:38 Labs: Abnormal Lab Results - Last 24 Hours (Table) 10/10/20 10/10/20 10/10/20 Range/Units 11:07 16:53 20:06 POC Glucose (mg/dL) 197 H 175 H 154 H (75-99) mg/dL 10/11/20 Range/Units 06:17 POC Glucose (mg/dL) 204 H (75-99) mg/dL Assessment and Plan Assessment: -Acute pancreatitis severe edematous pancreatitis, etiology is not clear , can be secondary to hypertriglyceridemia or possibly secondary to diabetic ketoacidosis -Severe abdominal distention with possibility of gastric outlet obstruction, patient tolerating clears and NG tube has been removed -Acute hypoxic respiratory failure: Secondary to severe systemic inflammatory response from pancreatitis and probably from abdominal distention. No primary lung pathology at this time. continues on 2-3 L via NC, continue with the use of incentive spirometer and weaning FiO2 as tolerated -Severe anion gap metabolic acidosis secondary to diabetic ketoacidosis and lactic acidosis, improved -Hyponatremia: Combination of hypovolemic hyponatremia and pseudohyponatremia from hyperglycemia, improving -History of shingles -Elevated pro calcitonin, patient is maintained on IV antibiotics and will continue at this time. -Diabetic ketoacidosis and severe hyperglycemia secondary to acute pancreatic insufficiency patient probably will need insulin and will be insulin dependent from now on. Patient was transitioned to sliding scale insulin along with long acting insulin, titration of these insulin as per the blood sugars, will also consult family life educator in regards to possible insulin management outpatient -Hyperkalemia secondary to metabolic acidosis, improved now -acute renal failure, most probably secondary to acute tubular necrosis from hypotension. Improved. 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 -Obesity with a body mass index of 36.9 -Hypocalcemia secondary to metabolic acidosis, improving -Tachycardia secondary to shock, improved -full code Plan: Continue with current medications and current regimen. Continue to monitor Accu-Cheks before meals and at bedtime and continue sliding scale along with long-acting. Consult family life educator as patient will possibly require insulin on discharge. Patient continues on 2-3 L via nasal cannula with intermittent periods of shortness of breath. Continue to wean FiO2 as tolerated. Patient also continues to need encouragement on the use of incentive spirometer and increasing activity as tolerated. PT/OT evaluated the patient and may need some form of Homecare upon discharge. Surgery and GI following and patient is tolerating clear liquids and slowly advancing to full liquid as tolerated. White blood count remains elevated at 15.2. Patient is afebrile. Patient continues on IV antibiotics and will continue for now. We'll also repeat chest x-ray and again encourage the patient to use incentive spirometer.
[2020-10-11 14:49] VITALS: BMI 36.6
--- NOTE | 2020-10-11 15:14 | XR ---
EXAMINATION TYPE: XR chest 2V DATE OF EXAM: 10/11/2020 HISTORY: Shortness of breath. COMPARISON: 10/07/2020 TECHNIQUE: Single view of the chest is submitted. FINDINGS: Demonstrated are scattered senescent parenchymal change. Strandy and patchy basilar density may reflect atelectasis versus underlying infiltrate. The heart is stable. Hilar and mediastinal structures are within normal limits. Degenerative changes are seen of the dorsal spine. IMPRESSION: 1. Strandy and patchy basilar density may reflect atelectasis versus underlying infiltrate.
--- NOTE | 2020-10-11 15:42 | XR ---
EXAMINATION TYPE: XR abdomen 2V DATE OF EXAM: 10/11/2020 COMPARISON: NONE HISTORY: Pain TECHNIQUE: Single supine KUB image of the abdomen is obtained FINDINGS: Small bowel demonstrates no evidence for dilatation or air fluid levels. Gas and fecal material is seen in non-distended colon. No convincing evidence for pneumoperitoneum. No unusual calcifications. The lung bases are clear. The osseous structures are intact. IMPRESSION: 1. Overall nonobstructive bowel gas pattern.
[2020-10-11 16:42] LABS: Glucose,Whole Blood 180 mg/dL (75-99)
[2020-10-11 20:10] LABS: Glucose,Whole Blood 164 mg/dL (75-99)
[2020-10-12] MEDS: HYDROmorphone 1 MG/ML 1 ML SYRINGE IVP PRN ×4 (01:23→09:46)
[2020-10-12] MEDS: AMPICILLIN-SULBACTAM 1.5 GM in SODIUM CHLORIDE 0.9% 50 ML IVPB SCH ×3 (03:45→20:14)
[2020-10-12 07:08] LABS: Glucose,Whole Blood 167 mg/dL (75-99)
[2020-10-12] MEDS: amLODIPine 5 MG TAB PO SCH (07:18)
[2020-10-12] MEDS: valACYclovir 500 MG TAB PO SCH (07:18)
[2020-10-12] MEDS: busPIRone HCl 10 MG TAB PO SCH ×3 (07:18→20:54)
[2020-10-12] MEDS: INSULIN ASPART (NovoLOG) 100 UNIT/ML VIAL SQ SCH ×4 (07:19→20:54)
[2020-10-12] MEDS: PANTOPRAZOLE 40 MG/10 ML VIAL IV SCH (07:19)
[2020-10-12] MEDS: ENOXAPARIN 100 MG/ML SYRINGE SQ SCH ×2 (07:19→20:13)
[2020-10-12] MEDS: INSULIN DETEMIR (LEVEMIR) 100 UNIT/ML SYR SQ SCH (09:00)
--- NOTE | 2020-10-12 10:22 | P.PN ---
Subjective Progress Note Date: 10/12/20 Principal diagnosis: Pancreatitis Patient lying in bed supine. Complaining of mild upper abdominal discomfort. Says pain is pretty similar to how it has been the last few days. Denies nausea or vomiting. Tolerating liquids. CBC pending for today. Objective - Vital Signs Vital signs: Vital Signs Temp 97.5 F L 10/12/20 07:38 Pulse 77 10/12/20 07:38 Resp 18 10/12/20 07:38 BP 147/90 10/12/20 07:38 Pulse Ox 97 10/12/20 07:38 Intake & Output 10/11/20 10/12/20 10/12/20 18:59 06:59 18:59 Output Total 400 Balance -400 Weight 119 kg Output: Urine 400 Other: Voiding Method Urinal # Voids 2 - Exam Abdomen: Soft, mild distention, epigastric tenderness without rebound or guarding - Labs CBC & Chem 7: 10/11/20 09:38 10/11/20 09:38 Labs: Abnormal Lab Results - Last 24 Hours (Table) 10/11/20 10/11/20 10/11/20 Range/Units 09:38 09:38 11:17 Neutrophils # (Manual) 12.00 H (1.3-7.7) k/uL Metamyelocytes # (Man) 0.46 H (0) k/uL Myelocytes # (Manual) 0.30 H (0) k/uL POC Glucose (mg/dL) 210 H (75-99) mg/dL Procalcitonin 0.75 H (0.02-0.09) ng/mL 10/11/20 10/11/20 10/12/20 Range/Units 16:41 20:08 07:06 Neutrophils # (Manual) (1.3-7.7) k/uL Metamyelocytes # (Man) (0) k/uL Myelocytes # (Manual) (0) k/uL POC Glucose (mg/dL) 180 H 164 H 167 H (75-99) mg/dL Procalcitonin (0.02-0.09) ng/mL Assessment and Plan (1) Pancreatitis Narrative/Plan: Continue liquid diet for now. Gradually increase activity as tolerated. Will follow. Current Visit: Yes Status: Acute Code(s): K85.90 - ACUTE PANCREATITIS WITHOUT NECROSIS OR INFECTION, UNSP SNOMED Code(s): 27195821
--- NOTE | 2020-10-12 10:40 | P.PN ---
Subjective Progress Note Date: 10/12/20 This is a pleasant 49-year-old gentleman who follows with Dr. Thompson as his primary care provider. He has a history of hyperlipidemia, hypertension, shingles with encephalomyelitis and cognitive impairment, anxiety/depression. Lifelong nonsmoker. He presented to the emergency room yesterday with a 2 day history of increasing abdominal discomfort, nausea vomiting dry heaves. Diaphoretic. Computed tomography scan of the abdomen revealed moderate to severe acute interstitial pancreatitis. Inflammatory edema and fat stranding tracks on the mesentery and retroperitoneum to the umbilical level. No focal fluid collection noted. There is secondary complication with a long segment nonocclusive splenic vein thrombosis. There is a 1.6 cm metal density within the second portion of the duodenum. Questionable etiology possible dental crown or other ingested foreign body. Unsure if this is contributing to some type of gastric outlet obstruction. There is contiguous duodenitis and proximal jejuni tis adjacent to the pancreatic inflammation. Trace perihepatic ascites and mild to moderate pelvic ascites secondary to pancreatic inflammation. No excretion of contrast and the kidneys on the delayed kidney images. Possible acute kidney injury. Hepatomegaly with severe hepatic steatosis. Sigmoid diverticulosis. 2 mm nonobstructive left renal calculus. White count 22.0. Hemoglobin 14.0. P latelet count 451. Sodium initially 116 currently 125. Potassium initially 6.0 currently 4.1. I carb initially 8, currently 15. Anion gap initially 28, currently 17. Creatinine 2.70. Initial blood glucose 969. Currently 179. Calcium 6.4. LDH 1570. AST 54. ALT 29. Amylase 901. Lipase 10,000 385. Acetone positive. Hurtado virus not detected. He is currently awake and alert. Maintaining O2 saturations in the 90s on 5 L/m per nasal cannula. He is on a heparin drip per weight-based protocol. Insulin drip at 12 units per hour. 0.9 normal saline at 10 mL per hour. He's had an extreme total of 4.5 L of fluid resuscitation. IV is to be changed to D5.45 with 20 KCl at 150 MLS per hour per DKA protocol. The patient is seen today 10/06/2020 in follow-up in the intensive care unit. He is currently laying flat in bed. Awake and alert in no acute distress. He is maintaining O2 saturations in the 90s on 5 L/m per nasal cannula. He is still having issues with ongoing abdominal discomfort. He's been hypotensive. He remains on norepinephrine at 0.03 mcg/kg/m. He is on a insulin drip at 6 units per hour. He remains on a heparin drip weight-based protocol. He remains on D5 0.45 with 20 KCl at 150 ML's per hour. Ultrasound of the Bladder revealed severe hepatic steatosis. Mild perihepatic ascites. No gallstones or biliary duct dilatation seen. White count 4.3. Hemoglobin 10.6. Sodium 131. Potassium 3.9. Creatinine 2.43. Calcium 5.5. AST 106. ALT 29. He remains on Unasyn. The patient is seen today 10/07/2020 in follow-up in the intensive care unit. Awake and alert in no acute distress. He is still confused at times. He is breathing quite flat in bed. He denies any worsening shortness of breath. He is maintaining O2 saturations in the 90s on 5 L high flow nasal cannula. Afebrile. Heparin drip per weight-based protocol. 0.9 normal saline at 100 mL per hour. Norepinephrine remains off. Chest x-ray shows some evidence of fluid volume overload. Some patchy retrocardiac atelectasis versus developing pneumonia. White count 11.5. Hemoglobin 9.9. Sodium 134. Potassium 3.6. Creatinine 1.49. Lipase 1004. Triglycerides 341. Glucose 152. On 10/08/2020 patient seen in follow-up in the intensive care unit, he is currently awake and alert, oriented 3, he is on 2 L of supplemental oxygen, his pulse ox is 93%, she is afebrile, hemodynamically stable, he is not on any vasopressor support, he is currently on 0.9 normal saline at a rate of 20 ML per hour, and heparin drip is at weight-based protocol for splenic vein thrombosis. Patient is slightly diaphoretic, and at times he is mildly tachypneic, but denies any acute respiratory distress. He has NG tube in his nose, and there has been 500 mL of gastric output in the last 24 hours, he feels that his abdomen is a bit more distended compared to yesterday, he does have positive b owel sounds, and he did have a bowel movement last night, his lipase has significantly improved from admission and is currently down to 1004. He remains on antibiotics of Unasyn and Zovirax. His CT of abdomen and pelvis from admission showed possible mental density drain 1.6 cm within the second portion of the duodenum, with the possibility of a foreign body or possible dental crown. Patient denies having any missing dental crowns. His abdominal CT of abdomen and pelvis will be repeated today and was discussed with the general surgery who is following the patient. Yesterday's chest x-ray showed mild interstitial prominence, and patient had received 1 dose of Lasix, and he has produced 4.4 L in urine output over last 24 hours. Rest of his blood work has been reviewed, his white count is steadily improving, and is down to 11 on today's labs, hemoglobin is 9.3, sodium is 136, potassium is 3.3, his renal profile is improving his BUN is 26 and creatinine is 1.1. Today's lactic acid i s down to 0.6, calcium is 6.4, pro calcitonin level is 5.93, patient is on antibiotics as mentioned above. Patient remains nothing by mouth. No blood cultures have been sent. Patient has been afebrile. The patient is seen today 10/09/2020 in follow-up in the intensive care unit. He is currently resting fairly comfortably in bed. Awake and alert in no acute distress. He still having some ongoing abdominal discomfort. Nasogastric tube remains in place. He is drinking water. On clear liquids. Follow-up CAT scan of the abdomen yesterday revealed persistent severe acute pancreatitis. No areas of necrosis or focal fluid collection identified. Persistent suspected splenic vein thrombosis. No free air. Persistent but improved gastric distention as her nasogastric tube placement. Reactive changes on duodenal sweep causing small bowel obstruction remain present. Interval passing of metallic density from second portion of duodenum was not clearly seen. White count 10.6. Hemoglobin 9.7. Platelet count 145. Sodium 138. Potassium 3.6. Creatinine 0.86. Amylase less than 30. Lipase 201. Calcium 7.0 He remains on heparin drip. Antibiotics in the form of Unasyn. Continued on acyclovir. The patient is seen today 10/11/2020 in follow-up in the intensive care unit. He is currently laying flat in bed. Awake and alert in no acute distress. He is maintaining O2 saturations in the 90s on 2 L/m per nasal cannula. No shortness of breath, cough or congestion. No fever. Hemodynamically stable. Still having some diffuse abdominal discomfort. Less than yesterday. Abdomen less distended. He has been moving his bowels. White count 15.2. Hemoglobin 10.2. Sodium 136. Potassium 3.5. Creatinine 0.62. He is on therapeutic Lovenox at 100 mg subcu every 12 hours. Antibiotics in form of Unasyn. IV Protonix. Tolerating clear liquids. 10/12/2020, the patient is still laying down supine. Doing limited amount of activity and I encouraged him to get up and walk around. Is still complaining of pain and discomfort throughout his abdomen mainly in the upper part. He feels that the pain is slightly subsided. No new complaints otherwise for now. No emesis. He is tolerating liquids. He was seen by general surgery. Afebrile. Hemodynamically stable. He got transferred out of the intensive care unit yesterday. He remains on IV Unasyn. The patient is also on Lovenox regarding his splenic vein thrombosis. Objective - Vital Signs Vital signs: Vital Signs Temp 97.5 F L 10/12/20 07:38 Pulse 77 10/12/20 07:38 Resp 18 10/12/20 07:38 BP 147/90 10/12/20 07:38 Pulse Ox 97 10/12/20 07:38 Intake & Output 10/11/20 10/12/20 10/12/20 18:59 06:59 18:59 Output Total 400 Balance -400 Weight 119 kg Output: Urine 400 Other: Voiding Method Urinal # Voids 2 - Exam GENERAL EXAM: Alert, pleasant 49-year-old, on 2 L nasal cannula, fairly comfortable in no apparent distress. HEAD: Normocephalic. EYES: Normal reaction of pupils, equal size. NOSE: Left nearly NG tube in place. Clear with pink turbinates. THROAT: No erythema or exudates. NECK: No masses, no JVD. CHEST: No chest wall deformity. LUNGS: Equal air entry with faint crackles in posterior bases. CVS: S1 and S2 normal with no audible murmur, regular rhythm. ABDOMEN: Tender to palpation, normal bowel sounds, no guarding or rigidity. SPINE: No scoliosis or deformity SKIN: No rashes CENTRAL NERVOUS SYSTEM: No focal deficits, tone is normal in all 4 extremities. EXTREMITIES: There is no peripheral edema. No clubbing, no cyanosis. Peripheral pulses are intact. - Labs CBC & Chem 7: 10/11/20 09:38 10/11/20 09:38 Labs: Abnormal Lab Results - Last 24 Hours (Table) 10/11/20 10/11/20 10/11/20 Range/Units 09:38 09:38 11:17 Neutrophils # (Manual) 12.00 H (1.3-7.7) k/uL Metamyelocytes # (Man) 0.46 H (0) k/uL Myelocytes # (Manual) 0.30 H (0) k/uL POC Glucose (mg/dL) 210 H (75-99) mg/dL Procalcitonin 0.75 H (0.02-0.09) ng/mL 10/11/20 10/11/20 10/12/20 Range/Units 16:41 20:08 07:06 Neutrophils # (Manual) (1.3-7.7) k/uL Metamyelocytes # (Man) (0) k/uL Myelocytes # (Manual) (0) k/uL POC Glucose (mg/dL) 180 H 164 H 167 H (75-99) mg/dL Procalcitonin (0.02-0.09) ng/mL Assessment and Plan Plan: 1 Acute abdominal pain secondary to moderate to severe acute pancreatitis. 2 Secondary complication with a long segment of nonocclusive splenic vein thrombosis. Currently on Lovenox 100 mg subcu every 12 hours. 3 1.6 cm metal density within the second portion of the duodenum. Correlate to etiology, question dental crown or other ingested foreign body. Unclear if this is contributing to some type of gastric outlet obstruction. This was not seen on repeat computed tomography scan of the abdomen on 10/08/2020. 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 The pain is still present although it is slowly subsiding. This is a pancreatitis pain. Enzymes have normalized. Encourage increasing level of activity as tolerated. Continue Lovenox. Continue Unasyn. Monitor electrolytes. We'll follow.
[2020-10-12 11:47] LABS: Glucose,Whole Blood 170 mg/dL (75-99)
--- NOTE | 2020-10-12 12:30 | P.PN ---
Subjective 49-year-old male came in with comments of nausea vomiting for couple days in the significant polyuria and polydipsia that has been going on for about a week. Patient was coming of severe abdominal pain sharp in nature nonradiating diffuse. Patient is found to be in DKA and patient is also found to have severe pancreatitis. Patient had a CT of the abdomen which showed edematous pancreatic that is without any necrosis. There was a secondary combination of splint vein thrombosis as well and patient abdomen is quite a bit distended with distention of the stomach there is significant duodenitis jejunitis along with a foreign body in the second part of the duodenum probably contributing or causing gastric outlet obstruction. General surgery was consulted. Patient was admitted to ICU patient has severe acidosis patient is a has a highly elevated blood sugars of 4000 bicarbonate of 10 and multiple other electrolyte abnormalities. Patient the ionized calcium is low as well and calcium was replaced. Patient is found to be in acute renal failure with creatinine of around 2.4 patient was hypotensive presently not on any pressors patient is presently receiving IV fluids. Triglyceride levels are pending. Patient is not an alcoholic. There is no evidence of gallstones and the CT of the abdomen. Patient the had a hemoglobin A1c tested recently about couple months ago at that time his hemoglobin A1c was within normal limits as per the . Patient baseline creatinine is around 0.9, patient denied any fever chills dysuria. P atient doesn't have any fever does have significant leukocytosis. White blood cell count of around 25,000. Serum sodium was extremely low and serum potassium is very high is all because of the acidosis and hyperglycemia. Patient was pretty status has progressively worsened since last night and pa tient is present and BiPAP. Patient has significant abdominal distention with significant air-fluid level in the abdomen and stomach patient does have some ascites on the CT and this is secondary to severe peritonitis. Patient is presently on empiric Zosyn although there is no clear evidence of infection at this time. 10/06/2020 Patient's anion gap resolved. Patient's insulin will be discontinued and patient was started on 20 units of long-acting insulin along with pre-meal insulin. Patient the nausea improved patient still has some abdominal pain which also significantly improved. Patient will be started on clear liquid diet. We'll also obtain a hemoglobin A1c. Patient will be changed to normal saline at 100 mL per hour. Patient hyponatremia is improving. Patient's anion gap resolved. Patient remains on norepinephrine which is being tapered. Patient is presently on 8 L of oxygen as a postal BiPAP yesterday lung clear to auscultation with good air entry into bilateral lung bernal patient's abdomen is still distended nothing much from the NG tube NG tube will be removed. Patient's lipase has come down to 2000. 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 Patient does have elevated triglyceride levels will repeat triglyceride levels again tomorrow. Triglycerides around 1100. 10/07/2020 Patient is seen and examined in follow-up continues to be closely monitored in the ICU. Patient continues with NG tube with bilious drainage noted and surgery is following closely. Patient is off of levophed and chest x-ray today shows some mild interstitial prominence with possible mild pulmonary vascular congestion with patchy retrocardiac atelectasis versus developing pneumonia and will be given a dose of IV Lasix. Will decrease IV fluids. Patient continues to be nothing by mouth and states his abdominal discomfort has improved and is passing gas with no reports of bowel movement as of yet. Family at the bedside concerned that he has not been taking his Valtrex that he takes 500 mg daily for history of internal shingles and is on 500 mg daily we'll add acyclovir IV piggyback as patient is currently nothing by mouth. Patient is currently on 5 L via nasal cannula and discussed with nursing staff about weaning FiO2 as tolerated as he was maintaining 95% oxygen saturation. Urology continues on IV heparin and will continue at this time. [employer] also following closely. Patient is continued on sliding scale along with long-acting and recommend to continue with Accu-Cheks before meals and at bedtime. Lipase today improving at 1004. Creatinine slightly improved at 1.49, potassium is 3.6, sodium is 134, white blood count trending down at 11.5 and hemoglobin is stable at 9.9. Calcium is low at 5.8 being replaced and will monitor closely 10/08/2020 Patient is seen in follow-up this morning no acute overnight issues. Since states he continues to have mild abdominal discomfort and feels slightly more distended. Positive bowel sounds noted on exam and states he had a bowel movement last night. Patient denies any nausea or vomiting and continues with NG tube with approximately 500 mL since last night. Patient was given a dose of IV Lasix with good urinary output. Nursing staff working on weaning FiO2 as tolerated and currently on 2 L via nasal cannula. Patient states he continues to have periods of shortness of breath although feels is not worsened since admission. Blood sugars continue to be monitored closely and continued with sliding scale and long-acting and have remained in the low to mid 100s and will continue current management. Repeat plasma lactic acid is within normal limits at 0.6. Calcium 6.4 and albumin at 2.8. Kidney function improved with a BUN of 26 and a creatinine of 1.10. Sodium is 136 and potassium is 3.3 and will replace per protocol. White blood count slowly trending down at 11.0 and hemoglobin is stable at 9.3. Repeat CT abdomen is ordered and pending at this time and GI has been consulted which is also pending. Patient remains afebrile. 10/09/2020 Patient is evaluated this morning and has been slowly started on clear liquids and was intermittently having the NG tube clamped and tolerating. Currently at the bedside with nursing removing the NG tube. Patient is passing gas and has a reported bowel movement yesterday. Patient continues to have abdominal discomfort with distention noted on exam. Patient continues on heparin and will need anticoagulation. Continue to monitor electrolytes and being replaced per protocol. GI following and have ordered additional labs and pending. Will have PT/OT evaluated the patient. Amylase is now 201. WBC within normal limits. 10/10/2020 Patient is seen in follow-up this morning currently sitting up in the chair and slowly increasing activity as tolerated with encouragement. Patient was seen and evaluated by physical therapy and will need to continue with encouragement of increasing activity and getting out of the bed more often. Patient continues to have some abdominal discomfort and distention although somewhat improved and patient is tolerating clear liquids and slowly advancing as tolerated. No reports of nausea or vomiting noted. Patient again had another bowel movement yesterday and reports to passing gas. NG tube has been discontinued. Patient continues on 3 L of oxygen and will need to continue to wean FiO2 as tolerated. Blood pressure remains slightly elevated at 149/97 and will resume home dose of amlodipine and continue to monitor closely. Patient was also on acyclovir IV and normally takes maintenance dose of 500 mg Valtrex by mouth for history of shingles and will resume this as well. Patient needs encouragement with continued use of incentive spirometer at least 10 times every hour while awake. Surgery and GI following as well. White blood count slightly elevated at 15.2, hemoglobin is stable at 10.3, sodium is 139 with a potassium at 3.8 current creatinine is 0.7. Calcium improved at 8.1. Patient is maintained on Accu- Cheks before meals and at bedtime and will continue along with insulin regimen currently prescribed. Patient is being transferred out of the ICU once a bed becomes available. Patient continues on IV Unasyn and will continue at this time. IV heparin was discontinued and patient is on subcutaneous Lovenox. 10/11/2020 Patient is seen in the ICU currently being transferred to [facility] and is being closely monitored. Patient continues to tolerate clear liquids and is passing gas and having bowel movements. Patient was placed on Lovenox and IV heparin was discontinued. Will discuss with wet mixer about oral anticoagulation once discharged. Patient continues to have abdominal distention and some discomfort although states is slowly improving. White blood count remains elevated at 15.2, hemoglobin is 10.2, sodium is 136 with a potassium of 3.5 and current creatinine is 0.62. Blood sugars being closely monitored. LFTs have normalized . GI also following and diet being advanced to full liquids as tolerated. Patient continues on IV antibiotics and will continue for now. Weaning down FiO2 as tolerated and currently on 2 L via nasal cannula. Patient needs strong encouragement on the use of incentive spirometer and will continue to wean. 10/12/2020 An overnight events patient didn't have a bowel movement today did have one as today patient's abdominal pain is better will cut down the dose of IV opiates patient will be started on oral [place] for pain. Patient remains on 3 L of oxygen which we will try and wean off. To have a leukocytosis with white blood cell count of 15,000 red patient completed antibiotic therapy with Unasyn probably will not require any more antibiotic. Constitutional: Denied any fatigue denied any fever. Cardio vascular: denied any chest pain, palpitations Gastrointestinal denied any nausea vomiting, still has abdominal pain and distention Pulmonary: Denied any shortness of breath cough Neurologic denied any new focal deficits All inpatient medications were reviewed and appropriate changes in these medications as dictated in the interval history and assessment and plan. - Exam GENERAL: The patient is alert and oriented x3, sitting up in the chair, not in any acute distress, currently on 2-3 L via nasal cannula. Obese HEENT: Pupils are round and equally reacting to light. EOMI. No scleral icterus. No conjunctival pallor. Normocephalic, atraumatic. No pharyngeal erythema. No thyromegaly. CARDIOVASCULAR: S1 and S2 present. No murmurs, rubs, or gallops. PULMONARY: Diminished breath sounds bilaterally with some scattered rhonchi noted ABDOMEN: Distended, mildly tender on palpation, bowel sounds noted, no rebound or rigidity MUSCULOSKELETAL: No joint swelling or deformity. EXTREMITIES: No cyanosis, clubbing, or pedal edema. NEUROLOGICAL: Gross neurological examination did not reveal any focal deficits. diffuse weakness SKIN: No rashes. Assessment and Plan Assessment: -Acute pancreatitis severe edematous pancreatitis, etiology is not clear , can be secondary to hypertriglyceridemia -Severe abdominal distention with possibility of gastric outlet obstruction, patient which resolved -Acute hypoxic respiratory failure: Secondary to severe systemic inflammatory response from pancreatitis and probably from abdominal distention. No primary lung pathology at this time. continues on 2-3 L via NC, continue with the use of incentive spirometer and weaning FiO2 as tolerated -Severe anion gap metabolic acidosis secondary to diabetic ketoacidosis and lactic acidosis, improved -Hyponatremia: Combination of hypovolemic hyponatremia and pseudohyponatremia from hyperglycemia, proved -History of shingles -Elevated pro calcitonin, patient is maintained on IV antibiotics and will continue at this time. -Diabetic ketoacidosis and severe hyperglycemia secondary to acute pancreatic insufficiency patient probably will need insulin and will be insulin dependent from now on. Patient was transitioned to sliding scale insulin along with long acting insulin, titration of these insulin as per the blood sugars, will also consult informatics educator in regards to possible insulin management outpatient -Hyperkalemia secondary to metabolic acidosis, improved now -acute renal failure, most probably secondary to acute tubular necrosis from hypotension. Improved. 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 -Obesity with a body mass index of 36.9 -Hypocalcemia secondary to metabolic acidosis, improving -Tachycardia secondary to shock, improved -full code Objective - Vital Signs Vital signs: Vital Signs Temp 97.5 F L 10/12/20 07:38 Pulse 77 10/12/20 07:38 Resp 18 10/12/20 07:38 BP 147/90 10/12/20 07:38 Pulse Ox 97 10/12/20 07:38 Intake & Output 10/11/20 10/12/20 10/12/20 18:59 06:59 18:59 Output Total 400 Balance -400 Weight 119 kg Output: Urine 400 Other: Voiding Method Urinal # Voids 2 - Labs CBC & Chem 7: 10/11/20 09:38 10/11/20 09:38 Labs: Abnormal Lab Results - Last 24 Hours (Table) 10/11/20 10/11/20 10/11/20 Range/Units 09:38 16:41 20:08 POC Glucose (mg/dL) 180 H 164 H (75-99) mg/dL Procalcitonin 0.75 H (0.02-0.09) ng/mL 10/12/20 10/12/20 Range/Units 07:06 11:45 POC Glucose (mg/dL) 167 H 170 H (75-99) mg/dL Procalcitonin (0.02-0.09) ng/mL
--- NOTE | 2020-10-12 13:36 | PN ---
PROGRESS NOTE DATE OF SERVICE: 10/12/2020. HISTORY: The patient is a 50-year-old pleasant white male admitted to the hospital with acute severe pancreatitis related to severe hypertriglyceridemia and new onset diabetes mellitus. The patient is gradually improving. He still complains of some abdominal distention and abdominal pain, on a full liquid diet, tolerating well. He denies any nausea, vomiting. He denies any fever, chills, or night sweats. PHYSICAL EXAMINATION: He appears comfortable. No apparent distress. VITAL SIGNS: Stable. Blood pressure is 127/86, pulse rate 77, temperature 97.5. HEENT examination unremarkable. Sclerae anicteric. Oral cavity no lesions. NECK: No JVD enlargement. CHEST: Clear to auscultation. HEART: Regular rate and rhythm. ABDOMEN: Slightly distended but it was soft. Bowel sounds are positive, minimal tenderness in the epigastric area. EXTREMITIES: No pedal edema. NEURO: He is alert and oriented x3. No focal deficits. LABS: From yesterday, WBC 15.2, hemoglobin 10.2, platelets normal. AST, ALT, T-bilirubin and alkaline phosphatase are within normal limits. IMPRESSION: 1. Acute severe pancreatitis secondary to hypertriglyceridemia, which is gradually improving. 2. Abdominal distention abdominal ileus. Repeat abdominal x-rays showed nonspecific bowel gas pattern. No evidence of ileus or bowel obstruction noted. 3. History of acute hypoxic respiratory failure secondary to severe acute pancreatitis which is resolving. 4. Newly diagnosed diabetes mellitus/diabetic ketoacidosis, resolving. RECOMMENDATIONS: 1. Continue with symptomatic and supportive care. 2. Increase ambulation. 3. Advance diet as tolerated. 4. Monitor labs closely. 5. Aggressive control of hypertriglyceridemia. 6. We will follow with you closely. Thank you for this consultation. MMODL / IJN: [id number] /
[2020-10-12] MEDS: HYDROcodone/APAP 7.5-325MG 1 EACH TAB PO PRN ×2 (14:11→20:13)
[2020-10-12 16:31] LABS: Glucose,Whole Blood 187 mg/dL (75-99)
[2020-10-12 20:37] LABS: Glucose,Whole Blood 190 mg/dL (75-99)
[2020-10-13 07:02] LABS: ALT 21 U/L (4-49); AST 36 U/L (17-59); African American GFR (CKD) >90 (>60 ml/min/1.73 sqM); Albumin 2.4 g/dL (3.5-5.0); Albumin/Globulin Ratio 0.8; Alkaline Phosphatase 131 U/L (38-126); Anion Gap 6 mmol/L; Blood Urea Nitrogen 6 mg/dL (9-20); Calcium 8.1 mg/dL (8.4-10.2); Carbon Dioxide 33 mmol/L (22-30); Chloride 95 mmol/L (98-107); Glucose 165 mg/dL (74-99); Non-African American GFR(CKD) >90 (>60 ml/min/1.73 sqM); Potassium 3.3 mmol/L (3.5-5.1); Sodium 134 mmol/L (137-145); Total Bilirubin 0.5 mg/dL (0.2-1.3); Total Protein 5.4 g/dL (6.3-8.2)
[2020-10-13 07:04] LABS: Glucose,Whole Blood 154 mg/dL (75-99)
[2020-10-13 07:10] LABS: Basophils # (A) 0.1 k/uL (0-0.2); Basophils % (A) 1 %; Eosinophils # (A) 0.2 k/uL (0-0.7); Eosinophils % (A) 1 %; HCT 31.8 % (39.0-53.0); HGB 10.1 gm/dL (13.0-17.5); Hypochromasia Slight; Lymphocytes # (A) 1.3 k/uL (1.0-4.8); Lymphocytes % (A) 7 %; MCH 29.6 pg (25.0-35.0); MCHC 31.7 g/dL (31.0-37.0); MCV 93.1 fL (80.0-100.0); Mean Platelet Volume 8.2; Monocytes # (A) 0.8 k/uL (0-1.0); Monocytes % (A) 4 %; Neutrophils # (A) 15.8 k/uL (1.3-7.7); Neutrophils % (A) 85 %; Platelet Count 268 k/uL (150-450); RBC 3.41 m/uL (4.30-5.90); RDW 13.9 % (11.5-15.5); WBC 18.7 k/uL (3.8-10.6)
[2020-10-13] MEDS: ENOXAPARIN 100 MG/ML SYRINGE SQ SCH (08:00)
[2020-10-13] MEDS: valACYclovir 500 MG TAB PO SCH (08:00)
[2020-10-13] MEDS: amLODIPine 5 MG TAB PO SCH (08:00)
[2020-10-13] MEDS: busPIRone HCl 10 MG TAB PO SCH ×3 (08:00→21:16)
[2020-10-13] MEDS: INSULIN DETEMIR (LEVEMIR) 100 UNIT/ML SYR SQ SCH (08:01)
[2020-10-13] MEDS: PANTOPRAZOLE 40 MG TABLET PO SCH (08:01)
[2020-10-13] MEDS: INSULIN ASPART (NovoLOG) 100 UNIT/ML VIAL SQ SCH ×4 (08:01→20:30)
[2020-10-13] MEDS ORDERED: POTASSIUM CHLORIDE ER 20 MEQ TAB.ER PO STA ×2 (08:39→09:47)
[2020-10-13] MEDS ORDERED: LACTULOSE 20 GM/30 ML CUP PO PRN (08:42)
--- NOTE | 2020-10-13 09:02 | P.PN ---
Subjective Progress Note Date: 10/13/20 Principal diagnosis: Pancreatitis Patient says his pain has improved today. Tolerating full liquids. Still feels bloated. No fevers. He has been moving about in the room but not ambulating in the hallways thus far. Objective - Vital Signs Vital signs: Vital Signs Temp 98.2 F 10/13/20 07:52 Pulse 68 10/13/20 07:52 Resp 19 10/13/20 07:52 BP 165/101 10/13/20 07:52 Pulse Ox 96 10/13/20 07:52 Intake & Output 10/12/20 10/13/20 10/13/20 18:59 06:59 18:59 Intake Total 540 Balance 540 Intake: Oral 540 Other: # Voids 3 4 # Bowel Movements 1 - Exam Abdomen: Soft, distended, mild epigastric tenderness - Labs CBC & Chem 7: 10/13/20 06:30 10/13/20 06:30 Labs: Abnormal Lab Results - Last 24 Hours (Table) 10/12/20 10/12/20 10/12/20 Range/Units 11:45 16:30 20:35 WBC (3.8-10.6) k/uL RBC (4.30-5.90) m/uL Hgb (13.0-17.5) gm/dL Hct (39.0-53.0) % Neutrophils # (1.3-7.7) k/uL Sodium (137-145) mmol/L Potassium (3.5-5.1) mmol/L Chloride (98-107) mmol/L Carbon Dioxide (22-30) mmol/L BUN (9-20) mg/dL Creatinine (0.66-1.25) mg/dL Glucose (74-99) mg/dL POC Glucose (mg/dL) 170 H 187 H 190 H (75-99) mg/dL Calcium (8.4-10.2) mg/dL Alkaline Phosphatase (38-126) U/L Total Protein (6.3-8.2) g/dL Albumin (3.5-5.0) g/dL 10/13/20 10/13/20 10/13/20 Range/Units 06:30 06:30 07:03 WBC 18.7 H (3.8-10.6) k/uL RBC 3.41 L (4.30-5.90) m/uL Hgb 10.1 L (13.0-17.5) gm/dL Hct 31.8 L (39.0-53.0) % Neutrophils # 15.8 H (1.3-7.7) k/uL Sodium 134 L (137-145) mmol/L Potassium 3.3 L (3.5-5.1) mmol/L Chloride 95 L (98-107) mmol/L Carbon Dioxide 33 H (22-30) mmol/L BUN 6 L (9-20) mg/dL Creatinine 0.55 L (0.66-1.25) mg/dL Glucose 165 H (74-99) mg/dL POC Glucose (mg/dL) 154 H (75-99) mg/dL Calcium 8.1 L (8.4-10.2) mg/dL Alkaline Phosphatase 131 H (38-126) U/L Total Protein 5.4 L (6.3-8.2) g/dL Albumin 2.4 L (3.5-5.0) g/dL Assessment and Plan (1) Pancreatitis Narrative/Plan: Patient's pancreatitis does seem to be improving. Continue full liquids. Am bulate in the hallways. Current Visit: Yes Status: Acute Code(s): K85.90 - ACUTE PANCREATITIS WITHOUT NECROSIS OR INFECTION, UNSP SNOMED Code(s): 46544035
--- NOTE | 2020-10-13 09:43 | P.PN ---
Subjective 49-year-old male came in with comments of nausea vomiting for couple days in the significant polyuria and polydipsia that has been going on for about a week. Patient was coming of severe abdominal pain sharp in nature nonradiating diffuse. Patient is found to be in DKA and patient is also found to have severe pancreatitis. Patient had a CT of the abdomen which showed edematous pancreatic that is without any necrosis. There was a secondary combination of splint vein thrombosis as well and patient abdomen is quite a bit distended with distention of the stomach there is significant duodenitis jejunitis along with a foreign body in the second part of the duodenum probably contributing or causing gastric outlet obstruction. General surgery was consulted. Patient was admitted to ICU patient has severe acidosis patient is a has a highly elevated blood sugars of 4000 bicarbonate of 10 and multiple other electrolyte abnormalities. Patient the ionized calcium is low as well and calcium was replaced. Patient is found to be in acute renal failure with creatinine of around 2.4 patient was hypotensive presently not on any pressors patient is presently receiving IV fluids. Triglyceride levels are pending. Patient is not an alcoholic. There is no evidence of gallstones and the CT of the abdomen. Patient the had a hemoglobin A1c tested recently about couple months ago at that time his hemoglobin A1c was within normal limits as per the . Patient baseline creatinine is around 0.9, patient denied any fever chills dysuria. P atient doesn't have any fever does have significant leukocytosis. White blood cell count of around 25,000. Serum sodium was extremely low and serum potassium is very high is all because of the acidosis and hyperglycemia. Patient was pretty status has progressively worsened since last night and pa tient is present and BiPAP. Patient has significant abdominal distention with significant air-fluid level in the abdomen and stomach patient does have some ascites on the CT and this is secondary to severe peritonitis. Patient is presently on empiric Zosyn although there is no clear evidence of infection at this time. 10/06/2020 Patient's anion gap resolved. Patient's insulin will be discontinued and patient was started on 20 units of long-acting insulin along with pre-meal insulin. Patient the nausea improved patient still has some abdominal pain which also significantly improved. Patient will be started on clear liquid diet. We'll also obtain a hemoglobin A1c. Patient will be changed to normal saline at 100 mL per hour. Patient hyponatremia is improving. Patient's anion gap resolved. Patient remains on norepinephrine which is being tapered. Patient is presently on 8 L of oxygen as a postal BiPAP yesterday lung clear to auscultation with good air entry into bilateral lung bernal patient's abdomen is still distended nothing much from the NG tube NG tube will be removed. Patient's lipase has come down to 2000. 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 Patient does have elevated triglyceride levels will repeat triglyceride levels again tomorrow. Triglycerides around 1100. 10/07/2020 Patient is seen and examined in follow-up continues to be closely monitored in the ICU. Patient continues with NG tube with bilious drainage noted and surgery is following closely. Patient is off of levophed and chest x-ray today shows some mild interstitial prominence with possible mild pulmonary vascular congestion with patchy retrocardiac atelectasis versus developing pneumonia and will be given a dose of IV Lasix. Will decrease IV fluids. Patient continues to be nothing by mouth and states his abdominal discomfort has improved and is passing gas with no reports of bowel movement as of yet. Family at the bedside concerned that he has not been taking his Valtrex that he takes 500 mg daily for history of internal shingles and is on 500 mg daily we'll add acyclovir IV piggyback as patient is currently nothing by mouth. Patient is currently on 5 L via nasal cannula and discussed with nursing staff about weaning FiO2 as tolerated as he was maintaining 95% oxygen saturation. Urology continues on IV heparin and will continue at this time. Cotton Wringer also following closely. Patient is continued on sliding scale along with long-acting and recommend to continue with Accu-Cheks before meals and at bedtime. Lipase today improving at 1004. Creatinine slightly improved at 1.49, potassium is 3.6, sodium is 134, white blood count trending down at 11.5 and hemoglobin is stable at 9.9. Calcium is low at 5.8 being replaced and will monitor closely 10/08/2020 Patient is seen in follow-up this morning no acute overnight issues. Since states he continues to have mild abdominal discomfort and feels slightly more distended. Positive bowel sounds noted on exam and states he had a bowel movement last night. Patient denies any nausea or vomiting and continues with NG tube with approximately 500 mL since last night. Patient was given a dose of IV Lasix with good urinary output. Nursing staff working on weaning FiO2 as tolerated and currently on 2 L via nasal cannula. Patient states he continues to have periods of shortness of breath although feels is not worsened since admission. Blood sugars continue to be monitored closely and continued with sliding scale and long-acting and have remained in the low to mid 100s and will continue current management. Repeat plasma lactic acid is within normal limits at 0.6. Calcium 6.4 and albumin at 2.8. Kidney function improved with a BUN of 26 and a creatinine of 1.10. Sodium is 136 and potassium is 3.3 and will replace per protocol. White blood count slowly trending down at 11.0 and hemoglobin is stable at 9.3. Repeat CT abdomen is ordered and pending at this time and GI has been consulted which is also pending. Patient remains afebrile. 10/09/2020 Patient is evaluated this morning and has been slowly started on clear liquids and was intermittently having the NG tube clamped and tolerating. Currently at the bedside with nursing removing the NG tube. Patient is passing gas and has a reported bowel movement yesterday. Patient continues to have abdominal discomfort with distention noted on exam. Patient continues on heparin and will need anticoagulation. Continue to monitor electrolytes and being replaced per protocol. GI following and have ordered additional labs and pending. Will have PT/OT evaluated the patient. Amylase is now 201. WBC within normal limits. 10/10/2020 Patient is seen in follow-up this morning currently sitting up in the chair and slowly increasing activity as tolerated with encouragement. Patient was seen and evaluated by physical therapy and will need to continue with encouragement of increasing activity and getting out of the bed more often. Patient continues to have some abdominal discomfort and distention although somewhat improved and patient is tolerating clear liquids and slowly advancing as tolerated. No reports of nausea or vomiting noted. Patient again had another bowel movement yesterday and reports to passing gas. NG tube has been discontinued. Patient continues on 3 L of oxygen and will need to continue to wean FiO2 as tolerated. Blood pressure remains slightly elevated at 149/97 and will resume home dose of amlodipine and continue to monitor closely. Patient was also on acyclovir IV and normally takes maintenance dose of 500 mg Valtrex by mouth for history of shingles and will resume this as well. Patient needs encouragement with continued use of incentive spirometer at least 10 times every hour while awake. Surgery and GI following as well. White blood count slightly elevated at 15.2, hemoglobin is stable at 10.3, sodium is 139 with a potassium at 3.8 current creatinine is 0.7. Calcium improved at 8.1. Patient is maintained on Accu- Cheks before meals and at bedtime and will continue along with insulin regimen currently prescribed. Patient is being transferred out of the ICU once a bed becomes available. Patient continues on IV Unasyn and will continue at this time. IV heparin was discontinued and patient is on subcutaneous Lovenox. 10/11/2020 Patient is seen in the ICU currently being transferred to [facility] and is being closely monitored. Patient continues to tolerate clear liquids and is passing gas and having bowel movements. Patient was placed on Lovenox and IV heparin was discontinued. Will discuss with physical optics teacher about oral anticoagulation once discharged. Patient continues to have abdominal distention and some discomfort although states is slowly improving. White blood count remains elevated at 15.2, hemoglobin is 10.2, sodium is 136 with a potassium of 3.5 and current creatinine is 0.62. Blood sugars being closely monitored. LFTs have normalized . GI also following and diet being advanced to full liquids as tolerated. Patient continues on IV antibiotics and will continue for now. Weaning down FiO2 as tolerated and currently on 2 L via nasal cannula. Patient needs strong encouragement on the use of incentive spirometer and will continue to wean. 10/12/2020 An overnight events patient didn't have a bowel movement today did have one as today patient's abdominal pain is better will cut down the dose of IV opiates patient will be started on oral [place] for pain. Patient remains on 3 L of oxygen which we will try and wean off. To have a leukocytosis with white blood cell count of 15,000 red patient completed antibiotic therapy with Unasyn probably will not require any more antibiotic. 10/13/2020 Patient feels much better after moving bowel. Patient is cost. Because of IV opiates he was receiving which were dyspnea and patient remains on [place]. We'll use lactulose for constipation patient abdomen is still distended and tympanic. Patient is presently not requiring oxygen was back on oxygen last night may have a competent of sleep apnea may be just secondary to abdominal distention. His white blood cell count continue to get worse etiology of this elevated white blood cell count is not clear what do septic workup with blood culture, UA, urine culture and a chest x-ray. Patient is bit hyponatremic because of access by mouth fluid intake which will be restricted to 1500 mL and patient was started on IV fluids and potassium will be replaced which is low. Constitutional: Denied any fatigue denied any fever. Cardio vascular: denied any chest pain, palpitations Gastrointestinal denied any nausea vomiting Pulmonary: Denied any shortness of breath cough Neurologic denied any new focal deficits All inpatient medications were reviewed and appropriate changes in these medications as dictated in the interval history and assessment and plan. - Exam GENERAL: The patient is alert and oriented x3, sitting up in the chair, not in any acute distress, currently on 2-3 L via nasal cannula. Obese HEENT: Pupils are round and equally reacting to light. EOMI. No scleral icterus. No conjunctival pallor. Normocephalic, atraumatic. No pharyngeal erythema. No thyromegaly. CARDIOVASCULAR: S1 and S2 present. No murmurs, rubs, or gallops. PULMONARY: Diminished breath sounds bilaterally with some scattered rhonchi noted ABDOMEN: Distended, no tenderness but the tympanic bowel sounds noted, no rebound or rigidity MUSCULOSKELETAL: No joint swelling or deformity. EXTREMITIES: No cyanosis, clubbing, or pedal edema. NEUROLOGICAL: Gross neurological examination did not reveal any focal deficits. diffuse weakness SKIN: No rashes. Assessment and Plan Assessment: -Acute pancreatitis severe edematous pancreatitis, etiology is not clear , can be secondary to hypertriglyceridemia -Severe abdominal distention secondary to constipation -Leukocytosis etiology is not clear now patient has worsening leukocytosis we'll obtain septic workup as mentioned above. -Acute hypoxic respiratory failure: Secondary to severe systemic inflammatory response from pancreatitis, improved now patient is still becomes hypoxic at nighttime probably because of sleep apnea -Severe anion gap metabolic acidosis secondary to diabetic ketoacidosis and lactic acidosis, improved -Hyponatremia: Combination of hypovolemic hyponatremia and pseudohyponatremia from hyperglycemia, improved now -History of shingles -Elevated pro calcitonin, patient completed course of antibiotics will not require any more antibiotics. There is no clear evidence of infection anywhere since admission. -Diabetic ketoacidosis and severe hyperglycemia secondary to acute pancreatic insufficiency patient probably will need insulin and will be insulin dependent from now on. Patient's blood sugars are well controlled on present regimen -Hyperkalemia secondary to metabolic acidosis, improved now -acute renal failure, most probably secondary to acute tubular necrosis from hypotension. Improved. 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 -Obesity with a body mass index of 36.9 -Hypocalcemia secondary to metabolic acidosis, improving -Tachycardia secondary to shock, improved -full code Objective - Vital Signs Vital signs: Vital Signs Temp 98.2 F 10/13/20 07:52 Pulse 68 10/13/20 07:52 Resp 19 10/13/20 07:52 BP 165/101 10/13/20 07:52 Pulse Ox 96 10/13/20 07:52 Intake & Output 10/12/20 10/13/20 10/13/20 18:59 06:59 18:59 Intake Total 540 Balance 540 Intake: Oral 540 Other: # Voids 3 4 # Bowel Movements 1 - Labs CBC & Chem 7: 10/13/20 06:30 10/13/20 06:30 Labs: Abnormal Lab Results - Last 24 Hours (Table) 10/12/20 10/12/20 10/12/20 Range/Units 11:45 16:30 20:35 WBC (3.8-10.6) k/uL RBC (4.30-5.90) m/uL Hgb (13.0-17.5) gm/dL Hct (39.0-53.0) % Neutrophils # (1.3-7.7) k/uL Sodium (137-145) mmol/L Potassium (3.5-5.1) mmol/L Chloride (98-107) mmol/L Carbon Dioxide (22-30) mmol/L BUN (9-20) mg/dL Creatinine (0.66-1.25) mg/dL Glucose (74-99) mg/dL POC Glucose (mg/dL) 170 H 187 H 190 H (75-99) mg/dL Calcium (8.4-10.2) mg/dL Alkaline Phosphatase (38-126) U/L Total Protein (6.3-8.2) g/dL Albumin (3.5-5.0) g/dL 10/13/20 10/13/20 10/13/20 Range/Units 06:30 06:30 07:03 WBC 18.7 H (3.8-10.6) k/uL RBC 3.41 L (4.30-5.90) m/uL Hgb 10.1 L (13.0-17.5) gm/dL Hct 31.8 L (39.0-53.0) % Neutrophils # 15.8 H (1.3-7.7) k/uL Sodium 134 L (137-145) mmol/L Potassium 3.3 L (3.5-5.1) mmol/L Chloride 95 L (98-107) mmol/L Carbon Dioxide 33 H (22-30) mmol/L BUN 6 L (9-20) mg/dL Creatinine 0.55 L (0.66-1.25) mg/dL Glucose 165 H (74-99) mg/dL POC Glucose (mg/dL) 154 H (75-99) mg/dL Calcium 8.1 L (8.4-10.2) mg/dL Alkaline Phosphatase 131 H (38-126) U/L Total Protein 5.4 L (6.3-8.2) g/dL Albumin 2.4 L (3.5-5.0) g/dL
[2020-10-13] MEDS: SODIUM CHLORIDE 0.9% 1,000 ML IV SCH ×2 (09:54→20:31)
[2020-10-13] MEDS: lisinopriL 10 MG TAB PO SCH (09:54)
--- NOTE | 2020-10-13 10:09 | XR ---
EXAMINATION TYPE: XR chest 2V DATE OF EXAM: 10/13/2020 COMPARISON: Chest x-ray 10/11/2020 HISTORY: Pneumonia TECHNIQUE: Frontal and lateral views of the chest are obtained. FINDINGS: Patchy basilar density persists. No evident pneumothorax or pleural effusion. Cardiac medi astinal IMPRESSION: Correlate for pneumonia versus atelectasis.
--- NOTE | 2020-10-13 10:44 | PN ---
PROGRESS NOTE DATE OF SERVICE: 10/13/2020 HISTORY OF PRESENT ILLNESS: The patient is a 58-year-old pleasant white male admitted to the hospital with acute severe pancreatitis related to hypertriglyceridemia. The patient is gradually improving. His abdominal pain has improved today. No nausea, no vomiting. No fever, chills, or night sweats. On a full liquid diet, tolerating well. PHYSICAL EXAMINATION: GENERAL: He appears comfortable. No apparent distress. VITAL SIGNS: Stable. Blood pressure 165/101, temperature 98.2, and pulse rate 68. HEENT: Examination unremarkable. Conjunctivae are pink. Sclerae anicteric. Oral cavity no lesions. NECK: No JVD or lymph node enlargement. CHEST: Clear to auscultation. HEART: Regular rate and rhythm. ABDOMEN: Soft, it was slightly distended and mild tenderness noted. EXTREMITIES: No pedal edema. SKIN: No rashes. NEURO: He is alert and oriented x3. No focal deficits. LABS: From today WBC 18.7, hemoglobin 10.1, platelets normal. Basic metabolic panel showed a BUN of 6, creatinine 0.55, sodium 134, potassium 3.3, chloride 95, CO2 33. AST, ALT normal, alkaline phosphatase is 131. IgG4 levels normal at 2.8. ISIDRO is negative. IMPRESSION: 1. Acute severe pancreatitis secondary to hypertriglyceridemia, gradually improving. 2. Small bowel ileus, improving. 3. Newly diagnosed diabetes mellitus. 4. Electrolyte abnormalities. RECOMMENDATIONS: 1. Advance to a low-fat diet. 2. Symptomatic and supportive care. 3. Small frequent meals. 4. Monitor labs closely. 5. We will follow with you. Thank you for this consultation. MMODL / IJN: [id number] /
[2020-10-13 11:28] LABS: Glucose,Whole Blood 189 mg/dL (75-99)
--- NOTE | 2020-10-13 11:29 | P.PN ---
Subjective Progress Note Date: 10/13/20 This is a pleasant 49-year-old gentleman who follows with Dr. Thompson as his primary care provider. He has a history of hyperlipidemia, hypertension, shingles with encephalomyelitis and cognitive impairment, anxiety/depression. Lifelong nonsmoker. He presented to the emergency room yesterday with a 2 day history of increasing abdominal discomfort, nausea vomiting dry heaves. Diaphoretic. Computed tomography scan of the abdomen revealed moderate to severe acute interstitial pancreatitis. Inflammatory edema and fat stranding tracks on the mesentery and retroperitoneum to the umbilical level. No focal fluid collection noted. There is secondary complication with a long segment nonocclusive splenic vein thrombosis. There is a 1.6 cm metal density within the second portion of the duodenum. Questionable etiology possible dental crown or other ingested foreign body. Unsure if this is contributing to some type of gastric outlet obstruction. There is contiguous duodenitis and proximal jejuni tis adjacent to the pancreatic inflammation. Trace perihepatic ascites and mild to moderate pelvic ascites secondary to pancreatic inflammation. No excretion of contrast and the kidneys on the delayed kidney images. Possible acute kidney injury. Hepatomegaly with severe hepatic steatosis. Sigmoid diverticulosis. 2 mm nonobstructive left renal calculus. White count 22.0. Hemoglobin 14.0. P latelet count 451. Sodium initially 116 currently 125. Potassium initially 6.0 currently 4.1. I carb initially 8, currently 15. Anion gap initially 28, currently 17. Creatinine 2.70. Initial blood glucose 969. Currently 179. Calcium 6.4. LDH 1570. AST 54. ALT 29. Amylase 901. Lipase 10,000 385. Acetone positive. Hurtado virus not detected. He is currently awake and alert. Maintaining O2 saturations in the 90s on 5 L/m per nasal cannula. He is on a heparin drip per weight-based protocol. Insulin drip at 12 units per hour. 0.9 normal saline at 10 mL per hour. He's had an extreme total of 4.5 L of fluid resuscitation. IV is to be changed to D5.45 with 20 KCl at 150 MLS per hour per DKA protocol. The patient is seen today 10/06/2020 in follow-up in the intensive care unit. He is currently laying flat in bed. Awake and alert in no acute distress. He is maintaining O2 saturations in the 90s on 5 L/m per nasal cannula. He is still having issues with ongoing abdominal discomfort. He's been hypotensive. He remains on norepinephrine at 0.03 mcg/kg/m. He is on a insulin drip at 6 units per hour. He remains on a heparin drip weight-based protocol. He remains on D5 0.45 with 20 KCl at 150 ML's per hour. Ultrasound of the Bladder revealed severe hepatic steatosis. Mild perihepatic ascites. No gallstones or biliary duct dilatation seen. White count 4.3. Hemoglobin 10.6. Sodium 131. Potassium 3.9. Creatinine 2.43. Calcium 5.5. AST 106. ALT 29. He remains on Unasyn. The patient is seen today 10/07/2020 in follow-up in the intensive care unit. Awake and alert in no acute distress. He is still confused at times. He is breathing quite flat in bed. He denies any worsening shortness of breath. He is maintaining O2 saturations in the 90s on 5 L high flow nasal cannula. Afebrile. Heparin drip per weight-based protocol. 0.9 normal saline at 100 mL per hour. Norepinephrine remains off. Chest x-ray shows some evidence of fluid volume overload. Some patchy retrocardiac atelectasis versus developing pneumonia. White count 11.5. Hemoglobin 9.9. Sodium 134. Potassium 3.6. Creatinine 1.49. Lipase 1004. Triglycerides 341. Glucose 152. On 10/08/2020 patient seen in follow-up in the intensive care unit, he is currently awake and alert, oriented 3, he is on 2 L of supplemental oxygen, his pulse ox is 93%, she is afebrile, hemodynamically stable, he is not on any vasopressor support, he is currently on 0.9 normal saline at a rate of 20 ML per hour, and heparin drip is at weight-based protocol for splenic vein thrombosis. Patient is slightly diaphoretic, and at times he is mildly tachypneic, but denies any acute respiratory distress. He has NG tube in his nose, and there has been 500 mL of gastric output in the last 24 hours, he feels that his abdomen is a bit more distended compared to yesterday, he does have positive b owel sounds, and he did have a bowel movement last night, his lipase has significantly improved from admission and is currently down to 1004. He remains on antibiotics of Unasyn and Zovirax. His CT of abdomen and pelvis from admission showed possible mental density drain 1.6 cm within the second portion of the duodenum, with the possibility of a foreign body or possible dental crown. Patient denies having any missing dental crowns. His abdominal CT of abdomen and pelvis will be repeated today and was discussed with the general surgery who is following the patient. Yesterday's chest x-ray showed mild interstitial prominence, and patient had received 1 dose of Lasix, and he has produced 4.4 L in urine output over last 24 hours. Rest of his blood work has been reviewed, his white count is steadily improving, and is down to 11 on today's labs, hemoglobin is 9.3, sodium is 136, potassium is 3.3, his renal profile is improving his BUN is 26 and creatinine is 1.1. Today's lactic acid i s down to 0.6, calcium is 6.4, pro calcitonin level is 5.93, patient is on antibiotics as mentioned above. Patient remains nothing by mouth. No blood cultures have been sent. Patient has been afebrile. The patient is seen today 10/09/2020 in follow-up in the intensive care unit. He is currently resting fairly comfortably in bed. Awake and alert in no acute distress. He still having some ongoing abdominal discomfort. Nasogastric tube remains in place. He is drinking water. On clear liquids. Follow-up CAT scan of the abdomen yesterday revealed persistent severe acute pancreatitis. No areas of necrosis or focal fluid collection identified. Persistent suspected splenic vein thrombosis. No free air. Persistent but improved gastric distention as her nasogastric tube placement. Reactive changes on duodenal sweep causing small bowel obstruction remain present. Interval passing of metallic density from second portion of duodenum was not clearly seen. White count 10.6. Hemoglobin 9.7. Platelet count 145. Sodium 138. Potassium 3.6. Creatinine 0.86. Amylase less than 30. Lipase 201. Calcium 7.0 He remains on heparin drip. Antibiotics in the form of Unasyn. Continued on acyclovir. The patient is seen today 10/11/2020 in follow-up in the intensive care unit. He is currently laying flat in bed. Awake and alert in no acute distress. He is maintaining O2 saturations in the 90s on 2 L/m per nasal cannula. No shortness of breath, cough or congestion. No fever. Hemodynamically stable. Still having some diffuse abdominal discomfort. Less than yesterday. Abdomen less distended. He has been moving his bowels. White count 15.2. Hemoglobin 10.2. Sodium 136. Potassium 3.5. Creatinine 0.62. He is on therapeutic Lovenox at 100 mg subcu every 12 hours. Antibiotics in form of Unasyn. IV Protonix. Tolerating clear liquids. 10/12/2020, the patient is still laying down supine. Doing limited amount of activity and I encouraged him to get up and walk around. Is still complaining of pain and discomfort throughout his abdomen mainly in the upper part. He feels that the pain is slightly subsided. No new complaints otherwise for now. No emesis. He is tolerating liquids. He was seen by general surgery. Afebrile. Hemodynamically stable. He got transferred out of the intensive care unit yesterday. He remains on IV Unasyn. The patient is also on Lovenox regarding his splenic vein thrombosis. 10/13/2020, the patient is doing well. Abdomen is less tense. The patient is less distended and no nausea or vomiting or diarrhea. He is having regular bowel movements. He is on room air oxygen. He is ambulating. Objective - Vital Signs Vital signs: Vital Signs Temp 98.2 F 10/13/20 07:52 Pulse 68 10/13/20 07:52 Resp 19 10/13/20 07:52 BP 165/101 10/13/20 07:52 Pulse Ox 96 10/13/20 07:52 Intake & Output 10/12/20 10/13/20 10/13/20 18:59 06:59 18:59 Intake Total 540 Balance 540 Intake: Oral 540 Other: # Voids 3 4 # Bowel Movements 1 - Exam GENERAL EXAM: Alert, pleasant 49-year-old, on 2 L nasal cannula, fairly comfortable in no apparent distress. HEAD: Normocephalic. EYES: Normal reaction of pupils, equal size. NOSE: Left nearly NG tube in place. Clear with pink turbinates. THROAT: No erythema or exudates. NECK: No masses, no JVD. CHEST: No chest wall deformity. LUNGS: Equal air entry with faint crackles in posterior bases. CVS: S1 and S2 normal with no audible murmur, regular rhythm. ABDOMEN: Tender to palpation, normal bowel sounds, no guarding or rigidity. SPINE: No scoliosis or deformity SKIN: No rashes CENTRAL NERVOUS SYSTEM: No focal deficits, tone is normal in all 4 extremities. EXTREMITIES: There is no peripheral edema. No clubbing, no cyanosis. Peripheral pulses are intact. - Labs CBC & Chem 7: 10/13/20 06:30 10/13/20 06:30 Labs: Abnormal Lab Results - Last 24 Hours (Table) 10/12/20 10/12/20 10/12/20 Range/Units 11:45 16:30 20:35 WBC (3.8-10.6) k/uL RBC (4.30-5.90) m/uL Hgb (13.0-17.5) gm/dL Hct (39.0-53.0) % Neutrophils # (1.3-7.7) k/uL Sodium (137-145) mmol/L Potassium (3.5-5.1) mmol/L Chloride (98-107) mmol/L Carbon Dioxide (22-30) mmol/L BUN (9-20) mg/dL Creatinine (0.66-1.25) mg/dL Glucose (74-99) mg/dL POC Glucose (mg/dL) 170 H 187 H 190 H (75-99) mg/dL Calcium (8.4-10.2) mg/dL Alkaline Phosphatase (38-126) U/L Total Protein (6.3-8.2) g/dL Albumin (3.5-5.0) g/dL 10/13/20 10/13/20 10/13/20 Range/Units 06:30 06:30 07:03 WBC 18.7 H (3.8-10.6) k/uL RBC 3.41 L (4.30-5.90) m/uL Hgb 10.1 L (13.0-17.5) gm/dL Hct 31.8 L (39.0-53.0) % Neutrophils # 15.8 H (1.3-7.7) k/uL Sodium 134 L (137-145) mmol/L Potassium 3.3 L (3.5-5.1) mmol/L Chloride 95 L (98-107) mmol/L Carbon Dioxide 33 H (22-30) mmol/L BUN 6 L (9-20) mg/dL Creatinine 0.55 L (0.66-1.25) mg/dL Glucose 165 H (74-99) mg/dL POC Glucose (mg/dL) 154 H (75-99) mg/dL Calcium 8.1 L (8.4-10.2) mg/dL Alkaline Phosphatase 131 H (38-126) U/L Total Protein 5.4 L (6.3-8.2) g/dL Albumin 2.4 L (3.5-5.0) g/dL Assessment and Plan Plan: 1 Acute abdominal pain secondary to moderate to severe acute pancreatitis. The patient is improved and her diet is being advanced and the patient is currently on room air oxygen. 2 Secondary complication with a long segment of nonocclusive splenic vein thrombosis. Currently on Lovenox 100 mg subcu every 12 hours. 3 1.6 cm metal density within the second portion of the duodenum. Correlate to etiology, question dental crown or other ingested foreign body. Unclear if this is contributing to some type of gastric outlet obstruction. This was not seen on repeat computed tomography scan of the abdomen on 10/08/2020. 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 The pain is still present although it is slowly subsiding. Increased mobility, activity, walking, room air oxygen, using incentive spirometer. We'll see as needed. Continue Lovenox.
[2020-10-13] MEDS: HYDROcodone/APAP 7.5-325MG 1 EACH TAB PO PRN ×3 (12:11→22:54)
[2020-10-13 16:34] LABS: Glucose,Whole Blood 108 mg/dL (75-99)
[2020-10-13 17:24] LABS: Appearance,Urine Clear (Clear); Bilirubin,Urine Negative (Negative); Blood,Urine Negative (Negative); Color,Urine Yellow; Glucose,Urine (UA) Trace (Negative); Ketones,Urine Negative (Negative); Leukocyte Esterase,Urine Negative (Negative); Nitrite,Urine Negative (Negative); PH, Urine 7.5 (5.0-8.0); Protein,Urine Negative (Negative); Specific Gravity,Urine 1.009 (1.001-1.035); Urobilinogen,Urine <2.0 mg/dL (<2.0)
[2020-10-13 20:22] LABS: Glucose,Whole Blood 140 mg/dL (75-99)
[2020-10-13] MEDS: APIXABAN 5 MG TAB PO SCH (20:30)
[2020-10-14] MEDS: HYDROcodone/APAP 7.5-325MG 1 EACH TAB PO PRN (04:30)
[2020-10-14 07:01] LABS: Glucose,Whole Blood 179 mg/dL (75-99)
[2020-10-14 07:19] VITALS: TEMP 98
[2020-10-14 07:43] LABS: HGB 10.2 gm/dL (13.0-17.5); MCH 30.3 pg (25.0-35.0); MCHC 32.8 g/dL (31.0-37.0); MCV 92.4 fL (80.0-100.0); Mean Platelet Volume 7.6; Platelet Count 299 k/uL (150-450); RBC 3.36 m/uL (4.30-5.90); RDW 13.8 % (11.5-15.5); WBC 16.5 k/uL (3.8-10.6)
[2020-10-14] MEDS: busPIRone HCl 10 MG TAB PO SCH (07:45)
[2020-10-14] MEDS: valACYclovir 500 MG TAB PO SCH (07:45)
[2020-10-14] MEDS: PANTOPRAZOLE 40 MG TABLET PO SCH (07:45)
[2020-10-14] MEDS: APIXABAN 5 MG TAB PO SCH (07:45)
[2020-10-14] MEDS: INSULIN ASPART (NovoLOG) 100 UNIT/ML VIAL SQ SCH ×2 (07:45→12:02)
[2020-10-14] MEDS: lisinopriL 10 MG TAB PO SCH (07:45)
[2020-10-14 12:00] LABS: Glucose,Whole Blood 192 mg/dL (75-99)
[2020-10-14] MEDS: INSULIN DETEMIR (LEVEMIR) 100 UNIT/ML SYR SQ SCH (12:02)
--- NOTE | 2020-10-14 14:29 | P.PN ---
Subjective Progress Note Date: 10/14/20 CHIEF COMPLAINT: Epigastric abdominal pain HISTORY OF PRESENT ILLNESS: Surgical service is following regards to patient's abdominal pain, pancreatitis and small bowel obstruction. Patient is lying in bed comfortably. He is having bowel movements. He is tolerating diet. Denies any abdominal pain. Afebrile. WBC is 16.5 hemoglobin 10.2 platelets are 299 PHYSICAL EXAM: VITAL SIGNS: Reviewed. GENERAL: Well-developed in no acute distress. HEENT: No sclera icterus. Extraocular movements grossly intact. Moist buccal mucosa. Head is atraumatic, normocephalic. ABDOMEN: Nontender nondistended NEUROLOGIC: Alert and oriented. Cranial nerves II through XII grossly intact. ASSESSMENT: 1. Acute Severe Pancreatitis 2. Duodenitis secondary to pancreatitis 3. Small bowel obstruction secondary to duodenitis 4. Splenic vein thrombosis PLAN: -No surgical intervention planned -Patient can be discharge from surgical standpoint Physician Director Pharmaceutical note has been reviewed by physician. Signing provider agrees with the documented findings, assessment, and plan of care. Objective - Vital Signs Vital signs: Vital Signs Temp 98 F 10/14/20 07:18 Pulse 73 10/14/20 08:01 Resp 16 10/14/20 08:01 BP 157/93 10/14/20 07:18 Pulse Ox 93 L 10/14/20 07:18 Intake & Output 10/13/20 10/14/20 10/14/20 18:59 06:59 18:59 Intake Total 480 960 Balance 480 960 Intake: Oral 480 960 Other: Voiding Method Toilet Toilet # Voids 3 1 # Bowel Movements 1 - Labs CBC & Chem 7: 10/14/20 07:16 10/13/20 06:30 Labs: Abnormal Lab Results - Last 24 Hours (Table) 10/13/20 10/13/20 10/13/20 Range/Units 16:32 17:18 20:18 WBC (3.8-10.6) k/uL RBC (4.30-5.90) m/uL Hgb (13.0-17.5) gm/dL Hct (39.0-53.0) % POC Glucose (mg/dL) 108 H 140 H (75-99) mg/dL Urine Glucose (UA) Trace H (Negative) 10/14/20 10/14/20 10/14/20 Range/Units 07:00 07:16 11:55 WBC 16.5 H (3.8-10.6) k/uL RBC 3.36 L (4.30-5.90) m/uL Hgb 10.2 L (13.0-17.5) gm/dL Hct 31.0 L (39.0-53.0) % POC Glucose (mg/dL) 179 H 192 H (75-99) mg/dL Urine Glucose (UA) (Negative) Microbiology - Last 24 Hours (Table) 10/13/20 09:57 Blood Culture - Preliminary Blood No Growth after 24 hours
[2020-10-14 15:04] VITALS: BP 166/100; PULSE 92; RESP 18
--- NOTE | 2020-10-14 16:26 | P.PN ---
Subjective Progress Note Date: 10/14/20 Principal diagnosis: Pancreatitis Patient is seen and examined lying in bed. States he has had a bowel movement today. Abdominal pain has improved. He denies any nausea or vomiting. He is passing gas. He has been up and ambulating. Plan is for discharge home today. Objective - Vital Signs Vital signs: Vital Signs Temp 98 F 10/14/20 07:18 Pulse 73 10/14/20 08:01 Resp 16 10/14/20 08:01 BP 157/93 10/14/20 07:18 Pulse Ox 93 L 10/14/20 07:18 Intake & Output 10/13/20 10/14/20 10/14/20 18:59 06:59 18:59 Intake Total 480 960 Balance 480 960 Intake: Oral 480 960 Other: Voiding Method Toilet Toilet # Voids 3 1 # Bowel Movements 1 - Exam General appearance: The patient is alert, oriented, appears in no acute distress. HET: Head is normocephalic and atraumatic. Conjunctiva pink. Sclera anicteric. Neck: Supple without lymphadenopathy. Abdomen: Soft, nontender, mildly distended with bowel sounds. No guarding or rigidity. Extremities: Normal skin color and turgor. No pedal edema Skin: No rashes, no jaundice Neurological: No focal deficits. Alert and oriented 3. - Labs CBC & Chem 7: 10/14/20 07:16 10/13/20 06:30 Labs: Abnormal Lab Results - Last 24 Hours (Table) 10/13/20 10/13/20 10/13/20 Range/Units 16:32 17:18 20:18 WBC (3.8-10.6) k/uL RBC (4.30-5.90) m/uL Hgb (13.0-17.5) gm/dL Hct (39.0-53.0) % POC Glucose (mg/dL) 108 H 140 H (75-99) mg/dL Urine Glucose (UA) Trace H (Negative) 10/14/20 10/14/20 10/14/20 Range/Units 07:00 07:16 11:55 WBC 16.5 H (3.8-10.6) k/uL RBC 3.36 L (4.30-5.90) m/uL Hgb 10.2 L (13.0-17.5) gm/dL Hct 31.0 L (39.0-53.0) % POC Glucose (mg/dL) 179 H 192 H (75-99) mg/dL Urine Glucose (UA) (Negative) Assessment and Plan (1) Pancreatitis Narrative/Plan: 50-year-old male who presented to the emergency department with severe abdominal pain associated with nausea and vomiting 4 days ago was found to have elevation in his pancreatic enzymes as well as hyperglycemia, and was noted to be in diabetic ketoacidosis. On admission his triglycerides were greater than 11,000, his glucose was 969, lipase greater than 20,000, and amylase 1399. CT of the abdomen and pelvis showed moderate to severe acute interstitial pancreatitis inflammatory edema and fat stranding tracks down the mesentery and retroperiton eum to the umbilical level. No focal fluid collection at this time. He was also noted to have a nonocclusive splenic vein thrombosis, a 1.6 cm metal density within the second portion of the duodenum, prominent fluid distention of the stomach, trace perihepatic ascites and mild to moderate pelvic ascites, secondary to pancreatic formation and hepatomegaly with severe hepatic steatosis. The patient denies any previous history of pancreatitis, previous alcohol abuse or current alcohol abuse, no new medications, no family history of pancreatitis, and no previous diagnosis of diabetes. Repeat CT of the abdomen and pelvis was completed today showing persistent severe acute pancreatitis. No areas of necrosis or focal fluid collection identified. Patient has acute non- complicated pancreatitis likely related to diabetic ketoacidosis and hypertriglyceridemia. Pancreatic enzymes as well as triglycerides have trended down. Yesterday triglycerides 141, lipase 1004. Status: Acute Code(s): K85.90 - ACUTE PANCREATITIS WITHOUT NECROSIS OR I NFECTION, UNSP SNOMED Code(s): 06455583 (2) Hepatic steatosis Status: Acute Code(s): K76.0 - FATTY (CHANGE OF) LIVER, NOT ELSEWHERE CLASSIFIED SNOMED Code(s): 281261629 (3) Acute kidney injury Status: Acute Code(s): N17.9 - ACUTE KIDNEY FAILURE, UNSPECIFIED SNOMED Code(s): 57599103 (4) Hyperglycemia Status: Acute Code(s): R73.9 - HYPERGLYCEMIA, UNSPECIFIED SNOMED Code(s): 95767667 (5) Hyponatremia Status: Acute Code(s): E87.1 - HYPO-OSMOLALITY AND HYPONATREMIA SNOMED Code(s): 27517750 (6) Small bowel obstruction Status: Acute Code(s): K56.609 - UNSP INTESTNL OBST, UNSP TO PARTIAL VERSUS COMPLETE OBST SNOMED Code(s): 577680189 (7) Splenic vein thrombosis Status: Acute Code(s): I82.890 - ACUTE EMBOLISM AND THROMBOSIS OF OTHER SPECIFIED VEINS SNOMED Code(s): 15641251 (8) Obesity Status: Acute Code(s): E66.9 - OBESITY, UNSPECIFIED SNOMED Code(s): 908865554 Plan: 1. Continue supportive care 2. Protonix 40 mg twice a day 3. Anti-emetics as needed 4. Diet as tolerated 5. Encourage ambulation 6. Continue with strict glycemic control 7. Continue treatment for hypertriglyceridemia Thank you for this consultation, patient is cleared for discharge from gastroenterology. Dr. Deandra Martinez I agree with the dictator's note, documented as a scribe by Lisa High.
--- NOTE | 2020-10-15 09:24 | P.DS ---
Providers Date of admission: 10/04/20 20:26 Expected date of discharge: 10/14/20 Attending physician: Lizzy Cantrell Consults: 10/04/20 20:26 Consult Physician Stat Consulting Provider: Zuhair Wu Consult Reason/Comments: critical care Do you want consulting provider notified?: Yes Consult Physician Urgent Consulting Provider: Ki Fitzgerald Consult Reason/Comments: pancreatitis Do you want consulting provider notified?: Already Contacted 10/08/20 08:25 Consult Physician Stat Consulting Provider: Key Martinez Consult Reason/Comments: pancreatitis Do you want consulting provider notified?: Yes Primary care physician: Jay Rolon Hospital Course: Final diagnosis -Acute pancreatitis severe edematous pancreatitis, etiology is not clear , can be secondary to hypertriglyceridemia -Severe abdominal distention secondary to constipation -Leukocytosis etiology is not clear, septic workup was negative -Acute hypoxic respiratory failure: Secondary to severe systemic inflammatory response from pancreatitis, improved now patient is still becomes hypoxic at nighttime probably because of sleep apnea -Severe anion gap metabolic acidosis secondary to diabetic ketoacidosis and lactic acidosis, improved -Hyponatremia: Combination of hypovolemic hyponatremia and pseudohyponatremia from hyperglycemia, improved now -History of shingles -Elevated pro calcitonin, patient completed course of antibiotics will not require any more antibiotics. There is no clear evidence of infection anywhere since admission. -Diabetic ketoacidosis and severe hyperglycemia secondary to acute pancreatic insufficiency -Hyperkalemia secondary to metabolic acidosis, improved now -acute renal failure, most probably secondary to acute tubular necrosis from hypotension. Improved. 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 -Obesity with a body mass index of 36.9 -Hypocalcemia secondary to metabolic acidosis, improving -Tachycardia secondary to shock, improved -full code Discharge disposition Patient is being discharged in a stable condition with guarded prognosis to home. Patient will follow-up with Dr. mesa in the outpatient setting upon discharge. Patient is to follow-up with pulmonary patient for further testing for possible sleep apnea. Total time taken is greater than 35 minutes. hospital course 49-year-old male came in with comments of nausea vomiting for couple days in the significant polyuria and polydipsia that has been going on for about a week. Patient was coming of severe abdominal pain sharp in nature nonradiating diffuse. Patient is found to be in DKA and patient is also found to have severe pancreatitis. Patient had a CT of the abdomen which showed edematous pancreatic that is without any necrosis. There was a secondary combination of splint vein thrombosis as well and patient abdomen is quite a bit distended with distention of the stomach there is significant duodenitis jejunitis along with a foreign body in the second part of the duodenum probably contributing or causing gastric outlet obstruction. General surgery was consulted. Patient was admitted to ICU patient has severe acidosis patient is a has a highly elevated blood sugars of 4000 bicarbonate of 10 and multiple other electrolyte abnormalities. Patient the ionized calcium is low as well and calcium was replaced. Patient is found to be in acute renal failure with creatinine of around 2.4 patient was hypotensive presently not on any pressors patient is presently receiving IV fluids. Triglyceride levels are pending. Patient is not an alcoholic. There is no evidence of gallstones and the CT of the abdomen. Patient the had a hemoglobin A1c tested recently about couple months ago at that time his hemoglobin A1c was within normal limits as per the . Patient baseline creatinine is around 0.9, patient denied any fever chills dysuria. Patient doesn't have any fever does have significant leukocytosis. White blood cell count of around 25,000. Serum sodium was extremely low and serum potassium is very high is all because of the acidosis and hyperglycemia. Patient was pretty status has progressively worsened since last night and patient is present and BiPAP. Patient has significant abdominal distention with significant air-fluid level in the abdomen and stomach patient does have some ascites on the CT and this is secondary to severe peritonitis. Patient is presently on empiric Zosyn although there is no clear evidence of infection at this time. 10/14/2020 She is seen in follow-up this morning with no acute overnight issues. Patient states he is passing gas and having bowel movements regularly and continues with some mild abdominal discomfort but states feels much improved. at the bedside and discussed about starting insulin anti-glycemic control and will be required to continue to monitor blood sugars before meals and at bedtime and keep a diary for primary care follow-up. Patient will continue with sliding scale before meals and at bedtime along with long-acting Levemir in the outpatient setting. patient was started on eliquis 5 mg twice daily for splenic been thrombosis and will likely require at least 3 months of anticoagulation and outpatient follow-up. Prescriptions also provided for follow-up labs to monitor white blood count along with kidney functions and electrolytes. Patient's hemoglobin A1c was 12.6 and again will be started on insulin and discussed with patient and about diet modifications, tight glycemic control, and following closely with primary care provider. Patient to follow-up with primary care provider upon discharge. Patient also needs follow-up testing in the outpatient setting with pulmonary to assess for possible sleep apnea. Patient to resume home medications and continue with full liquid diet and slowly advance to low fiber as tolerated over the next few days. Currently no reports of chest pain, shortness of breath, or palpitations. Patient is afebrile. No reports of nausea or vomiting and patient is tolerating diet. Patient will discharged home today. On exam vital signs are stable. Cardio S1, S2 are muffled. Respiratory system shows diminished breath sounds at the bases with no wheezing or rhonchi noted. Abdomen is soft and obese, and nontender. Nervous system shows no focal deficits. Please refer to medication reconciliation sheet for a list of medications. Patient Condition at Discharge: Stable Plan - Discharge Summary Discharge Rx Participant: Yes New Discharge Prescriptions: New Lactulose [Cephulac] 20 gm PO BID PRN #240 ml PRN Reason: Constipation INSULIN ASPART (NovoLOG) [NovoLOG (formulary)] 5 unit SQ ACHS #4 vial lisinopriL [Zestril] 10 mg PO DAILY 30 Days #30 tab Apixaban [Eliquis] 5 mg PO BID 30 Days #60 tab Insulin Detemir (Levemir) [Levemir] 20 unit SQ DAILY@0700 30 Days #4 syr Pantoprazole [Protonix] 40 mg PO DAILY 30 Days #30 tablet. traMADol HCl [Ultram] 50 mg PO Q6HR PRN 3 Days #12 tab PRN Reason: Pain Continue busPIRone HCl [Buspar] 10 mg PO TID Fenofibrate Nanocrystallized [Fenofibrate] 145 mg PO DAILY Atorvastatin Calcium [Lipitor] 10 mg PO HS valACYclovir HCL [Valtrex] 500 mg PO DAILY Discontinued Losartan Potassium [Cozaar] 100 mg PO DAILY Aspirin EC [Ecotrin Low Dose] 81 mg PO DAILY amLODIPine [Norvasc] 5 mg PO DAILY Discharge Medication List Atorvastatin Calcium [Lipitor] 10 mg PO HS 10/04/20 [History] Fenofibrate Nanocrystallized [Fenofibrate] 145 mg PO DAILY 10/04/20 [History] busPIRone HCl [Buspar] 10 mg PO TID 10/04/20 [History] valACYclovir HCL [Valtrex] 500 mg PO DAILY 10/04/20 [History] Apixaban [Eliquis] 5 mg PO BID 30 Days #60 tab 10/11/20 [Rx] INSULIN ASPART (NovoLOG) [NovoLOG (formulary)] 5 unit SQ ACHS #4 vial 10/14/20 [Rx] Insulin Detemir (Levemir) [Levemir] 20 unit SQ DAILY@0700 30 Days #4 syr 10/14/20 [Rx] Lactulose [Cephulac] 20 gm PO BID PRN #240 ml 10/14/20 [Rx] Pantoprazole [Protonix] 40 mg PO DAILY 30 Days #30 tablet. 10/14/20 [Rx] lisinopriL [Zestril] 10 mg PO DAILY 30 Days #30 tab 10/14/20 [Rx] traMADol HCl [Ultram] 50 mg PO Q6HR PRN 3 Days #12 tab 10/14/20 [Rx] Follow up Appointment(s)/Referral(s): Gonzales Mesa MD [Primary Care Provider] - 10/21/20 1:00 pm [facility],Equipment [NON-STAFF] - (Supplier of blood sugar meter and testing supplies. ) Ambulatory/Diagnostic Orders: Complete Blood Count w/diff [LAB.AMB] Time Frame: 3 Days, Location: None Selected Patient Instructions/Handouts: Pancreatitis (DC), Type 2 Diabetes in Adults: New Diagnosis (DC), Type 2 Diabetes Management for Adults (DC) Activity/Diet/Wound Care/Special Instructions: Eliquami script at [facility], cost $4 Continue low-fat diet Activity Limited until follow-up follow up with primary care provider upon discharge Follow-up pulmonary outpatient for possible sleep apnea testing Continue with medications as prescribed Continue to monitor blood sugars before meals and at bedtime and use sliding scale along with long acting insulin Keep A diary of blood sugar readings for primary care follow-up appointment NovoLog sliding scale 0-150 equals 0 units 151-200 equals 2 units 201-250 equals 4 units 251-300 equals 6 units 301-350 equals 8 units 351-400 equals 10 units Please notify provider if blood sugar is 400 or above HOld insulin if blood sugar is 120 or less Discharge Disposition: HOME SELF-CARE
== END 2020-10-14 15:15 | disposition home or self-care (01) | DRG 438 ==
LOC: EC 17:39 → 2SICU 20:26 → 4SSUR 10-11 12:14
PROVIDERS: ADMIT Internal Medicine; ATTEND Internal Medicine
PROC: 0D9670Z Drainage of Stomach with Drainage Device, Via Natural or Artificial Opening (ICD-10-PCS; principal; 2020-10-04)
DX: K85.80 Other acute pancreatitis without necrosis or infection (principal); E11.10 Type 2 diabetes mellitus with ketoacidosis without coma; J96.01 Acute respiratory failure with hypoxia; R57.1 Hypovolemic shock; K65.9 Peritonitis, unspecified; K31.1 Adult hypertrophic pyloric stenosis; K56.609 Unspecified intestinal obstruction, unspecified as to partial versus complete obstruction; N17.9 Acute kidney failure, unspecified; E87.1 Hypo-osmolality and hyponatremia; R18.8 Other ascites; K56.7 Ileus, unspecified; I82.890 Acute embolism and thrombosis of other specified veins; E78.5 Hyperlipidemia, unspecified; I10 Essential (primary) hypertension; Z86.718 Personal history of other venous thrombosis and embolism; E86.1 Hypovolemia; E87.70 Fluid overload, unspecified; E83.51 Hypocalcemia; E66.9 Obesity, unspecified; Z68.36 Body mass index [BMI] 36.0-36.9, adult; Z87.891 Personal history of nicotine dependence; Z20.822 Contact with and (suspected) exposure to COVID-19; Z79.82 Long term (current) use of aspirin; D72.829 Elevated white blood cell count, unspecified; K29.80 Duodenitis without bleeding; K52.9 Noninfective gastroenteritis and colitis, unspecified; K76.0 Fatty (change of) liver, not elsewhere classified; F32.9 Major depressive disorder, single episode, unspecified; F41.9 Anxiety disorder, unspecified; E78.1 Pure hyperglyceridemia; K21.9 Gastro-esophageal reflux disease without esophagitis; E87.5 Hyperkalemia; G47.30 Sleep apnea, unspecified; K57.30 Diverticulosis of large intestine without perforation or abscess without bleeding; K75.9 Inflammatory liver disease, unspecified; N20.0 Calculus of kidney; Z79.899 Other long term (current) drug therapy; Z86.19 Personal history of other infectious and parasitic diseases; Z86.61 Personal history of infections of the central nervous system; Z79.01 Long term (current) use of anticoagulants
CPT/HCPCS: 36415; 36600; 71045; 71046; 74019; 74177; 76705; 80048; 80051; 80053; 80061; 81003; 82009; 82150; 82330; 82533; 82565; 82787; 82805; 82947; 83036; 83605; 83615; 83690; 83721; 83735; 83880; 83930; 84100; 84132; 84145; 84443; 84450; 84460; 84478; 84484; 84520; 85025; 85027; 85610; 85730; 86038; 87040; 87635; 93005; 94660; 96361; 96374; 96375; 99291

== ENCOUNTER → 2021-02-06 | Outpatient (CLI) | payer MEDICARE, OTHER ==
--- NOTE | 2021-02-06 11:29 | XR ---
EXAMINATION TYPE: XR sternum DATE OF EXAM: 02/06/2021 COMPARISON: Chest x-ray October 13, 2020. CT abdomen and pelvis October 08, 2020 HISTORY: Pain and swelling near distal sternum TECHNIQUE: 2 view sternum. FINDINGS: Suboptimal due to body habitus. No acute displaced sternal fracture. No suspicious soft tis antonia swelling. IMPRESSION: As above.
== END | disposition home or self-care (01) ==
LOC: RADXRMAIN 10:52
PROVIDERS: ATTEND Internal Medicine
DX: R07.2 Precordial pain (principal)
CPT/HCPCS: 71120

== ENCOUNTER → 2023-11-02 | Outpatient (CLI) | payer MEDICARE, OTHER ==
--- NOTE | 2023-11-02 20:19 | US ---
EXAMINATION TYPE: US abdomen complete DATE OF EXAM: 11/02/2023 COMPARISON: 10/05/2020 CLINICAL INDICATION: Male, 53 years old with history of K85.90 Acute pancreatitis without necrosis or infe; Patient denies any signs or symptoms at this time TECHNIQUE: Multiple sonographic images of the abdomen are obtained. FINDINGS: EXAM MEASUREMENTS: Liver Length: 19.0 cm Gallbladder Wall: 0.2 cm CBD: 0.5 cm Spleen: 12.8 cm Right Kidney: 13.5 x 5.8 x 6.3 cm Left Kidney: 13.0 x 6.4 x 6.7 cm CLIENT SUPPORT CONSULTANT NOTES: Pancreas: Limited by bowel gas. Visualized portions within normal limits. Liver: Enlarged, coarse Gallbladder: Stones seen Evidence for sonographic Salcedo's sign: No CBD: wnl Spleen: wnl Right Kidney: Hypoechoic lesion is indeterminant. Left Kidney: Too small characterize renal lesion. Nonobstructing 1.5 cm lower pole calculus. Upper IVC: wnl Abd Aorta: wnl IMPRESSION: 1. Cholelithiasis with no CT evidence of cholecystitis. 2. Hepatomegaly with a nonspecific pattern of liver which can be seen with underlying hepatic steatos is or hepatocellular disease. Correlate clinically. 3. Nonobstructing lower pole left renal calculus.
== END | disposition home or self-care (01) ==
LOC: RADUSWWP 08:13
PROVIDERS: ATTEND Student in an Organized Health Care Education/Training Program
DX: K85.90 Acute pancreatitis without necrosis or infection, unspecified (principal); K80.20 Calculus of gallbladder without cholecystitis without obstruction; R16.0 Hepatomegaly, not elsewhere classified; N20.0 Calculus of kidney
CPT/HCPCS: 76700